=== PATIENT | female | born 1975 | race Caucasian/White ===

== ENCOUNTER 2019-05-13 15:26 | Outpatient (CLI) | payer MEDICARE, SELFPAY ==
--- NOTE | ~2019-05-13 | XR_ITS ---
XR foot RT min 3V DATE: 05/13/2019 15:53 INDICATION: Right foot pain. Injury to plantar surface of right foot. TECHNIQUE: 4 views COMPARISON: None FINDINGS: Plantar calcaneal enthesopathy. No fracture or dislocation, periosteal reaction or bone destruction is detected. IMPRESSION: Plantar calcaneal enthesopathy No fracture or dislocation Reviewed, dictated and finalized at location A.
== END 2019-05-13 15:27 | disposition home or self-care (01) ==
LOC: ANHIMG 15:40
PROVIDERS: PCP Family Medicine; Visit Provider Nurse Practitioner Family
DX: M79.671 Pain in right foot (principal); M77.31 Calcaneal spur, right foot
CPT/HCPCS: 73630

== ENCOUNTER 2019-12-11 02:02 | Emergency (ER) | payer MEDICARE, MEDICAID, SELFPAY ==
--- NOTE | ~2019-12-11 | XR_ITS ---
EXAMINATION: XR knee LT 3V DATE: 12/11/2019 02:39 INDICATION: Left knee pain TECHNIQUE: Four views of the left knee were obtained. COMPARISON: None. FINDINGS: Alignment is normal. No fracture or osteochondral lesion. Joint spaces are normal with no e rosions. A small knee joint effusion is present. There is anterior soft tissue swelling of the knee. IMPRESSION: 1. Soft tissue swelling and small effusion without acute osseous abnormality. Reviewed, dictated and finalized at location A. NG PROFESSOR
[2019-12-11 02:01] VITALS: BP 139/95; PULSE 69; RESP 20; TEMP 36.3; O2SAT 100
[2019-12-11] MEDS: MORPHINE SULFATE (*CRX) 4 MG/ML INJ IV PUSH (02:14)
--- NOTE | 2019-12-11 02:32 | ED.LOWEXIN ---
HPI - Extremity Injury (Lower) General Chief Complaint: Extremity Injury, Lower Stated Complaint: L knee pain Time Seen by Provider: 12/11/19 02:06 History of Present Illness HPI Narrative: Patient is a 44-year-old female who presents to the ER with left knee pain. Patient reports she was standing at her sink when she had some sudden onset pain that caused her leg to buckle on her to fall to the ground. Pain went down towards mid calf on the anterior aspect of the ochoa. No numbness or tingling. No deformity. Patient has history of previous surgery around the knee when she had a degloving injury. She has chronic numbness over the anterior portion of her knee. Patient has increased discomfort with extension and flexion. Related Data Home Medications Medication Instructions Recorded Confirmed alprazolam [Xanax] 1 mg PO BID PRN 12/11/19 quetiapine [Seroquel] 400 mg PO BID 12/11/19 venlafaxine 150 mg PO DAILY 12/11/19 Allergies Allergy/AdvReac Type Severity Reaction Status Date / Time lisinopril Allergy Intermediate Loss of Verified 12/11/19 02:11 Consciousness butalbital Allergy Unknown Unknown Verified 12/11/19 02:11 caffeine Allergy Unknown Unknown Verified 12/11/19 02:11 Bumble Bee Allergy Severe Anaphylactic Uncoded 09/16/18 00:34 Shock Review of Systems Musculoskeletal: Musculoskeletal: Denies back pain, Reports arthralgias and Denies joint swelling Integumentary/Breasts: Skin/Breast: Denies rash Neurologic: Denies syncope, Denies focal weakness and Reports numbness (Chronic left anterior knee) [facility] Past Medical History Medical History (Updated 12/11/19 @ 04:01 by Janak Garcia MD) Anemia Esophageal ulcer Hypertension Family History Family History Father Hypertension Family history of malignant neoplasm of urinary bladder Mother Hypertension Other Family history of chronic obstructive pulmonary disease Family history of malignant neoplasm of breast Family history of thyroid disease Social History Social History Smoking status: Never smoker Alcohol intake: never Exam Narrative: Exam Narrative: GENERAL: Well-appearing, well-nourished, and in no acute distress. HEAD: Normocephalic, atraumatic. EXTREMITIES: No direct point tenderness to the left knee, there is a small bruise over the anterior aspect of the knee. Patient can reach full extension and near full flexion with passive range of motion. Decreased sensation over the anterior knee which is chronic. Normal pulses of the lower extremity. SKIN: Warm, dry, no rash. NEURO: Alert and oriented x3. PSYCH: Normal mood and affect. Course Course Emergency Course: Patient placed in knee immobilizer for comfort. Knee x-ray shows effusion. May have soft tissue injury. Needs follow-up with orthopedic surgery. Vital Signs Vital signs: Vital Signs Temperature 97.4 F L 12/11/19 02:01 Pulse Rate 69 12/11/19 02:01 Respiratory Rate 20 12/11/19 02:01 Blood Pressure 139/95 H 12/11/19 02:01 Pulse Oximetry 100 12/11/19 02:01 Temperature 97.4 F L 12/11/19 02:01 Pulse Rate 69 12/11/19 02:01 Respiratory Rate 20 12/11/19 02:01 Blood Pressure 139/95 H 12/11/19 02:01 Pulse Oximetry 100 12/11/19 02:01 MDM - Extremity Injury (Lower) Imaging Data My impression: X-ray right knee: Knee effusion Discharge Plan Discharge Clinical Impression: Effusion of knee joint, left Patient Disposition: Home, Self-Care Condition: Stable Instructions: Swollen Knee Joint (ED), Knee Immobilizer (ED) Additional Instructions: The x-ray of your knee is concerning for fluid within the knee. This may be physician representative of a soft tissue injury. You should wear your knee immobilizer and bear weight as tolerated using crutches. Return to the ER if you have chest pain with shortness of breath, cannot keep d
[2019-12-11 04:06] VITALS: BP 144/79; PULSE 72; RESP 18; O2SAT 100
[2019-12-11] MEDS: HYDROcodone/acetaminophen (*CRX) 5-325 MG TABLET 1 TAB PO (04:12)
== END 2019-12-11 04:35 | disposition home or self-care (01) ==
PROVIDERS: Emergency Provider Emergency Medicine; PCP Family Medicine
DX: M25.462 Effusion, left knee (principal); I10 Essential (primary) hypertension; Z86.2 Personal history of diseases of the blood and blood-forming organs and certain disorders involving the immune mechanism
CPT/HCPCS: 73562; 96374; 99284; A9270; J2270

== ENCOUNTER 2019-12-12 01:54 | Emergency (ER) | payer MEDICARE, MEDICAID, SELFPAY ==
--- NOTE | ~2019-12-12 | CT_ITS ---
EXAMINATION: CT knee LT wo con EXAM DATE: 12/12/2019 03:00 INDICATION: Left knee pain after fall last night. Initial encounter. TECHNIQUE: Spiral CT knee LT wo con was performed without contrast. Axial, coronal and sagittal felix ges were reviewed. The dose-length product (DLP) for this examination was 464.28 mGy-cm. The exposu re was tailored according to patient size (auto mA exposure control), and iterative reconstruction (A SIR) was used as additional dose reduction technique. There is no prior study for comparison. FINDINGS: There are no acute left knee fractures or dislocations identified. There is no subcutaneou s gas. The soft tissue is unremarkable. There are no radiopaque foreign bodies. There is no joint effusion. Mild soft tissue swelling anteriorly. There is mild medial tibiofemoral compartment primar y osteoarthritis. IMPRESSION: Mild left knee osteoarthritis. Reviewed, dictated and finalized at location B. HER BELT SHAPER
[2019-12-12 01:59] VITALS: BP 147/113; PULSE 80; RESP 18; TEMP 36; O2SAT 98
--- NOTE | 2019-12-12 02:10 | ED.LOWEXIN ---
HPI - Extremity Injury (Lower) General Chief Complaint: Extremity Injury, Lower Stated Complaint: leg pain, seen here last night Time Seen by Provider: 12/12/19 01:59 History of Present Illness HPI Narrative: Fall onto he left knee last night. Seen here and had negative x-ray. Discharged with norco. Says that she can not tolerate the pain. It is getting worse and she is not able to walk or sleep. Related Data Home Medications Medication Instructions Recorded Confirmed alprazolam [Xanax] 1 mg PO BID PRN 12/11/19 12/21/19 quetiapine [Seroquel] 400 mg PO BID 12/11/19 12/21/19 venlafaxine 150 mg PO DAILY 12/11/19 12/21/19 Allergies Allergy/AdvReac Type Severity Reaction Status Date / Time lisinopril Allergy Intermediate Loss of Verified 12/12/19 13:20 Consciousness butalbital Allergy Unknown Unknown Verified 12/12/19 13:20 caffeine Allergy Unknown Unknown Verified 12/12/19 13:20 Bumble Bee Allergy Severe Anaphylactic Uncoded 12/12/19 13:20 Shock Review of Systems Review of Systems: All systems reviewed & are unremarkable except as noted in HPI and below Constitutional: Constitutional: Denies fever(s) Cardiovascular: Cardiovascular: Denies chest pain Respiratory: Respiratory: Denies dyspnea Neurologic: Denies dizziness PMFSH Past Medical History Medical History Anemia Esophageal ulcer Hypertension Surgical History Surgical History H/O elbow surgery left, 2012 History of ankle surgery left, 12/23/2017 and 03/29/2017 Family History Family History Father Hypertension Family history of malignant neoplasm of urinary bladder Mother Hypertension Other Family history of chronic obstructive pulmonary disease Family history of malignant neoplasm of breast Family history of thyroid disease Social History Social History Smoking status: Never smoker Alcohol intake: current 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 No obvious injury. Exam somewhat limited by body habitus and lack of cooperation. Psych: Appearance: disheveled Affect: Anxious affect present Course Vital Signs Vital signs: Vital Signs Temperature 36.0 C L 12/12/19 01:59 Pulse Rate 80 12/12/19 01:59 Respiratory Rate 18 12/12/19 01:59 Blood Pressure 147/113 H 12/12/19 01:59 Pulse Oximetry 98 12/12/19 01:59 Temperature 36.0 C L 12/12/19 01:59 Pulse Rate 67 12/12/19 04:28 Respiratory Rate 18 12/12/19 04:28 Blood Pressure 131/95 H 12/12/19 04:28 Pulse Oximetry 97 12/12/19 04:28 MDM - Extremity Injury (Lower) Differential Diagnosis Differential diagnosis: Likely other (tibial plateau fracture, contusion, sprain) Medical Records Attestation: I reviewed the patient's medical records. Imaging Data Radiologist's impression: ITS Impressions Knee CT 12/12/19 08:35 IMPRESSION: Mild left knee osteoarthritis. Discharge Plan Discharge Clinical Impression: Contusion of knee, left Patient Disposition: Home, Self-Care Condition: Stable Instructions: Knee Pain (ED) Prescriptions: No Action tramadol 50 mg tablet 50 mg PO Q6H PRN (Reason: pain) Qty: 20 RF: 0 ibuprofen 800 mg tablet 800 mg PO Q6H Qty: 60 RF: 0 alprazolam [Vasquez
[2019-12-12] MEDS: KETOROLAC (*BKC) 60 MG/2 ML VIAL IM (02:15)
[2019-12-12 04:28] VITALS: BP 131/95; PULSE 67; RESP 18; O2SAT 97
== END 2019-12-12 04:25 | disposition home or self-care (01) ==
PROVIDERS: Emergency Provider Emergency Medicine; PCP Family Medicine
DX: S80.02XA Contusion of left knee, initial encounter (principal); Z86.2 Personal history of diseases of the blood and blood-forming organs and certain disorders involving the immune mechanism; I10 Essential (primary) hypertension; M17.12 Unilateral primary osteoarthritis, left knee; W19.XXXA Unspecified fall, initial encounter
CPT/HCPCS: 73700; 96372; 99284; J1885

== ENCOUNTER 2019-12-29 07:29 | Outpatient (CLI) | payer MEDICARE, SELFPAY ==
--- NOTE | ~2019-12-29 | MR_ITS ---
EXAMINATION: MR lumbar spine wo con DATE: 12/29/2019 08:59 INDICATION: Lumbar radiculopathy. TECHNIQUE: Magnetic resonance imaging (MRI) of the lumbar spine was performed without intravenous con trast. Sequences included sagittal T2-weighted FSE, sagittal T2-weighted FS FSE, sagittal T1-weighted FSE, and axial T2-weighted FSE. COMPARISON: None FINDINGS: There is 6 degrees levocurvature of lumbar spine. Vertebral body heights are normal. There is a hemangioma in L2 vertebral body. There is mildly decreased disc height at L3-L4 and L4-L5. The d istal spinal cord signal intensity is normal. The conus medullaris is at T12. The following disc leve ls are specifically discussed: L1-L2: The disc does not extend beyond the endplate margin. There is mild bilateral facet joint osteo arthritis. There is no neural foraminal stenosis. There is no central canal stenosis. L2-L3: The disc does not extend beyond the endplate margin. There is severe right and mild left facet joint osteoarthritis. There is no neural foraminal stenosis. There is no central canal stenosis. L3-L4: The disc is bulging with superimposed left foraminal extrusion. There is mild bilateral facet joint osteoarthritis. There is mild right and moderate left neural foraminal stenosis. There is mild central canal stenosis. L4-L5: There is a left foraminal extrusion. There is mild bilateral facet joint osteoarthritis. There is mild right and moderate left neural foraminal stenosis. There is mild central canal stenosis. L5-S1: There is a central protrusion. There is moderate bilateral facet joint osteoarthritis. There i s mild bilateral neural foraminal stenosis. There is mild central canal stenosis. IMPRESSION: 1. Moderate lumbar spondylosis. Reviewed, dictated and finalized at location A. SUPPORT SPECIALIST
== END 2019-12-29 07:30 | disposition home or self-care (01) ==
LOC: ANHIMG 07:31
PROVIDERS: PCP Family Medicine; Visit Provider Orthopaedic Surgery
DX: M47.26 Other spondylosis with radiculopathy, lumbar region (principal)
CPT/HCPCS: 72148

== ENCOUNTER 2020-02-04 20:54 | Emergency (ER) | payer OTHER, MEDICARE, MEDICAID, SELFPAY ==
--- NOTE | ~2020-02-04 | XR_ITS ---
EXAMINATION: XR knee LT 3V EXAM DATE: 02/04/2020 21:50 INDICATION: Initial encounter following injury, with pain of the left knee. TECHNIQUE: Frontal, lateral, sunrise projections of the left knee. Comparison is made to prior exami nation from 12/11/2019. FINDINGS: There is mild left patellofemoral compartment primary osteoarthritis. No joint effusion. T here are no acute fractures or dislocations identified. There is no subcutaneous gas. The soft tiss ue is unremarkable. There are no radiopaque foreign bodies. IMPRESSION: 1. XR knee LT 3V exam without acute osseous findings. Reviewed, dictated and finalized at location A. PROFILING MACHINE SET UP OPERATOR
--- NOTE | ~2020-02-04 | CT_ITS ---
EXAMINATION: CT BRAIN W/O DATE: 02/04/2020 21:33 INDICATION: Fall. Loss of consciousness. TECHNIQUE: Computed tomography (CT) of the head was performed without intravenous contrast. The dose- length product was 605.33 mGy-cm. The mA was adjusted according to patient size. Iterative reconstruc tion technique was employed. COMPARISON: CT dated 09/16/2018 FINDINGS: Normal brain parenchymal volume for age. Normal wesley-white differentiation. No acute intrac ranial hemorrhage, infarction, mass or mass effect. No ventriculomegaly or midline shift. Midline sagittal images demonstrate a normal corpus callosum, c raniovertebral junction and sella turcica. Basilar cisterns are patent. Paranasal sinuses and mastoids are pneumatized. No depressed skull fractures. IMPRESSION: 1. No acute intracranial abnormality. Reviewed, dictated and finalized at location A. TH AND GARLAND MAKER HAND
--- NOTE | ~2020-02-04 | XR_ITS ---
EXAMINATION: XR ankle RT 2V EXAM DATE: 02/04/2020 21:50 INDICATION: Initial encounter following injury, with pain of the right ankle. TECHNIQUE: Frontal and lateral projections of the right ankle. There is no prior study for comparis on. FINDINGS: Small inferior calcaneal spur. There are no acute right ankle fractures or dislocations id entified. There is no subcutaneous gas. The soft tissue is unremarkable. There are no radiopaque foreign bodies. IMPRESSION: 1. XR ankle RT 2V exam without acute osseous findings. Reviewed, dictated and finalized at location A. PHONE LINEMAN
[2020-02-04 21:03] VITALS: BP 155/96; PULSE 79; RESP 20; TEMP 36.5; O2SAT 99
--- NOTE | 2020-02-04 21:08 | ED.FALL ---
HPI - Fall General Chief Complaint: Fall Stated Complaint: Fall, hit head Time Seen by Provider: 02/04/20 20:58 History of Present Illness HPI Narrative: 45 yo female presents from home after a fall. She reports that she missed a step while walking down the stairs and fell down the remaining 3 steps. She reportedly struck her head and was unconscious for 10 minutes. She also has severe pain in the left knee and right ankle. She has not attempted to bear weight. Related Data Home Medications Medication Instructions Recorded Confirmed alprazolam [Xanax] 1 mg PO BID PRN 12/11/19 12/21/19 quetiapine [Seroquel] 400 mg PO BID 12/11/19 12/21/19 venlafaxine 150 mg PO DAILY 12/11/19 12/21/19 Allergies Allergy/AdvReac Type Severity Reaction Status Date / Time lisinopril Allergy Intermediate Loss of Verified 12/12/19 13:20 Consciousness butalbital Allergy Unknown Unknown Verified 12/12/19 13:20 caffeine Allergy Unknown Unknown Verified 12/12/19 13:20 Bumble Bee Allergy Severe Anaphylactic Uncoded 12/12/19 13:20 Shock Review of Systems Review of Systems: All systems reviewed & are unremarkable except as noted in HPI and below Constitutional: Constitutional: Denies fever(s) Eyes: Eyes: Denies change in vision Cardiovascular: Cardiovascular: Denies chest pain Respiratory: Respiratory: Denies dyspnea Gastrointestinal: Gastrointestinal: Denies abdominal pain Musculoskeletal: Musculoskeletal: Denies back pain Neurologic: Denies headache(s) PMFSH Past Medical History Medical History Anemia Esophageal ulcer Hypertension Surgical History Surgical History H/O elbow surgery left, 2012 History of ankle surgery left, 12/23/2017 and 03/29/2017 Family History Family History Father Hypertension Family history of malignant neoplasm of urinary bladder Mother Hypertension Other Family history of chronic obstructive pulmonary disease Family history of malignant neoplasm of breast Family history of thyroid disease Social History Social History Smoking status: Never smoker Alcohol intake: current 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 Gender identity (if verbalized by the patient): Female Exam Const: General: no acute distress and alert Nutritional Appearance: obese Orientation/consciousness: patient oriented x3 HENMT: Head: normal to inspection, no contusions and no lacerations Eyes: Pupils: Equal, round and reactive pupils present Neck: Neck: normal visual inspection Resp: Effort & Inspection: normal respiratory effort Auscultation: clear to auscultation bilaterally Cardio: Rate: regular rate Rhythm: regular rhythm GI: Other: soft nontender Skin: General skin exam: normal color Rashes: no rashes Wounds: no wounds Neuro: General: patient oriented x3, moves all extremities and CN's II-XI intact bilaterally Speech: normal speech Extrem: Other: left knee and right ankle tenderness without obvious trauma Course Vital Signs Vital signs: Vital Signs Temperature 36.5 C 02/04/20 21:03 Pulse Rate 79 02/04/20 21:03 Respiratory Rate 20 02/04/20 21:03 Blood Pressure 155/96 H 02/04/20 21:03 Pulse Oximetry 99 02/04/20 21:03 Temperature 36.7 C 02/04/20 22:44 Pulse Rate 68 02/04/20 23:30 Respiratory Rate 18 02/04/20 23:30 Blood Pressure 149/81 H 02/04/20 23:30 Pulse Oximetry 99 02/04/20 23:30 MDM - Fall Differential Diagnosis Differential diagnosis: Likely syncope, concussion with loss of consciousness and other (tibial plateau fracture, ankle fracture, SDH) Medical Records Attestation: I reviewed the patient's medical records. Lab Data Attestation: I reviewed the patient's lab results. Result ayse
[2020-02-04 21:19] LABS: Hematocrit 41.3 % (37.0-47.0); Hemoglobin 13.6 g/dL (12.0-15.0); Immature Granulocyte Absolute 0.02 K/mm3 (0.00-0.031); Immature Granulocyte Percent A 0.4 % (0-0.5); Lymphocytes Absolute Auto 2.03 K/mm3 (0.9-3.2); Lymphocytes Percent Auto 40.8 % (18.3-44.2); Mean Corpuscular HGB Conc 32.9 g/dl (32-36); Mean Corpuscular Hemoglobin 28.9 pg (26-34); Mean Corpuscular Volume 87.9 fl (80-100); Mean Platelet Volume 10.5 fl (7.4-10.4); Monocytes Absolute Auto 0.3 K/mm3 (0.1-0.6); Monocytes Percent Auto 5.2 % (2.6-8.5); Neutrophils Absolute Auto 2.7 K/mm3 (1.3-6.7); Neutrophils Percent Auto 53.6 % (45.5-73.1); Platelet Count Result 242 k/mm3 (150-375)
[2020-02-04 21:29] LABS: INR 0.9; Partial Thromboplastin Time 24.7 SECONDS (22.3-36.8); Prothrombin Time 12.6 Seconds (11.1-14.7)
[2020-02-04 21:31] LABS: Anion Gap 8 mmol/L (8-16); Blood Urea Nitrogen 11 mg/dL (7-17); Calcium 9.2 mg/dL (8.4-10.2); Carbon Dioxide 29 mmol/L (22-30); Chloride 103 mmol/L (98-107); Estimated CRCL calculation 59 ml/min; Estimated Glomerular Filt Rate 49; Glucose 109 mg/dL (65-105); Potassium 3.6 mmol/L (3.4-5.0); Sodium 140 mmol/L (137-145)
[2020-02-04 22:04] VITALS: BP 142/82; PULSE 68; RESP 18; TEMP 37.1; O2SAT 98
--- NOTE | 2020-02-04 22:11 | PC.NURSE ---
Patient reports no change in pain level after fall. She reports ongoing dizziness at this time.
[2020-02-04] MEDS: KETOROLAC 30 MG/ML VIAL (*BKC) IV PUSH (22:35)
[2020-02-04 22:44] VITALS: BP 135/81; PULSE 65; RESP 18; TEMP 36.7; O2SAT 99
[2020-02-04 23:30] VITALS: BP 149/81; PULSE 68; RESP 18; O2SAT 99
== END 2020-02-04 23:33 | disposition home or self-care (01) ==
PROVIDERS: Emergency Provider Emergency Medicine; PCP Family Medicine
DX: S06.9X9A Unspecified intracranial injury with loss of consciousness of unspecified duration, initial encounter (principal); M25.571 Pain in right ankle and joints of right foot; I10 Essential (primary) hypertension; Z86.2 Personal history of diseases of the blood and blood-forming organs and certain disorders involving the immune mechanism; W10.9XXA Fall (on) (from) unspecified stairs and steps, initial encounter
CPT/HCPCS: 36415; 70450; 73562; 73600; 80048; 85025; 85610; 85730; 96365; 96375; 99284; J0131; J1885

== ENCOUNTER 2020-05-25 16:02 | Inpatient (IN) | payer MEDICARE, MEDICAID, SELFPAY ==
[2020-05-25] VITALS (8 sets, daily range): BP systolic 144–173; BP diastolic 103–123; PULSE 85–93; RESP 12–16; TEMP 36.4–36.7; O2SAT 96–99; BMI 45.7
--- NOTE | ~2020-05-25 | CT_ITS ---
EXAMINATION: CTA chest PE protocol DATE: 05/25/2020 18:45 INDICATION: Unresponsive TECHNIQUE: Computed tomography angiography (CTA) of the chest was performed with 100 mL Omnipaque-350 intravenous contrast timed to evaluate the pulmonary arteries. Coronal maximum intensity projection 3D-reconstructions were created by the technologist. Automated exposure control and iterative reconst ruction technique were employed. Exam dose: 951.93 mGy-cm total exam DLP. COMPARISON: 05/25/2020 portable AP chest FINDINGS: There is diagnostic contrast enhancement of the pulmonary arteries and no evidence of pulmo nary embolism. No thoracic aortic aneurysm or dissection. Normal heart size. There is mild to moderate pericardial effusion. No hilar or mediastinal mass lesion or lymphadenopathy. Minimal atelectasis in the lower lobes. Normal morphology of the adrenal glands. Status post cholecystectomy. Included skeletal structures are unremarkable. IMPRESSION: No evidence of pulmonary embolism Minimal atelectasis in the lower lobes Reviewed, dictated and finalized at [facility]. Reviewed, dictated and finalized at location A.
--- NOTE | ~2020-05-25 | CT_ITS ---
EXAMINATION: CT brain wo con DATE: 05/25/2020 18:21 INDICATION: Unresponsiveness TECHNIQUE: Computed tomography (CT) of the head was performed without intravenous contrast. The mA wa s adjusted according to patient size. Iterative reconstruction technique was employed. Exam dose: 60 5.33 mGy-cm total exam DLP. COMPARISON: 02/04/2020 CT brain FINDINGS: No intracranial mass lesion or hemorrhage or cerebrovascular accident. No midline shift or mass effect. Normal ventricular size. No subdural or epidural hematoma. No fracture or bone destruction of the cranial vault. Included paranasal sinuses and mastoid air cell s are unremarkable. IMPRESSION: No significant abnormality Reviewed, dictated and finalized at [facility]. Reviewed, dictated and finalized at location A. IMPRESSION: No significant abnormality
--- NOTE | ~2020-05-25 | XR_ITS ---
EXAMINATION: XR chest 1V portable INDICATION: Transient alteration of awareness TECHNIQUE: Portable AP chest at 1701 hours COMPARISON: 09/16/2018 FINDINGS: There are minimal airspace opacities of the lung bases. Lung volumes are low. There is no p leural effusion or pneumothorax. The cardiomediastinal silhouette is normal. Calcified right paratrac heal lymph nodes are consistent with old granulomatous disease. IMPRESSION: 1. Bibasilar airspace opacities, consistent with atelectasis versus pneumonia. Reviewed, dictated and finalized at location B.
--- NOTE | ~2020-05-25 | XR_ITS ---
EXAMINATION: XR ankle LT min 3V DATE: 05/25/2020 17:04 INDICATION: Left ankle pain, initial encounter TECHNIQUE: Anteroposterior, lateral, mortise, and additional oblique view of the ankle were obtained. COMPARISON: None. FINDINGS: Ankle soft tissue swelling is present. There is subtle lucency at the tip of the lateral ma lleolus. Changes of prior medial malleolus fracture are noted. Bone alignment is normal. IMPRESSION: 1. Ankle soft tissue swelling with subtle lucency in the lateral malleolus which could reflect nondis placed fracture. Reviewed, dictated and finalized at location B. IMPRESSION: 1. Ankle soft tissue swelling with subtle lucency in the lateral malleolus whic h could reflect nondisplaced fracture.
--- NOTE | ~2020-05-25 | US_ITS ---
US right upper quadrant DATE: 05/26/2020 13:50 INDICATION: Elevated transaminases TECHNIQUE: Real-time imaging of liver, pancreas and gallbladder fossa COMPARISON: 09/13/2017 right upper quadrant abdominal ultrasound 08/06/2015 CT abdomen pelvis FINDINGS: The gallbladder is surgically absent. The common bile duct measures approximately 7.5 mm, which may be within normal range postcholecystect lele. Recommend correlation with serum bilirubin level. No hepatic space-occupying mass lesion is evident. The pancreas is not well demonstrated due to body habitus and interference from bowel gas. Normal hepatopedal portal venous flow direction. IMPRESSION: Status post cholecystectomy Pancreas is largely obscured Reviewed, dictated and finalized at [facility]. Reviewed, dictated and finalized at location A.
--- NOTE | 2020-05-25 16:10 | ECG_ITS ---
Measurements Intervals [place] Rate: 86 P: 34 VT: 152 QRS: 27 QRSD: 70 T: 47 QT: 339 QTc: 406 Interpretive Statements SINUS RHYTHM BASELINE ARTIFACT- I, II, III, AVL, V1 NORMAL ECG Electronically Signed On 05-25-2020 19:05:52 CDT by Elian Monae D.O.
--- NOTE | 2020-05-25 16:25 | ED.GENADULT ---
HPI - General Adult General Chief complaint: Altered Mental Status Stated complaint: UNRESPONSIVE EPISODE Time Seen by Provider: 05/25/20 16:06 Source: patient Mode of arrival: ambulatory Limitations: no limitations History of Present Illness HPI narrative: This is a 45 year old female with history of anxiety, syncope, chronic pain who presents for evaluation of unresponsiveness. PAtient was found sitting in a chair with eyes open but only responsive to verbal stimuli. EMS found patient with pinpoint pupils so she was given narcan 2 mg IV and she became responsive. Patient states she was prescribed tylenol with codeine yesterday by her orthopedic surgeon. She has had left ankle pain for 3 weeks after her dog jumped on it so she was prescribed pain medications. She was prescribed 14 tablets yesterday and she only has 4 tablets left. She states she only taken medication as prescribed with is twice a day. She denies taking her xanax today. She denies chest pain, sob, nausea, vomiting, diarrhea or headache. She reports history of syncope , and she states she has had multiple evaluations for it. She has been rule out for epilepsy. She denies being suicidal or homicidal. Related Data Home Medications Medication Instructions Recorded Confirmed alprazolam [Xanax] 1 mg PO BID PRN 12/11/19 05/07/20 quetiapine [Seroquel] 400 mg PO BID 12/11/19 05/07/20 venlafaxine 150 mg PO DAILY 12/11/19 05/07/20 Allergies Allergy/AdvReac Type Severity Reaction Status Date / Time lisinopril Allergy Intermediate Loss of Verified 04/03/20 10:33 Consciousness Bumble Bee Allergy Severe Anaphylactic Uncoded 04/03/20 10:33 Shock Review of Systems Review of Systems: All systems reviewed & are unremarkable except as noted in HPI and below PMFSH Past Medical History Medical History Anemia BMI 40.0-44.9, adult Esophageal ulcer Fall Hypertension Rib pain on left side Surgical History Surgical History H/O elbow surgery left, 2011 History of ankle surgery left, 12/23/2017 and 03/29/2017 Family History Family History Father Hypertension Family history of malignant neoplasm of urinary bladder Mother Hypertension Other Family history of chronic obstructive pulmonary disease Family history of malignant neoplasm of breast Family history of thyroid disease Social History Social History Smoking status: Never smoker Alcohol intake: current 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 Gender identity (if verbalized by the patient): Female Exam Const: General: no acute distress Nutritional Appearance: obese Orientation/consciousness: patient oriented x3 Other: lethargic Eyes: Pupils: Equal, round and reactive pupils present EOM: EOMs intact bilaterally Chest: Chest palpation & inspection: normal inspection of the chest Resp: Effort & Inspection: normal respiratory effort and no retractions Auscultation: clear to auscultation bilaterally Cardio: Rate: regular rate Rhythm: regular rhythm Heart sounds: no murmurs GI: GI Palp: Yes Soft to palpation, No Tenderness to palpation present (GI) and No Guarding due to palpation present (GI) Auscultation: normal bowel sounds Skin: General skin exam: normal color Rashes: no rashes Neuro: General: patient oriented x3, moves all extremities and CN's II-XI intact bilaterally Extrem: Other: left ankle, no erythema, left lateral ankle TTP Psych: Mental Status: mental status grossly normal Affect: normal affect Course Reevaluation(s) Reevaluation #1: I Discussed with patient lab abnormalities. She denies history of liver abnormalities. She denies taking additional tylenol. She denies history of pericardial effusion. s
[2020-05-25] MEDS: ONDANSETRON INJ 4 MG/2 ML VIAL IV PUSH (16:40)
[2020-05-25] MEDS: SODIUM CHLORIDE 0.9% IV 1,000 ML 999 ML IV CONT (16:41)
[2020-05-25 16:50] LABS: Alveolar/Arterial O2 Gradient 18.3 mmHg; Base Excess ABG 0.7 mEq/l (+/-2.0); Device ROOM AIR; Fractional Inspired Oxygen 21 %; HCO3 ABG 27.8 mEq/l (22.0-26.0); Modified Allen's Test Pass; Oxygen Content ABG 18.3 %vol (16.0-22.0); Oxygen Saturation ABG 91.1 % (95.0-100.0); Oxyhemoglobin 91.9 % THb (90.0-100.0); PO2 ABG 65.6 mmHg (80.0-100.0); PO2 FiO2 Ratio Arterial Blood 3.12 %; Site Drawn LEFT RADIAL; Total Hemoglobin 14.2 g/dL (12.0-18.0); pH ABG 7.322 (7.350-7.450)
[2020-05-25 17:14] LABS: Basophils Percent Auto 0.1 % (0.2-1.2); Eosinophils Percent Auto 0.1 % (0-4.4); Hemoglobin 13.8 g/dL (12.0-15.0); Immature Granulocyte Absolute 0.02 K/mm3 (0.00-0.031); Immature Granulocyte Percent A 0.2 % (0-0.5); Lymphocytes Absolute Auto 0.56 K/mm3 (0.9-3.2); Lymphocytes Percent Auto 6.5 % (18.3-44.2); Mean Corpuscular HGB Conc 32.1 g/dl (32-36); Mean Corpuscular Hemoglobin 28.7 pg (26-34); Mean Corpuscular Volume 89.4 fl (80-100); Mean Platelet Volume 10.4 fl (7.4-10.4); Monocytes Absolute Auto 0.6 K/mm3 (0.1-0.6); Monocytes Percent Auto 6.7 % (2.6-8.5); Neutrophils Absolute Auto 7.5 K/mm3 (1.3-6.7); Neutrophils Percent Auto 86.4 % (45.5-73.1); Platelet Count Result 251 k/mm3 (150-375); Red Blood Count 4.81 M/mm3 (4.2-5.4); White Blood Count 8.7 K/mm3 (4.5-10.0)
[2020-05-25 17:22] LABS: INR 0.9; Partial Thromboplastin Time 22.2 SECONDS (22.3-36.8); Prothrombin Time 12.8 Seconds (11.1-14.7)
[2020-05-25 17:24] LABS: Acetaminophen < 10 ug/mL (10-30); Ethanol < 10 mg/dL (<10); Salicylate < 1.0 mg/dL (2-20)
[2020-05-25 17:30] LABS: Alanine Aminotransferase 633 U/L (4-35); Albumin Level 4.6 g/dL (3.5-5.1); Alkaline Phosphatase 169 U/L (38-126); Anion Gap 5 mmol/L (8-16); Blood Urea Nitrogen 13 mg/dL (7-17); Calcium 9.2 mg/dL (8.4-10.2); Carbon Dioxide 36 mmol/L (22-30); Chloride 100 mmol/L (98-107); Estimated Glomerular Filt Rate 49; Glucose 115 mg/dL (65-105); Potassium 4.4 mmol/L (3.4-5.0); Sodium 141 mmol/L (137-145)
[2020-05-25 17:36] LABS: Troponin I < 0.012 ng/mL (0.000-0.034)
[2020-05-25 17:41] LABS: Aspartate Amino Transferase 922 U/L (14-36)
[2020-05-25] MEDS: NALOXONE HCL 0.4 MG/ML VIAL IV PUSH ×2 (17:44→23:21)
[2020-05-25 18:10] LABS: D Dimer 1.23 ug/mL (<0.48)
[2020-05-25 18:11] LABS: Add Urine Microscopic? YES; Appearance Urine Cloudy (Clear); Bilirubin Urine 1+ (Negative); Blood Urine Negative (Negative); Color Urine Amber (Yellow); Glucose Urine UA Negative (Negative); Ketones Urine Negative (Negative); Leukocyte Esterase Ur Negative LEU/UL (Negative); Mucus Urine Rare /lpf; Nitrate Urine Negative (Negative); Protein Urine 1+ mg/dL (Negative); RBC Urine 0-2 /hpf (0-2); Squamous Epithelial Cell Urine Rare /hpf (Few); WBC Urine 0-3 /hpf
[2020-05-25 18:13] LABS: Specific Grav Ur 1.031 (1.001-1.035)
[2020-05-25 18:24] LABS: Amphetamine Screen Urine Negative (Negative); Barbiturate Screen Urine Negative (Negative); Benzodiazepines Screen Urine Positive (Negative); Cannabinoid Screen Urine Positive (Negative); Cocaine Screen Urine Negative (Negative); Methadone Screen Urine Negative (Negative); Opiate Screen Urine Positive (Negative); Phencyclidine Screen Urine Negative (Negative)
[2020-05-25 19:06] LABS: Creatine Kinase 186 U/L (30-135)
[2020-05-25 20:31] LABS: Ammonia < 9 umol/L (9-30)
[2020-05-25 20:32] LABS: Acetaminophen < 10 ug/mL (10-30)
[2020-05-25 21:24] LABS: Glucose Point of Care 110 (65-105)
--- NOTE | 2020-05-25 21:47 | ADMGEN ---
This patient, Mariah Ling, was admitted to IMU Room 202-01 on 05/25/20 at 2210 . Patient/family oriented to hospital policies and general routines including ID bracelet, bed and alarms, visiting hours, pain management, procedures, bathroom and other care routines, personal items, smoking policy, room service/diet, and visiting hours. Information on how to activate the Rapid Response Team has been discussed. Patient/Family are encouraged to report perceived risks to care and to ask questions if they do not understand what they are told or what they should do.
--- NOTE | 2020-05-25 22:37 | PM.IMHP ---
H&P: HPI History of Present Illness Date/Time: 05/25/20 22:37 Chief Complaint: Unresponsive episode Narrative: 45-year-old female with a past medical history of morbid obesity, prior benzodiazepine overdose, depression, anxiety and chronic pain who presented to the ER via EMS after having an unresponsive episode. The patient's fiancee found the patient sitting in a chair wake but only responding minimally to verbal stimuli. EMS was called and the patient was found have constricted pupils. She was given 2 mg of Narcan and became more responsive. Evidently the patient has had left ankle pain for 3 weeks after her dog jumped on it. Her doctor prescribed her 14 tablets of Tylenol with codeine as on the . When she arrived to the ER around 4:00 p.m. she was down to 4 tablets. Also the patient had a prescription for Xanax 1 mg p.o. t.i.d. p.r.n. anxiety. She had 90 tablets filled on 05/23/2020 and she is down to 39 tablets. The patient received Narcan in the ER and was more responsive. The patient had an ABG performed in the ER which demonstrated mild hypercapnia with mild respiratory acidosis. Patient does have a history of obstructive sleep apnea but does not wear CPAP. The patient denies having taken extra medications. After my evaluation and requested nursing staff give the patient an additional 0.4 of Narcan with good response. She denies recent history of homicidal or suicidal ideation. She denies any IV drug use. She denies any alcohol use or illicit substance use. She denies having any shortness of breath or chest pain. That she was having some blood in her stool. I could not elicit any details regarding the blood in her stool. Upon review of records there is a virtual visit on 05/07/2020 at which she reported fatigue, lack of energy body aches and bright red blood in her stool to her primary care provider. The patient also reported chronic diarrhea to her primary care provider. She was referred for repeat labs and colonoscopy. The patient does have a distant history of elevated LFTs in 2018. She denies any abdominal pain nausea or vomiting. She denies any recent travel or known blood exposures. CMP in April demonstrated normal LFTs. She denies taking any additional tylenol. Labs patient's LFTs were markedly elevated with AST of 922, ALT 633 and alk-phos of 169. Unfortunately patient was unable to provide me with further information regarding her symptoms. She denies any chest pain, orthopnea or shortness of breath. Review of Systems Review of Systems: ROS unobtainable: Yes unobtainable due to mental status (Limited as the patient was continually falling asleep during evaluation) [facility] Past Medical History Medical History (Updated 05/26/20 @ 02:29 by Rosario Fam DO) Anemia BMI 40.0-44.9, adult Esophageal ulcer Hypertension Obstructive sleep apnea Vitamin D deficiency Surgical History Surgical History H/O elbow surgery left, 2012 History of ankle surgery left, 12/23/2017 and 03/29/2017 Family History Family History (Updated 05/26/20 @ 02:21 by Rosario Fam DO) Father Hypertension Bladder cancer Mother Hypertension Other Family history of chronic obstructive pulmonary disease Family history of malignant neoplasm of breast Family history of thyroid disease Social History Social History (Updated 05/26/20 @ 02:22 by Rosario Fam DO) Social History: The patient lives at home with her fiance. She has 2 children ages 21 and 18. Her 18-year-old daughter lives with her ex. She has a 3-year-old grandchild. Smoking status: Never smoker Alcohol intake: current Additional occupation/education comments: [employer] Gender identity (if verbalized by the patient): Female Meds Home Medications and Allergies Home Medications Medication Instructions Recorded Confirmed Type alprazolam [Xanax] 1 mg PO TID PRN 11
[2020-05-25 23:42] LABS: Alveolar/Arterial O2 Gradient 27.4 mmHg; Base Excess ABG 0.8 mEq/l (+/-2.0); Carboxyhemoglobin 0.5 % THb (0-2.0); Device ROOM AIR; Fractional Inspired Oxygen 21 %; HCO3 ABG 27.3 mEq/l (22.0-26.0); Methemoglobin ABG 0.3 %THb (0-1.5); Modified Allen's Test Pass; Oxygen Content ABG 17.6 %vol (16.0-22.0); Oxygen Saturation ABG 89.7 % (95.0-100.0); Oxyhemoglobin 90.9 % THb (90.0-100.0); PCO2 ABG 51.4 mmHg (35.0-45.0); PO2 ABG 60.8 mmHg (80.0-100.0); Reduced Hemoglobin 8.3 %THb (0-5.0); Site Drawn RIGHT RADIAL; Total Hemoglobin 13.8 g/dL (12.0-18.0); pH ABG 7.343 (7.350-7.450)
[2020-05-26] VITALS (15 sets, daily range): BP systolic 119–155; BP diastolic 76–93; PULSE 74–91; RESP 14–18; TEMP 36.1–36.6; O2SAT 91–96
[2020-05-26 05:11] LABS: Eosinophils Percent Auto 0.4 % (0-4.4); Hematocrit 37.8 % (37.0-47.0); Hemoglobin 12.5 g/dL (12.0-15.0); Immature Granulocyte Absolute 0.02 K/mm3 (0.00-0.031); Immature Granulocyte Percent A 0.4 % (0-0.5); Lymphocytes Absolute Auto 1.16 K/mm3 (0.9-3.2); Lymphocytes Percent Auto 24.2 % (18.3-44.2); Mean Corpuscular HGB Conc 33.1 g/dl (32-36); Mean Corpuscular Hemoglobin 28.4 pg (26-34); Mean Corpuscular Volume 85.9 fl (80-100); Mean Platelet Volume 10.7 fl (7.4-10.4); Monocytes Absolute Auto 0.4 K/mm3 (0.1-0.6); Neutrophils Absolute Auto 3.2 K/mm3 (1.3-6.7); Platelet Count Result 213 k/mm3 (150-375); Red Cell Distribution Width 12.7 % (11.5-14.5); White Blood Count 4.8 K/mm3 (4.5-10.0)
[2020-05-26 05:17] LABS: Partial Thromboplastin Time 20.8 SECONDS (22.3-36.8); Prothrombin Time 13.6 Seconds (11.1-14.7)
[2020-05-26 05:38] LABS: Alanine Aminotransferase 649 U/L (4-35); Albumin Level 3.9 g/dL (3.5-5.1); Alkaline Phosphatase 211 U/L (38-126); Anion Gap 6 mmol/L (8-16); Aspartate Amino Transferase 741 U/L (14-36); Bilirubin,Total 3.4 mg/dL (0.2-1.3); Blood Urea Nitrogen 11 mg/dL (7-17); Calcium 8.7 mg/dL (8.4-10.2); Carbon Dioxide 30 mmol/L (22-30); Chloride 103 mmol/L (98-107); Estimated CRCL calculation 83 ml/min; Estimated Glomerular Filt Rate > 60; Glucose 105 mg/dL (65-105); Potassium 3.7 mmol/L (3.4-5.0); Sodium 139 mmol/L (137-145)
--- NOTE | 2020-05-26 06:00 | ECHO_ITS ---
Patient Info Name: Mariah Ling Age: 45 years : 1975 Gender: Female Ht: 62 in Wt: 250 lbs BSA: 2.30 m2 HR: 88 bpm BP: 145 / 93 mmHg Heart Rhythm: Sinus Rhythm Technical Quality: Good Exam Date: 05/26/2020 8:29 AM Exam Location: [facility] Patient Status: Outpatient Admit Date: 05/25/2020 Staff Ordering Physician: Rufina Ocampo MD Primary Care Nurse Practitioner: Minal Valdovinos RDCS Attending Provider: Jaret Vogt MD Referring Physician: Terrence ASHFORD; Exam Type: CA echo doppler color flow Study Info Complete two-dimensional, color flow and Doppler transthoracic echocardiogram is performed. Summary 1. Complete two-dimensional, color flow and Doppler transthoracic echocardiogram is performed. 2. Left ventricular chamber size, wall thickness, systolic and diastolic function are normal with no regional wall motion abnormalities with an estimated ejection fraction of 55-60%. 3. Left atrial chamber dimension is mildly enlarged. 4. No significant valve disease. 5. Trivial pericardial effusion. 6. Normal sinus rhythm. Left Ventricle Left ventricular chamber dimension is normal. Left ventricular systolic function is normal, estimated at 55-60%. There is no increased left ventricular wall thickness. Left ventricular septal wall motion is normal. The left ventricular diastolic function is normal. Left ventricular chamber size, wall thickness, systolic and diastolic function are normal with no regional wall motion abnormalities with an estimated ejection fraction of 55-60%. Right Ventricle Right ventricular chamber dimension is normal. Right ventricular systolic function is normal. Left Atria Left atrial chamber dimension is mildly enlarged. Right Atria Right atrial chamber dimension is normal. Aortic Valve The aortic valve is trileaflet. There is no aortic valve sclerosis. There is no aortic valve stenosis. There is no aortic valve regurgitation. Pulmonic Valve The pulmonic valve is normal. There is no pulmonic valve stenosis. There is no pulmonic regurgitation. Mitral Valve The mitral valve has normal leaflets. There is no mitral valve stenosis. There is trace mitral valve regurgitation. Tricuspid Valve The tricuspid valve leaflets are normal. There is no significant tricuspid valve stenosis. There is trace tricuspid valve regurgitation. No pulmonary hypertension, estimated pulmonary arterial systolic pressure is Empty. Pericardium/Pleural The pericardium appears normal. There is trivial pericardial effusion. Inferior Vena Cava Normal inferior vena cava with >50% collapse upon inspiration consistent with Empty right atrial pressure, Empty. Aorta The aortic root size at the sinus of Valsalva is normal. The prox ascending aorta size is normal. Left Ventricular Outflow Tract Name Value Normal LVOT 2D LVOT Diameter 2.1 cm LVOT Doppler LVOT Peak Velocity 114 cm/s LVOT Peak Gradient 5 mmHg LVOT Mean Gradient 3 mmHg LVOT VTI 19 cm
[2020-05-26 08:01] LABS: Glucose Point of Care 110 (65-105)
[2020-05-26] MEDS: ENOXAPARIN 40 MG/0.4 ML SYRINGE SUB-Q (11:30)
[2020-05-26 12:01] LABS: Glucose Point of Care 92 (65-105)
[2020-05-26 12:47] LABS: Hepatitis B Surface Antigen Negative (Negative)
[2020-05-26 12:52] LABS: HAV RESULT Negative (Negative); Hepatitis B Core IgM Result Negative (Negative)
[2020-05-26 13:04] LABS: Hepatitis C Virus Antibody Negative (Negative)
--- NOTE | 2020-05-26 14:22 | PM.IMPN ---
Progress Note: A&P Assessment and Plan (1) Opioid overdose: Qualifiers: Encounter type: initial encounter Injury intent: accidental or unintentional Qualified Code(s): T40.2X1A - Poisoning by other opioids, accidental (unintentional), initial encounter Code(s): T40.2X1A - Poisoning by other opioids, accidental (unintentional), initial encounter Status: Acute Assessment and Plan: Patient appears to have taken excessive amounts of Tylenol No.3 and Xanax. She denies suicidal ideation. She cannot give me a good explanation about where the medications went. No one has access to her medications. She denies that she sells them. History is difficult because she still is groggy. Continue supportive care. When he to monitor closely for evidence of withdrawal. (2) Hypercapnic respiratory failure: Qualifiers: Chronicity: acute on chronic Qualified Code(s): J96.22 - Acute and chronic respiratory failure with hypercapnia Code(s): J96.92 - Respiratory failure, unspecified with hypercapnia Status: Acute Assessment and Plan: The patient has acute hypercapnic respiratory failure probably from hypoventilation due to her mental status changes from her overdose. Repeat blood gas showed improvement as her mental status improves. This should resolved. She may have also underlying chronic hypercapnic respiratory failure from untreated sleep apnea. Will check ABG in the morning. (3) Transaminitis: Code(s): R74.01 - Elevation of levels of liver transaminase levels Status: Acute Assessment and Plan: Patient had marked elevated LFTs in on admission. Probably shock liver for her respiratory depression. Tylenol level is negative. Tylenol level was repeated as remain negative. Poison control has been notified and did not feel Mucomyst was necessary. Hepatitis panel is negative. Upper quadrant ultrasound is normal except for a common bile duct measuring 7.5 mm which is not uncommon after cholecystectomy but could be the etiology of her elevated liver enzymes due to possible obstruction. Liver enzymes are trending downward. Continue to follow serially. Consider MRCP if she does not improve as expected. (4) Lateral malleolar fracture: Qualifiers: Encounter type: initial encounter Fracture alignment: nondisplaced Fracture type: closed Laterality: left Qualified Code(s): S82.65XA - Nondisplaced fracture of lateral malleolus of left fibula, initial encounter for closed fracture Code(s): S82.63XA - Displaced fracture of lateral malleolus of unspecified fibula, initial encounter for closed fracture Status: Acute Assessment and Plan: This is a known fracture and she already has a postoperative boot for her lateral malleolar fracture. Will have family bring in boot and attempt walking when she is more awake. (5) Pericardial effusion: Code(s): I31.3 - Pericardial effusion (noninflammatory) Status: Acute Assessment and Plan: Mild moderate pericardial effusion. Echocardiogram ordered. There is trivial pericardial effusion noted by echocardiogram. (6) DVT prophylaxis: Code(s): Z29.9 - Encounter for prophylactic measures, unspecified Status: Acute Assessment and Plan: Lovenox Subjective Date/time seen: 05/26/20 14:22 Interval history: 45yo female with anemia, anxiety and untreated VIVIEN here after being found unresponsive. Tired today. Does not feel confused. Complains of frontal MUNIZ. Has hx of migraines. No facial pain or sinus drainage. Complains of blurry visiion. No SI/HI. No hx of suicide attempt. Exam Narrative: Exam Narrative: AF 98.0 137/82 84 14 96% ra Gen - NARD Chest -Few scattered rhonchi. CV - RRR S1/S2. Telemetry showing no significant dysrhythmias Abd - Soft. Obese. Nontender. Nondistended. Ext - Soft tissue pedal edema. Mild edema left lateral ankle. N
[2020-05-26 16:06] LABS: Alanine Aminotransferase 691 U/L (4-35); Albumin Level 4.1 g/dL (3.5-5.1); Alkaline Phosphatase 276 U/L (38-126); Anion Gap 5 mmol/L (8-16); Aspartate Amino Transferase 592 U/L (14-36); Bilirubin,Total 3.7 mg/dL (0.2-1.3); Blood Urea Nitrogen 9 mg/dL (7-17); Calcium 8.9 mg/dL (8.4-10.2); Carbon Dioxide 32 mmol/L (22-30); Chloride 102 mmol/L (98-107); Estimated CRCL calculation 83 ml/min; Estimated Glomerular Filt Rate > 60; Glucose 93 mg/dL (65-105); Potassium 3.6 mmol/L (3.4-5.0); Sodium 139 mmol/L (137-145)
[2020-05-26 16:13] LABS: Glucose Point of Care 93 (65-105)
[2020-05-26] MEDS: QUEtiapine FUMARATE 100 MG TABLET 400 MG PO (20:39)
[2020-05-26 20:57] LABS: Glucose Point of Care 134 (65-105)
[2020-05-26 22:04] LABS: Alanine Aminotransferase 582 U/L (4-35); Albumin Level 3.7 g/dL (3.5-5.1); Alkaline Phosphatase 233 U/L (38-126); Aspartate Amino Transferase 402 U/L (14-36)
[2020-05-27] VITALS (12 sets, daily range): BP systolic 136–145; BP diastolic 83–89; PULSE 72–84; RESP 12–18; TEMP 36.3–36.8; O2SAT 96–99
[2020-05-27 04:28] LABS: Basophils Percent Auto 0.3 % (0.2-1.2); Eosinophils Percent Auto 0.3 % (0-4.4); Hematocrit 38.7 % (37.0-47.0); Hemoglobin 12.4 g/dL (12.0-15.0); Immature Granulocyte Absolute 0.01 K/mm3 (0.00-0.031); Immature Granulocyte Percent A 0.3 % (0-0.5); Lymphocytes Absolute Auto 1.29 K/mm3 (0.9-3.2); Mean Corpuscular Hemoglobin 28.4 pg (26-34); Mean Corpuscular Volume 88.6 fl (80-100); Mean Platelet Volume 10.6 fl (7.4-10.4); Monocytes Absolute Auto 0.3 K/mm3 (0.1-0.6); Monocytes Percent Auto 9.6 % (2.6-8.5); Neutrophils Absolute Auto 1.3 K/mm3 (1.3-6.7); Neutrophils Percent Auto 45.5 % (45.5-73.1); Platelet Count Result 181 k/mm3 (150-375); Red Blood Count 4.37 M/mm3 (4.2-5.4); Red Cell Distribution Width 12.9 % (11.5-14.5); White Blood Count 2.9 K/mm3 (4.5-10.0)
[2020-05-27 04:49] LABS: Alanine Aminotransferase 513 U/L (4-35); Albumin Level 3.6 g/dL (3.5-5.1); Alkaline Phosphatase 238 U/L (38-126); Anion Gap 3 mmol/L (8-16); Aspartate Amino Transferase 299 U/L (14-36); Bilirubin,Total 1.6 mg/dL (0.2-1.3); Blood Urea Nitrogen 8 mg/dL (7-17); Calcium 8.7 mg/dL (8.4-10.2); Carbon Dioxide 31 mmol/L (22-30); Chloride 104 mmol/L (98-107); Estimated CRCL calculation 91 ml/min; Estimated Glomerular Filt Rate > 60; Glucose 94 mg/dL (65-105); Magnesium 1.7 mg/dL (1.6-2.3); Phosphorus 3.3 mg/dL (2.5-4.5); Potassium 3.4 mmol/L (3.4-5.0); Sodium 138 mmol/L (137-145)
[2020-05-27 05:33] LABS: Alveolar/Arterial O2 Gradient 32.7 mmHg; Fractional Inspired Oxygen 21 %; HCO3 ABG 28.3 mEq/l (22.0-26.0); Oxygen Content ABG 16.9 %vol (16.0-22.0); Oxygen Saturation ABG 91.7 % (95.0-100.0); Oxyhemoglobin 90.8 % THb (90.0-100.0); PO2 ABG 61.9 mmHg (80.0-100.0); PO2 FiO2 Ratio Arterial Blood 2.95 %; Total Hemoglobin 13.2 g/dL (12.0-18.0); pH ABG 7.407 (7.350-7.450)
[2020-05-27 05:34] LABS: Device ROOM AIR; Modified Allen's Test Pass; Site Drawn RIGHT RADIAL
[2020-05-27 07:41] LABS: Glucose Point of Care 86 (65-105)
[2020-05-27] MEDS: POTASSIUM CHLORIDE 20 MEQ TABLET 40 MEQ PO (08:52)
[2020-05-27] MEDS: MAGNESIUM SULF 2 GM/WATER 50ML 2 GM/50 ML BAG IVPB (08:52)
[2020-05-27] MEDS: ENOXAPARIN 40 MG/0.4 ML SYRINGE SUB-Q (08:52)
[2020-05-27 11:38] LABS: Glucose Point of Care 90 (65-105)
--- NOTE | 2020-05-27 16:05 | PM.DS ---
DS: Admitting Diagnosis Admitting Diagnosis Admitting Diagnosis: Overdose DS: Discharge Diagnosis Discharge Diagnosis (1) Opioid overdose: Qualifiers: Encounter type: initial encounter Injury intent: accidental or unintentional Qualified Code(s): T40.2X1A - Poisoning by other opioids, accidental (unintentional), initial encounter Code(s): T40.2X1A - Poisoning by other opioids, accidental (unintentional), initial encounter Status: Acute Assessment and Plan: Patient appears to have taken excessive amounts of Tylenol No.3 and Xanax. She denies suicidal ideation. She cannot give me a good explanation about where the medications went. No one has access to her medications. She denies that she sells them. Able to talk with the patient's mother (with patient permission) who states the patient has done this before. The mother states the patient 'forgets' that she takes these medications and then takes more. Patient's symptoms have resolved. Will discard her T#3 with patient persmission. Continue Xanax but advaised mother to call cilnical scientist's office tomorrow to tell them not to prescribe narcotics to patient again and recommended that someone other than the patinet dispense the Xanax that way some one can monitor that the patient is not getting excessive amounts. Mother voices understanding of these instructions. (2) Hypercapnic respiratory failure: Qualifiers: Chronicity: acute on chronic Qualified Code(s): J96.22 - Acute and chronic respiratory failure with hypercapnia Code(s): J96.92 - Respiratory failure, unspecified with hypercapnia Status: Acute Assessment and Plan: The patient has acute hypercapnic respiratory failure probably from hypoventilation due to her mental status changes from her overdose. Repeat blood gas showed improvement as her mental status improved. She presumably has untreated sleep apnea but patient denies. ABG this morning showing 7.40/41/62 on room air. (3) Transaminitis: Code(s): R74.01 - Elevation of levels of liver transaminase levels Status: Acute Assessment and Plan: Patient had marked elevated LFTs in on admission. Probably shock liver from her respiratory depression. Tylenol level is negative. Tylenol level was repeated and remained negative. Poison control was notified and did not feel Mucomyst was necessary. Hepatitis panel was negative. Upper quadrant ultrasound was normal except for a common bile duct measuring 7.5 mm which is not uncommon after cholecystectomy. Liver enzymes trended downward as expected. (4) Lateral malleolar fracture: Qualifiers: Encounter type: initial encounter Fracture alignment: nondisplaced Fracture type: closed Laterality: left Qualified Code(s): S82.65XA - Nondisplaced fracture of lateral malleolus of left fibula, initial encounter for closed fracture Code(s): S82.63XA - Displaced fracture of lateral malleolus of unspecified fibula, initial encounter for closed fracture Status: Acute Assessment and Plan: This is a known fracture and she already has a boot for her lateral malleolar fracture. Patient to follow up with her doctor as previously scheduled (5) Pericardial effusion: Code(s): I31.3 - Pericardial effusion (noninflammatory) Status: Acute Assessment and Plan: Mild moderate pericardial effusion by CT. Echocardiogram ordered. There is trivial pericardial effusion noted by echocardiogram. DS: Summary Hospital Course Reason for hospitalization: 45yo female brought in to ED after being found unresponsive. Please see H&P for details. Hospital Course: Please see above for details of hospital course Status at Discharge Cognitive/behavioral status at discharge: stable Time Spent with Patient Time attestation: Total time spent providing and/or coordinating discharge services: 38 minutes Time spent: Greater
== END 2020-05-27 18:35 | disposition home or self-care (01) | DRG 917 ==
LOC: ANHED 19:44 → ANHIMU 20:24
PROVIDERS: Admitting Provider Internal Medicine; Emergency Provider General Practice; PCP Family Medicine; Visit Provider Internal Medicine
DX: T40.2X1A Poisoning by other opioids, accidental (unintentional), initial encounter (principal); J96.22 Acute and chronic respiratory failure with hypercapnia; G92 Toxic encephalopathy; I31.3 Pericardial effusion (noninflammatory); Z68.41 Body mass index [BMI] 40.0-44.9, adult; E87.2 Acidosis; E66.01 Morbid (severe) obesity due to excess calories; G47.33 Obstructive sleep apnea (adult) (pediatric); S82.65XD Nondisplaced fracture of lateral malleolus of left fibula, subsequent encounter for closed fracture with routine healing; X58.XXXD Exposure to other specified factors, subsequent encounter
CPT/HCPCS: 36415; 36600; 70450; 71045; 71275; 73610; 76705; 80053; 80074; 80076; 80307; 81001; 82140; 82248; 82375; 82550; 82805; 82948; 83050; 83735; 84100; 84443; 84484; 85025; 85380; 85610; 85730; 87040; 93005; 93306; 96361; 96372; 96374; 96375; 96376; 99285; A9270; G0378; J1650; J2310; J2405; J3475; J7030; Q9967

== ENCOUNTER → 2021-12-18 09:27 | Outpatient (CLI) | payer MEDICARE, MEDICAID, SELFPAY ==
--- NOTE | ~2021-12-18 | XR_ITS ---
EXAMINATION: XR chest 2V Exam Date/Time: 12/18/2021 9:32 CLOTH TEARER HISTORY: left mid anterior cp after lifting a 12 pack of soda 1 wk ag Comparison: 05/25/2020 and 11/10/2013, CTPA 05/25/2020. RESULT: Lines, tubes, and devices: None. Lungs and pleura: Clear. Left basilar scar. Cardiomediastinal silhouette: Stable. Prominent pericardial fat pad. Other: No acute osseous or upper abdominal finding. IMPRESSION: No acute cardiopulmonary process. Reviewed, dictated and finalized at location K. H TEARER
== END ==
PROVIDERS: PCP Family Medicine; Visit Provider Nurse Practitioner Family
DX: R05.9 Cough, unspecified (principal)
CPT/HCPCS: 71046

== ENCOUNTER 2021-12-18 10:09 | Outpatient (CLI) | payer MEDICARE, MEDICAID, SELFPAY ==
--- NOTE | 2021-12-18 10:43 | ECG_ITS ---
Measurements Intervals [place] Rate: 75 P: 29 ND: 149 QRS: 9 QRSD: 88 T: 63 QT: 405 QTc: 453 Interpretive Statements SINUS RHYTHM CONSIDER INFERIOR INFARCT, AGE INDETERMINATE ABNORMAL ECG COMPARED TO ECG 05/25/2020 16:14:46 CONSIDER INFERIOR INFARCT, AGE INDETERMINATE NOW PRESENT Electronically Signed On 12-18-2021 10:56:37 GENERAL OPERATIONS AGENT by Elian Monae D.O.
== END 2021-12-18 10:10 | disposition home or self-care (01) ==
PROVIDERS: PCP Family Medicine; Visit Provider Nurse Practitioner Family
DX: R07.9 Chest pain, unspecified (principal)
CPT/HCPCS: 93005

== ENCOUNTER 2021-12-18 15:31 | Observation (INO) | payer MEDICARE, MEDICAID, SELFPAY ==
[2021-12-18] VITALS (26 sets, daily range): BP systolic 139–166; BP diastolic 86–110; PULSE 64–91; RESP 11–26; TEMP 36.4–36.8; O2SAT 88–99; BMI 42.3
--- NOTE | ~2021-12-18 | US_ITS ---
EXAMINATION: US renal BI DATE: 12/20/2021 09:03 INDICATION: Chronic kidney disease TECHNIQUE: Multiple grayscale and Doppler ultrasound images of the kidneys were obtained. COMPARISON: None. FINDINGS: The right kidney measures 10.9 x 4.3 x 4.6 cm. The left kidney measures 10.6 x 5.4 x 4.7 cm . The kidneys demonstrate normal parenchymal echogenicity. There is no hydronephrosis. The bladder is incompletely distended. IMPRESSION: 1. Normal kidneys without hydronephrosis. Reviewed, dictated and finalized at location B. AL SECURITY ASSESSOR
--- NOTE | ~2021-12-18 | NM_ITS ---
EXAMINATION: NM domenico stress w perfusion DATE: 12/19/2021 14:54 INDICATION: Chest pain. TECHNIQUE: Rest images were obtained following intravenous administration of 10.0 mCi Tc99m tetrofosm in (Myoview). The patient was infused intravenously with Lexiscan (regadenoson). Then, 31.8 mCi Tc99m tetrofosmin (Myoview) was administered intravenously, and stress images were obtained. Data was jocelyn nstructed into short axis and horizontal and vertical long axis SPECT images. Gated SPECT images were also obtained. COMPARISON: Chest CT 05/25/2020 FINDINGS: There is no definite reversible or fixed perfusion abnormality to suggest ischemia or infar ction. There is no segmental wall motion abnormality. Left ventricular ejection fraction measures > 70%. IMPRESSION: 1. No definite ischemia or infarct. 2. Normal left ventricular ejection fraction measuring >70%. Reviewed, dictated and finalized at location A. RRAGE MAN
--- NOTE | 2021-12-18 15:33 | ECG_ITS ---
Measurements Intervals [place] Rate: 77 P: 38 MO: 148 QRS: 4 QRSD: 89 T: 68 QT: 402 QTc: 458 Interpretive Statements SINUS RHYTHM CONSIDER INFERIOR INFARCT, AGE INDETERMINATE ABNORMAL ECG COMPARED TO ECG 12/18/2021 10:51:09 NO SIGNIFICANT CHANGES Electronically Signed On 12-18-2021 15:50:49 HAND TWISTER by Elian Monae D.O.
[2021-12-18 15:55] LABS: Hematocrit 40.5 % (37.0-47.0); Hemoglobin 13.3 g/dL (12.0-15.0); Immature Granulocyte Absolute 0.01 K/mm3 (0.00-0.031); Immature Granulocyte Percent A 0.2 % (0-0.5); Lymphocytes Absolute Auto 1.32 K/mm3 (0.9-3.2); Lymphocytes Percent Auto 30.4 % (18.3-44.2); Mean Corpuscular HGB Conc 32.8 g/dl (32-36); Mean Corpuscular Hemoglobin 29.1 pg (26-34); Mean Corpuscular Volume 88.6 fl (80-100); Mean Platelet Volume 10.5 fl (7.4-10.4); Monocytes Absolute Auto 0.3 K/mm3 (0.1-0.6); Monocytes Percent Auto 7.1 % (2.6-8.5); Neutrophils Absolute Auto 2.7 K/mm3 (1.3-6.7); Neutrophils Percent Auto 62.3 % (45.5-73.1); Platelet Count Result 247 k/mm3 (150-375); Red Blood Count 4.57 M/mm3 (4.2-5.4); Red Cell Distribution Width 13.9 % (11.5-14.5); White Blood Count 4.3 K/mm3 (4.5-10.0)
[2021-12-18 16:05] LABS: Prothrombin Time 13.2 Seconds (11.1-14.7)
[2021-12-18 16:06] LABS: Partial Thromboplastin Time 25.5 SECONDS (22.3-36.8)
[2021-12-18 16:12] LABS: Alanine Aminotransferase 18 U/L (6-35); Albumin Level 4.5 g/dL (3.5-5.1); Alkaline Phosphatase 61 U/L (38-126); Anion Gap 12 mmol/L (8-16); Aspartate Amino Transferase 24 U/L (14-36); Bilirubin,Total 0.4 mg/dL (0.2-1.3); Blood Urea Nitrogen 9 mg/dL (7-17); Calcium 9.1 mg/dL (8.4-10.2); Carbon Dioxide 29 mmol/L (22-30); Chloride 99 mmol/L (98-107); Estimated CRCL calculation 63 ml/min; Estimated Glomerular Filt Rate 53; Glucose 99 mg/dL (65-110); Lipase 80 U/L (23-300); Potassium 3.5 mmol/L (3.4-5.0); Sodium 140 mmol/L (137-145)
[2021-12-18 16:22] LABS: Troponin I < 0.012 ng/mL (0.000-0.034)
--- NOTE | 2021-12-18 17:54 | ED.CHESTPAIN ---
HPI - Chest Pain General Chief Complaint: Chest Pain <Abbey Rico PA-C - Last Filed: 12/18/21 19:24> Stated Complaint: chest pain <Abbey Rico PA-C - Last Filed: 12/18/21 19:24> Time Seen by Provider: 12/18/21 17:48 <Abbey Rico PA-C - Last Filed: 12/18/21 19:24> Source: patient <EWA Tang Last Filed: 12/18/21 19:24> Mode of arrival: ambulatory <EWA Tang Last Filed: 12/18/21 19:24> Limitations: no limitations <Abbey Rico PA-C - Last Filed: 12/18/21 19:24> History of Present Illness HPI narrative: This is a 46 year old female that presents to the ER for abnormal EKG. Reports she has been having dull achy left sided chest pain that is intermittently sharp over the last couple of weeks. The pain is worse with movement/exertion and relieved with rest. Reports shortness of breath. Denies fever, cough, abdominal pain, vomiting, or lower extremity edema. <Abbey Rico PA-C - Last Filed: 12/18/21 19:24> Related Data Home Medications: Home Medications Medication Instructions Recorded Confirmed alprazolam 1 mg tablet (Xanax) 1 mg PO TID PRN Anxiety 12/11/19 12/04/21 venlafaxine 150 mg 150 mg PO DAILY 12/11/19 12/04/21 capsule,extended release 24 hr quetiapine 400 mg tablet (Seroquel) 800 mg PO HS 08/22/20 12/04/21 suvorexant 20 mg tablet (Belsomra) 20 mg PO ONCE 08/22/20 12/04/21 gabapentin 300 mg capsule 300 mg PO QHS 10/09/21 12/04/21 <EWA Tang Last Filed: 12/18/21 19:24> Allergies/Adverse Reactions: Allergies Allergy/AdvReac Type Severity Reaction Status Date / Time lisinopril Allergy Intermediate Loss of Verified 12/18/21 19:32 Consciousness Bumble Bee Allergy Severe Anaphylactic Uncoded 12/18/21 19:32 Shock <Abbey Rico PA-C - Last Filed: 12/18/21 19:24> Review of Systems Review of Systems: CONSTITUTIONAL: Denies fever ENT: Denies congestion CARDIOVASCULAR: Reports chest pain. Denies edema. RESPIRATORY: Reports dyspnea. Denies cough GASTROINTESTINAL: Denies abdominal pain, vomiting MUSCULOSKELETAL: Reports joint pain, and myalgia. NEUROLOGIC: Denies numbness, or weakness. <Abbey Rico PA-C - Last Filed: 12/18/21 19:24> All systems reviewed & are unremarkable except as noted in HPI and below <Abbey Rico PA-C - Last Filed: 12/18/21 19:24> [facility] Past Medical History Medical History: Medical History Abscess of buttock Acute pain of left knee Anemia Bacterial upper respiratory infection Benign hypertension BMI 40.0-44.9, adult BMI greater than 40 Body mass index [BMI] 38.0-38.9, adult (08/19/16) Body mass index [BMI] 40.0-44.9, adult (06/10/18) Cellulitis of left knee Confusion Costovertebral angle tenderness Dietary counseling and surveillance (05/02/15) Duodenal papillary stenosis Dysuria Edema, unspecified Epigastric abdominal pain Esophageal ulcer Generalized abdominal pain Headache Hypertension Injury of other nerves at ankle and foot level, left leg, subsequent encounter Iron deficiency anemia, unspecified Left hip pain Low kidney function Non-specific low back pain Obstructive sleep apnea Pelvic pressure in female Ulcer of esophagus without bleeding UTI symptoms Vitamin D deficiency <Abbey Rico PA-C - Last Filed: 12/18/21 19:24> Surgical History Surgical History: Surgical History H/O elbow surgery left, 2011 History of ankle surgery left, 12/23/2017 and 03/29/2017 Status post surgical manipulation of ankle joint <Abbey Rico PA-C - Last Filed: 12/18/21 19:24> Family History Family History: Family History Father Hypertension Bladder cancer Asbestosis Mother Hypertension Fibromyalgia Diabetes mellitus Syncopal episodes Si
[2021-12-18 18:21] LABS: D Dimer 0.41 ug/mL (<0.48)
[2021-12-18] MEDS: KETOROLAC 15 MG/ML VIAL (*BKC) IV PUSH (19:31)
--- NOTE | 2021-12-18 19:58 | PM.IMHP ---
H&P: HPI History of Present Illness Date/Time: 12/18/21 19:58 Chief Complaint: For 6 years old female with past medical history of anxiety known history of hypertension esophageal ulcer presented to the hospital with chest pain started 2 weeks ago dull in nature sometimes sharp in the left side of the chest no radiation not related to activity intermittent aggravated with movement denies shortness of breath patient went to her PCP EKG was done shows some T-wave and Q-wave changes when compared to previous EKG troponin was negative blood pressure diastolic was 109 chest pain has significantly improved in the ER currently patient denies any active chest pain Review of Systems Review of Systems: Twelve system review was done negative except above PMFSH Past Medical History Medical History Abscess of buttock Acute pain of left knee Anemia Bacterial upper respiratory infection Benign hypertension BMI 40.0-44.9, adult BMI greater than 40 Body mass index [BMI] 38.0-38.9, adult (08/19/16) Body mass index [BMI] 40.0-44.9, adult (06/10/18) Cellulitis of left knee Confusion Costovertebral angle tenderness Dietary counseling and surveillance (05/02/15) Duodenal papillary stenosis Dysuria Edema, unspecified Epigastric abdominal pain Esophageal ulcer Generalized abdominal pain Headache Hypertension Injury of other nerves at ankle and foot level, left leg, subsequent encounter Iron deficiency anemia, unspecified Left hip pain Low kidney function Non-specific low back pain Obstructive sleep apnea Pelvic pressure in female Ulcer of esophagus without bleeding UTI symptoms Vitamin D deficiency Surgical History Surgical History H/O elbow surgery left, 2011 History of ankle surgery left, 12/23/2017 and 03/29/2017 Status post surgical manipulation of ankle joint Family History Family History Father Hypertension Bladder cancer Asbestosis Mother Hypertension Fibromyalgia Diabetes mellitus Syncopal episodes Sibling Hypertension Depression Anxiety Other Family history of chronic obstructive pulmonary disease Family history of malignant neoplasm of breast Family history of thyroid disease Social History Social History Social History: The patient lives at home with her fiance. She has 2 children ages 21 and 18. Her 18-year-old daughter lives with her ex. She has a 3-year-old grandchild. Smoking status: Never smoker Second hand tobacco smoke exposure: No Alcohol intake: current Drinks per week: 1 Alcohol use details: occasional Substance use: never Substance use type: does not use Additional occupation/education comments: disabled Gender identity (if verbalized by the patient): Female Spiritual care concerns: No Meds Home Medications and Allergies Home Medications Medication Instructions Recorded Confirmed Type alprazolam 1 mg tablet (Xanax) 1 mg PO TID PRN Anxiety 12/11/19 12/04/21 History venlafaxine 150 mg 150 mg PO DAILY 12/11/19 12/04/21 History capsule,extended release 24 hr ibuprofen 800 mg tablet 800 mg PO Q6H PRN Pain #60 tabs 05/27/20 12/04/21 Rx quetiapine 400 mg tablet (Seroquel) 800 mg PO HS 08/22/20 12/04/21 History suvorexant 20 mg tablet (Belsomra) 20 mg PO ONCE 08/22/20 12/04/21 History gabapentin 300 mg capsule 300 mg PO QHS 10/09/21 12/04/21 History Allergies Allergy/AdvReac Type Severity Reaction Status Date / Time lisinopril Allergy Intermediate Loss of Verified 12/18/21 19:32 Consciousness Bumble Bee Allergy Severe Anaphylactic Uncoded 12/18/21 19:32 Shock Vital Signs Vital Signs - 24 hr 12/18/21 15:34 12/18/21 17:59 12/18/21 17:50 Temperature 98.3 F Pulse Rate 91 65 66 Respirator
[2021-12-18 20:10] LABS: SARS-CoV-2 RNA PCR Negative
[2021-12-18 20:12] LABS: Troponin I < 0.012 ng/mL (0.000-0.034)
[2021-12-18 20:28] LABS: Hemoglobin A1C 5.3 % (<5.7)
[2021-12-18 20:32] LABS: Creatine Kinase 248 U/L (30-135)
[2021-12-18 20:33] LABS: Cholesterol 181 mg/dL (0-200); Cholesterol 182 mg/dL (0-200); HDL Direct 33 mg/dL; Triglycerides 161 mg/dL (<150); Triglycerides 162 mg/dL (<150)
[2021-12-18 20:43] LABS: LDL Cholesterol Direct 98 mg/dL
[2021-12-18 20:45] LABS: LDL Cholesterol Direct 99 mg/dL
[2021-12-18 20:53] LABS: Vitamin D 25 Hydroxy 28.4 ng/mL
[2021-12-18 21:07] LABS: Thyroid Stimulating Hormone Reflex 0.608 uIU/mL (0.465-4.68)
[2021-12-18] MEDS: MORPHINE SULFATE (*CRX) 2 MG/ML INJ IV PUSH (23:56)
[2021-12-19] VITALS (16 sets, daily range): BP systolic 108–156; BP diastolic 55–83; PULSE 61–83; RESP 14–22; TEMP 35.4–36.5; O2SAT 91–98
--- NOTE | 2021-12-19 00:02 | ADMGEN ---
This patient, Mariah Ling, was admitted to IMU Room 211-01 on 12/18/21 at 2343. Patient/family oriented to hospital policies and general routines including ID bracelet, bed and alarms, visiting hours, pain management, procedures, bathroom and other care routines, personal items, smoking policy, room service/diet, and visiting hours. Information on how to activate the Rapid Response Team has been discussed. Patient/Family are encouraged to report perceived risks to care and to ask questions if they do not understand what they are told or what they should do.
[2021-12-19 00:38] LABS: Troponin I < 0.012 ng/mL (0.000-0.034)
[2021-12-19] MEDS: FAMOTIDINE 20 MG TABLET PO ×2 (01:23→20:15)
[2021-12-19] MEDS: carvediloL 6.25 MG TABLET PO (01:23)
[2021-12-19 05:07] LABS: Basophils Percent Auto 0.2 % (0.2-1.2); Eosinophils Percent Auto 0.3 % (0-4.4); Hematocrit 39.3 % (37.0-47.0); Hemoglobin 12.6 g/dL (12.0-15.0); Immature Granulocyte Absolute 0.03 K/mm3 (0.00-0.031); Immature Granulocyte Percent A 0.5 % (0-0.5); Lymphocytes Absolute Auto 1.47 K/mm3 (0.9-3.2); Lymphocytes Percent Auto 23.3 % (18.3-44.2); Mean Corpuscular HGB Conc 32.1 g/dl (32-36); Mean Corpuscular Hemoglobin 29.4 pg (26-34); Mean Corpuscular Volume 91.8 fl (80-100); Mean Platelet Volume 10.8 fl (7.4-10.4); Monocytes Absolute Auto 0.4 K/mm3 (0.1-0.6); Monocytes Percent Auto 6.6 % (2.6-8.5); Neutrophils Absolute Auto 4.4 K/mm3 (1.3-6.7); Neutrophils Percent Auto 69.1 % (45.5-73.1); Platelet Count Result 197 k/mm3 (150-375); Red Blood Count 4.28 M/mm3 (4.2-5.4); Red Cell Distribution Width 13.9 % (11.5-14.5); White Blood Count 6.3 K/mm3 (4.5-10.0)
[2021-12-19 05:26] LABS: Alanine Aminotransferase 17 U/L (6-35); Albumin Level 3.8 g/dL (3.5-5.1); Alkaline Phosphatase 53 U/L (38-126); Anion Gap 14 mmol/L (8-16); Aspartate Amino Transferase 23 U/L (14-36); Bilirubin,Total 0.3 mg/dL (0.2-1.3); Blood Urea Nitrogen 11 mg/dL (7-17); Calcium 8.8 mg/dL (8.4-10.2); Carbon Dioxide 30 mmol/L (22-30); Chloride 101 mmol/L (98-107); Estimated CRCL calculation 65 ml/min; Estimated Glomerular Filt Rate 53; Glucose 103 mg/dL (65-110); Potassium 3.4 mmol/L (3.4-5.0); Sodium 145 mmol/L (137-145)
[2021-12-19] MEDS: HYDROcodone/acetaminophen (*CRX) 5-325 MG TABLET 1 TAB PO (06:35)
--- NOTE | 2021-12-19 10:25 | PM.CNCAR ---
Assessment and Plan Assessment and plan (1) Chest pain: Qualifiers: Chest pain type: unspecified Qualified Code(s): R07.9 - Chest pain, unspecified Code(s): R07.9 - Chest pain, unspecified Status: Acute Assessment and Plan: I think this is very likely to be musculoskeletal in etiology. It occurred while she was loading and unloading groceries. She felt a pop. Her stool push on her chest. Despite the interpretation, her EKG is no different than it was several years ago. It is a normal EKG. Will give Give a dose of Toradol 15 mg IV x1. 2D echocardiogram with Doppler be ordered and interpreted. Because of her family risk factors of hypertension she does wish to proceed with a stress test. Will order Lexiscan myocardial perfusion study. (2) Hypertension: Code(s): I10 - Essential (primary) hypertension Status: Acute Assessment and Plan: Elevated in the emergency department but normal this morning. (3) BMI 40.0-44.9, adult: Code(s): Z68.41 - Body mass index [BMI] 40.0-44.9, adult Status: Acute Assessment and Plan: Dietary and lifestyle modifications for weight loss are encouraged (4) Chronic kidney disease: Code(s): N18.9 - Chronic kidney disease, unspecified Status: Acute Assessment and Plan: Creatinine is elevated and should be followed over time as an outpatient. I did talk to her about her elevated creatinine History of Present Illness History of Present Illness Consult date/time: 12/19/21 10:25 Requesting physician: Abbey Rico PA-C Consult reason: chest pain Reason For Visit: Chest Pain Narrative: Date of service 12/19/2021: Reason for consultation: Chest pain Requesting provider: Abbey Rico History: Patient is a 46-year-old female who has high blood pressure, chronic kidney disease and anxiety who presented to hospital because in chest pain at the request of her primary care provider. About a week ago she was unloading groceries and felt a pop in her chest on the left side. She then has sharp pain which was present for about 20 minutes. This chart pain then gradually subsided and she was left with an ache in her chest that was constant for days. She did take some ibuprofen and Tylenol without significant benefit. She went to her primary care provider who ordered an EKG. 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 Her EKG though looks no different than previous EKGs performed years ago. Patient does describe shortness of breath and nausea. She continues to have chest pain whenever she is doing things like moving her chest or moving her arms and activities such as loading and unloading groceries. Her troponins are all negative. She denies any paroxysmal nocturnal dyspnea or syncope. She does have some dizziness with the pain also. No edema. Chest pain is also worsened by deep breathing Review of Systems Review of Systems: All systems reviewed & are unremarkable except as noted in HPI and below Constitutional: Constitutional: Denies body ache(s) Eyes: Eyes: Denies blurry vision ENT: Reports Normal hearing present Cardiovascular: Cardiovascular: Reports chest pain Respiratory: Respiratory: Denies chest congestion and Denies cough Gastrointestinal: Gastrointestinal: Denies abdominal pain Genitourinary: Genitourinary: Denies hematuria Musculoskeletal: Musculoskeletal: Denies back pain and Reports arthralgias Integumentary/Breasts: Skin/Breast: Denies skin pain Neurologic: Denies headache(s) Psychiatric: Psychiatric: Denies anxiety Endocrine: Endocrine: Denies excessive sweating Hematologic/Lymphatic: Hematologic/Lymphatic: Denies easy bleeding Allergic/Immunologic: Allergic/Immunologic: Denies GI upset with certain foods and Denies lip swelling PMFSH Past Medical History Medical History Abscess of buttock Acute pain of left
--- NOTE | 2021-12-19 10:35 | EST_ITS ---
Patient Info Name: Mariah Ling Age: 46 years : 1975 Gender: Female Ht: 62 in Wt: 231 lbs BSA: 2.20 m2 Exam Date: 12/19/2021 1:42 PM Exam Location: [facility] Stress Patient Status: Inpatient Admit Date: 12/18/2021 Staff Ordering Physician: Edwin Granado MD Attending Provider: Josephine Canas M.A., MD Exercise Technologist: Lauren Glover RDCS Exercise Physician: Edwin Granado MD Exam Type: CA stress domenico w NM Study Info Indications R07.9 - Chest pain, unspecified A regadenoson stress test was performed. Summary 1. No abnormal ST-T wave changes with lexiscan. 2. Please correlate with nuclear medicine images, reported separately. Protocol: Lexiscan Stress ECG Details Stage: REST Duration (min): 1 min : 18 sec HR (bpm): 62 SBP (mmHg): 102 DBP (mmHg): 81 Stage: REST Duration (min): 11 min : 19 sec HR (bpm): 62 SBP (mmHg): 102 DBP (mmHg): 81 Stage: STAGE 1 Duration (min): 1 min : 0 sec HR (bpm): 72 SBP (mmHg): 102 DBP (mmHg): 81 Stage: RECOVERY Duration (min): 1 min : 0 sec HR (bpm): 76 SBP (mmHg): 102 DBP (mmHg): 81 Stage: RECOVERY Duration (min): 2 min : 0 sec HR (bpm): 74 SBP (mmHg): 109 DBP (mmHg): 72 Stage: RECOVERY Duration (min): 3 min : 0 sec HR (bpm): 73 SBP (mmHg): 110 DBP (mmHg): 73 Stage: RECOVERY Duration (min): 3 min : 3 sec HR (bpm): 73 SBP (mmHg): 110 DBP (mmHg): 73 Rest HR: 62 bpm Peak HR: 78 bpm Rest Sys BP: 102 mmHg Peak Sys BP: 110 mmHg Max Pred HR: 174 bpm % Max Pred HR: 45 % Target HR: 148 bpm Max RPP: 8,580 bpm*mmHg Target HR Summary: Hemodynamic response to exercise was normal BP Response: Normal blood pressure response Termination Reason: Completed protocol Cardiac Symptoms: None Total Time: 1 min : 0 sec Rest Marroquin BP: 81 mmHg Peak Marroquin BP: 73 mmHg Total Dose: 0.4 mg Resting ECG Normal sinus rhythm. Stress ECG No abnormal ST/T wave changes with exercise. Arrhythmias None. Report Signatures
[2021-12-19] MEDS: KETOROLAC 15 MG/ML VIAL (*BKC) IV PUSH (11:27)
--- NOTE | 2021-12-19 12:55 | PC.NURSE ---
To Radiology per wheelchair with telemetry for nuc med scan.
--- NOTE | 2021-12-19 14:56 | PC.NURSE ---
Pt back to room from stress test with telemetry. No distress noted.
[2021-12-19 15:40] LABS: CRP 1.5 mg/dL (<1.0)
[2021-12-19] MEDS: POTASSIUM CHLORIDE 20 MEQ TABLET 40 MEQ PO (15:48)
[2021-12-19] MEDS: IBUPROFEN 400 MG TABLET PO ×2 (16:18→21:18)
[2021-12-19 16:32] LABS: Erythrocyte Sedimentation Rate 18 mm/hr (0-20)
--- NOTE | 2021-12-19 16:56 | PM.IMPN ---
Progress Note: A&P Assessment and Plan (1) Chest pain: Qualifiers: Chest pain type: unspecified Qualified Code(s): R07.9 - Chest pain, unspecified Code(s): R07.9 - Chest pain, unspecified Status: Acute Assessment and Plan: Patient presents with chest pain off/on for weeks. Troponin negative x 3. CXR clear. EKG showing no acute findings but possibly old inferior SD. Lexiscan stress test normal. Echo showing EF 60-65% with normal diastolic function and mild valvular disease. There is right atrial free wall invagination and small pericardial effusion c/w pericarditis. ESR normal. She was given Tramadol and now started on scheduled Ibuprofen. Continue to monitor. (2) Pericardial effusion: Code(s): I31.3 - Pericardial effusion (noninflammatory) Status: Acute Assessment and Plan: As above (3) Abnormal kidney function: Code(s): N28.9 - Disorder of kidney and ureter, unspecified Status: Acute Assessment and Plan: Mildly elevated Cr on admission at 1.1 and better than earlier this year. Probable related to HTN. A1c 5.3 so DM less likely. Now on NSAIDs. Recommend quick taper off NSAIDs. Check renal US and UA. Start workup. Add UPT. (4) Hypertension: Code(s): I10 - Essential (primary) hypertension Status: Acute Assessment and Plan: Patient's blood pressure was reviewed on 12/19 Blood pressure better controlled. Will continue current medications with Coreg. (5) BMI greater than 40: Status: Acute Assessment and Plan: Encourage healthy lifestyle choices. Subjective Date/time seen: 12/19/21 0930 Interval history: 46yo female with HTN here for chest pain. SLept okay last night. CP has been off and on again for a few weeks. Described as heavy and left sided. Associated with left facial numbness lasting about 5 minutes, SOB and diaphoresis. No numbness, tingling or weakness in her extremities. Exam Narrative: AF 96.8 120/74 76 18 96% ra Gen - NARD Chest - CTA bilaterally, nml RR CV - RRR S1/S2. Tele showing no acute dysrhythmias Abd - Soft, NT/ND, Positive BS Ext - No pedal edema. Negative Brad's sign Psych - Nml mood and affect Skin - Warm and dry Objective Data Vital Signs Vital Signs: Vital Signs - 24 hr 12/18/21 17:59 12/18/21 17:50 12/18/21 18:22 Temperature Pulse Rate 65 66 68 Respiratory Rate 13 16 Blood Pressure 165/90 H 166/100 H Pulse Oximetry 99 97 Oxygen Delivery 12/18/21 18:48 12/18/21 19:00 12/18/21 19:14 Temperature Pulse Rate 67 67 67 Respiratory Rate 19 16 16 Blood Pressure 142/100 H Pulse Oximetry 98 Oxygen Delivery 12/18/21 19:15 12/18/21 19:16 12/18/21 19:30 Temperature Pulse Rate 64 65 68 Respiratory Rate 11 L 13 15 Blood Pressure 145/86 H Pulse Oximetry 95 96 97 Oxygen Delivery 12/18/21 19:31 12/18/21 22:59 12/18/21 19:32 Temperature Pulse Rate 65 76 65 Respiratory Rate 16 15 Blood Pressure 139/109 H Pulse Oximetry 97 97 Oxygen Delivery 12/18/21 19:45 12/18/21 20:03 12/18/21 20:15 Temperature Pulse Rate 67 66 72 Respiratory Rate 13 17 17 Blood Pressure Pulse Oximetry 97 95 95 Oxygen Delivery 12/18/21 20:30 12/18/21 21:33 12/18/21 22:00 Temperature Pulse Rate 64 75 Respiratory Rate 14 17 Blood Pressure Pulse Oximetry 88 L 97 Oxygen Delivery 12/18/21 22:22 12/18/21 22:30 12/18/21 22:46 Temperature Pulse Rate 77 78 79 Respiratory Rate 17 19 14 Blood Pressure Pulse Oximetry 97 94 94 Oxygen Delivery 12/18/21 23:11 12/18/21 23:15 12/18/21 23:58 Temperature 97.5 F L Pulse Rate 83 82 73 Respiratory Rate 24 H 26 H 18 Blood Pressure 150/91 H Pulse Oximetry 93 93 97 Oxygen Delivery 12/19/21 01:23 12/18/21 23:45 12/19/21 04:00 Temperature 97.7 F Pulse Rate 83 78 Respiratory Rate 16 Blood Pressure 118/73 Pulse Oximetry 94 Oxy
--- NOTE | 2021-12-19 19:53 | ECHO_ITS ---
Patient Info Name: Mariah Ling Age: 46 years : 1975 Gender: Female Ht: 62 in Wt: 231 lbs BSA: 2.20 m2 HR: 67 bpm BP: 118 / 73 mmHg Heart Rhythm: Sinus Rhythm Exam Date: 12/19/2021 9:13 AM Exam Location: [facility] Patient Status: Inpatient Admit Date: 12/18/2021 Staff Ordering Physician: Josephine Canas M.A., MD Nutrition Director: Joon Orta, RENAN, RT Attending Provider: Josephine Canas M.A., MD Referring Physician: Derrick ZUNIGA; Exam Type: CA echo doppler color flow Study Info Indications R55 - Syncope and collapse Complete two-dimensional, color flow and Doppler transthoracic echocardiogram is performed. Strain analysis performed. Summary 1. Complete two-dimensional, color flow and Doppler transthoracic echocardiogram is performed. 2. Right atrial free wall invagination consistent with elevated pericardial pressures. 3. Global longitudinal borderline is normal at -17 %. 4. Left ventricular chamber dimension is normal. 5. Left ventricular systolic function is normal, estimated at 60-65%. 6. There is no increased left ventricular wall thickness. 7. The left ventricular diastolic function is normal. 8. Left atrial chamber dimension is mildly enlarged. 9. There is mild mitral valve regurgitation. 10. There is mild tricuspid valve regurgitation. 11. Mild pulmonary hypertension, estimated pulmonary arterial systolic pressure is 39 mmHg. 12. There is small pericardial effusion. Left Ventricle Global longitudinal borderline is normal at -17 %. Left ventricular chamber dimension is normal. Left ventricular systolic function is normal, estimated at 60-65%. There is no increased left ventricular wall thickness. The left ventricular diastolic function is normal. Right Ventricle Right ventricular chamber dimension is normal. Right ventricular systolic function is normal. Left Atria Left atrial chamber dimension is mildly enlarged. Right Atria Right atrial free wall invagination consistent with elevated pericardial pressures. Right atrial chamber dimension is normal. Atrial Septum Intact interatrial septum visualized by color flow imaging. Aortic Valve The aortic valve is trileaflet. There is mild aortic valve sclerosis. There is no aortic valve stenosis. There is trace aortic valve regurgitation. Pulmonic Valve The pulmonic valve is normal. There is no pulmonic valve stenosis. There is trace pulmonic regurgitation. Mitral Valve The mitral valve has normal leaflets. There is no mitral valve stenosis. There is mild mitral valve regurgitation. Tricuspid Valve The tricuspid valve leaflets are normal. There is no significant tricuspid valve stenosis. There is mild tricuspid valve regurgitation. Mild pulmonary hypertension, estimated pulmonary arterial systolic pressure is 39 mmHg. Pericardium/Pleural The pericardium appears normal. There is small pericardial effusion. Inferior Vena Cava Normal inferior vena cava with <50% collapse upon inspiration consistent with elevated right atrial pressure, 10 mmHg. Aorta The aortic root size at the sinus of Valsalva is normal. Left Ventricular Outflow Tract Name Value Normal LVOT 2D LVOT Diameter
[2021-12-19] MEDS: QUEtiapine FUMARATE 100 MG TABLET 800 MG PO (20:15)
[2021-12-19] MEDS: MORPHINE SULFATE (*CRX) 2 MG/ML INJ IV PUSH (20:15)
[2021-12-19] MEDS: GABAPENTIN 300 MG CAPSULE 600 MG PO (20:15)
[2021-12-19] MEDS: VENLAFAXINE HCL XR 75 MG CAP.ER.24H 150 MG PO (20:16)
--- NOTE | 2021-12-19 22:30 | PC.NURSE ---
This patient, Mariah Ling, was transferred to [facility] on 12/19/21 at 2225. Personal belongings sent with patient. Report given to Domingo. Appropriate documentation sent with patient.
[2021-12-20] VITALS (10 sets, daily range): BP systolic 113–148; BP diastolic 69–88; PULSE 62–80; RESP 15–18; TEMP 36–36.7; O2SAT 94–100
--- NOTE | 2021-12-20 04:08 | PC.NURSE ---
Patient arrived on unit at 22:25 on 12/19/2021
[2021-12-20] MEDS: IBUPROFEN 400 MG TABLET PO ×2 (05:11→18:28)
[2021-12-20 06:34] LABS: Eosinophils Percent Auto 0.6 % (0-4.4); Hemoglobin 11.9 g/dL (12.0-15.0); Immature Granulocyte Absolute 0.01 K/mm3 (0.00-0.031); Immature Granulocyte Percent A 0.3 % (0-0.5); Lymphocytes Absolute Auto 1.29 K/mm3 (0.9-3.2); Lymphocytes Percent Auto 39.9 % (18.3-44.2); Mean Corpuscular HGB Conc 32.2 g/dl (32-36); Mean Corpuscular Hemoglobin 29.8 pg (26-34); Mean Corpuscular Volume 92.5 fl (80-100); Mean Platelet Volume 11.1 fl (7.4-10.4); Monocytes Absolute Auto 0.2 K/mm3 (0.1-0.6); Neutrophils Absolute Auto 1.8 K/mm3 (1.3-6.7); Neutrophils Percent Auto 54.2 % (45.5-73.1); Platelet Count Result 179 k/mm3 (150-375); Red Cell Distribution Width 13.9 % (11.5-14.5); White Blood Count 3.2 K/mm3 (4.5-10.0)
[2021-12-20 06:38] LABS: Pregnancy On Board Control Positive; Urine Pregnancy Test Negative
[2021-12-20 06:45] LABS: Appearance Urine Cloudy (Clear); Bilirubin Urine 1+ (Negative); Blood Urine Negative (Negative); Color Urine Yellow (Yellow); Glucose Urine UA Negative (Negative); Ketones Urine Trace mg/dL (Negative); Leukocyte Esterase Ur 1+ LEU/UL (Negative); Nitrate Urine Negative (Negative); Protein Urine 1+ mg/dL (Negative); Specific Grav Ur >= 1.030 (1.001-1.035); Urobilinogen Urine 0.2 mg/dL (<2.0); pH Urine 5.5 (5.0-9.0)
[2021-12-20 06:49] LABS: Sodium Urine Random 80 meq/L
[2021-12-20 06:51] LABS: Alanine Aminotransferase 32 U/L (6-35); Albumin Level 3.3 g/dL (3.5-5.1); Alkaline Phosphatase 64 U/L (38-126); Anion Gap 8 mmol/L (8-16); Aspartate Amino Transferase 40 U/L (14-36); Bilirubin,Total 0.3 mg/dL (0.2-1.3); Blood Urea Nitrogen 11 mg/dL (7-17); Calcium 8.3 mg/dL (8.4-10.2); Carbon Dioxide 26 mmol/L (22-30); Chloride 106 mmol/L (98-107); Creatine Kinase 92 U/L (30-135); Estimated CRCL calculation 61 ml/min; Estimated Glomerular Filt Rate 48; Glucose 123 mg/dL (65-110); Phosphorus 4.5 mg/dL (2.5-4.5); Potassium 3.7 mmol/L (3.4-5.0); Sodium 140 mmol/L (137-145)
[2021-12-20 06:56] LABS: Bacteria Urine 1+ /hpf; Calcium Oxalate Crystals Urine Present /hpf; Mucus Urine Few /lpf; RBC Urine 0-2 /hpf (0-2); Squamous Epithelial Cell Urine Many /hpf (Few); WBC Urine >75 /hpf
[2021-12-20 07:09] LABS: Complement C3 106 mg/dL (88-165)
[2021-12-20 07:28] LABS: Add Urine Microscopic? YES
[2021-12-20 07:32] LABS: Eosinophil Urine None Seen % (None Seen)
[2021-12-20] MEDS: FAMOTIDINE 20 MG TABLET PO ×2 (09:53→20:09)
[2021-12-20] MEDS: ACETAMINOPHEN 325 MG TABLET 650 MG PO (16:10)
--- NOTE | 2021-12-20 17:04 | PM.IMPN ---
Progress Note: A&P Assessment and Plan (1) Chest pain: Qualifiers: Chest pain type: unspecified Qualified Code(s): R07.9 - Chest pain, unspecified Code(s): R07.9 - Chest pain, unspecified Status: Acute Assessment and Plan: Patient presents with chest pain off/on for weeks. Troponin negative x 3. CXR clear. EKG showing no acute findings but possibly old inferior UT. Lexiscan stress test normal. Echo showing EF 60-65% with normal diastolic function and mild valvular disease. There is right atrial free wall invagination and small pericardial effusion c/w pericarditis. ESR normal. She was given Tramadol and then started on scheduled Ibuprofen. Having recurrent CP. Will repeat EKG but suspect related to noncardiac etiology. Continue to monitor. Treat symptomatically. (2) Pericardial effusion: Code(s): I31.3 - Pericardial effusion (noninflammatory) Status: Acute Assessment and Plan: As above. Mild leukopenia probably from viral etiology. Stop Ibuprofen as soon as possible due to CKD. (3) Abnormal kidney function: Code(s): N28.9 - Disorder of kidney and ureter, unspecified Status: Acute Assessment and Plan: Mildly elevated Cr on admission at 1.1 and better than earlier this year. Probable related to HTN. A1c 5.3 so DM less likely. Now on NSAIDs. Recommend quick taper off NSAIDs. Renal US okay. UA noted with 1+ protein. Workup started. She denies any risk factors for HIV or Hepatitis. Possible UTI but many squamous cells. Rocephin. Follow up on UCx result (4) Hypertension: Code(s): I10 - Essential (primary) hypertension Status: Acute Assessment and Plan: Patient's blood pressure was reviewed on 12/20 Blood pressure well controlled. Will continue current medications with Coreg. (5) BMI greater than 40: Status: Acute Assessment and Plan: Encourage healthy lifestyle choices. Subjective Date/time seen: 12/20/21 17:04 Interval history: 46yo female with HTN here for chest pain. Patient was seen earlier in the day but asked to return to the room for chest pain. Associated with left facial numbness and left arm pain. She feels she is having a migraine. Exam Narrative: AF 98.0 138/76 69 18 100% ra Gen - NARD Chest - CTA bilaterally, nml RR CV - RRR S1/S2. No rub. Tele showing no acute dysrhythmias Abd - Soft, NT/ND, Positive BS Ext - No pedal edema. Negative Brad's sign Psych - Nml mood and affect Neuro - no focal weakness. No facial droop Skin - Warm and dry Objective Data Vital Signs Vital Signs: Vital Signs - 24 hr 12/19/21 19:57 12/19/21 20:00 12/19/21 20:00 Temperature 97.3 F L Pulse Rate 69 67 Respiratory Rate 16 Blood Pressure 112/68 Pulse Oximetry 91 Oxygen Delivery Room Air 12/19/21 23:15 12/19/21 23:24 12/20/21 00:00 Temperature 96.4 F L Pulse Rate 63 66 Respiratory Rate 14 Blood Pressure 156/83 H Pulse Oximetry 98 Oxygen Delivery Room Air 12/20/21 04:00 12/20/21 04:00 12/20/21 09:45 Temperature 97.3 F L Pulse Rate 71 65 Respiratory Rate 17 Blood Pressure 113/69 Pulse Oximetry 94 Oxygen Delivery Room Air 12/20/21 12:55 12/20/21 08:00 12/20/21 12:00 Temperature 97.1 F L Pulse Rate 80 67 80 Respiratory Rate 16 Blood Pressure 142/88 H Pulse Oximetry 100 Oxygen Delivery 12/20/21 16:06 12/20/21 16:55 Temperature 96.8 F L 98.0 F Pulse Rate 62 69 Respiratory Rate 15 18 Blood Pressure 143/77 H 138/76 Pulse Oximetry 99 100 Oxygen Delivery Intake/Output Intake/Output: Intake & Output 12/17/21 12/18/21 12/19/21 12/20/21 23:59 23:59 23:59 23:59 Intake Total 240 800 Output Total 450 Balance -210 800 Meds/Results Medications: Active Medications Generic Name Dose Route Start Last Admin Trade Name Freq PRN Reason Stop Dose Admin Acetaminophen 650 mg 12/18/21 19:55 12/20/21 16:10
--- NOTE | 2021-12-20 17:04 | ECG_ITS ---
Measurements Intervals [place] Rate: 72 P: 31 AK: 150 QRS: 24 QRSD: 88 T: 87 QT: 404 QTc: 442 Interpretive Statements SINUS RHYTHM LOW QRS VOLTAGE IN PRECORDIAL LEADS MINIMAL Q WAVES- INFERIOR LEADS BORDERLINE ST-T WAVE ABNORMALITY- HIGH LATERAL LEADS BASELINE WANDER- II, III, AVL, AVF, V3 BORDERLINE ECG COMPARED TO ECG 12/18/2021 15:48:51 NO SIGNIFICANT CHANGES Electronically Signed On 12-21-2021 6:39:29 [employer] by Elian Monae D.O.
[2021-12-20] MEDS: ALPRAZolam (*CRX) 0.5 MG TABLET 1 MG PO (18:31)
[2021-12-20 19:41] LABS: Albumin Level 3.4 g/dL (3.5-5.1); Anion Gap 7 mmol/L (8-16); Blood Urea Nitrogen 12 mg/dL (7-17); Calcium 8.2 mg/dL (8.4-10.2); Carbon Dioxide 23 mmol/L (22-30); Chloride 107 mmol/L (98-107); Estimated CRCL calculation 72 ml/min; Estimated Glomerular Filt Rate 60; Glucose 105 mg/dL (65-110); Phosphorus 3.7 mg/dL (2.5-4.5); Potassium 4.2 mmol/L (3.4-5.0); Sodium 137 mmol/L (137-145)
[2021-12-20] MEDS: GABAPENTIN 300 MG CAPSULE 600 MG PO (20:09)
[2021-12-20] MEDS: MORPHINE SULFATE (*CRX) 2 MG/ML INJ IV PUSH (20:09)
[2021-12-20] MEDS: QUEtiapine FUMARATE 100 MG TABLET 800 MG PO (20:09)
[2021-12-20] MEDS: VENLAFAXINE HCL XR 75 MG CAP.ER.24H 150 MG PO (20:09)
[2021-12-20] MEDS: HYDROmorphone HCL INJ (*CRX) 1 MG/ML SYR 0.5 MG IV PUSH (21:50)
[2021-12-21] VITALS: PULSE 83
[2021-12-21 04:00] VITALS: PULSE 77
[2021-12-21] MEDS: IBUPROFEN 400 MG TABLET PO ×2 (05:35→13:11)
[2021-12-21 06:00] VITALS: BP 155/91; PULSE 78; RESP 20; TEMP 36.1; O2SAT 95
[2021-12-21 08:00] VITALS: PULSE 75
[2021-12-21] MEDS: FAMOTIDINE 20 MG TABLET PO (08:43)
[2021-12-21 12:00] VITALS: PULSE 71
[2021-12-21 12:14] LABS: Basophils Percent Auto 0.3 % (0.2-1.2); Hematocrit 39.3 % (37.0-47.0); Hemoglobin 12.9 g/dL (12.0-15.0); Immature Granulocyte Absolute 0.02 K/mm3 (0.00-0.031); Immature Granulocyte Percent A 0.6 % (0-0.5); Lymphocytes Absolute Auto 1.11 K/mm3 (0.9-3.2); Lymphocytes Percent Auto 32.6 % (18.3-44.2); Mean Corpuscular HGB Conc 32.8 g/dl (32-36); Mean Corpuscular Hemoglobin 29.1 pg (26-34); Mean Corpuscular Volume 88.7 fl (80-100); Mean Platelet Volume 10.8 fl (7.4-10.4); Monocytes Absolute Auto 0.2 K/mm3 (0.1-0.6); Monocytes Percent Auto 6.8 % (2.6-8.5); Neutrophils Percent Auto 59.7 % (45.5-73.1); Platelet Count Result 222 k/mm3 (150-375); Red Blood Count 4.43 M/mm3 (4.2-5.4); Red Cell Distribution Width 13.5 % (11.5-14.5); White Blood Count 3.4 K/mm3 (4.5-10.0)
[2021-12-21 12:29] LABS: Anion Gap 9 mmol/L (8-16); Blood Urea Nitrogen 9 mg/dL (7-17); Calcium 8.8 mg/dL (8.4-10.2); Carbon Dioxide 30 mmol/L (22-30); Chloride 102 mmol/L (98-107); Estimated CRCL calculation 61 ml/min; Estimated Glomerular Filt Rate 48; Glucose 90 mg/dL (65-110); Potassium 3.9 mmol/L (3.4-5.0); Sodium 141 mmol/L (137-145)
--- NOTE | 2021-12-21 12:43 | PM.DS ---
DS: Admitting Diagnosis Discharge Date 12/21/21 Admitting Diagnosis Chest pain DS: Discharge Diagnosis Discharge Diagnosis (1) Chest pain: Qualifiers: Chest pain type: unspecified Qualified Code(s): R07.9 - Chest pain, unspecified Code(s): R07.9 - Chest pain, unspecified Status: Acute (2) Pericardial effusion: Code(s): I31.3 - Pericardial effusion (noninflammatory) Status: Acute (3) Abnormal kidney function: Code(s): N28.9 - Disorder of kidney and ureter, unspecified Status: Acute (4) Hypertension: Code(s): I10 - Essential (primary) hypertension Status: Acute (5) BMI greater than 40: Status: Acute DS: Summary Hospital Course Reason for hospitalization: 46yo female with HTN here for chest pain. Please see H&P for details. Hospital Course: Patient presents with chest pain off/on for weeks. Troponin negative x 3. CXR clear. EKG showing no acute findings but possibly old inferior HI. Lexiscan stress test normal. Echo showing EF 60-65% with normal diastolic function and mild valvular disease. There is right atrial free wall invagination and small pericardial effusion c/w pericarditis. ESR normal. She was given Tramadol and then started on scheduled Ibuprofen. She had recurrent CP; repeat EKG showing no change. Chest pain resolved and felt related to pericarditis. Mildly elevated Cr on admission at 1.1 and better than earlier this year. Probable related to HTN. A1c 5.3 so DM less likely. Renal US okay. UA noted with 1+ protein. Workup started. She denies any risk factors for HIV or Hepatitis. Possible UTI but many squamous cells. UCx pending. Mild leukopenia noted probably from viral etiology. Discussed with Cardiology who recommended starting colchicine as well. Her renal function did normalize yesterday but Cr back up to 1.2 today so will hold off on he colchicine and just continue the Ibuprofen for 2 weeks. Patient overall did well and was able to be discharged on 12/21/21. Side effects of the medication were discussed. Status at Discharge Cognitive/behavioral status at discharge: Stable Time Spent with Patient Time attestation: Total time spent providing and/or coordinating discharge services: 35 minutes Time spent: Greater than 30 minutes Exam Narrative: No CP. She complains of migraine. She is requesting pain meds. She understands she can not drive today. She did sleep well last night AF 97.0 155/91 78 20 95% ra Gen - NARD Chest - CTA bilaterally, nml RR CV - RRR S1/S2. No rub. Tele showing no significant dysrhythmias. Abd - Soft, NT/ND, Positive BS Ext - No pedal edema Skin - Warm and dry DS: Data Data Completed and Pending Labs on day of discharge: Labs from last 24 hours 12/21/21 12/21/21 12/20/21 11:44 11:44 19:19 WBC 3.4 L RBC 4.43 Hgb 12.9 Hct 39.3 MCV 88.7 MCH 29.1 MCHC 32.8 RDW 13.5 Plt Count 222 MPV 10.8 H Immature Gran % (Auto) 0.6 H Neut % (Auto) 59.7 Lymph % (Auto) 32.6 [place] % (Auto) 6.8 Eos % (Auto) 0.0 Baso % (Auto) 0.3 Lymph # (Auto) 1.11 [place] # (Auto) 0.2 Eos # (Auto) 0.0 Baso # (Auto) 0.0 Abs Immat Gran (auto) 0.02 Absolute Neuts (auto) 2.0 Absolute Nucleated RBC 0.0 Nucleated RBC % 0.0 Sodium 141 137 Potassium 3.9 4.2 Chloride 102 107 Carbon Dioxide 30 23 Anion Gap 9 7 L BUN 9 12 Creatinine 1.20 H 1.00 Estim Creat Clear Calc 61 72 Estimated GFR 48 L 60 Glucose 90 105 Calcium 8.8 8.2 L Phosphorus 3.7 Albumin 3.4 L Discharge Plan Discharge Attending physician on discharge: Jaret Vogt Consulting providers: Abbey Rico ; Edwin Granado Discharging Clinician: Jaret Vogt Anticipated Discharge Date/Time: 12/21/21 13:16 Patient Disposition: Home, Self-Care Activity: no driving and as tolerated Diet: heart healthy Discharge Inst
[2021-12-21] MEDS: HYDROcodone/acetaminophen (*CRX) 5-325 MG TABLET 1 TAB PO (13:11)
--- NOTE | 2021-12-21 13:15 | PC.NURSE ---
pt called nurses station and complained of migraine; she rated said migraine 10/10. this nurse came in to check on her, and pt was asleep / snoring.
[2021-12-21 14:26] VITALS: BP 149/89; PULSE 70; RESP 20; TEMP 36.3; O2SAT 99
--- NOTE | 2021-12-23 10:29 | PC.NURSE ---
Urine cx shows mixed genital modest[place].
[2021-12-24 01:48] LABS: ANCA Screen Negative (Negative)
[2021-12-25 22:09] LABS: Anti Glomerular Basement Memb <1.0 AI (<1.0)
--- NOTE | 2022-01-08 09:17 | PC.NURSE ---
Anti GBM is <1.0 ANCA and Facundo are negative. DNA DS <1 Dr. Vogt aware of findings.
== END 2021-12-21 14:55 | disposition home or self-care (01) ==
LOC: ANHED 19:23 → ANHIMU 23:33 → ANH3MEDSUR 12-20 10:29 → ANH2MED 12-24 11:38 → ANH3MEDSUR 12-24 11:38 → ANHIMU 12-24 11:38
PROVIDERS: Emergency Medicine; Internal Medicine Cardiovascular Disease; Physician Assistant; Admitting Provider Internal Medicine; Emergency Provider Emergency Medicine; PCP Family Medicine; Visit Provider Internal Medicine
DX: R07.9 Chest pain, unspecified (principal); I31.39 Other pericardial effusion (noninflammatory); N28.9 Disorder of kidney and ureter, unspecified; I10 Essential (primary) hypertension; R06.09 Other forms of dyspnea; M25.50 Pain in unspecified joint; M79.10 Myalgia, unspecified site; D64.9 Anemia, unspecified; I08.1 Rheumatic disorders of both mitral and tricuspid valves; I27.20 Pulmonary hypertension, unspecified; R20.0 Anesthesia of skin; R61 Generalized hyperhidrosis; Z20.822 Contact with and (suspected) exposure to COVID-19; F41.9 Anxiety disorder, unspecified; D72.819 Decreased white blood cell count, unspecified; G47.33 Obstructive sleep apnea (adult) (pediatric); Z68.41 Body mass index [BMI] 40.0-44.9, adult; F10.90 Alcohol use, unspecified, uncomplicated; Z79.899 Other long term (current) drug therapy; Z82.49 Family history of ischemic heart disease and other diseases of the circulatory system; Z83.3 Family history of diabetes mellitus; Z81.8 Family history of other mental and behavioral disorders; Z83.49 Family history of other endocrine, nutritional and metabolic diseases
CPT/HCPCS: 36415; 76775; 78452; 80048; 80053; 80061; 80069; 81001; 81025; 82306; 82550; 82570; 83036; 83520; 83690; 84300; 84443; 84484; 85025; 85380; 85610; 85652; 85730; 85999; 86036; 86038; 86140; 86160; 86225; 87086; 87088; 93005; 93017; 93306; 96365; 96374; 96375; 96376; 99285; A9270; A9502; G0378; J0696; J1170; J1885; J2270; J2785; U0003; U0005

== ENCOUNTER 2022-01-17 13:48 | Outpatient (CLI) | payer MEDICARE, MEDICAID, SELFPAY ==
--- NOTE | ~2022-01-17 | XR_ITS ---
EXAMINATION: XR chest 2V 01/17/2022 14:09 INDICATION: Pericardial effusion. Heart attack. PROCEDURE: 2 view chest COMPARISON: 12/18/2021 FINDINGS: The lungs are clear. The cardiomediastinal silhouette is within normal limits. There are no pleural effusions. There is no pneumothorax suspected. IMPRESSION: 1: NO ACUTE CARDIOPULMONARY DISEASE. Reviewed, dictated and finalized at location A. RATIONS SEWER
[2022-01-17 14:28] LABS: Hematocrit 39.3 % (37.0-47.0); Hemoglobin 12.7 g/dL (12.0-15.0); Mean Corpuscular HGB Conc 32.3 g/dl (32-36); Mean Corpuscular Hemoglobin 29.1 pg (26-34); Mean Corpuscular Volume 89.9 fl (80-100); Mean Platelet Volume 10.6 fl (7.4-10.4); Platelet Count Result 214 k/mm3 (150-375); Red Blood Count 4.37 M/mm3 (4.2-5.4); Red Cell Distribution Width 13.5 % (11.5-14.5); White Blood Count 3.8 K/mm3 (4.5-10.0)
[2022-01-17 14:30] LABS: Appearance Urine Clear (Clear); Bilirubin Urine 1+ (Negative); Blood Urine Negative (Negative); Color Urine Yellow (Yellow); Glucose Urine UA Negative (Negative); Ketones Urine Negative (Negative); Leukocyte Esterase Ur Negative LEU/UL (Negative); Nitrate Urine Negative (Negative); Protein Urine 1+ mg/dL (Negative); Specific Grav Ur >= 1.030 (1.001-1.035); Urobilinogen Urine 0.2 mg/dL (<2.0)
[2022-01-17 14:34] LABS: Anion Gap 8 mmol/L (8-16); Blood Urea Nitrogen 11 mg/dL (7-17); Calcium 9.1 mg/dL (8.4-10.2); Carbon Dioxide 26 mmol/L (22-30); Chloride 108 mmol/L (98-107); Estimated Glomerular Filt Rate 53; Glucose 68 mg/dL (65-110); Potassium 3.3 mmol/L (3.4-5.0); Sodium 142 mmol/L (137-145)
[2022-01-17 14:39] LABS: Bacteria Urine Trace /hpf; Calcium Oxalate Crystals Urine Many /hpf; Mucus Urine Few /lpf; Squamous Epithelial Cell Urine Many /hpf (Few)
[2022-01-17 14:41] LABS: Add Urine Microscopic? YES
== END 2022-01-17 13:49 | disposition home or self-care (01) ==
PROVIDERS: PCP Family Medicine; Visit Provider Nurse Practitioner Family
DX: I10 Essential (primary) hypertension (principal); I31.39 Other pericardial effusion (noninflammatory); N18.9 Chronic kidney disease, unspecified
CPT/HCPCS: 36415; 71046; 80048; 81001; 85027; 87086

== ENCOUNTER 2022-02-12 21:08 | Inpatient (IN) | payer MEDICARE, MEDICAID, SELFPAY ==
[2022-02-12] VITALS (15 sets, daily range): BP systolic 112–131; BP diastolic 74–90; PULSE 67–74; RESP 12–20; TEMP 36.8; O2SAT 90–99
--- NOTE | ~2022-02-12 | CT_ITS ---
EXAMINATION: CTA chest PE protocol DATE: 02/12/2022 22:57 INDICATION: chest pain and SOB, concern PE TECHNIQUE: Computed tomography angiography (CTA) of the chest was performed with 100 mL Omnipaque-350 intravenous contrast timed to evaluate the pulmonary arteries. Coronal maximum intensity projection 3D-reconstructions were created by the technologist. The dose-length product (DLP) was 590.06 mGy-cm. Automated exposure control and iterative reconstruction technique were employed. COMPARISON: 05/25/2020. FINDINGS: Lung parenchyma and airways: Patchy areas of dependent groundglass opacity. Minimal dependent atelect asis. Pleura: Unremarkable. Thoracic inlet, axillae and chest wall: Unremarkable. Thoracic aorta: Normal. Mediastinum: Normal. Heart and pericardium: Moderate pericardial effusion. Coronary artery calcifications: Absent. Upper abdomen: Circumscribed, lobular fluid density mass measuring approximately 1.3 x 3.3 cm in the anterior epiphrenic fat on the right, stable to slightly smaller in size. Bones: No acute osseous finding. Pulmonary arteries: Study quality: Adequate. No pulmonary emboli detected. IMPRESSION: 1. Moderate pericardial effusion. 2. No CT evidence of acute pulmonary embolus. 3. Pulmonary opacities may reflect atelectasis from low lung volumes or mild edema. 4. 3.3 cm fluid density mass in the right epiphrenic fat may represent a developmental/duplication cy st. Reviewed, dictated and finalized at location K. O VISUAL COORDINATOR IMPRESSION: 1. Moderate pericardial effusion. 2. No CT evidence of acute pulmonary embolus. 3. Pulmonary opacities may reflect atelectasis from low lung volumes or mild ed radha. 4. 3.3 cm fluid density mass in the right epiphrenic fat may represent a develo pmental/duplication cyst.
--- NOTE | ~2022-02-12 | XR_ITS ---
EXAMINATION: XR chest 2V Exam Date/Time: 02/12/2022 21:35 CERAMIC SAW TENDER HISTORY: chest pain, HAD A HEART ATTACK A MONTH AGO Comparison: None available. RESULT: Lines, tubes, and devices: Cholecystectomy clips. Lungs and pleura: Low lung volumes with crowding. Suggestion of peripheral reticular opacities. Cardiomediastinal silhouette: Stable. Other: No acute osseous or upper abdominal finding. IMPRESSION: Mild interstitial edema. Reviewed, dictated and finalized at location K. MIC SAW TENDER IMPRESSION: Mild interstitial edema.
--- NOTE | ~2022-02-12 | US_ITS ---
EXAMINATION: US abdomen limited DATE: 02/16/2022 20:59 INDICATION: elevated liver enzymes TECHNIQUE: Multiple grayscale and Doppler ultrasound images of limited portions of the abdomen were o btained. COMPARISON: 05/26/2020. FINDINGS: The visualized portions of the pancreas are normal. The liver is normal size with increased echogenicity and normal echotexture. No surface nodularity. Normal hepatopetal flow in the main port al vein. Surgically absent gallbladder. The common bile duct measures 4 mm. There was no sonographic Orta sign. IMPRESSION: Echogenic liver, most commonly due to steatosis but also can be seen with hepatitis and fibrosis. Sta tus post cholecystectomy. Reviewed, dictated and finalized at location K. LE PHLEBOTOMIST IMPRESSION: Echogenic liver, most commonly due to steatosis but also can be seen with hepat itis and fibrosis. Status post cholecystectomy.
--- NOTE | 2022-02-12 21:19 | ECG_ITS ---
Measurements Intervals Bishop Rate: 64 P: 25 IN: 153 QRS: 20 QRSD: 89 T: 69 QT: 409 QTc: 423 Interpretive Statements SINUS RHYTHM MINIMAL Q WAVES- INFERIOR LEADS BASELINE ARTIFACT- I, III, AVL BORDERLINE ECG COMPARED TO ECG 12/20/2021 17:14:09 NO SIGNIFICANT CHANGES Electronically Signed On 02-13-2022 7:57:49 ENVIRONMENTAL EPIDEMIOLOGIST by Elian Monae D.O.
[2022-02-12 21:32] LABS: Eosinophils Percent Auto 0.2 % (0-4.4); Hematocrit 39.2 % (37.0-47.0); Hemoglobin 12.8 g/dL (12.0-15.0); Immature Granulocyte Absolute 0.02 K/mm3 (0.00-0.031); Immature Granulocyte Percent A 0.3 % (0-0.5); Lymphocytes Absolute Auto 1.76 K/mm3 (0.9-3.2); Lymphocytes Percent Auto 28.4 % (18.3-44.2); Mean Corpuscular HGB Conc 32.7 g/dl (32-36); Mean Corpuscular Hemoglobin 29.2 pg (26-34); Mean Corpuscular Volume 89.3 fl (80-100); Mean Platelet Volume 10.5 fl (7.4-10.4); Monocytes Absolute Auto 0.4 K/mm3 (0.1-0.6); Monocytes Percent Auto 7.1 % (2.6-8.5); Platelet Count Result 222 k/mm3 (150-375); Red Blood Count 4.39 M/mm3 (4.2-5.4); Red Cell Distribution Width 12.8 % (11.5-14.5); White Blood Count 6.2 K/mm3 (4.5-10.0)
[2022-02-12 21:38] LABS: Alanine Aminotransferase 20 U/L (6-35); Alkaline Phosphatase 55 U/L (38-126); Anion Gap 2 mmol/L (8-16); Aspartate Amino Transferase 34 U/L (14-36); Bilirubin,Total 0.2 mg/dL (0.2-1.3); Blood Urea Nitrogen 9 mg/dL (7-17); Calcium 8.6 mg/dL (8.4-10.2); Carbon Dioxide 32 mmol/L (22-30); Chloride 102 mmol/L (98-107); Estimated CRCL calculation 59 ml/min; Estimated Glomerular Filt Rate 48; Glucose 91 mg/dL (65-110); Lipase 85 U/L (23-300); Potassium 3.6 mmol/L (3.4-5.0); Sodium 136 mmol/L (137-145)
[2022-02-12 21:39] LABS: Partial Thromboplastin Time 24.7 SECONDS (22.3-36.8); Prothrombin Time 13.2 Seconds (11.1-14.7)
[2022-02-12 21:48] LABS: D Dimer < 0.27 ug/mL (<0.48)
[2022-02-12 21:49] LABS: Troponin I < 0.012 ng/mL (0.000-0.034)
--- NOTE | 2022-02-12 22:42 | ED.GENADULT ---
HPI - General Adult General Chief complaint: Chest Pain Stated complaint: chest pain Time Seen by Provider: 02/12/22 21:18 History of Present Illness HPI narrative: 47-year-old female presenting to the emergency department for evaluation of shortness of breath and substernal chest pain. Patient reports that the symptoms started approximately 6 PM. Patient also states that she has not felt well for the last few days. Patient did call EMS for these symptoms and was treated with aspirin and nitro. Patient denies any change in her symptoms from this. Patient denies any coughs colds or fevers. Patient did have a work-up for similar symptoms approximately 1 month ago at that time patient had negative serial troponins patient did have an echo at that time showing 66 5% EF with normal diastolic function and mild vascular disease. At that time she was having recurrent chest pain but showed no EKG changes. At time of disposition pain was resolved and was thought to be due to possible pericarditis. Family in the room with the patient does report family history of heart disease. Related Data Home Medications Medication Instructions Recorded Confirmed alprazolam 1 mg tablet (Xanax) 1 mg PO TID PRN Anxiety 12/11/19 02/13/22 venlafaxine 150 mg 150 mg PO HS 12/11/19 02/13/22 capsule,extended release 24 hr quetiapine 400 mg tablet (Seroquel) 800 mg PO HS 08/22/20 02/13/22 suvorexant 20 mg tablet (Belsomra) 20 mg PO HS 08/22/20 02/13/22 gabapentin 300 mg capsule 600 mg PO QHS 10/09/21 02/13/22 quetiapine 100 mg tablet 100 mg PO HS PRN Seizure Activity 12/19/21 02/13/22 Allergies Allergy/AdvReac Type Severity Reaction Status Date / Time bee venom protein (honey bee) Allergy Severe Anaphylactic Verified 01/17/22 08:04 Shock lisinopril Allergy Intermediate Loss of Verified 01/17/22 08:04 Consciousness Review of Systems Review of Systems: CONSTITUTIONAL: Denies fever, chills, or sweats. EYES: Denies visual changes, redness, or discharge. ENT: Denies rhinorrhea, congestion, sore throat, or otalgia. CARDIOVASCULAR: See HPI RESPIRATORY: Denies cough or dyspnea. GASTROINTESTINAL: Denies abdominal pain, nausea, vomiting, or diarrhea. GENITOURINARY: Denies dysuria or hematuria. SKIN: Denies rash or itching. MUSCULOSKELETAL: Denies back pain, joint pain, or myalgia. NEUROLOGIC: Denies headache, numbness, or weakness. [facility] Past Medical History Medical History Abscess of buttock Acute pain of left knee Anemia Bacterial upper respiratory infection Benign hypertension BMI 40.0-44.9, adult BMI greater than 40 Body mass index [BMI] 38.0-38.9, adult (08/19/16) Body mass index [BMI] 40.0-44.9, adult (06/10/18) Cellulitis of left knee Confusion Costovertebral angle tenderness Dietary counseling and surveillance (05/02/15) Duodenal papillary stenosis Dysuria Edema, unspecified Epigastric abdominal pain Esophageal ulcer Generalized abdominal pain Headache Hypertension Injury of other nerves at ankle and foot level, left leg, subsequent encounter Iron deficiency anemia, unspecified Left hip pain Low kidney function Non-specific low back pain Obstructive sleep apnea Pelvic pressure in female Ulcer of esophagus without bleeding UTI symptoms Vitamin D deficiency Surgical History Surgical History H/O elbow surgery left, 2011 H/O: hysterectomy History of ankle surgery left, 12/23/2017 and 03/29/2017 Status post surgical manipulation of ankle joint Family History Family History Father Hypertension Bladder cancer Asbestosis Mother Hypertension Fibromyalgia Diabetes mellitus Syncopal episodes Sibling Hypertension Depression Anxiety Other Family history of chronic obstructive pulmonary disease Family history of malignant neoplasm of breast
--- NOTE | 2022-02-12 23:32 | PM.IMHP ---
H&P: HPI History of Present Illness Date/Time: 02/12/22 23:32 Chief Complaint: Shortness of breath Narrative: This is a 47-year-old female with past medical history significant for obesity, hypertension. Patient presents to the emergency room due to shortness of breath and chest pain these denies fevers, chills, night sweats, shortness of breath is at minimal exertion. Patient denies any rashes, joint pain, weight loss, cough, sputum production, no nausea, no vomiting, no diarrhea no leg swelling. Preliminary workup was significant for CT angiogram of the chest was reported as: FINDINGS:? Lung parenchyma and airways: Patchy areas of dependent groundglass opacity. Minimal dependent atelectasis. Pleura: Unremarkable. Thoracic inlet, axillae and chest wall: Unremarkable. Thoracic aorta: Normal. Mediastinum: Normal. Heart and pericardium: Moderate pericardial effusion. Coronary artery calcifications: Absent. Upper abdomen: Circumscribed, lobular fluid density mass measuring approximately 1.3 x 3.3 cm in the anterior epiphrenic fat on the right, stable to slightly smaller in size. Bones: No acute osseous finding. Pulmonary arteries: Study quality: Adequate. No pulmonary emboli detected. IMPRESSION: 1. Moderate pericardial effusion. 2. No CT evidence of acute pulmonary embolus. 3. Pulmonary opacities may reflect atelectasis from low lung volumes or mild edema. 4. 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 Review of Systems Review of Systems: Shortness of breath, chest pain Constitutional: Constitutional: Denies chills, Denies fever(s), Denies malaise and Denies night sweats Eyes: Eyes: Denies change in vision ENT: Denies dysphagia, Denies vertigo, Denies dizziness and Denies odynophagia Cardiovascular: Cardiovascular: Reports chest pain, Denies syncope, Denies irregular heart rhythm, Denies leg edema, Denies lightheadedness and Denies palpitations Respiratory: Respiratory: Denies chest congestion, Denies cough, Denies excessive phlegm production, Denies pain on inspiration, Denies dyspnea and Denies wheezing Gastrointestinal: Gastrointestinal: Denies abdominal pain, Denies dyspepsia, Denies heartburn, Denies diarrhea, Denies nausea and Denies vomiting Genitourinary: Genitourinary: Denies dysuria Musculoskeletal: Musculoskeletal: Denies back pain, Denies myalgias, Denies joint swelling, Denies limited range of motion, Denies muscle weakness and Denies neck pain Integumentary/Breasts: Skin/Breast: Denies rash Neurologic: Denies vertigo, Denies dizziness, Denies focal weakness and Denies Sensory deficit (Neuro) Psychiatric: Psychiatric: Reports no additional psychiatric complaints and Reports as per HPI Endocrine: Endocrine: Denies cold intolerance, Denies flushing, Denies heat intolerance, Denies polyphagia, Denies polydipsia and Denies palpitations Hematologic/Lymphatic: Hematologic/Lymphatic: Reports no additional hematologic/lymphatic complaints and Reports as per HPI Allergic/Immunologic: Allergic/Immunologic: Reports no additional allergic/immunologic complaints and Reports as per HPI PMFSH Past Medical History Medical History Abscess of buttock Acute pain of left knee Anemia Bacterial upper respiratory infection Benign hypertension BMI 40.0-44.9, adult BMI greater than 40 Body mass index [BMI] 38.0-38.9, adult (08/19/16) Body mass index [BMI] 40.0-44.9, adult (06/10/18) Cellulitis of left knee Confusion Costovertebral angle tenderness Dietary counseling and surveillance (05/02/15) Duodenal papillary stenosis Dysuria Edema, unspecified Epigastric abdominal pain Esophageal ulcer Generalized abdominal pain Headache Hypertension Injury of other nerves at ankle and foot level, left leg, subsequent encounter Iron deficiency anemia, unspecified Left hip pain Low kidney function Non-sp
[2022-02-13] VITALS (97 sets, daily range): BP systolic 110–175; BP diastolic 70–115; PULSE 58–78; RESP 10–20; O2SAT 90–100; BMI 42.7
--- NOTE | 2022-02-13 | ECHO_ITS ---
Patient Info Name: Mariah Ling Age: 47 years : 1975 Gender: Female Ht: 62 in Wt: 230 lbs BSA: 2.20 m2 HR: 65 bpm BP: 130 / 104 mmHg Heart Rhythm: Sinus Rhythm Exam Date: 02/13/2022 10:58 AM Exam Location: [facility] Patient Status: Outpatient Admit Date: 02/13/2022 Staff Ordering Physician: Laura Marroquin MD Elevator Dispatcher: Joon Orta, RENAN, RT Attending Provider: Laura Marroquin MD Referring Physician: Cara HICKEY; Exam Type: CA echo doppler limited Study Info Indications I31.3 - Pericardial effusion (noninflammatory) Limited two-dimensional transthoracic echocardiogram is performed. Summary 1. Limited echo study to evaluate pericardial effusion. 2. Normal left ventricular size and thickness with good contractility of all segments. Ejection fraction estimated to be 60-65%. 3. No obvious valvular heart disease; no Doppler of valves performed. 4. Moderate pericardial effusion. Posterolaterally it measures 1.2-2.2 cm thick. Anteriorly is 1.7 cm thick and apically is 0-0.6 cm thick. 5. There is mild diastolic right atrial collapse and mild right ventricular collapse consistent with early tamponade physiology. 6. There is significant variation of the mitral and tricuspid inflow velocities again consistent with pericardial tamponade. 7. The inferior vena cava is borderline dilated but collapses less than 50%, consistent with high filling pressures and tamponade physiology. 8. Normal sinus rhythm rate 66. Recommendations * Discussed with Dr. Perez. Recommended aggressive tx of pericarditis, with close observation for signs of decline. Consider transfer to an institution that has the ability to place a pericardial window if the pt should decline, since this may be a difficult effusion to tap percutaneously as it is only moderate in size and mostly posterolateral. Left Ventricle Left ventricular chamber dimension is normal. Left ventricular systolic function is normal, estimated at 60-65%. There is no increased left ventricular wall thickness. Left ventricular septal wall motion is normal. The left ventricular diastolic function is normal. Right Ventricle Right ventricular chamber dimension is normal. Right ventricular systolic function is normal. Left Atria Left atrial chamber dimension is normal. Right Atria Right atrial chamber dimension is normal. Aortic Valve The aortic valve is trileaflet. There is no aortic valve sclerosis. There is no aortic valve stenosis. There is no aortic valve regurgitation. Pulmonic Valve The pulmonic valve is normal. There is no pulmonic valve stenosis. There is no pulmonic regurgitation. Mitral Valve The mitral valve has normal leaflets. There is no mitral valve stenosis. There is no mitral valve regurgitation. Tricuspid Valve The tricuspid valve leaflets are normal. There is no significant tricuspid valve stenosis. There is no tricuspid valve regurgitation. No pulmonary hypertension, estimated pulmonary arterial systolic pressure is Empty. Pericardium/Pleural The pericardium appears normal. There is consistent with cardiac tamponade pericardial effusion. Inferior Vena Cava Dilated inferior vena cava with <50% collapse upon inspiration consistent with Empty right atrial pressure, Empty. Aorta The aortic root size at the sinus of Valsalva is normal. The prox ascending aorta size is normal. Report Signatures
[2022-02-13 01:08] LABS: Troponin I < 0.012 ng/mL (0.000-0.034)
[2022-02-13] MEDS: MORPHINE SULFATE (*CRX) 2 MG/ML INJ IV PUSH ×4 (01:11→17:24)
[2022-02-13 01:25] LABS: Influenza A QL RT-PCR Negative (Negative); Influenza B QL RT-PCR Negative (Negative); SARS-CoV-2 RNA PCR Negative
[2022-02-13] MEDS: HYDROmorphone HCL INJ (*CRX) 1 MG/ML SYR IV PUSH (03:00)
[2022-02-13] MEDS: MORPHINE SULFATE (*CRX) 2 MG/ML INJ 1 MG IV PUSH (05:22)
--- NOTE | 2022-02-13 06:41 | PC.NURSE ---
Patient informed this RN that she is now feeling short of breath and is continuing to have sternal chest pain. Lung sounds clear and equal in all rashid posterior and O2 saturation 99% room air. Hospitalist notified and requested that patient be given PRN xanax dose. Pharmacy called verify the xanax order.
[2022-02-13] MEDS: ALPRAZolam (*CRX) 0.5 MG TABLET 1 MG PO (06:46)
[2022-02-13] MEDS: amLODIPine BESYLATE 5 MG TABLET PO (08:53)
[2022-02-13] MEDS: INDOMETHACIN 25 MG CAPSULE PO ×3 (08:53→17:24)
[2022-02-13 09:04] LABS: Troponin I < 0.012 ng/mL (0.000-0.034)
--- NOTE | 2022-02-13 11:20 | PC.NURSE ---
Pt. requesting additional pain meds due to increased pain. Hospitalist called and medications ordered via verbal order read back.
[2022-02-13] MEDS: HYDROcodone/acetaminophen (*CRX) 5-325 MG TABLET 1 TAB PO (11:23)
--- NOTE | 2022-02-13 14:35 | PM.CNCAR ---
Assessment and Plan Assessment and plan (1) Chest pain: Code(s): R07.9 - Chest pain, unspecified Status: Acute (2) Pericardial effusion: Code(s): I31.39 - Other pericardial effusion (noninflammatory) Status: Acute (3) Chronic kidney disease: Code(s): N18.9 - Chronic kidney disease, unspecified Status: Acute (4) Hypertension: Code(s): I10 - Essential (primary) hypertension Status: Acute Plan Her troponins are negative. ECG showing sinus rhythm, without ischemic changes, and no unchanged compared to prior. She does have reproducible chest pain on exam, which is consistent with a musculoskeletal etiology. Recommend treating for MSK component. Echo this time showed: 1. Limited echo study to evaluate pericardial effusion. 2. Normal left ventricular size and thickness with good contractility of all segments.? Ejection fraction estimated to be 60-65%. 3. No obvious valvular heart disease; no Doppler of valves performed. 4. Moderate pericardial effusion.? Posterolaterally it measures 1.2-2.2 cm thick.? Anteriorly is 1.7 cm thick and apically is 0-0.6 cm thick. 5. There is mild diastolic right atrial collapse and mild right ventricular collapse consistent with early tamponade physiology. 6. There is significant variation of the mitral and tricuspid inflow velocities again consistent with pericardial tamponade. 7. The inferior vena cava is borderline dilated but collapses less than 50%, consistent with high filling pressures and tamponade physiology. 8. Normal sinus rhythm rate 66. Echocardiographically, findings are consistent with early tamponade physiology. However, patient is NOT in clinical tamponade. Therefore, no indication for urgent pericardiocentesis. Will check ESR and CRP. CRP was mildly elevated at last admission. Has been started on Indomethacin for pericarditis (started on low-dose due to renal function). Will start Colchicine 0.6mg QD (renally dosed given GFR 48). History of Present Illness History of Present Illness Consult date/time: 02/13/22 14:35 Requesting physician: Carlton Irwin MD Consult reason: Other (Pericardial effusion) Reason For Visit: Moderate Pericardial Effusion,Chest Pain,SOB Narrative: We are being consulted for pericardial effusion. This is a 47-year-old female with a history of hypertension, CKD, anxiety, morbid obesity with BMI 42 who presented to the ED for fatigue, shortness of breath, chest pain. Patient was recently admitted here in December for chest pain and shortness of breath. At that time, chest pain thought to be musculoskeletal. Troponins negative. EKG unchanged from prior. Lexiscan was done, which was normal. She had an echocardiogram done at that time which showed small pericardial effusion with right atrial free wall invagination consistent with elevated pericardial pressures. She was treated for pericarditis at that time with Ibuprofen for 2 weeks. Colchicine was not started at that time due to her renal function. Patient states that yesterday she began having shortness of breath and sharp chest pain. Chest pain radiates to back. No association with exertion. Does not worsen with inspiration. Feels very sharp. Patient's is at bedside and reports that the patient has been feeling fatigued during the day over the past week. No fevers or chills. Does get occasional dizziness. Review of Systems Review of Systems: 12-point ROS obtained. Negative, unless stated in HPI. [facility] Past Medical History Medical History Abscess of buttock Acute pain of left knee Anemia Bacterial upper respiratory infection Benign hypertension BMI 40.0-44.9, adult BMI greater than 40 Body mass index [BMI] 38.0-38.9, adult (08/19/16) Body mass index [BMI] 40.0-44.9, adult (06/10/18) Cellulitis of left knee Confusion Costovertebral angle tenderness Dietary counseling and surveillance (05/02/15) Mehran
[2022-02-13] MEDS: COLCHICINE 0.6 MG TABLET PO (15:06)
[2022-02-13 17:56] LABS: CRP 1.2 mg/dL (<1.0)
[2022-02-13 18:02] LABS: Erythrocyte Sedimentation Rate 18 mm/hr (0-20)
--- NOTE | 2022-02-13 18:09 | PM.IMPN ---
Progress Note: A&P Assessment and Plan (1) Chest pain: Code(s): R07.9 - Chest pain, unspecified Status: Acute Assessment and Plan: EKG with no changes Will send troponins 02/13/2022 interval history: patient continue to complaint of chest pain had a cardiac echo showed moderate pericardial effusion, posteriorlaterally, discussed with Dr. Olsen cardiology patient is road a on indomethacin from previous presentation and ems coordinator added Colchicine 0.6mg q.day, will continue pain med and further recommendation to follow. (2) Pericardial effusion: Code(s): I31.39 - Other pericardial effusion (noninflammatory) Status: Acute Assessment and Plan: Will obtain echocardiogram in the morning Will place the patient in a NSAID with caution due to chronic kidney disease (3) Acute dyspnea: Code(s): R06.00 - Dyspnea, unspecified Status: Acute Assessment and Plan: Ruled out for pulmonary embolism (4) Chronic kidney disease: Code(s): N18.9 - Chronic kidney disease, unspecified Status: Acute Assessment and Plan: Continue to monitor BUN and creatinine (5) BMI greater than 40: Status: Acute Assessment and Plan: Lifestyle and diet modifications Subjective Date/time seen: 02/13/22 18:09 Chief Complaint: Shortness of breath HPI-Narrative: This is a 47-year-old female with past medical history significant for obesity, hypertension.? Patient presents to the emergency room due to shortness of breath and chest pain these denies fevers, chills, night sweats, shortness of breath is at minimal exertion.? Patient denies any rashes, joint pain, weight loss, cough, sputum production, no nausea, no vomiting, no diarrhea no leg swelling.? Preliminary workup was significant for CT angiogram of the chest was reported as: 02/13/2022 interval history: patient continue to complaint of chest pain had a cardiac echo showed moderate pericardial effusion, posteriorlaterally, discussed with Dr. Olsen cardiology patient is road a on indomethacin from previous presentation and ems coordinator added Colchicine 0.6mg q.day, will continue pain med and further recommendation to follow. Review of Systems Review of Systems: 12-point ROS obtained. Negative, unless stated in HPI. Exam Narrative: morbidly obese Patient is comfortable, NAD HEENT: eyes are clear and none icteric LUNGS: normal respiratory effort ABD: distended Lower extremities: no edema SKIN: nonjaundiced Neuro: grossly intact. Objective Data Vital Signs Vital Signs: Vital Signs - 24 hr 02/12/22 21:09 02/12/22 21:46 02/12/22 21:47 Temperature 98.2 F Pulse Rate 68 68 68 Respiratory Rate 14 15 12 Blood Pressure 131/85 126/76 Pulse Oximetry 99 94 93 Oxygen Delivery Room Air 02/12/22 21:48 02/12/22 22:00 02/12/22 22:01 Temperature Pulse Rate 71 67 74 Respiratory Rate 20 12 20 Blood Pressure 118/74 Pulse Oximetry 93 91 90 Oxygen Delivery 02/12/22 22:15 02/12/22 22:16 02/12/22 22:30 Temperature Pulse Rate 68 Respiratory Rate 12 18 Blood Pressure 112/90 117/84 Pulse Oximetry 95 94 96 Oxygen Delivery 02/12/22 22:31 02/12/22 22:45 02/12/22 23:04 Temperature Pulse Rate Respiratory Rate 20 Blood Pressure Pulse Oximetry 96 95 97 Oxygen Delivery 02/12/22 23:15 02/12/22 23:30 02/12/22 23:45 Temperature Pulse Rate Respiratory Rate Blood Pressure Pulse Oximetry 96 97 94 Oxygen Delivery 02/13/22 00:00 02/13/22 00:30 02/13/22 00:32 Temperature Pulse Rate 58 L Respiratory Rate 10 L Blood Pressure 151/90 H Pulse Oximetry 94 100 Oxygen Delivery 02/13/22 00:33 02/13/22 00:45 02/13/22 00:46 Temperature Pulse Rate 59 L 60 60 Respiratory Rate 13 15 12 Blood Pressure 136/81 Pulse Oximetry 99 97 Oxygen Delivery 02/13/22 01:00 02/13/22 01:15 02/13/22 01:16 Temperature Pulse Rate 58 L 59
--- NOTE | 2022-02-13 18:34 | PC.NURSE ---
Pt. stated she needs additional pain meds. Hospitalist called and medications ordered via verbal order readback.
[2022-02-13] MEDS: HYDROcodone/acetaminophen (*CRX) 7.5-325 MG TABLET 1 TAB PO (18:56)
--- NOTE | 2022-02-13 19:19 | PC.NURSE ---
Report received from Missael DILLON including history and physical and plan of care
--- NOTE | 2022-02-13 21:10 | ADMGEN ---
This patient, Mariah Ling, was admitted to [facility]. Patient/family oriented to hospital policies and general routines including ID bracelet, bed and alarms, visiting hours, pain management, procedures, bathroom and other care routines, personal items, smoking policy, room service/diet, and visiting hours. Information on how to activate the Rapid Response Team has been discussed. Patient/Family are encouraged to report perceived risks to care and to ask questions if they do not understand what they are told or what they should do.
[2022-02-13] MEDS: VENLAFAXINE HCL XR 75 MG CAP.ER.24H 150 MG PO (22:39)
[2022-02-13] MEDS: GABAPENTIN 300 MG CAPSULE 600 MG PO (22:39)
[2022-02-13] MEDS: QUEtiapine FUMARATE 100 MG TABLET 800 MG PO (22:39)
[2022-02-14] VITALS (16 sets, daily range): BP systolic 113–155; BP diastolic 60–84; PULSE 60–76; RESP 12–16; TEMP 35.7–36.5; O2SAT 91–100; BMI 43.4
[2022-02-14 06:04] LABS: Hematocrit 39.7 % (37.0-47.0); Hemoglobin 13.2 g/dL (12.0-15.0); Mean Corpuscular HGB Conc 33.2 g/dl (32-36); Mean Corpuscular Hemoglobin 29.9 pg (26-34); Mean Platelet Volume 10.5 fl (7.4-10.4); Platelet Count Result 186 k/mm3 (150-375); Red Blood Count 4.41 M/mm3 (4.2-5.4); Red Cell Distribution Width 12.8 % (11.5-14.5); White Blood Count 2.6 K/mm3 (4.5-10.0)
[2022-02-14 06:21] LABS: Alanine Aminotransferase 575 U/L (6-35); Albumin Level 3.8 g/dL (3.5-5.1); Alkaline Phosphatase 159 U/L (38-126); Anion Gap 4 mmol/L (8-16); Aspartate Amino Transferase 648 U/L (14-36); Blood Urea Nitrogen 9 mg/dL (7-17); Calcium 8.3 mg/dL (8.4-10.2); Carbon Dioxide 33 mmol/L (22-30); Chloride 103 mmol/L (98-107); Estimated CRCL calculation 59 ml/min; Estimated Glomerular Filt Rate 48; Glucose 86 mg/dL (65-110); Potassium 3.9 mmol/L (3.4-5.0); Sodium 140 mmol/L (137-145)
[2022-02-14] MEDS: ALPRAZolam (*CRX) 0.5 MG TABLET 1 MG PO (07:58)
[2022-02-14] MEDS: amLODIPine BESYLATE 5 MG TABLET PO (07:58)
[2022-02-14] MEDS: COLCHICINE 0.6 MG TABLET PO (07:58)
[2022-02-14] MEDS: HYDROcodone/acetaminophen (*CRX) 7.5-325 MG TABLET 1 TAB PO (07:58)
[2022-02-14] MEDS: INDOMETHACIN 25 MG CAPSULE PO ×3 (07:59→18:08)
--- NOTE | 2022-02-14 08:19 | PC.NURSE ---
heart healthy breakfast tray ordered
[2022-02-14] MEDS: MORPHINE SULFATE (*CRX) 2 MG/ML INJ IV PUSH ×3 (10:25→22:02)
--- NOTE | 2022-02-14 13:03 | PM.PNCARD ---
Progress Note: A&P Assessment and Plan (1) Chest pain: Code(s): R07.9 - Chest pain, unspecified Status: Acute (2) Pericardial effusion: Code(s): I31.39 - Other pericardial effusion (noninflammatory) Status: Acute (3) Chronic kidney disease: Code(s): N18.9 - Chronic kidney disease, unspecified Status: Acute (4) Hypertension: Code(s): I10 - Essential (primary) hypertension Status: Acute Plan Ruled out for ACS with negative troponins. EKG without ischemic changes. Will continue to treat for pericarditis with low dose indomethacin and colchicine (renally dosed for GFR 48) Continues to have reproducible chest pain on exam, which is consistent with a musculoskeletal etiology. Recommend treating for MSK component. Echocardiographically, findings are consistent with early tamponade physiology. However, patient is NOT in clinical tamponade. Therefore, no indication for urgent pericardiocentesis. Echo this time showed: 1. Limited echo study to evaluate pericardial effusion. 2. Normal left ventricular size and thickness with good contractility of all segments.? Ejection fraction estimated to be 60-65%. 3. No obvious valvular heart disease; no Doppler of valves performed. 4. Moderate pericardial effusion.? Posterolaterally it measures 1.2-2.2 cm thick.? Anteriorly is 1.7 cm thick and apically is 0-0.6 cm thick. 5. There is mild diastolic right atrial collapse and mild right ventricular collapse consistent with early tamponade physiology. 6. There is significant variation of the mitral and tricuspid inflow velocities again consistent with pericardial tamponade. 7. The inferior vena cava is borderline dilated but collapses less than 50%, consistent with high filling pressures and tamponade physiology. 8. Normal sinus rhythm rate 66. Subjective Date/time seen: 02/14/22 13:03 Cardiology follow up for pericardial effusion, pericarditis Still complaining of chest pain today. Same in quality, but slightly more intense. Improves with sitting up/leaning forward. No shortness of breath but still unable to take deep breaths. She is hemodynamically stable. Exam Const: General: no acute distress Other: Obese female HENMT: Mouth: Yes moist mucous membranes Eyes: General: appearance normal, both eyes and all related structures Sclera: sclerae normal Neck: Neck: supple Chest: Other: Patient does have reproducible chest pain on examination. Resp: Effort & Inspection: normal respiratory effort Auscultation: clear to auscultation bilaterally Cardio: Rate: regular rate Rhythm: regular rhythm Heart sounds: no murmurs Skin: General skin exam: normal color Neuro: Speech: normal speech Extrem: General: normal to inspection Psych: Mental Status: mental status grossly normal Affect: normal affect Objective Data Vital Signs Vital Signs: Vital Signs - 24 hr 02/13/22 13:15 02/13/22 14:01 02/13/22 15:40 Pulse Rate 59 L 71 62 Respiratory Rate 12 19 11 L Blood Pressure Pulse Oximetry 97 02/13/22 15:45 02/13/22 16:00 02/13/22 16:15 Pulse Rate 60 58 L 70 Respiratory Rate 14 12 16 Blood Pressure Pulse Oximetry 02/13/22 16:30 02/13/22 17:26 02/13/22 20:00 Pulse Rate 67 70 62 Respiratory Rate 12 20 15 Blood Pressure 121/85 Pulse Oximetry 96 02/13/22 20:01 02/13/22 20:15 02/13/22 20:30 Pulse Rate 62 64 Respiratory Rate 15 12 Blood Pressure 110/88 Pulse Oximetry 02/13/22 20:45 02/13/22 21:03 02/13/22 21:15 Pulse Rate 66 60 Respiratory Rate 16 14 17 Blood Pressure Pulse Oximetry 02/13/22 21:30 02/13/22 21:45 02/13/22 22:00 Pulse Rate Respiratory Rate 16 12 17 Blood Pressure Pulse Oximetry 94 95 90 02/13/22 22:30 02/13/22 22:45 02/13/22 23:00 Pulse Rate Respiratory Rate 14 Blood Pressure Pulse Oximetry 94 96 96 02/13/22 23:15 02/13/22 23:30 02/13/22 23:49 Pulse Rate 78 Respiratory Rate 15 13
--- NOTE | 2022-02-14 17:11 | PC.NURSE ---
heart healthy dinner tray ordered
--- NOTE | 2022-02-14 18:43 | PM.IMPN ---
Progress Note: A&P Assessment and Plan (1) Chest pain: Code(s): R07.9 - Chest pain, unspecified Status: Acute Assessment and Plan: EKG with no changes Will send troponins 02/14/2022 interval history: patient continue to complaint of chest pain had a cardiac echo showed moderate pericardial effusion, posteriorlaterally, on 02/[address] Olsen cardiology patient is already a on indomethacin from previous presentation and migratory worker added Colchicine 0.6mg q.day, today patient continue to complain of chest pain and suspect patient has a musculoskeletal component will add fracture 10 mg q.8 as needed, will continue pain med and further recommendation to follow. (2) Pericardial effusion: Code(s): I31.39 - Other pericardial effusion (noninflammatory) Status: Acute Assessment and Plan: Will obtain echocardiogram in the morning Will place the patient in a NSAID with caution due to chronic kidney disease (3) Acute dyspnea: Code(s): R06.00 - Dyspnea, unspecified Status: Acute Assessment and Plan: Ruled out for pulmonary embolism (4) Chronic kidney disease: Code(s): N18.9 - Chronic kidney disease, unspecified Status: Acute Assessment and Plan: Continue to monitor BUN and creatinine (5) BMI greater than 40: Status: Acute Assessment and Plan: Lifestyle and diet modifications Subjective Date/time seen: 02/14/22 18:43 02/14/2022 interval history: patient continue to complaint of chest pain had a cardiac echo showed moderate pericardial effusion, posteriorlaterally, on 02/[address] Olsen cardiology patient is already a on indomethacin from previous presentation and migratory worker added Colchicine 0.6mg q.day, today patient continue to complain of chest pain and suspect patient has a musculoskeletal component will add fracture 10 mg q.8 as needed, will continue pain med and further recommendation to follow. Exam Narrative: morbidly obese Patient is comfortable, NAD HEENT: eyes are clear and none icteric LUNGS: normal respiratory effort ABD: distended Lower extremities: no edema SKIN: nonjaundiced Neuro: grossly intact. Objective Data Vital Signs Vital Signs: Vital Signs - 24 hr 02/13/22 20:00 02/13/22 20:01 02/13/22 20:15 Pulse Rate 62 62 64 Respiratory Rate 15 15 Blood Pressure 110/88 Pulse Oximetry 02/13/22 20:30 02/13/22 20:45 02/13/22 21:03 Pulse Rate 66 60 Respiratory Rate 12 16 14 Blood Pressure Pulse Oximetry 02/13/22 21:15 02/13/22 21:30 02/13/22 21:45 Pulse Rate Respiratory Rate 17 16 12 Blood Pressure Pulse Oximetry 94 95 02/13/22 22:00 02/13/22 22:30 02/13/22 22:45 Pulse Rate Respiratory Rate 17 14 Blood Pressure Pulse Oximetry 90 94 96 02/13/22 23:00 02/13/22 23:15 02/13/22 23:30 Pulse Rate Respiratory Rate 15 13 Blood Pressure Pulse Oximetry 96 93 02/13/22 23:49 02/14/22 00:00 02/14/22 00:15 Pulse Rate 78 60 Respiratory Rate 18 16 Blood Pressure Pulse Oximetry 97 93 02/14/22 00:30 02/14/22 00:45 02/14/22 01:00 Pulse Rate Respiratory Rate 13 Blood Pressure Pulse Oximetry 91 93 96 02/14/22 01:15 02/14/22 02:00 02/14/22 05:45 Pulse Rate 60 Respiratory Rate 16 Blood Pressure Pulse Oximetry 92 02/14/22 06:00 02/14/22 06:15 02/14/22 06:30 Pulse Rate 60 61 60 Respiratory Rate Blood Pressure Pulse Oximetry 02/14/22 10:20 02/14/22 18:11 Pulse Rate 76 68 Respiratory Rate 16 12 Blood Pressure 122/84 155/60 H Pulse Oximetry 94 100 Meds/Results Medications: Active Medications Generic Name Dose Route Start Last Admin Trade Name Freq PRN Reason Stop Dose Admin Hydrocodone Bitart/Acetaminophen 1 tab 02/13/22 18:34 02/14/22 07:58 Hydrocodone/Acetaminophen (*Crx) 7.5-325 Mg Tablet PO 1 tab Q6H PRN Administration Pain Rated 7-10 Alprazolam 1 mg
--- NOTE | 2022-02-14 18:50 | ADMGEN ---
This patient, Mariah Ling, was admitted to IMU Room 211-01 at 1830 on Thursday02/14/22. Patient/family oriented to hospital policies and general routines including ID bracelet, bed and alarms, visiting hours, pain management, procedures, bathroom and other care routines, personal items, smoking policy, room service/diet, and visiting hours. Information on how to activate the Rapid Response Team has been discussed. Patient/Family are encouraged to report perceived risks to care and to ask questions if they do not understand what they are told or what they should do.
[2022-02-14] MEDS: QUEtiapine FUMARATE 100 MG TABLET 800 MG PO (21:49)
[2022-02-14] MEDS: VENLAFAXINE HCL XR 75 MG CAP.ER.24H 150 MG PO (21:50)
[2022-02-14] MEDS: CYCLOBENZAPRINE HCL 5 MG TABLET PO (21:50)
[2022-02-14] MEDS: GABAPENTIN 300 MG CAPSULE 600 MG PO (21:50)
[2022-02-15] VITALS (11 sets, daily range): BP systolic 102–165; BP diastolic 66–92; PULSE 63–114; RESP 16–18; TEMP 36.2–36.8; O2SAT 94–100
[2022-02-15] MEDS: HYDROcodone/acetaminophen (*CRX) 7.5-325 MG TABLET 1 TAB PO ×3 (04:20→18:07)
[2022-02-15 05:12] LABS: Hematocrit 39.6 % (37.0-47.0); Hemoglobin 13.2 g/dL (12.0-15.0); Mean Corpuscular HGB Conc 33.3 g/dl (32-36); Mean Corpuscular Hemoglobin 29.6 pg (26-34); Mean Corpuscular Volume 88.8 fl (80-100); Mean Platelet Volume 10.3 fl (7.4-10.4); Platelet Count Result 193 k/mm3 (150-375); Red Blood Count 4.46 M/mm3 (4.2-5.4); Red Cell Distribution Width 12.8 % (11.5-14.5); White Blood Count 2.8 K/mm3 (4.5-10.0)
[2022-02-15 05:20] LABS: Alanine Aminotransferase 370 U/L (6-35); Albumin Level 3.5 g/dL (3.5-5.1); Alkaline Phosphatase 137 U/L (38-126); Anion Gap 5 mmol/L (8-16); Aspartate Amino Transferase 200 U/L (14-36); Bilirubin,Total 0.5 mg/dL (0.2-1.3); Blood Urea Nitrogen 10 mg/dL (7-17); Calcium 8.7 mg/dL (8.4-10.2); Carbon Dioxide 30 mmol/L (22-30); Chloride 105 mmol/L (98-107); Estimated CRCL calculation 78 ml/min; Estimated Glomerular Filt Rate > 60; Glucose 119 mg/dL (65-110); Magnesium 1.8 mg/dL (1.6-2.3); Potassium 3.7 mmol/L (3.4-5.0); Sodium 140 mmol/L (137-145)
[2022-02-15] MEDS: CYCLOBENZAPRINE HCL 5 MG TABLET PO ×3 (09:02→22:02)
[2022-02-15] MEDS: amLODIPine BESYLATE 5 MG TABLET PO (09:02)
[2022-02-15] MEDS: COLCHICINE 0.6 MG TABLET PO ×2 (09:02→22:01)
[2022-02-15] MEDS: INDOMETHACIN 25 MG CAPSULE PO ×3 (09:03→18:06)
[2022-02-15] MEDS: MORPHINE SULFATE (*CRX) 2 MG/ML INJ IV PUSH ×2 (14:56→22:17)
--- NOTE | 2022-02-15 15:16 | PM.PNCARD ---
Progress Note: A&P Assessment and Plan (1) Pericardial effusion: Code(s): I31.39 - Other pericardial effusion (noninflammatory) Status: Acute Assessment and Plan: Patient with pleuritic chest pain, pericardial effusion on echo, clinical presentation consistent with pericarditis. Patient continues to have pleuritic chest discomfort. -change colchicine dose to 0.6 mg p.o. b.i.d.. Continue NSAID. Add PPI. -check thyroid panel -repeat echocardiogram on Thursday to make sure pericardial effusion is stable or improved. -patient has significant anxiety. Management as per primary team. Subjective Date/time seen: 02/15/22 15:16 Interval history: Date of service 02/15/2022 Interval history: Patient continues to have left-sided chest discomfort, worse with deep breathing. Denies shortness of breath at rest. No palpitation, dizziness or syncope. Patient is seeking frequent pain medications, as per staff. Exam Narrative: PHYSICAL EXAMINATION: GENERAL: Alert, anxious MENTAL STATUS: Anxious EYES: Extraocular movements intact, no pallor EARS: External ears appear normal, hearing grossly normal NOSE: Normal and patent, no discharge MOUTH: Mucous membranes moist, tongue normal NECK: Supple, no JVD CHEST: Good respiratory effort, clear to auscultation HEART: Normal rate, regular rhythm, distant heart sounds ABDOMEN: Soft, nontender NEUROLOGICAL: Alert, oriented, normal speech, no gross motor deficits MUSCULOSKELETAL: No major deformity, no amputation EXTREMITIES: No pedal edema, no clubbing, no cyanosis SKIN: no rash on the exposed area, no cyanosis PSYCHIATRIC: Anxious Objective Data Vital Signs Vital Signs: Vital Signs - 24 hr 02/14/22 18:11 02/14/22 18:53 02/14/22 20:00 Temperature 35.7 C L 36.5 C Pulse Rate 68 73 71 Respiratory Rate 12 16 Blood Pressure 155/60 H 113/82 113/63 Pulse Oximetry 100 95 94 Oxygen Delivery 02/15/22 00:00 02/15/22 04:00 02/15/22 08:00 Temperature 36.2 C L 36.5 C Pulse Rate 79 63 Respiratory Rate 16 16 Blood Pressure 110/66 114/67 Pulse Oximetry 95 100 Oxygen Delivery Room Air 02/15/22 08:00 02/15/22 08:00 02/15/22 10:00 Temperature 36.4 C L Pulse Rate 72 65 71 Respiratory Rate 16 Blood Pressure 111/67 Pulse Oximetry 97 Oxygen Delivery 02/15/22 12:00 02/15/22 12:00 02/15/22 12:00 Temperature 36.8 C Pulse Rate 82 81 Respiratory Rate 16 Blood Pressure 138/92 H Pulse Oximetry 99 Oxygen Delivery Room Air 02/15/22 14:00 Temperature Pulse Rate 75 Respiratory Rate Blood Pressure Pulse Oximetry Oxygen Delivery Intake/Output Intake/Output: Intake & Output 02/12/22 02/13/22 02/14/22 02/15/22 23:59 23:59 23:59 23:59 Intake Total 0 300 Output Total 0 850 Balance 0 -550 Meds/Results Medications: Active Medications Generic Name Dose Route Start Last Admin Trade Name Freq PRN Reason Stop Dose Admin Hydrocodone Bitart/Acetaminophen 1 tab 02/13/22 18:34 02/15/22 10:55 Hydrocodone/Acetaminophen (*Crx) 7.5-325 Mg Tablet PO 1 tab Q6H PRN Administration Pain Rated 7-10 Alprazolam 1 mg 02/13/22 04:32 02/14/22 07:58 Alprazolam (*Crx) 0.5 Mg Tablet PO 1 mg TID PRN Administration Anxiety Amlodipine Besylate 5 mg 02/13/22 09:00 02/15/22 09:02 Amlodipine Besylate 5 Mg Tablet PO 5 mg DAILY POONAM Administration Colchicine 0.6 mg 02/13/22 14:25 02/15/22 09:02 Colchicine 0.6 Mg Tablet PO 0.6 mg QAM POONAM Administration Cyclobenzaprine HCl 5 mg 02/14/22 22:00 02/15/22 13:54 Cyclobenzaprine Hcl 5 Mg Tablet PO 5 mg Q8HR POONAM Administration Gabapentin 600 mg 02/13/22 21:00 02/14/22 21:50 Gabapentin 300 Mg Capsule PO 600 mg QHS POONAM Administration Indomethacin 25 mg 02/13/22 08:00 02/15/22 13:54 Indomethacin 25 Mg Capsule PO 25 mg TIDWM POONAM Administration Miscellaneous Information 0 each 02/13/22 00:01
[2022-02-15 18:10] LABS: Free T4 Free Thyroxine Reflex 0.47 ng/dL (0.78-2.19)
--- NOTE | 2022-02-15 19:16 | PM.IMPN ---
Progress Note: A&P Assessment and Plan (1) Chest pain: Code(s): R07.9 - Chest pain, unspecified Status: Acute Assessment and Plan: EKG with no changes Will send troponins 02/15/2022 interval history: patient continue to complaint of chest pain had a cardiac echo showed moderate pericardial effusion, posterior laterally, on 02/[address] Olsen cardiology patient is already a on indomethacin from previous presentation and roll reclaimer added Colchicine 0.6mg q.day, on 02/14 patient continue to complain of chest pain and suspect patient has a musculoskeletal component added cyclobenzaprine 5 mg q.8 scheduled, today patient was seen by roll reclaimer increased Colchicine to 0.6mg BID from qdaily, and ordered repeat cardiac echo, will continue pain med and further recommendation to follow. (2) Pericardial effusion: Code(s): I31.39 - Other pericardial effusion (noninflammatory) Status: Acute Assessment and Plan: Will obtain echocardiogram in the morning Will place the patient in a NSAID with caution due to chronic kidney disease (3) Acute dyspnea: Code(s): R06.00 - Dyspnea, unspecified Status: Acute Assessment and Plan: Ruled out for pulmonary embolism (4) Chronic kidney disease: Code(s): N18.9 - Chronic kidney disease, unspecified Status: Acute Assessment and Plan: Continue to monitor BUN and creatinine (5) BMI greater than 40: Status: Acute Assessment and Plan: Lifestyle and diet modifications Subjective Date/time seen: 02/15/22 19:16 02/15/2022 interval history: patient continue to complaint of chest pain had a cardiac echo showed moderate pericardial effusion, posterior laterally, on 02/[address] Olsen cardiology patient is already a on indomethacin from previous presentation and roll reclaimer added Colchicine 0.6mg q.day, on 02/14 patient continue to complain of chest pain and suspect patient has a musculoskeletal component added cyclobenzaprine 5 mg q.8 scheduled, today patient was seen by roll reclaimer increased Colchicine to 0.6mg BID from qdaily, and ordered repeat cardiac echo, will continue pain med and further recommendation to follow. Review of Systems Constitutional: Constitutional: Denies chills, Denies fever(s), Denies malaise and Denies night sweats Exam Narrative: morbidly obese Patient is comfortable, NAD HEENT: eyes are clear and none icteric LUNGS: normal respiratory effort ABD: distended Lower extremities: no edema SKIN: nonjaundiced Neuro: grossly intact. Objective Data Vital Signs Vital Signs: Vital Signs - 24 hr 02/14/22 20:00 02/15/22 00:00 02/15/22 04:00 Temperature 97.7 F 97.2 F L 97.7 F Pulse Rate 71 79 63 Respiratory Rate 16 16 16 Blood Pressure 113/63 110/66 114/67 Pulse Oximetry 94 95 100 Oxygen Delivery 02/15/22 08:00 02/15/22 08:00 02/15/22 08:00 Temperature 97.5 F L Pulse Rate 72 65 Respiratory Rate 16 Blood Pressure 111/67 Pulse Oximetry 97 Oxygen Delivery Room Air 02/15/22 10:00 02/15/22 12:00 02/15/22 12:00 Temperature 98.2 F Pulse Rate 71 82 81 Respiratory Rate 16 Blood Pressure 138/92 H Pulse Oximetry 99 Oxygen Delivery 02/15/22 12:00 02/15/22 14:00 02/15/22 16:00 Temperature 97.9 F Pulse Rate 75 74 Respiratory Rate 17 Blood Pressure 114/81 Pulse Oximetry 98 Oxygen Delivery Room Air 02/15/22 16:00 02/15/22 16:00 02/15/22 18:00 Temperature Pulse Rate 72 72 89 Respiratory Rate 17 Blood Pressure Pulse Oximetry 98 Oxygen Delivery Room Air Intake/Output Intake/Output: Intake & Output 02/12/22 02/13/22 02/14/22 02/15/22 23:59 23:59 23:59 23:59 Intake Total 0 750 Output Total 0 1200 Balance 0 -450 Meds/Results Medications: Active Medications Generic Name Dose Route Start Last Admin Trade Name Freq PRN Reason Stop Dose Admin Hydrocodone Bitart/Acetamin
[2022-02-15] MEDS: GABAPENTIN 300 MG CAPSULE 600 MG PO (22:01)
[2022-02-15] MEDS: QUEtiapine FUMARATE 100 MG TABLET 800 MG PO (22:02)
[2022-02-15] MEDS: VENLAFAXINE HCL XR 75 MG CAP.ER.24H 150 MG PO (22:03)
[2022-02-16] VITALS (13 sets, daily range): BP systolic 105–136; BP diastolic 52–75; PULSE 62–79; RESP 12–20; TEMP 35.9–36.6; O2SAT 95–100
[2022-02-16] MEDS: HYDROcodone/acetaminophen (*CRX) 7.5-325 MG TABLET 1 TAB PO ×2 (01:17→10:22)
[2022-02-16] MEDS: ALPRAZolam (*CRX) 0.5 MG TABLET 1 MG PO (01:17)
[2022-02-16 05:15] LABS: Hematocrit 39.9 % (37.0-47.0); Mean Corpuscular HGB Conc 32.6 g/dl (32-36); Mean Corpuscular Hemoglobin 29.5 pg (26-34); Mean Corpuscular Volume 90.7 fl (80-100); Mean Platelet Volume 10.8 fl (7.4-10.4); Platelet Count Result 192 k/mm3 (150-375); Red Cell Distribution Width 12.8 % (11.5-14.5); White Blood Count 4.7 K/mm3 (4.5-10.0)
[2022-02-16 05:22] LABS: Alanine Aminotransferase 256 U/L (6-35); Albumin Level 3.6 g/dL (3.5-5.1); Alkaline Phosphatase 112 U/L (38-126); Anion Gap 5 mmol/L (8-16); Aspartate Amino Transferase 112 U/L (14-36); Bilirubin,Total 0.3 mg/dL (0.2-1.3); Blood Urea Nitrogen 14 mg/dL (7-17); Calcium 8.7 mg/dL (8.4-10.2); Carbon Dioxide 28 mmol/L (22-30); Chloride 101 mmol/L (98-107); Estimated CRCL calculation 78 ml/min; Estimated Glomerular Filt Rate > 60; Glucose 119 mg/dL (65-110); Magnesium 1.7 mg/dL (1.6-2.3); Potassium 3.8 mmol/L (3.4-5.0); Sodium 134 mmol/L (137-145)
[2022-02-16] MEDS: CYCLOBENZAPRINE HCL 5 MG TABLET PO ×3 (06:16→21:39)
[2022-02-16] MEDS: amLODIPine BESYLATE 5 MG TABLET PO (08:40)
[2022-02-16] MEDS: PANTOPRAZOLE 40 MG TABLET PO (08:40)
[2022-02-16] MEDS: COLCHICINE 0.6 MG TABLET PO ×2 (08:40→21:39)
[2022-02-16] MEDS: INDOMETHACIN 25 MG CAPSULE PO ×3 (08:40→16:30)
--- NOTE | 2022-02-16 10:31 | PM.PNCARD ---
Progress Note: A&P Assessment and Plan (1) Pericardial effusion: Code(s): I31.39 - Other pericardial effusion (noninflammatory) Status: Acute Assessment and Plan: Patient with pleuritic chest pain, pericardial effusion on echo, clinical presentation suggestive of pericarditis. Patient continues to have pleuritic chest discomfort. -continue colchicine 0.6 mg p.o. b.i.d.. Continue NSAID along with PPI. -patient's thyroid panel which I ordered yesterday shows elevated TSH with low free T4. Hypothyroidism associated pericardial effusion remains a possibility. Recommend endocrinology evaluation. -repeat echocardiogram tomorrow to make sure pericardial effusion is stable or improved. -patient has significant anxiety. Management as per primary team. -plan discussed with the patient and hospitalist team. Subjective Date/time seen: 02/16/22 10:31 Interval history: Date of service 02/15/2022 Interval history: Patient continues to have left-sided chest discomfort, worse with deep breathing. Denies shortness of breath at rest. No palpitation, dizziness or syncope. Patient is seeking frequent pain medications, as per staff. Date of service 02/16/2022-patient continues to have left-sided chest discomfort, worse with deep breathing. Denies palpitation, dizziness or syncope. On telemetry, patient is in sinus rhythm. Exam Narrative: PHYSICAL EXAMINATION: GENERAL: Alert, anxious MENTAL STATUS: Anxious EYES: Extraocular movements intact, no pallor EARS: External ears appear normal, hearing grossly normal NOSE: Normal and patent, no discharge MOUTH: Mucous membranes moist, tongue normal NECK: Supple, no JVD CHEST: Good respiratory effort, clear to auscultation HEART: Normal rate, regular rhythm, distant heart sounds ABDOMEN: Soft, nontender NEUROLOGICAL: Alert, oriented, normal speech, no gross motor deficits MUSCULOSKELETAL: No major deformity, no amputation EXTREMITIES: No pedal edema, no clubbing, no cyanosis SKIN: no rash on the exposed area, no cyanosis PSYCHIATRIC: Anxious Objective Data Vital Signs Vital Signs: Vital Signs - 24 hr 02/15/22 12:00 02/15/22 12:00 02/15/22 12:00 Temperature 36.8 C Pulse Rate 82 81 Respiratory Rate 16 Blood Pressure 138/92 H Pulse Oximetry 99 Oxygen Delivery Room Air 02/15/22 14:00 02/15/22 16:00 02/15/22 16:00 Temperature 36.6 C Pulse Rate 75 74 72 Respiratory Rate 17 Blood Pressure 114/81 Pulse Oximetry 98 Oxygen Delivery 02/15/22 16:00 02/15/22 18:00 02/15/22 20:00 Temperature 36.8 C Pulse Rate 72 89 78 Respiratory Rate 17 16 Blood Pressure 165/68 H Pulse Oximetry 98 94 Oxygen Delivery Room Air 02/15/22 23:54 02/15/22 20:00 02/15/22 22:00 Temperature 36.6 C Pulse Rate 114 H 89 74 Respiratory Rate 18 Blood Pressure 102/70 Pulse Oximetry 94 Oxygen Delivery 02/16/22 00:00 02/16/22 02:00 02/15/22 20:00 Temperature Pulse Rate 67 67 Respiratory Rate Blood Pressure Pulse Oximetry Oxygen Delivery Room Air 02/16/22 00:00 02/16/22 04:00 02/16/22 04:00 Temperature 36.6 C Pulse Rate 68 66 Respiratory Rate 14 Blood Pressure 105/72 Pulse Oximetry 97 Oxygen Delivery Room Air 02/16/22 04:00 02/16/22 06:00 02/16/22 08:00 Temperature 36.2 C L Pulse Rate 67 74 Respiratory Rate 20 Blood Pressure 132/68 Pulse Oximetry 100 Oxygen Delivery Room Air 02/16/22 08:00 02/16/22 08:00 Temperature Pulse Rate 65 Respiratory Rate Blood Pressure Pulse Oximetry Oxygen Delivery Room Air Intake/Output Intake/Output: Intake & Output 02/13/22 02/14/22 02/15/22 02/16/22 23:59 23:59 23:59 23:59 Intake Total 0 750 540 Output Total 0 1200 500 Balance 0 -450 40 Meds/Results Medications: Active Medications Generic Name Dose Route Start Last Admin Trade Name Freq PRN Reason Stop Dose Admin Hydrocodone Bitart/Acetaminoph
--- NOTE | 2022-02-16 15:18 | PM.IMPN ---
Progress Note: A&P Assessment and Plan (1) Chest pain: Code(s): R07.9 - Chest pain, unspecified Status: Acute Assessment and Plan: EKG with no changes Will send troponins 02/16/2022 interval history: patient continue to complaint of chest pain had a cardiac echo showed moderate pericardial effusion, posterior laterally, on 02/[address] Olsen cardiology patient is already a on indomethacin from previous presentation and floral specialist added Colchicine 0.6mg q.day, on 02/14 patient continue to complain of chest pain and suspect patient has a musculoskeletal component added cyclobenzaprine 5 mg q.8 scheduled, on 02/15 patient was seen by floral specialist increased Colchicine to 0.6mg BID from qdaily, and ordered repeat cardiac echo, also cardiolgoist ordered patient thyroid profile which showed slightly elevated TSH 4.710 and low Free T4 suggesting hypothyroid and suspect patient may have hypothyroid related pericardial effusion, may need endocrin consult, has elevated LFT, acute hepatitis panel is negative, will do liver US, will continue pain med and further recommendation to follow. (2) Pericardial effusion: Code(s): I31.39 - Other pericardial effusion (noninflammatory) Status: Acute Assessment and Plan: Will obtain echocardiogram in the morning Will place the patient in a NSAID with caution due to chronic kidney disease (3) Acute dyspnea: Code(s): R06.00 - Dyspnea, unspecified Status: Acute Assessment and Plan: Ruled out for pulmonary embolism (4) Chronic kidney disease: Code(s): N18.9 - Chronic kidney disease, unspecified Status: Acute Assessment and Plan: Continue to monitor BUN and creatinine (5) BMI greater than 40: Status: Acute Assessment and Plan: Lifestyle and diet modifications Subjective Date/time seen: 02/16/22 15:18 02/16/2022 interval history: patient continue to complaint of chest pain had a cardiac echo showed moderate pericardial effusion, posterior laterally, on 02/[address] Olsen cardiology patient is already a on indomethacin from previous presentation and floral specialist added Colchicine 0.6mg q.day, on 02/14 patient continue to complain of chest pain and suspect patient has a musculoskeletal component added cyclobenzaprine 5 mg q.8 scheduled, on 02/15 patient was seen by floral specialist increased Colchicine to 0.6mg BID from qdaily, and ordered repeat cardiac echo, also cardiolgoist ordered patient thyroid profile which showed slightly elevated TSH 4.710 and low Free T4 suggesting hypothyroid and suspect patient may have hypothyroid related pericardial effusion, may need endocrin consult, has elevated LFT, acute hepatitis panel is negative, will do liver US, will continue pain med and further recommendation to follow. Review of Systems Constitutional: Constitutional: Denies chills, Denies fever(s), Denies malaise and Denies night sweats Exam Narrative: morbidly obese Patient is comfortable, NAD HEENT: eyes are clear and none icteric LUNGS: normal respiratory effort ABD: distended Lower extremities: no edema SKIN: nonjaundiced Neuro: grossly intact. Objective Data Vital Signs Vital Signs: Vital Signs - 24 hr 02/15/22 16:00 02/15/22 16:00 02/15/22 16:00 Temperature 97.9 F Pulse Rate 74 72 72 Respiratory Rate 17 17 Blood Pressure 114/81 Pulse Oximetry 98 98 Oxygen Delivery Room Air 02/15/22 18:00 02/15/22 20:00 02/15/22 23:54 Temperature 98.2 F 97.8 F Pulse Rate 89 78 114 H Respiratory Rate 16 18 Blood Pressure 165/68 H 102/70 Pulse Oximetry 94 94 Oxygen Delivery 02/15/22 20:00 02/15/22 22:00 02/16/22 00:00 Temperature Pulse Rate 89 74 67 Respiratory Rate Blood Pressure Pulse Oximetry Oxygen Delivery 02/16/22 02:00 02/15/22 20:00 02/16/22 00:00 Temperature Pulse Rate 67 Respiratory Rate Blood Pressure Pulse Oximetry
[2022-02-16] MEDS: QUEtiapine FUMARATE 100 MG TABLET 800 MG PO (21:36)
[2022-02-16] MEDS: GABAPENTIN 300 MG CAPSULE 600 MG PO (21:38)
[2022-02-16] MEDS: VENLAFAXINE HCL XR 75 MG CAP.ER.24H 150 MG PO (21:38)
[2022-02-17] VITALS (10 sets, daily range): BP systolic 108–122; BP diastolic 60–68; PULSE 62–87; RESP 12–20; TEMP 35.7–36.2; O2SAT 94–96
--- NOTE | 2022-02-17 | ECHOL_ITS ---
Patient Info Name: Mariah Ling Age: 47 years : 1975 Gender: Female Ht: 62 in Wt: 235 lbs BSA: 2.22 m2 HR: 81 bpm BP: 115 / 65 mmHg Heart Rhythm: Sinus Rhythm Technical Quality: Good Exam Date: 02/17/2022 10:51 AM Exam Location: [facility] Patient Status: Inpatient Admit Date: 02/15/2022 Staff Ordering Physician: Sai Becker MD Freight Coordinator: Pretty Link RDCS Attending Provider: Laura Marroquin MD Exam Type: CA echo limited Study Info Indications I31.3 - Pericardial effusion (noninflammatory) Limited two-dimensional transthoracic echocardiogram is performed. Summary 1. Normal left and right ventricular systolic function and size. 2. No clear-cut evidence of right ventricular diastolic collapse. 3. No Doppler criteria of cardiac tamponade. 4. Moderate size pericardial effusion which again is seen primarily lateral and posterior to the heart. Size of the effusion is clinically unchanged in comparison to exam from 02/13/2022. Left Ventricle Left ventricular chamber dimension is normal. Left ventricular systolic function is normal, estimated at 60-65%. Right Ventricle Right ventricular chamber dimension is normal. Right ventricular systolic function is normal. Left Atria Left atrial chamber dimension is normal. Aortic Valve The aortic valve is normal. Pulmonic Valve The pulmonic valve is not well visualized. Mitral Valve The mitral valve has normal leaflets. Tricuspid Valve The tricuspid valve leaflets are not well visualized. There is no tricuspid valve regurgitation. Pericardium/Pleural The pericardium appears normal. There is moderate pericardial effusion. Aorta The aortic root size at the sinus of Valsalva is normal. Left Ventricular Outflow Tract Name Value Normal LVOT Doppler LVOT Peak Gradient 5 mmHg LVOT Mean Gradient 3 mmHg LVOT VTI 17 cm LVOT VTI/AV VTI Ratio 0.6 Mitral Valve Name Value Normal MV Doppler MV Decel Hopkins 427 cm/s2 MV PHT 53 ms MV Area (PHT) 4.1 cm2 4.0-5.0 MV Diastolic Function MV E Peak Velocity 79 cm/s MV A Peak Velocity 57 cm/s MV E/A 1.4 MV Decel Time 184 ms Aortic Valve Name Value Normal AV Doppler AV Peak Velocity 145 cm/s AV Peak Gradient 8 mmHg AV Mean Gradient
[2022-02-17] MEDS: CYCLOBENZAPRINE HCL 5 MG TABLET PO ×2 (05:56→14:34)
[2022-02-17 05:59] LABS: Hemoglobin 13.3 g/dL (12.0-15.0); Mean Corpuscular HGB Conc 32.4 g/dl (32-36); Mean Corpuscular Hemoglobin 29.3 pg (26-34); Mean Corpuscular Volume 90.3 fl (80-100); Mean Platelet Volume 10.4 fl (7.4-10.4); Platelet Count Result 209 k/mm3 (150-375); Red Blood Count 4.54 M/mm3 (4.2-5.4); Red Cell Distribution Width 12.7 % (11.5-14.5); White Blood Count 4.7 K/mm3 (4.5-10.0)
[2022-02-17 06:17] LABS: Alanine Aminotransferase 236 U/L (6-35); Albumin Level 3.6 g/dL (3.5-5.1); Alkaline Phosphatase 111 U/L (38-126); Anion Gap 5 mmol/L (8-16); Aspartate Amino Transferase 119 U/L (14-36); Bilirubin,Total 0.5 mg/dL (0.2-1.3); Blood Urea Nitrogen 20 mg/dL (7-17); Calcium 8.8 mg/dL (8.4-10.2); Carbon Dioxide 31 mmol/L (22-30); Chloride 103 mmol/L (98-107); Estimated CRCL calculation 71 ml/min; Estimated Glomerular Filt Rate 59; Glucose 110 mg/dL (65-110); Magnesium 1.6 mg/dL (1.6-2.3); Potassium 4.1 mmol/L (3.4-5.0); Sodium 139 mmol/L (137-145)
[2022-02-17] MEDS: HYDROcodone/acetaminophen (*CRX) 7.5-325 MG TABLET 1 TAB PO (08:31)
[2022-02-17] MEDS: PANTOPRAZOLE 40 MG TABLET PO (08:32)
[2022-02-17] MEDS: INDOMETHACIN 25 MG CAPSULE PO ×2 (08:32→11:40)
[2022-02-17] MEDS: amLODIPine BESYLATE 5 MG TABLET PO (08:32)
[2022-02-17] MEDS: COLCHICINE 0.6 MG TABLET PO (08:32)
--- NOTE | 2022-02-17 13:10 | PM.PNCARD ---
Progress Note: A&P Assessment and Plan (1) Pericardial effusion: Code(s): I31.39 - Other pericardial effusion (noninflammatory) Status: Acute Assessment and Plan: Patient with pleuritic chest pain, pericardial effusion on echo, clinical presentation suggestive of pericarditis. Patient continues to have pleuritic chest discomfort. -continue colchicine 0.6 mg p.o. b.i.d.. Continue NSAID along with PPI. -patient's thyroid panel shows elevated TSH with low free T4. Hypothyroidism associated pericardial effusion remains a possibility. Recommend endocrinology evaluation. -repeat echocardiogram today showed stable pericardial effusion, no echocardiographic evidence of tamponade -OK for discharge today from a cardiac standpoint. Subjective Date/time seen: 02/17/22 13:10 Interval history: Date of service 02/15/2022 Interval history: Patient continues to have left-sided chest discomfort, worse with deep breathing. Denies shortness of breath at rest. No palpitation, dizziness or syncope. Patient is seeking frequent pain medications, as per staff. Date of service 02/16/2022-patient continues to have left-sided chest discomfort, worse with deep breathing. Denies palpitation, dizziness or syncope. On telemetry, patient is in sinus rhythm. 02/17/2022: Feeling better today. Still has left sided chest pain but improving in intensity. No shortness of breath or palpitations. Also continues to have reproducible chest pain. Exam Const: General: no acute distress Other: Obese female HENMT: Mouth: Yes moist mucous membranes Eyes: General: appearance normal, both eyes and all related structures Sclera: sclerae normal Neck: Neck: supple Chest: Other: Patient does have reproducible chest pain on examination. Resp: Effort & Inspection: normal respiratory effort Auscultation: clear to auscultation bilaterally Cardio: Rate: regular rate Rhythm: regular rhythm Heart sounds: no murmurs Skin: General skin exam: normal color Neuro: Speech: normal speech Extrem: General: normal to inspection Psych: Mental Status: mental status grossly normal Affect: normal affect Objective Data Vital Signs Vital Signs: Vital Signs - 24 hr 02/16/22 14:00 02/16/22 16:00 02/16/22 16:00 Temperature 36.1 C L Pulse Rate 67 74 68 Respiratory Rate 16 Blood Pressure 108/52 L Pulse Oximetry 97 Oxygen Delivery 02/16/22 16:00 02/16/22 18:21 02/16/22 20:00 Temperature 36.6 C Pulse Rate 71 62 Respiratory Rate 12 Blood Pressure 107/65 Pulse Oximetry 99 Oxygen Delivery Room Air 02/16/22 20:00 02/16/22 20:00 02/16/22 22:00 Temperature Pulse Rate 69 69 66 Respiratory Rate 12 Blood Pressure Pulse Oximetry 99 Oxygen Delivery Room Air 02/16/22 23:33 02/17/22 00:00 02/17/22 00:00 Temperature 36.4 C Pulse Rate 64 62 64 Respiratory Rate 12 12 Blood Pressure 136/68 Pulse Oximetry 95 95 Oxygen Delivery Room Air 02/17/22 02:00 02/17/22 04:00 02/17/22 04:00 Temperature Pulse Rate 69 68 68 Respiratory Rate 12 Blood Pressure Pulse Oximetry 95 Oxygen Delivery Room Air 02/17/22 06:00 02/17/22 04:00 02/17/22 08:33 Temperature 36.2 C L 35.7 C L Pulse Rate 69 67 74 Respiratory Rate 12 20 Blood Pressure 115/65 108/60 Pulse Oximetry 96 94 Oxygen Delivery 02/17/22 08:00 02/17/22 08:00 02/17/22 10:00 Temperature Pulse Rate 74 78 Respiratory Rate Blood Pressure Pulse Oximetry Oxygen Delivery Room Air 02/17/22 11:58 02/17/22 12:00 02/17/22 12:27 Temperature 35.8 C L Pulse Rate 85 76 Respiratory Rate 18 Blood Pressure 122/68 Pulse Oximetry 94 Oxygen Delivery Room Air Intake/Output Intake/Output: Intake & Output 02/14/22 02/15/22 02/16/22 02/17/22 23:59 23:59 23:59 23:59 Intake Total 0 750 1400 340 Output Total 0 1200 1300 400 Balance 0 -450 100 -60 Meds/Results Medications: Active Medica
[2022-02-17] MEDS: MORPHINE SULFATE (*CRX) 2 MG/ML INJ IV PUSH (14:34)
--- NOTE | 2022-02-17 15:41 | PM.DS ---
DS: Admitting Diagnosis Discharge Date 02/17/2022 Admitting Diagnosis Shortness of breath DS: Discharge Diagnosis Discharge Diagnosis (1) Chest pain: Code(s): R07.9 - Chest pain, unspecified Status: Acute Assessment and Plan: EKG with no changes Will send troponins 02/16/2022 interval history: patient continue to complaint of chest pain had a cardiac echo showed moderate pericardial effusion, posterior laterally, on 02/[address] Olsen cardiology patient is already a on indomethacin from previous presentation and program director/traffic director added Colchicine 0.6mg q.day, on 02/14 patient continue to complain of chest pain and suspect patient has a musculoskeletal component added cyclobenzaprine 5 mg q.8 scheduled, on 02/15 patient was seen by program director/traffic director increased Colchicine to 0.6mg BID from qdaily, and ordered repeat cardiac echo, also cardiolgoist ordered patient thyroid profile which showed slightly elevated TSH 4.710 and low Free T4 suggesting hypothyroid and suspect patient may have hypothyroid related pericardial effusion, may need endocrin consult, has elevated LFT, acute hepatitis panel is negative, will do liver US, will continue pain med and further recommendation to follow. (2) Pericardial effusion: Code(s): I31.39 - Other pericardial effusion (noninflammatory) Status: Acute Assessment and Plan: Will obtain echocardiogram in the morning Will place the patient in a NSAID with caution due to chronic kidney disease (3) Acute dyspnea: Code(s): R06.00 - Dyspnea, unspecified Status: Acute Assessment and Plan: Ruled out for pulmonary embolism (4) Chronic kidney disease: Code(s): N18.9 - Chronic kidney disease, unspecified Status: Acute Assessment and Plan: Continue to monitor BUN and creatinine (5) BMI greater than 40: Status: Acute Assessment and Plan: Lifestyle and diet modifications DS: Summary Hospital Course Reason for hospitalization: Chief Complaint: Shortness of breath Narrative: This is a 47-year-old female with past medical history significant for obesity, hypertension.? Patient presents to the emergency room due to shortness of breath and chest pain these denies fevers, chills, night sweats, shortness of breath is at minimal exertion.? Patient denies any rashes, joint pain, weight loss, cough, sputum production, no nausea, no vomiting, no diarrhea no leg swelling.? Preliminary workup was significant for CT angiogram of the chest was reported as: Hospital Course: patient continue to complaint of chest pain had a cardiac echo showed moderate pericardial effusion, posterior laterally, on 02/13? discussed with Dr. Olsen cardiology patient is already a on indomethacin from previous presentation and program director/traffic director added Colchicine 0.6mg? q.day, on 02/14? patient continue to complain of chest pain and suspect patient has a musculoskeletal component added? cyclobenzaprine 5 mg q.8 scheduled, on 02/15? patient was seen by program director/traffic director increased Colchicine to 0.6mg BID from qdaily, and ordered repeat cardiac echo, also cardiolgoist ordered patient thyroid profile which showed slightly elevated TSH 4.710 and low Free T4 suggesting hypothyroid and suspect patient may have hypothyroid related pericardial effusion, may need endocrin consult, has elevated LFT, acute hepatitis panel is negative, will do liver US,? will continue pain med and further recommendation to follow. patient remains clinically stable pain has improved, liver ultrasound showed fatty liver, will discharge the patient today Time Spent with Patient Time attestation: Total time spent providing and/or coordinating discharge services: Exam Narrative: morbidly obese Patient is comfortable, NAD HEENT: eyes are clear and none icteric LUNGS: normal respiratory effort ABD: distended Lower extremities: no edema SKIN: nonjaundiced Neuro: grossly intact. DS: Data Data Comple
== END 2022-02-17 16:55 | disposition home or self-care (01) | DRG 315 ==
LOC: ANHED 23:40 → ANHIMU 02-13 02:14
PROVIDERS: Internal Medicine; Internal Medicine Cardiovascular Disease; Admitting Provider Internal Medicine; Emergency Provider Emergency Medicine; PCP Family Medicine; Visit Provider Family Medicine
DX: I31.39 Other pericardial effusion (noninflammatory) (principal); Z68.41 Body mass index [BMI] 40.0-44.9, adult; R07.89 Other chest pain; Z20.822 Contact with and (suspected) exposure to COVID-19; I12.9 Hypertensive chronic kidney disease with stage 1 through stage 4 chronic kidney disease, or unspecified chronic kidney disease; N18.9 Chronic kidney disease, unspecified; E66.01 Morbid (severe) obesity due to excess calories; D64.9 Anemia, unspecified; E03.8 Other specified hypothyroidism; G47.33 Obstructive sleep apnea (adult) (pediatric); Z90.710 Acquired absence of both cervix and uterus
CPT/HCPCS: 36415; 71046; 71275; 76705; 80053; 83690; 83735; 84439; 84443; 84484; 85025; 85027; 85380; 85610; 85652; 85730; 86140; 87636; 93005; 93308; 96374; 96375; 96376; 99285; A9270; G0378; J1170; J2270; Q9967

== ENCOUNTER 2022-05-30 18:58 | Observation (INO) | payer MEDICARE, MEDICAID, SELFPAY ==
[2022-05-30] VITALS (24 sets, daily range): BP systolic 116–151; BP diastolic 81–107; PULSE 71–88; RESP 11–17; TEMP 36.4; O2SAT 1–100
--- NOTE | ~2022-05-30 | CT_ITS ---
Non-contrast Head CT History: Altered mental status COMPARISON: 05/25/2020 Technique: Axial non-contrast imaging of the brain was performed. Dose reduction technique was used on this scan by utilizing automated exposure control and iterative reconstruction technique. The dose -length product (DLP) was 605.33 mGy-cm. Findings: There is no evidence of intracranial hemorrhage, mass lesion, or acute infarct. Brain par enchyma appears normal. The ventricles and subarachnoid spaces are normal in size. The calvarium ap pears normal. The visualized paranasal sinuses and mastoid air cells are clear. Impression: No significant abnormality seen. Reviewed, dictated and finalized at location . Impression: No significant abnormality seen.
--- NOTE | 2022-05-30 19:13 | ECG_ITS ---
Measurements Intervals [place] Rate: 85 P: 24 NV: 138 QRS: 1 QRSD: 87 T: 70 QT: 376 QTc: 449 Interpretive Statements SINUS RHYTHM NONDIAGNOSTIC INFERIOR Q-WAVE LOW QRS VOLTAGE ABNORMAL ECG COMPARED TO ECG 02/12/2022 21:13:35 NO SIGNIFICANT CHANGES Electronically Signed On 05-31-2022 7:24:13 CDT by Kt Oliver M.D.
--- NOTE | 2022-05-30 19:25 | ED.AMS ---
HPI - Altered Mental Status General Chief Complaint: Altered Mental Status Stated Complaint: altered mental status, od Time Seen by Provider: 05/30/22 19:13 History of Present Illness HPI narrative: 47-year-old female presented the emergency department for evaluation of altered mental status. Family states that they spoke to the patient this morning and she was at her normal baseline. Patient states that her symptoms started approximately 5 PM. 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 Family states that the patient was seen at [facility] on Thursday for episode of blacking out. EMS was called today for patient being found unresponsive. They initially thought that the patient had an overdose of gabapentin. Patient's pill dispenser is disorganized, family states this is due to the patient having previous blackout and dropping her pillbox. Patient states that she has not taken any additional medications. Patient states he took all of her medications for the day but also thought that today was Thursday Related Data Home Medications Medication Instructions Recorded Confirmed alprazolam 1 mg tablet (Xanax) 1 mg PO TID PRN Anxiety 12/11/19 03/20/22 venlafaxine 150 mg 150 mg PO HS 12/11/19 03/20/22 capsule,extended release 24 hr quetiapine 400 mg tablet (Seroquel) 800 mg PO HS 08/22/20 03/20/22 gabapentin 300 mg capsule 300 mg PO BID 10/09/21 03/20/22 Allergies Allergy/AdvReac Type Severity Reaction Status Date / Time bee venom protein (honey bee) Allergy Severe Anaphylactic Verified 05/30/22 20:03 Shock lisinopril Allergy Intermediate Loss of Verified 05/30/22 20:03 Consciousness Review of Systems Review of Systems: All systems reviewed & are unremarkable except as noted in HPI and below PMFSH Past Medical History Medical History Abscess of buttock Acute pain of left knee Anemia Bacterial upper respiratory infection Benign hypertension BMI 40.0-44.9, adult BMI greater than 40 Body mass index [BMI] 38.0-38.9, adult (08/19/16) Body mass index [BMI] 40.0-44.9, adult (06/10/18) Cellulitis of left knee Confusion Costovertebral angle tenderness Dietary counseling and surveillance (05/02/15) Duodenal papillary stenosis Dysuria Edema, unspecified Epigastric abdominal pain Esophageal ulcer Generalized abdominal pain Headache Hypertension Injury of other nerves at ankle and foot level, left leg, subsequent encounter Iron deficiency anemia, unspecified Left hip pain Low kidney function Non-specific low back pain Obstructive sleep apnea Pelvic pressure in female Ulcer of esophagus without bleeding UTI symptoms Vitamin D deficiency Surgical History Surgical History H/O elbow surgery left, 2011 H/O: hysterectomy History of ankle surgery left, 12/23/2017 and 03/29/2017 Status post surgical manipulation of ankle joint Family History Family History Father Asbestosis Bladder cancer Hypertension Family history of chronic obstructive pulmonary disease COPD (chronic obstructive pulmonary disease) Mother Diabetes mellitus Fibromyalgia Syncopal episodes Hypertension Sibling Anxiety Depression Hypertension Other Family history of malignant neoplasm of breast Other Family history of thyroid disease Social History Social History Social History: The patient lives at home with her fiance. She has 2 children ages 21 and 18. Her 18-year-old daughter lives with her ex. She has a 3-year-old grandchild. Smoking status: Never smoker Second hand tobacco smoke exposure: No Alcohol intake: current Drinks per week: 1 Alcohol use details: occasional Substance use: never Subst
[2022-05-30] MEDS: SODIUM CHLORIDE 0.9% IV 1,000 ML 999 ML IV CONT ×2 (20:00→20:31)
[2022-05-30 20:07] LABS: Eosinophils Percent Auto 0.3 % (0-4.4); Hematocrit 38.5 % (37.0-47.0); Hemoglobin 12.5 g/dL (12.0-15.0); Immature Granulocyte Absolute 0.01 K/mm3 (0.00-0.031); Immature Granulocyte Percent A 0.3 % (0-0.5); Lymphocytes Percent Auto 35.4 % (18.3-44.2); Mean Corpuscular HGB Conc 32.5 g/dl (32-36); Mean Corpuscular Hemoglobin 28.7 pg (26-34); Mean Corpuscular Volume 88.5 fl (80-100); Mean Platelet Volume 10.6 fl (7.4-10.4); Monocytes Absolute Auto 0.3 K/mm3 (0.1-0.6); Monocytes Percent Auto 8.6 % (2.6-8.5); Neutrophils Absolute Auto 2.2 K/mm3 (1.3-6.7); Neutrophils Percent Auto 55.4 % (45.5-73.1); Platelet Count Result 242 k/mm3 (150-375); Red Blood Count 4.35 M/mm3 (4.2-5.4)
[2022-05-30 20:16] LABS: Lactic Acid Reflex 1.2 mmol/L (0.7-2.0)
[2022-05-30 20:18] LABS: Acetaminophen < 10 ug/mL (10-30); Alanine Aminotransferase 31 U/L (6-35); Albumin Level 4.2 g/dL (3.5-5.1); Alkaline Phosphatase 76 U/L (38-126); Anion Gap 6 mmol/L (8-16); Aspartate Amino Transferase 32 U/L (14-36); Bilirubin,Total 0.4 mg/dL (0.2-1.3); Blood Urea Nitrogen 9 mg/dL (7-17); Calcium 9.3 mg/dL (8.4-10.2); Carbon Dioxide 28 mmol/L (22-30); Chloride 105 mmol/L (98-107); Estimated CRCL calculation 76 ml/min; Estimated Glomerular Filt Rate > 60; Ethanol < 10 mg/dL (<10); Glucose 106 mg/dL (65-110); Potassium 3.7 mmol/L (3.4-5.0); Salicylate < 1.0 mg/dL (2-20); Sodium 139 mmol/L (137-145)
[2022-05-30 20:24] LABS: INR 1.1; Prothrombin Time 13.7 Seconds (11.1-14.7)
[2022-05-30 20:45] LABS: Barbiturate Screen Urine Negative (Negative)
[2022-05-30 20:47] LABS: Amphetamine Screen Urine Negative (Negative); Cannabinoid Screen Urine Positive (Negative); Cocaine Screen Urine Negative (Negative); Methadone Screen Urine Negative (Negative); Opiate Screen Urine Negative (Negative); Phencyclidine Screen Urine Negative (Negative)
[2022-05-30 21:14] LABS: Benzodiazepines Screen Urine Positive (Negative)
[2022-05-30 21:20] LABS: Appearance Urine Clear (Clear); Bacteria Urine None Seen /hpf; Bilirubin Urine Negative (Negative); Blood Urine Negative (Negative); Calcium Oxalate Crystals Urine Present /hpf; Color Urine Yellow (Yellow); Glucose Urine UA Negative (Negative); Hyaline Casts Urine Present /lpf; Ketones Urine Trace mg/dL (Negative); Leukocyte Esterase Ur Negative LEU/UL (Negative); Nitrate Urine Negative (Negative); Non Pathogenic Casts 0-2; Protein Urine 1+ mg/dL (Negative); RBC Urine 0-2 /hpf (0-2); Squamous Epithelial Cell Urine None seen /hpf (Few); Urobilinogen Urine 0.2 mg/dL (<2.0)
--- NOTE | 2022-05-30 21:22 | PC.NURSE ---
family at bedside states they are leaving and would like to be contacted with updates. Patient verbalizes acceptance of updates. [id number].
[2022-05-30 21:24] LABS: Add Urine Microscopic? YES
--- NOTE | 2022-05-30 22:57 | PM.IMHP ---
H&P: HPI History of Present Illness Date/Time: 05/30/22 22:57 Chief Complaint: Altered mental status Narrative: This is a 47-year-old female patient who is a very poor historian. The patient is awake and talking but her speech is slurred. The patient stated that she thought today was Thursday because her was home. She admits to taking Thursday and Saturdays pills from her pill bottle. She admits to taking today's and tomorrow's dosages of her medications. The patient states that she feels very sleepy but does not understand why I explained to her that she had taken too much of her medication. Family stated that the patient was in her normal frame on the mine this morning and then she started to have symptoms around 5:00 p.m.. The patient does have a history of transient global amnesia and the family felt like this was similar to that episode. The patient also has been seen at [facility] on Thursday for episodes of blacking out. EMS was activated today because the patient was found unresponsive. Initially was thought that the patient overdosed on gabapentin. Her pill to [facility] disorganized the family stated this is due to the patient having previous black out and dropping her pill box. Patient took off her medications for today and also tomorrow's. The patient unintentionally overdosed on her medication. Patient has no suicidal ideation. The patient was given 2 L of IV boluses in the emergency room. The patient is awake and talking although her speech is slurred as if she had been drinking alcohol. Her toxicology screen was positive for benzodiazepines and cannabis.The patient is being admitted to observation status on the date of service of 05/30/2022. Review of Systems Review of Systems: All systems reviewed & are unremarkable except as noted in HPI and below Constitutional: Constitutional: Reports as per HPI and Reports no additional constitutional complaints Eyes: Eyes: Reports as per HPI and Reports no additional eye complaints ENT: Reports system reviewed and no additional complaints, except as documented and Reports Normal hearing present Cardiovascular: Cardiovascular: Reports no additional cardiovascular complaints Respiratory: Respiratory: Reports no additional respiratory complaints and Reports no additional respiratory complaints Gastrointestinal: Gastrointestinal: Reports as per HPI and Reports no additional gastrointestinal complaints Musculoskeletal: Musculoskeletal: Reports no additional musculoskeletal complaints Integumentary/Breasts: Skin/Breast: Reports system reviewed and no additional complaints, except as docu and Reports as per HPI Neurologic: Reports system reviewed and no additional complaints, except as documented, Reports as per HPI and Reports Normal hearing present Psychiatric: Psychiatric: Reports no additional psychiatric complaints and Reports as per HPI Endocrine: Endocrine: Reports no additional endocrine complaints Hematologic/Lymphatic: Hematologic/Lymphatic: Reports no additional hematologic/lymphatic complaints Allergic/Immunologic: Allergic/Immunologic: Reports no additional allergic/immunologic complaints [facility] Past Medical History Medical History (Updated 05/31/22 @ 00:15 by Amrita West NP) Abscess of buttock Acute dyspnea Acute pain of left knee Anemia Bacterial upper respiratory infection Benign hypertension BMI 40.0-44.9, adult BMI greater than 40 Body aches Body mass index [BMI] 38.0-38.9, adult (08/19/16) Body mass index [BMI] 40.0-44.9, adult (06/10/18) Cellulitis of left knee Cerumen debris on tympanic membrane of both ears Chest pain Chest pain Confusion Costovertebral angle tenderness Dietary counseling and surveillance (05/02/15) Dizziness Duodenal papillary stenosis DVT prophylaxis Dysuria Edema, unspecified Elevated TSH Epigastric abdominal pain Esophageal ulcer Fall Generalized abdominal pain Headache Hypertension Injur
[2022-05-31] VITALS (11 sets, daily range): BP systolic 113–154; BP diastolic 67–112; PULSE 68–79; RESP 12–16; TEMP 36.4–36.6; O2SAT 99–100; BMI 43.0
[2022-05-31] MEDS: SODIUM CHLORIDE 0.9% IV 1,000 ML 100 ML IV CONT (00:12)
--- NOTE | 2022-05-31 01:22 | ADMGEN ---
This patient, Mariah Ling, was admitted to IMU Room 205-02. Patient/family oriented to hospital policies and general routines including ID bracelet, bed and alarms, visiting hours, pain management, procedures, bathroom and other care routines, personal items, smoking policy, room service/diet, and visiting hours. Information on how to activate the Rapid Response Team has been discussed. Patient/Family are encouraged to report perceived risks to care and to ask questions if they do not understand what they are told or what they should do.
--- NOTE | 2022-05-31 02:07 | ECG_ITS ---
Measurements Intervals [place] Rate: 68 P: 39 OR: 153 QRS: 19 QRSD: 92 T: 78 QT: 406 QTc: 435 Interpretive Statements SINUS RHYTHM NONSPECIFIC T-WAVE ABNORMALITY ABNORMAL ECG COMPARED TO ECG 05/30/2022 19:35:26 NO SIGNIFICANT CHANGE Electronically Signed On 05-31-2022 7:28:17 CDT by Kt Oliver M.D.
[2022-05-31] MEDS: ACETAMINOPHEN 325 MG TABLET 650 MG PO (02:58)
[2022-05-31] MEDS: hydrALAZINE HCL 20 MG/ML VIAL 10 MG IV PUSH (03:00)
[2022-05-31 03:08] LABS: Eosinophils Percent Auto 0.3 % (0-4.4); Hematocrit 38.3 % (37.0-47.0); Hemoglobin 12.2 g/dL (12.0-15.0); Immature Granulocyte Absolute 0.01 K/mm3 (0.00-0.031); Immature Granulocyte Percent A 0.3 % (0-0.5); Lymphocytes Absolute Auto 1.48 K/mm3 (0.9-3.2); Lymphocytes Percent Auto 41.5 % (18.3-44.2); Mean Corpuscular HGB Conc 31.9 g/dl (32-36); Mean Corpuscular Hemoglobin 28.5 pg (26-34); Mean Corpuscular Volume 89.5 fl (80-100); Mean Platelet Volume 10.4 fl (7.4-10.4); Monocytes Absolute Auto 0.3 K/mm3 (0.1-0.6); Monocytes Percent Auto 8.1 % (2.6-8.5); Neutrophils Absolute Auto 1.8 K/mm3 (1.3-6.7); Neutrophils Percent Auto 49.8 % (45.5-73.1); Platelet Count Result 226 k/mm3 (150-375); Red Blood Count 4.28 M/mm3 (4.2-5.4); Red Cell Distribution Width 13.1 % (11.5-14.5); White Blood Count 3.6 K/mm3 (4.5-10.0)
[2022-05-31 03:28] LABS: Alanine Aminotransferase 32 U/L (6-35); Alkaline Phosphatase 74 U/L (38-126); Anion Gap 4 mmol/L (8-16); Aspartate Amino Transferase 35 U/L (14-36); Bilirubin,Total 0.4 mg/dL (0.2-1.3); Blood Urea Nitrogen 8 mg/dL (7-17); Calcium 8.7 mg/dL (8.4-10.2); Carbon Dioxide 29 mmol/L (22-30); Chloride 108 mmol/L (98-107); Estimated CRCL calculation 71 ml/min; Estimated Glomerular Filt Rate 59; Glucose 93 mg/dL (65-110); Lipase 63 U/L (23-300); Magnesium 1.8 mg/dL (1.6-2.3); Potassium 3.8 mmol/L (3.4-5.0); Sodium 141 mmol/L (137-145)
[2022-05-31 03:35] LABS: Troponin I < 0.012 ng/mL (0.000-0.034)
[2022-05-31 06:34] LABS: Troponin I < 0.012 ng/mL (0.000-0.034)
[2022-05-31 09:57] LABS: Troponin I < 0.012 ng/mL (0.000-0.034)
--- NOTE | 2022-05-31 12:01 | PM.IMPN ---
Progress Note: A&P Assessment and Plan (1) AMS (altered mental status): Code(s): R41.82 - Altered mental status, unspecified Status: Acute Assessment and Plan: Head CT shows no significant abnormality. The patient has no focal weakness. Her speech is slurred. The patient stated she feels very tired. Her toxicology screen was positive for benzodiazepines and cannabis. ABGs are pending. She has a history of hypercarbia. Patient unintentionally took too many medications. She took Fridays and Saturdays dosages. Holding off her medication at this time. Continue with IV fluids. Supportive care. (2) Hypertension: Code(s): I10 - Essential (primary) hypertension Status: Acute Assessment and Plan: Hold patient's amlodipine as I am not sure how many she took today. P.r.n. hydralazine with parameters (3) Anxiety and depression: Onset Date: ~02/2020 Code(s): F41.9 - Anxiety disorder, unspecified; F32.9 - Major depressive disorder, single episode, unspecified Status: Acute Assessment and Plan: Patient was positive for benzodiazepine. Looks like patient has been on Xanax. However the patient took 2 days worth of medications according to family members. All of her medications are being held at this time. Continue with supportive care. Patient's Seroquel is on hold at this time. Her QT interval is normal at this time. Xanax is on hold, Seroquel as on hold, Effexor is on hold, trazodone is on hold. (4) Obstructive sleep apnea: Code(s): G47.33 - Obstructive sleep apnea (adult) (pediatric) Status: Acute Assessment and Plan: The patient stated something about her family bringing her a CPAP machine. However did place the order for a CPAP here to titrate to home settings Subjective Date/time seen: 05/31/22 12:01 Interval history: No overnight events. Patient presented with altered mental status. Normal baseline earlier yesterday morning. Symptoms started approximately 5:00 p.m. history of transient global amnesia. Patient was seen at [facility] on Thursday for a soda blacking out. Patient was found unresponsive. Medication overdose suspected. Patient takes Seroquel gabapentin Effexor and alprazolam at home UA mildly suspicious for UTI urine culture is pending Review of Systems Review of Systems: All systems reviewed & are unremarkable except as noted in HPI and below Objective Data Vital Signs Vital Signs: Vital Signs - 24 hr 05/30/22 19:11 05/30/22 19:40 05/30/22 20:01 Temperature 97.6 F Pulse Rate 86 86 88 Respiratory Rate 14 13 11 L Blood Pressure 116/86 Pulse Oximetry 99 100 Oxygen Delivery Room Air 05/30/22 20:15 05/30/22 20:30 05/30/22 20:56 Temperature Pulse Rate 75 73 72 Respiratory Rate 11 L 11 L 11 L Blood Pressure Pulse Oximetry 97 98 99 Oxygen Delivery 05/30/22 21:00 05/30/22 21:18 05/30/22 21:20 Temperature Pulse Rate 72 74 73 Respiratory Rate 11 L 12 12 Blood Pressure 136/88 Pulse Oximetry 98 99 96 Oxygen Delivery 05/30/22 21:30 05/30/22 21:31 05/30/22 21:45 Temperature Pulse Rate 72 72 71 Respiratory Rate 12 12 11 L Blood Pressure 122/86 Pulse Oximetry 1 L Oxygen Delivery 05/30/22 21:46 05/30/22 22:04 05/30/22 22:15 Temperature Pulse Rate 71 71 74 Respiratory Rate 12 11 L 17 Blood Pressure 134/85 Pulse Oximetry Oxygen Delivery 05/30/22 22:16 05/30/22 22:30 05/30/22 23:03 Temperature Pulse Rate 73 72 78 Respiratory Rate 16 12 14 Blood Pressure 151/103 H Pulse Oximetry Oxygen Delivery 05/30/22 23:15 05/30/22 23:16 05/30/22 23:30 Temperature Pulse Rate 76 76 74 Respiratory Rate 12 13 11 L Blood Pressure 134/107 H Pulse Oximetry Oxygen Delivery 05/30/22 23:31 05/30/22 23:45 05/30/22 23:46 Temperature Pulse Rate 75 80 78 Respiratory Rate 12 16 13 Blood Pressure 120/81 129/94 H Pulse Oximetry Oxy
[2022-05-31 12:08] LABS: Glucose Point of Care 74 mg/dl (65-105)
--- NOTE | 2022-05-31 12:48 | PM.DS ---
DS: Admitting Diagnosis Discharge Date 05/31/2022 Admitting Diagnosis Altered mental status DS: Summary Hospital Course Hospital Course: # aMS (altered mental status): [address] shows no significant abnormality.? The patient has no focal weakness.? Her speech was slurred on arrival.? The patient stated she feels very tired.? Her toxicology screen was positive for benzodiazepines and cannabis. ABGs are pending and could not be done however this improved her mental status.? She does have a history of hypercarbia. Possible unintentionally taking too many medication. Her regular medication were all held and monitored during the hospital stay. Her mental status improved back to baseline at the time of discharge was alert and oriented x3. She will continue to work with her psychiatrist in regards to her medication management # hypertension: On amlodipine at home which will be resumed # anxiety and depression to Patient was positive for benzodiazepine.? Looks like patient has been on Xanax.? However the patient took 2 days worth of medications according to family members.? All of her medications are being held at this time. Continue with supportive care. Patient's Seroquel is on hold at this time.? Her QT interval is normal at this time. Xanax is on hold, Seroquel as on hold, Effexor is on hold, trazodone is on hold. Medication safety discussed with the patient. Discussed management and working with a psychiatrist with regard to these medications which are high risk # obstructive sleep apnea: The patient stated something about her family bringing her a CPAP machine.? However did place the order for a CPAP here to titrate to? home settings Time Spent with Patient Time attestation: Total time spent providing and/or coordinating discharge services: 40 minutes Exam Narrative: APPEARANCE: Well appearing, alert and oriented x3 HEAD: normocephalic, atraumatic. EYES: PERRLA/EOMI, conjunctivae clear. NOSE: Normal no drainage NECK: Supple. No adenopathy, no masses. RESPIRATORY: Airway patent, respirations nonlabored. Clear to auscultation bilaterally, no rales, rhonchi, wheezing. CARDIOVASCULAR: Regular rate and rhythm without murmurs rubs or gallops. ABDOMINAL: Soft, nontender, nondistended, normal bowel sounds MUSCULOSKELETAL: Moves all extremities. Strength/ROM intact, No edema, No calf tenderness. NEURO: Alert. Cranial nerves II through XII intact.? Grossly intact SKIN: Warm, dry. Normal Color DS: Data Data Completed and Pending Labs on day of discharge: Labs from last 24 hours 05/31/22 05/31/22 05/31/22 11:48 09:30 06:07 WBC RBC Hgb Hct MCV MCH MCHC RDW Plt Count MPV Immature Gran % (Auto) Neut % (Auto) Lymph % (Auto) Schuyler % (Auto) Eos % (Auto) Baso % (Auto) Lymph # (Auto) Schuyler # (Auto) Eos # (Auto) Baso # (Auto) Abs Immat Gran (auto) Absolute Neuts (auto) Absolute Nucleated RBC Nucleated RBC % PT INR APTT Puncture Site ABG pH ABG pCO2 ABG pO2 ABG PO2/FiO2 Ratio ABG HCO3 ABG O2 Saturation ABG O2 Content ABG Base Excess A-a Gradient Oxyhemoglobin Total Hemoglobin O2 Delivery Device O2 Liters/Min Sodium Potassium Chloride Carbon Dioxide Anion Gap BUN Creatinine Estim Creat Clear Calc Estimated GFR Glucose POC Capillary Glucose 74 Lactic Acid Calcium Magnesium Total Bilirubin AST ALT Alkaline Phosphatase Troponin I < 0.012 < 0.012 Total Protein Albumin Lipase TSH TSH (Reflex) Urine Color Urine Appearance Urine pH Ur Specific Williamson Urine Protein Urine Glucose (UA) Urine Ketones Ur Blood (Man) Urine Nitrate Urine Bilirubin Urine Urobilinogen Leukocyte Esterase Rfl Urine RBC Urine WBC Ur Squamous Epith Cells Calcium Oxalate Crystal Urine Christian
== END 2022-05-31 12:45 | disposition home or self-care (01) ==
LOC: ANHED 22:45 → ANHIMU 05-31 01:17
PROVIDERS: Nurse Practitioner; Admitting Provider Internal Medicine; Emergency Provider Emergency Medicine; PCP Family Medicine; Visit Provider Internal Medicine
DX: R41.82 Altered mental status, unspecified (principal); I10 Essential (primary) hypertension; F41.9 Anxiety disorder, unspecified; F32.A Depression, unspecified; G47.33 Obstructive sleep apnea (adult) (pediatric); D64.9 Anemia, unspecified; D50.9 Iron deficiency anemia, unspecified; E55.9 Vitamin D deficiency, unspecified; R47.81 Slurred speech; R07.9 Chest pain, unspecified; R94.31 Abnormal electrocardiogram [ECG] [EKG]; F10.90 Alcohol use, unspecified, uncomplicated; Y90.0 Blood alcohol level of less than 20 mg/100 ml; Z79.899 Other long term (current) drug therapy; Z82.49 Family history of ischemic heart disease and other diseases of the circulatory system
CPT/HCPCS: 36415; 36600; 70450; 80053; 80307; 81001; 82805; 82948; 83605; 83690; 83735; 84443; 84484; 85025; 85610; 85730; 87086; 93005; 96361; 96374; 99285; A9270; G0378; J0360; J7030

== ENCOUNTER 2022-06-30 13:28 | Outpatient (CLI) | payer MEDICARE, MEDICAID, SELFPAY ==
--- NOTE | 2022-06-30 | ECHO_ITS ---
Patient Info Name: Mariah Ling Age: 47 years : 1975 Gender: Female Ht: 62 in Wt: 230 lbs BSA: 2.20 m2 HR: 86 bpm BP: 130 / 101 mmHg Heart Rhythm: Sinus Rhythm Technical Quality: Fair Exam Date: 06/30/2022 2:07 PM Exam Location: [facility] Pulmonary Patient Status: Outpatient Admit Date: 06/30/2022 Staff Ordering Physician: Edwin Granado MD Supervisor Quilting: Lauren Glover RDCS Attending Provider: Edwin Granado MD Referring Physician: Vannesa ESPINOZA; Exam Type: CA echo doppler color flow Study Info Indications I31.39 - PERICARDIAL EFFUSION Complete two-dimensional, color flow and Doppler transthoracic echocardiogram is performed. Summary 1. Complete two-dimensional, color flow and Doppler transthoracic echocardiogram is performed. 2. Left ventricular chamber dimension is normal. 3. Left ventricular systolic function is normal, estimated at 60-65%. 4. There is no increased left ventricular wall thickness. 5. The left ventricular diastolic function is normal. 6. Global longitudinal strain is mildly elevated at -16 %. 7. There is trace tricuspid valve regurgitation. 8. No pulmonary hypertension, estimated pulmonary arterial systolic pressure is 22 mmHg. 9. There is a small to moderate pericardial effusion with fibrinous material within the pericardial space. Increased intrapericardial pressures are evident with delayed relaxation of the right ventricular free wall. However, there is no evidence for tamponade physiology by mitral or tricuspid inflow velocity variation. Clinical correlation advised. 10. Normal inferior vena cava with >50% collapse upon inspiration consistent with normal right atrial pressure, 5 mmHg. Left Ventricle Left ventricular chamber dimension is normal. Left ventricular systolic function is normal, estimated at 60-65%. There is no increased left ventricular wall thickness. The left ventricular diastolic function is normal. Global longitudinal strain is mildly elevated at -16 %. Right Ventricle Right ventricular chamber dimension is normal. Right ventricular systolic function is normal. Left Atria Left atrial chamber dimension is normal. Right Atria Right atrial chamber dimension is normal. Aortic Valve The aortic valve is trileaflet. There is no aortic valve stenosis. There is no aortic valve regurgitation. Pulmonic Valve The pulmonic valve is not well visualized. Mitral Valve The mitral valve has normal leaflets. There is no mitral valve regurgitation. Tricuspid Valve The tricuspid valve leaflets are normal. There is trace tricuspid valve regurgitation. No pulmonary hypertension, estimated pulmonary arterial systolic pressure is 22 mmHg. Pericardium/Pleural The pericardium appears normal. There is a small to moderate pericardial effusion with fibrinous material within the pericardial space. Increased intrapericardial pressures are evident with delayed relaxation of the right ventricular free wall. However, there is no evidence for tamponade physiology by mitral or tricuspid inflow velocity variation. Clinical correlation advised. Inferior Vena Cava Normal inferior vena cava with >50% collapse upon inspiration consistent with normal right atrial pressure, 5 mmHg. Aorta The aortic root size at the sinus of Valsalva is normal. Left Ventricular Outflow Tract Name Value Normal LVOT 2D
== END 2022-06-30 13:29 | disposition home or self-care (01) ==
LOC: ANHCARD 13:30
PROVIDERS: PCP Family Medicine; Visit Provider Internal Medicine Cardiovascular Disease
DX: I31.39 Other pericardial effusion (noninflammatory) (principal)
CPT/HCPCS: 93306

== ENCOUNTER 2022-07-22 20:34 | Emergency (ER) | payer MEDICARE, MEDICAID, SELFPAY ==
[2022-07-22 20:14] VITALS: BP 156/94; PULSE 83; RESP 18; TEMP 36.3; O2SAT 100
[2022-07-22 20:55] LABS: Basophils Percent Auto 0.2 % (0.2-1.2); Hematocrit 42.4 % (37.0-47.0); Hemoglobin 14.1 g/dL (12.0-15.0); Immature Granulocyte Absolute 0.01 K/mm3 (0.00-0.031); Immature Granulocyte Percent A 0.2 % (0-0.5); Lymphocytes Absolute Auto 1.52 K/mm3 (0.9-3.2); Lymphocytes Percent Auto 32.8 % (18.3-44.2); Mean Corpuscular HGB Conc 33.3 g/dl (32-36); Mean Corpuscular Volume 84.1 fl (80-100); Mean Platelet Volume 10.5 fl (7.4-10.4); Monocytes Absolute Auto 0.3 K/mm3 (0.1-0.6); Monocytes Percent Auto 6.5 % (2.6-8.5); Neutrophils Absolute Auto 2.8 K/mm3 (1.3-6.7); Neutrophils Percent Auto 60.3 % (45.5-73.1); Platelet Count Result 278 k/mm3 (150-375); Red Blood Count 5.04 M/mm3 (4.2-5.4); White Blood Count 4.6 K/mm3 (4.5-10.0)
[2022-07-22 21:06] LABS: Acetaminophen < 10 ug/mL (10-30); Ethanol < 10 mg/dL (<10); Salicylate < 1.0 mg/dL (2-20)
[2022-07-22 21:07] LABS: Alanine Aminotransferase 22 U/L (6-35); Albumin Level 4.5 g/dL (3.5-5.1); Alkaline Phosphatase 73 U/L (38-126); Anion Gap 9 mmol/L (8-16); Aspartate Amino Transferase 24 U/L (14-36); Bilirubin,Total 0.5 mg/dL (0.2-1.3); Blood Urea Nitrogen 7 mg/dL (7-17); Calcium 9.3 mg/dL (8.4-10.2); Carbon Dioxide 28 mmol/L (22-30); Chloride 104 mmol/L (98-107); Estimated CRCL calculation 64 ml/min; Estimated Glomerular Filt Rate 53; Glucose 104 mg/dL (65-110); Potassium 3.5 mmol/L (3.4-5.0); Sodium 141 mmol/L (137-145)
[2022-07-22 21:11] LABS: Appearance Urine Clear (Clear); Bacteria Urine None Seen /hpf; Bilirubin Urine Negative (Negative); Blood Urine Negative (Negative); Color Urine Yellow (Yellow); Glucose Urine UA Negative (Negative); Ketones Urine Negative (Negative); Leukocyte Esterase Ur 2+ LEU/UL (Negative); Nitrate Urine Negative (Negative); Non Pathogenic Casts 0-2; Protein Urine Negative (Negative); RBC Urine 0-2 /hpf (0-2); Specific Grav Ur 1.017 (1.001-1.035); Squamous Epithelial Cell Urine Occasional /hpf (Few)
[2022-07-22 21:12] LABS: Add Urine Microscopic? YES; Pregnancy On Board Control Positive; Urine Pregnancy Test Negative
[2022-07-22 21:14] VITALS: BP 149/109; PULSE 82; RESP 18; TEMP 36.4; O2SAT 93
[2022-07-22 21:28] LABS: Beta HCG Quantitative 5.73 mIU/ML
[2022-07-22 21:31] LABS: Influenza A QL RT-PCR Negative (Negative); Influenza B QL RT-PCR Negative (Negative); SARS-CoV-2 RNA PCR Negative (Negative)
[2022-07-22 22:15] LABS: Amphetamine Screen Urine Negative (Negative); Barbiturate Screen Urine Negative (Negative); Benzodiazepines Screen Urine Positive (Negative); Cannabinoid Screen Urine Positive (Negative); Cocaine Screen Urine Negative (Negative); Methadone Screen Urine Negative (Negative); Opiate Screen Urine Negative (Negative); Phencyclidine Screen Urine Negative (Negative)
--- NOTE | 2022-07-22 22:35 | PC.NURSE ---
[facility]stnut called to evaluate patient. acetone recovery worker will respond within 2 hours
--- NOTE | 2022-07-22 23:08 | ED.GENADULT ---
HPI - General Adult General Chief complaint: Psychiatric Symptoms Stated complaint: SI History of Present Illness HPI narrative: Patient 47-year-old female who presents emergency department with chief complaint of depression. The patient reports that she has prior history of depression and has been undergoing a lot of stress lately patient reports that she broke up with her significant other and reports that she has been feeling somewhat down. Patient states that today she said some things that may have been interpreted as though she wanted to harm herself patient reports she has no plan and denies suicidal ideation at this time. Related Data Home Medications Medication Instructions Recorded Confirmed alprazolam 1 mg tablet (Xanax) 1 mg PO TID PRN Anxiety 12/11/19 05/31/22 venlafaxine 150 mg 300 mg PO HS 12/11/19 05/31/22 capsule,extended release 24 hr quetiapine 400 mg tablet (Seroquel) 800 mg PO HS 08/22/20 05/31/22 gabapentin 300 mg capsule 300 mg PO DAILY 10/09/21 05/31/22 ibuprofen 800 mg tablet 800 mg PO TID 05/31/22 05/31/22 quetiapine 100 mg tablet 100 mg PO DAILY PRN Anxiety 05/31/22 05/31/22 suvorexant 20 mg tablet (Belsomra) 20 mg PO HS 05/31/22 05/31/22 Allergies Allergy/AdvReac Type Severity Reaction Status Date / Time bee venom protein (honey bee) Allergy Severe Anaphylactic Verified 07/01/22 13:47 Shock lisinopril Allergy Intermediate Loss of Verified 07/01/22 13:47 Consciousness Review of Systems Review of Systems: A 10 system review of systems was completed on the patient and is negative except for what is stated in the HPI. Nursing and ancillary documentation was reviewed. [facility] Past Medical History Medical History Abscess of buttock Acute dyspnea Acute pain of left knee Anemia Bacterial upper respiratory infection Benign hypertension BMI 40.0-44.9, adult BMI greater than 40 Body aches Body mass index [BMI] 38.0-38.9, adult (08/19/16) Body mass index [BMI] 40.0-44.9, adult (06/10/18) Cellulitis of left knee Cerumen debris on tympanic membrane of both ears Chest pain Chest pain Confusion Costovertebral angle tenderness Dietary counseling and surveillance (05/02/15) Dizziness Duodenal papillary stenosis DVT prophylaxis Dysuria Edema, unspecified Elevated TSH Epigastric abdominal pain Esophageal ulcer Fall Generalized abdominal pain Headache Hypertension Injury of other nerves at ankle and foot level, left leg, subsequent encounter Iron deficiency anemia, unspecified Knee injury Left ankle sprain Left hip pain Low kidney function Migraine Myalgia Non-specific low back pain Obstructive sleep apnea Pelvic pressure in female Pericardial effusion Periodic limb movement Pseudotumor Behind eye Traumatic injury of rib Ulcer of esophagus without bleeding UTI symptoms Vitamin D deficiency Surgical History Surgical History H/O elbow surgery left, 2011 H/O inguinal hernia repair H/O lumpectomy Duct removed from 1 breast on the left side H/O nasal polypectomy H/O sinus surgery H/O: hysterectomy History of ankle surgery left, 12/23/2017 and 03/29/2017 Hx of cholecystectomy Status post surgical manipulation of ankle joint Family History Family History Father Asbestosis Bladder cancer Hypertension Family history of chronic obstructive pulmonary disease COPD (chronic obstructive pulmonary disease) Mother Diabetes mellitus Fibromyalgia Syncopal episodes Hypertension Sibling Anxiety Depression Hypertension Other Family history of malignant neoplasm of breast Other Family history of thyroid disease Social History Social History Social History: The patient lives at home with her fiance. She has
[2022-07-23 00:18] VITALS: BP 172/114; PULSE 70; RESP 14; TEMP 36.4; O2SAT 100
== END 2022-07-23 00:19 | disposition home or self-care (01) ==
PROVIDERS: Emergency Provider Emergency Medicine; PCP Family Medicine
DX: F32.A Depression, unspecified (principal); Z20.822 Contact with and (suspected) exposure to COVID-19; I10 Essential (primary) hypertension; D50.9 Iron deficiency anemia, unspecified; E55.9 Vitamin D deficiency, unspecified; G47.33 Obstructive sleep apnea (adult) (pediatric); Z90.710 Acquired absence of both cervix and uterus; Z90.49 Acquired absence of other specified parts of digestive tract; F17.290 Nicotine dependence, other tobacco product, uncomplicated; R82.998 Other abnormal findings in urine; Z79.899 Other long term (current) drug therapy
CPT/HCPCS: 36415; 80053; 80307; 81001; 81025; 84443; 84702; 85025; 87086; 87088; 87636; 99284

== ENCOUNTER 2022-11-01 15:29 | Emergency (ER) | payer MEDICARE, MEDICAID, SELFPAY ==
[2022-11-01] VITALS (40 sets, daily range): BP systolic 109–147; BP diastolic 62–107; PULSE 98–108; RESP 13–34; TEMP 37.5; O2SAT 82–100
--- NOTE | ~2022-11-01 | CT_ITS ---
EXAMINATION: CTA chest PE protocol DATE: 11/01/2022 16:26 INDICATION: chest pain, pe TECHNIQUE: Computed tomography angiography (CTA) of the chest was performed with 100 mL Omnipaque-350 intravenous contrast timed to evaluate the pulmonary arteries. Coronal maximum intensity projection 3D-reconstructions were created by the technologist. The dose-length product (DLP) was 773.64 mGy-cm. Automated exposure control and iterative reconstruction technique were employed. COMPARISON: 423. FINDINGS: Lung parenchyma and airways: No focal consolidation. Bilateral linear atelectasis/scar, greater in th e right lung. Minimal dependent atelectasis. Clear airways. Pleura: Small bilateral pleural fluid collections. Thoracic inlet, axillae and chest wall: Unremarkable. Thoracic aorta: Normal. Mediastinum: Normal. Heart and pericardium: Moderate pericardial fluid collection. Coronary artery calcifications: Absent. Upper abdomen: Slightly increased size of the right anterior epiphrenic fluid collection/fluid densit y mass. This may represent a developing/duplication cyst, necrotic lymph node, or other lesion. Bones: No acute osseous finding. Pulmonary arteries: Study quality: Adequate. No pulmonary emboli detected. IMPRESSION: No CT evidence of acute pulmonary embolus. Moderate pericardial effusion, slightly increased since the prior study. Slightly increased size of the right epiphrenic fluid density collection/mass. Small bilateral pleural effusions. Reviewed, dictated and finalized at location K.
--- NOTE | 2022-11-01 15:30 | ECG_ITS ---
Measurements Intervals [place] Rate: 109 P: 47 AR: 128 QRS: 16 QRSD: 83 T: 31 QT: 300 QTc: 405 Interpretive Statements SINUS TACHYCARDIA LOW QRS VOLTAGE IN PRECORDIAL LEADS CONSIDER INFERIOR INFARCT, AGE INDETERMINATE BORDERLINE ST-T WAVE ABNORMALITY- LAT/HIGH LAT LEADS BASELINE ARTIFACT- I, II, III, AVR, AVL, AVF, V4-V6 ABNORMAL ECG COMPARED TO ECG 05/31/2022 02:15:07 SINUS TACHYCARDIA NOW PRESENT Electronically Signed On 11-01-2022 18:07:18 CDT by Elian Monae D.O.
[2022-11-01 15:47] LABS: Basophils Percent Auto 0.2 % (0.2-1.2); Eosinophils Percent Auto 0.2 % (0-4.4); Hematocrit 41.4 % (37.0-47.0); Hemoglobin 13.3 g/dL (12.0-15.0); Immature Granulocyte Absolute 0.06 K/mm3 (0.00-0.031); Immature Granulocyte Percent A 0.5 % (0-0.5); Lymphocytes Percent Auto 12.7 % (18.3-44.2); Mean Corpuscular HGB Conc 32.1 g/dl (32-36); Mean Corpuscular Hemoglobin 27.9 pg (26-34); Mean Corpuscular Volume 86.8 fl (80-100); Mean Platelet Volume 10.8 fl (7.4-10.4); Monocytes Absolute Auto 1.1 K/mm3 (0.1-0.6); Monocytes Percent Auto 9.9 % (2.6-8.5); Neutrophils Absolute Auto 8.4 K/mm3 (1.3-6.7); Neutrophils Percent Auto 76.5 % (45.5-73.1); Platelet Count Result 293 k/mm3 (150-375); Red Blood Count 4.77 M/mm3 (4.2-5.4); Red Cell Distribution Width 12.6 % (11.5-14.5)
--- NOTE | 2022-11-01 15:55 | ED.CHESTPAIN ---
HPI - Chest Pain General Chief Complaint: Chest Pain Stated Complaint: Chest pain/SOB s/p Heart surgery Time Seen by Provider: 11/01/22 15:55 History of Present Illness HPI narrative: Patient is a 47-year-old female with history of pleural effusion here with chest pain. Patient notes that she had a pericardial window on 10/10 performed at [facility]. Patient states that yesterday she began having chest pain and shortness of breath. She notes that it feels as though she cannot catch her breath. She additionally noted a subjective fever that began last night. Temperature at home was 99? F. She denies any cough, congestion. Denies any urinary symptoms or GI symptoms. No history of ischemic cardiac disease. No sick contacts. Related Data Home Medications Medication Instructions Recorded Confirmed alprazolam 1 mg tablet (Xanax) 1 mg PO TID PRN Anxiety 12/11/19 05/31/22 venlafaxine 150 mg 300 mg PO HS 12/11/19 05/31/22 capsule,extended release 24 hr quetiapine 400 mg tablet (Seroquel) 800 mg PO HS 08/22/20 05/31/22 gabapentin 300 mg capsule 300 mg PO DAILY 10/09/21 05/31/22 ibuprofen 800 mg tablet 800 mg PO TID 05/31/22 05/31/22 quetiapine 100 mg tablet 100 mg PO DAILY PRN Anxiety 05/31/22 05/31/22 suvorexant 20 mg tablet (Belsomra) 20 mg PO HS 05/31/22 05/31/22 Allergies Allergy/AdvReac Type Severity Reaction Status Date / Time bee venom protein (honey bee) Allergy Severe Anaphylactic Verified 11/01/22 15:32 Shock lisinopril Allergy Intermediate Loss of Verified 11/01/22 15:32 Consciousness Review of Systems Review of Systems: CONSTITUTIONAL: fever, chills, No sweats. EYES: Denies visual changes, redness, or discharge. ENT: Denies rhinorrhea, congestion, sore throat, or otalgia. CARDIOVASCULAR: chest pain, no palpitations, or leg edema. RESPIRATORY: Shortness of breath, Denies cough GASTROINTESTINAL: Denies abdominal pain, nausea, vomiting, or diarrhea. GENITOURINARY: Denies dysuria or hematuria. SKIN: Surgical wounds on chest. Denies rash or itching. MUSCULOSKELETAL: Denies back pain, joint pain, or myalgia. NEUROLOGIC: Denies headache, numbness, or weakness. PSYCHIATRIC: Denies anxiety or depression. [facility] Past Medical History Medical History Abscess of buttock Acute dyspnea Acute pain of left knee Anemia Bacterial upper respiratory infection Benign hypertension BMI 40.0-44.9, adult BMI greater than 40 Body aches Body mass index [BMI] 38.0-38.9, adult (08/19/16) Body mass index [BMI] 40.0-44.9, adult (06/10/18) Cellulitis of left knee Cerumen debris on tympanic membrane of both ears Chest pain Chest pain Confusion Costovertebral angle tenderness Dietary counseling and surveillance (05/02/15) Dizziness Duodenal papillary stenosis DVT prophylaxis Dysuria Edema, unspecified Elevated TSH Epigastric abdominal pain Esophageal ulcer Fall Generalized abdominal pain Headache Hypertension Injury of other nerves at ankle and foot level, left leg, subsequent encounter Iron deficiency anemia, unspecified Knee injury Left ankle sprain Left hip pain Low kidney function Migraine Myalgia Non-specific low back pain Obstructive sleep apnea Pelvic pressure in female Pericardial effusion Periodic limb movement Pseudotumor Behind eye Traumatic injury of rib Ulcer of esophagus without bleeding UTI symptoms Vitamin D deficiency Surgical History Surgical History H/O elbow surgery left, 2011 H/O inguinal hernia repair H/O lumpectomy Duct removed from 1 breast on the left side H/O nasal polypectomy H/O sinus surgery H/O: hysterectomy History of ankle surgery left, 12/23/2017 and 03/29/2017 Hx of cholecystectomy Status post surgical manipulation of ankle joint Family History Family History Father As
[2022-11-01 15:59] LABS: Alanine Aminotransferase 111 U/L (6-35); Albumin Level 4.4 g/dL (3.5-5.1); Alkaline Phosphatase 238 U/L (38-126); Anion Gap 9 mmol/L (8-16); Aspartate Amino Transferase 119 U/L (14-36); Bilirubin,Total 1.4 mg/dL (0.2-1.3); Blood Urea Nitrogen 11 mg/dL (7-17); Calcium 9.4 mg/dL (8.4-10.2); Carbon Dioxide 30 mmol/L (22-30); Chloride 95 mmol/L (98-107); Estimated CRCL calculation 58 ml/min; Estimated Glomerular Filt Rate 48; Glucose 146 mg/dL (65-110); Lipase 46 U/L (23-300); Potassium 3.6 mmol/L (3.4-5.0); Sodium 134 mmol/L (137-145)
[2022-11-01 16:00] LABS: Prothrombin Time 13.5 Seconds (11.1-14.7)
[2022-11-01 16:01] LABS: Partial Thromboplastin Time 28.3 SECONDS (22.3-36.8)
[2022-11-01 16:10] LABS: Troponin I < 0.012 ng/mL (0.000-0.034)
[2022-11-01 16:59] LABS: Influenza A QL RT-PCR Negative (Negative); Influenza B QL RT-PCR Negative (Negative); RSV RNA, RT-PCR Negative (Negative); SARS-CoV-2 RNA PCR Negative (Negative)
[2022-11-01 17:41] LABS: Appearance Urine Clear (Clear); Bilirubin Urine Negative (Negative); Blood Urine Negative (Negative); Color Urine Yellow (Yellow); Glucose Urine UA Negative (Negative); Ketones Urine Negative (Negative); Leukocyte Esterase Ur Negative LEU/UL (Negative); Nitrate Urine Negative (Negative); Protein Urine 1+ mg/dL (Negative); pH Urine 5.5 (5.0-9.0)
[2022-11-01 17:42] LABS: Specific Grav Ur >= 1.099 (1.001-1.035)
[2022-11-01 17:48] LABS: Add Urine Microscopic? YES
[2022-11-01 17:50] LABS: Squamous Epithelial Cell Urine Moderate /hpf (Few); WBC Urine 0-5 /hpf (0-3)
[2022-11-01 17:51] LABS: Bacteria Urine Trace /hpf
[2022-11-01] MEDS: MORPHINE SULFATE (*CRX) 4 MG/ML INJ IV PUSH (19:24)
[2022-11-01] MEDS: ONDANSETRON INJ 4 MG/2 ML VIAL IV PUSH (19:24)
[2022-11-01 19:32] LABS: Troponin I < 0.012 ng/mL (0.000-0.034)
[2022-11-01] MEDS: HYDROmorphone HCL INJ (*CRX) 1 MG/ML SYR IV PUSH (21:06)
[2022-11-01] MEDS: CEFEPIME 1 GM/NS 50 ML 1 GM/50 ML BAG IVPB (21:06)
--- NOTE | 2022-11-01 22:47 | PC.NURSE ---
Kellie from [facility] called for a status update on pt @[phone]. [facility] states that the pt is pre-assigned to a room but no room assignment yet.
[2022-11-01 23:09] LABS: Troponin I < 0.012 ng/mL (0.000-0.034)
--- NOTE | 2022-11-01 23:20 | PC.NURSE ---
pt care and report given to WILMA Lemus. all questions answered.
[2022-11-02] VITALS (34 sets, daily range): BP systolic 115–127; BP diastolic 84–111; PULSE 84–102; RESP 8–17; O2SAT 91–100
[2022-11-02] MEDS: MORPHINE SULFATE (*CRX) 4 MG/ML INJ IV PUSH ×3 (00:32→06:26)
== END 2022-11-02 07:10 | disposition short-term general hospital (02) ==
PROVIDERS: Emergency Medicine; Emergency Provider Student in an Organized Health Care Education/Training Program; PCP Family Medicine
DX: I31.39 Other pericardial effusion (noninflammatory) (principal); R74.01 Elevation of levels of liver transaminase levels; Z20.822 Contact with and (suspected) exposure to COVID-19; I10 Essential (primary) hypertension; D50.9 Iron deficiency anemia, unspecified; G47.33 Obstructive sleep apnea (adult) (pediatric); E55.9 Vitamin D deficiency, unspecified; Z90.710 Acquired absence of both cervix and uterus; Z90.49 Acquired absence of other specified parts of digestive tract; R00.0 Tachycardia, unspecified; R94.31 Abnormal electrocardiogram [ECG] [EKG]
CPT/HCPCS: 36415; 71275; 80053; 81001; 83690; 84484; 85025; 85610; 85730; 86140; 87040; 87147; 87181; 87186; 87637; 93005; 96365; 96366; 96367; 96375; 96376; 99285; J0692; J1170; J2270; J2405; J3370; Q9967

== ENCOUNTER 2022-12-07 10:22 | Emergency (ER) | payer MEDICARE, MEDICAID, SELFPAY ==
[2022-12-07] VITALS (12 sets, daily range): BP systolic 99–147; BP diastolic 61–135; PULSE 68–107; RESP 13–25; TEMP 36.6; O2SAT 89–99
--- NOTE | ~2022-12-07 | CT_ITS ---
EXAMINATION: CTA chest PE protocol DATE: 12/07/2022 13:34 INDICATION: sycope, hx of pericardial effusion TECHNIQUE: Computed tomography angiography (CTA) of the chest was performed with 100 mL Omnipaque-350 intravenous contrast timed to evaluate the pulmonary arteries. Coronal maximum intensity projection 3D-reconstructions were created by the technologist. The dose-length product (DLP) was 1711.02 mGy-cm . Automated exposure control and iterative reconstruction technique were employed. COMPARISON: 11/01/2022. FINDINGS: Lung parenchyma and airways: Linear scar/atelectasis in the bilateral lower mid and lower lungs, othe rwise clear. Airways are clear. Pleura: Small bilateral pleural fluid collections. Thoracic inlet, axillae and chest wall: Unremarkable. Thoracic aorta: Normal. Mediastinum: Normal. Heart and pericardium: Mild cardiomegaly. Moderate pericardial effusion with pericardial enhancement and inflammatory change. Coronary artery calcifications: Absent. Upper abdomen: Cholecystectomy. Similar low-density epiphrenic fluid collection or mass, which may re present a developing/duplication cyst, necrotic lymph node, or other lesion. Bones: No acute osseous finding. Pulmonary arteries: Study quality: Adequate. No pulmonary emboli detected. IMPRESSION: No CT evidence of acute pulmonary embolus. Moderate pericardial effusion with evidence of pericarditis. Small bilateral pleural effusions. Stable right epiphrenic fluid density collection/mass. Reviewed, dictated and finalized at location [facility].
--- NOTE | ~2022-12-07 | CT_ITS ---
EXAMINATION: CT cervical spine wo con DATE: 12/07/2022 13:34 INDICATION: Fall. Head and neck injury. Syncope. TECHNIQUE: Computed tomography (CT) of the cervical spine was performed without intravenous contrast. Automated exposure control and iterative reconstruction technique were employed. Exam dose: 430.87 mGy-cm total exam DLP. COMPARISON: May 15, 2017 CT cervical spine FINDINGS: There is straightening of cervical spine which may be due to positioning and/or muscle spas m. C1 and C2 are normally aligned and the odontoid process is intact. There is slight anterolisthesis at C4-5. There is mild loss of interspace height at C4-5 and C5-6 int erspaces. No fracture or dislocation or locked facet or prevertebral soft tissue swelling is detected. IMPRESSION: Straightening of the cervical spine which may be due to muscle spasm Slight anterolisthesis at C4-5 Mild loss of interspace height at C4-5 and C5-6 Reviewed, dictated and finalized at [facility]. Reviewed, dictated and finalized at location A. IMPRESSION: Straightening of the cervical spine which may be due to muscle spa sm Slight anterolisthesis at C4-5 Mild loss of interspace height at C4-5 and C5-6
--- NOTE | ~2022-12-07 | CT_ITS ---
EXAMINATION: CT brain wo con DATE: 12/07/2022 13:34 INDICATION: Fall. Head injury. Syncope. TECHNIQUE: Computed tomography (CT) of the head was performed without intravenous contrast. The mA wa s adjusted according to patient size. Iterative reconstruction technique was employed. Exam dose: 60 5.33 mGy-cm total exam DLP. COMPARISON: May 30, 2022 CT brain FINDINGS: No intracranial mass lesion or hemorrhage or cerebrovascular accident, midline shift or mas s effect is detected. Normal ventricular size. No subdural or epidural hematoma is detected. No fracture or bone destruction of the cranial vault. The mastoid air cells and included paranasal sinuses are normally developed and aerated. IMPRESSION: No significant abnormality Reviewed, dictated and finalized at [facility]. Reviewed, dictated and finalized at location A. IMPRESSION: No significant abnormality
--- NOTE | ~2022-12-07 | XR_ITS ---
XR foot LT min 3V DATE: 12/07/2022 11:11 INDICATION: Multiple falls last night. Dorsal foot pain TECHNIQUE: 4 views COMPARISON: None FINDINGS: There is an anchor device at the lateral malleolus. Plantar calcaneal enthesopathy. No fracture, dislocation, periosteal reaction or bone destruction is detected. IMPRESSION: No fracture or dislocation Plantar calcaneal enthesopathy Reviewed, dictated and finalized at location A.
--- NOTE | ~2022-12-07 | XR_ITS ---
XR foot RT min 3V DATE: 12/07/2022 11:12 INDICATION: Multiple falls last night. Dorsal foot pain. TECHNIQUE: 4 views COMPARISON: None FINDINGS: There are transverse nondisplaced fractures near the junction of the bases and proximal sha fts of the second through fourth metatarsal bones. The second and third metatarsal fractures are virt ually nondisplaced. There is approximately one cortical width lateral displacement at the fourth meta tarsal fracture. No other fracture or dislocation is detected. No periosteal reaction or bone destruction. Prominent plantar calcaneal enthesopathy. There is mild calcification of the distal Achilles tendon. IMPRESSION: Second through fourth metatarsal fractures Reviewed, dictated and finalized at location A.
--- NOTE | 2022-12-07 10:24 | ECG_ITS ---
Measurements Intervals [place] Rate: 100 P: 19 NH: 130 QRS: 10 QRSD: 85 T: 81 QT: 349 QTc: 451 Interpretive Statements SINUS TACHYCARDIA BASELINE ARTIFACT NONSPECIFIC T-WAVE ABNORMALITY LOW-VOLTAGE QRS IN PRECORDIAL LEADS BORDERLINE ECG COMPARED TO ECG 11/01/2022 15:38:16 T-WAVE ABNORMALITY NOW PRESENT Electronically Signed On 12-07-2022 13:51:24 CDT by Manuel Chang M.D.
--- NOTE | 2022-12-07 12:07 | ED.LOWEXIN ---
HPI - Extremity Injury (Lower) General Chief Complaint: Extremity Injury, Lower <Virginia Taylor PA-C - Last Filed: 12/09/22 00:47> Stated Complaint: bilat foot pain, syncopal episodes last night <Virginia Taylor PA-C - Last Filed: 12/09/22 00:47> Time Seen by Provider: 12/07/22 11:34 <Virginia Taylor PA-C - Last Filed: 12/09/22 00:47> History of Present Illness HPI Narrative: 47-year-old female with a history of pericardial effusion, pleural effusions, s/p pericardial window on 10/10/2022 at [facility] reports for evaluation for bilateral foot and ankle pain after a syncopal episode that occurred last night. Patient presents with her fianc? and mother who assist with history. According to patient's fianc?, the patient got up to go to the bathroom around 1:30 AM, she stumbled around the room and went to the bathroom when he heard a loud crash. States he rushed into the bathroom and found her on the floor and assisted her up, however she was complaining of foot pain and was unable to hold herself up. Patient states she remembers the event and believes she lost consciousness. She is unsure if she hit her head. She is reporting with bilateral foot and ankle pain and inability to bear weight, right more so than left. She denies chest pain, dyspnea, headache, lightheadedness, vision changes, focal numbness or weakness, fever, cough or congestion, other injuries acquired. She states she feels fine right now other than her foot pain. Of note, she went to [facility] within the past few weeks for difficulty breathing. Reports she was hospitalized for 4 days and they decreased her Seroquel from 800 mg to 400 mg due to concern that this may be causing her pericarditis. She is on Seroquel for amnesia. Patient states since then, she has had more episodes of amnesia and fatigue which she is attributing to her episode of syncope yesterday. She was recently prescribed potassium daily 20 mEq but has not started this medication yet. She is currently on colchicine and ibuprofen for prior diagnosis of pericarditis. <Virginia Taylor PA-C - Last Filed: 12/09/22 00:47> Related Data Home Medications: Home Medications Medication Instructions Recorded Confirmed alprazolam 1 mg tablet (Xanax) 1 mg PO TID PRN Anxiety 12/11/19 05/31/22 venlafaxine 150 mg 300 mg PO HS 12/11/19 05/31/22 capsule,extended release 24 hr quetiapine 400 mg tablet (Seroquel) 800 mg PO HS 08/22/20 05/31/22 gabapentin 300 mg capsule 300 mg PO DAILY 10/09/21 05/31/22 ibuprofen 800 mg tablet 800 mg PO TID 05/31/22 05/31/22 quetiapine 100 mg tablet 100 mg PO DAILY PRN Anxiety 05/31/22 05/31/22 suvorexant 20 mg tablet (Belsomra) 20 mg PO HS 05/31/22 05/31/22 <Virginia Taylor PA-C - Last Filed: 12/09/22 00:47> Allergies/Adverse Reactions: Allergies Allergy/AdvReac Type Severity Reaction Status Date / Time bee venom protein (honey bee) Allergy Severe Anaphylactic Verified 11/01/22 15:32 Shock lisinopril Allergy Intermediate Loss of Verified 11/01/22 15:32 Consciousness <Virginia Taylor PA-C - Last Filed: 12/09/22 00:47> Review of Systems Review of Systems: CONSTITUTIONAL: Denies fever, chills EYES: Denies visual changes, redness, or discharge. ENT: Denies rhinorrhea, congestion, sore throat, or otalgia. CARDIOVASCULAR: Denies chest pain, palpitations, or edema. RESPIRATORY: Denies cough or dyspnea. GASTROINTESTINAL: Denies abdominal pain, nausea, vomiting, or diarrhea. GENITOURINARY: Denies dysuria or hematuria. SKIN: Denies rash or itching. MUSCULOSKELETAL: See HPI NEUROLOGIC: Denies headache, numbness, dizziness, or weakness. PSYCHIATRIC: Denies anxiety or depression. <Virginia Taylor PA-C - Last Filed: 12/09/22 00:47> PMFSH Past Medical History Medical History: Medical History Abscess of buttock Acute dyspnea Acute pain of left knee Anemia
[2022-12-07 12:31] LABS: Basophils Percent Auto 0.1 % (0.2-1.2); Hematocrit 35.7 % (37.0-47.0); Hemoglobin 11.4 g/dL (12.0-15.0); Immature Granulocyte Absolute 0.03 K/mm3 (0.00-0.031); Immature Granulocyte Percent A 0.4 % (0-0.5); Lymphocytes Absolute Auto 1.02 K/mm3 (0.9-3.2); Lymphocytes Percent Auto 14.2 % (18.3-44.2); Mean Corpuscular HGB Conc 31.9 g/dl (32-36); Mean Corpuscular Hemoglobin 27.5 pg (26-34); Mean Platelet Volume 11.1 fl (7.4-10.4); Monocytes Absolute Auto 0.6 K/mm3 (0.1-0.6); Monocytes Percent Auto 8.3 % (2.6-8.5); Neutrophils Absolute Auto 5.5 K/mm3 (1.3-6.7); Platelet Count Result 225 k/mm3 (150-375); Red Blood Count 4.15 M/mm3 (4.2-5.4); Red Cell Distribution Width 14.9 % (11.5-14.5); White Blood Count 7.2 K/mm3 (4.5-10.0)
[2022-12-07] MEDS: HYDROcodone/acetaminophen (*CRX) 5-325 MG TABLET 1 TAB PO (12:34)
[2022-12-07 12:42] LABS: INR 1.1; Prothrombin Time 14.6 Seconds (11.1-14.7)
[2022-12-07 12:43] LABS: Partial Thromboplastin Time 26.1 SECONDS (22.3-36.8)
[2022-12-07 12:46] LABS: Alanine Aminotransferase 33 U/L (6-35); Albumin Level 3.9 g/dL (3.5-5.1); Alkaline Phosphatase 100 U/L (38-126); Anion Gap 7 mmol/L (8-16); Aspartate Amino Transferase 31 U/L (14-36); Bilirubin,Total 1.2 mg/dL (0.2-1.3); Blood Urea Nitrogen 13 mg/dL (7-17); Calcium 8.5 mg/dL (8.4-10.2); Carbon Dioxide 39 mmol/L (22-30); Chloride 88 mmol/L (98-107); Estimated CRCL calculation 63 ml/min; Estimated Glomerular Filt Rate 53; Glucose 131 mg/dL (65-110); Lipase 27 U/L (23-300); Potassium 2.4 mmol/L (3.4-5.0); Sodium 134 mmol/L (137-145)
[2022-12-07 12:51] LABS: NT Pro B Type Natriuretic Pept 975 pg/mL (19.9-100)
[2022-12-07 12:54] LABS: Troponin I < 0.012 ng/mL (0.000-0.034)
[2022-12-07 12:57] LABS: Magnesium 1.7 mg/dL (1.6-2.3)
[2022-12-07 13:01] LABS: Erythrocyte Sedimentation Rate > 140 mm/hr (0-20)
[2022-12-07] MEDS: POTASSIUM CHLORIDE 20 MEQ PACKET (FOR LIQUID) 40 MEQ PO (13:01)
[2022-12-07] MEDS: SODIUM CHLORIDE 0.9% IV 1,000 ML 999 ML IV CONT ×2 (13:02→16:56)
[2022-12-07] MEDS: POTASSIUM CHLORIDE INJ 40 MEQ in SODIUM CHLORIDE 0.9% IV 500 ML 130 MEQ IVPB (13:02)
[2022-12-07 13:10] LABS: CRP 38.6 mg/dL (<1.0)
--- NOTE | 2022-12-07 13:17 | PC.NURSE ---
splint applied to RLE.
[2022-12-07 14:25] LABS: Appearance Urine Clear (Clear); Bacteria Urine 2+ /hpf; Bilirubin Urine Negative (Negative); Blood Urine Negative (Negative); Color Urine Dark Yellow (Yellow); Glucose Urine UA Negative (Negative); Ketones Urine Negative (Negative); Leukocyte Esterase Ur Negative LEU/UL (Negative); Need Manual Microscopic Reviewed; Nitrate Urine Negative (Negative); Non Pathogenic Casts 0-2; Protein Urine 1+ mg/dL (Negative); RBC Urine 0-2 /hpf (0-2); Squamous Epithelial Cell Urine Moderate /hpf (Few); WBC Urine 0-5 /hpf; pH Urine 6.5 (5.0-9.0)
[2022-12-07 14:26] LABS: Add Urine Microscopic? YES; Specific Grav Ur 1.083 (1.001-1.035)
[2022-12-07] MEDS: fentaNYL CITRATE INJ (*CRX) 100 MCG/2 ML VIAL 20 MCG IV PUSH ×2 (15:21→16:56)
--- NOTE | 2022-12-07 15:46 | PC.NURSE ---
[facility] is accepting pt. Will call with be number
--- NOTE | 2022-12-07 17:53 | PC.NURSE ---
1750 pt remains on waitlist for bed at [facility]
[2022-12-07] MEDS: fentaNYL CITRATE INJ (*CRX) 100 MCG/2 ML VIAL 50 MCG IV PUSH (18:37)
[2022-12-07 19:58] LABS: Anion Gap 2 mmol/L (8-16); Blood Urea Nitrogen 11 mg/dL (7-17); Calcium 7.6 mg/dL (8.4-10.2); Carbon Dioxide 37 mmol/L (22-30); Chloride 95 mmol/L (98-107); Estimated CRCL calculation 76 ml/min; Estimated Glomerular Filt Rate > 60; Glucose 115 mg/dL (65-110); Potassium 2.9 mmol/L (3.4-5.0); Sodium 134 mmol/L (137-145)
[2022-12-07] MEDS: fentaNYL CITRATE INJ (*CRX) 100 MCG/2 ML VIAL 25 MCG IV PUSH (21:29)
[2022-12-07] MEDS: FAMOTIDINE 20 MG TABLET PO (22:10)
[2022-12-07] MEDS: COLCHICINE 0.6 MG TABLET PO (22:10)
[2022-12-07] MEDS: QUEtiapine FUMARATE 100 MG TABLET 400 MG PO (22:11)
== END 2022-12-07 23:30 | disposition short-term general hospital (02) ==
PROVIDERS: Emergency Provider Physician Assistant
DX: E87.6 Hypokalemia (principal); R55 Syncope and collapse; S92.321A Displaced fracture of second metatarsal bone, right foot, initial encounter for closed fracture; S92.331A Displaced fracture of third metatarsal bone, right foot, initial encounter for closed fracture; S92.341A Displaced fracture of fourth metatarsal bone, right foot, initial encounter for closed fracture; I31.9 Disease of pericardium, unspecified; I31.39 Other pericardial effusion (noninflammatory); R00.0 Tachycardia, unspecified; R41.3 Other amnesia; R53.83 Other fatigue; I10 Essential (primary) hypertension; F17.290 Nicotine dependence, other tobacco product, uncomplicated; Z79.899 Other long term (current) drug therapy; W18.39XA Other fall on same level, initial encounter; Y92.002 Bathroom of unspecified non-institutional (private) residence as the place of occurrence of the external cause
CPT/HCPCS: 29515; 36415; 70450; 71275; 72125; 73630; 80048; 80053; 81001; 83690; 83735; 83880; 84484; 85025; 85610; 85652; 85730; 86140; 93005; 96365; 96366; 96375; 96376; 99285; A9270; J3010; J7030; J7040; Q9967

== ENCOUNTER 2023-05-28 17:07 | Emergency (ER) | payer MEDICARE, MEDICAID, SELFPAY ==
[2023-05-28 17:40] VITALS: BP 135/99; PULSE 94; RESP 16; TEMP 36.3; O2SAT 99
--- NOTE | 2023-05-28 17:44 | ED.WOUNDLAC ---
HPI - Wound/Laceration General Chief Complaint: Wound/Laceration <Edwin Weiss APRN - Last Filed: 06/17/23 08:51> Stated Complaint: wound to face <Edwin Weiss APRN - Last Filed: 06/17/23 08:51> Time Seen by Provider: 05/28/23 19:04 <dEwin Weiss APRN - Last Filed: 06/17/23 08:51> Focused HPI: GENERAL: Well-appearing, well-nourished, and in no acute distress. HEAD: Normocephalic, atraumatic. CHEST: Clear to auscultation. No respiratory distress. HEART: Regular rate and rhythm. NEURO: Alert and oriented x3. SKIN: Small erythematous area of the right chin with centralized puncture kindra draining clear fluid Patient screened in triage and initial orders placed. Additional care and disposition to be based upon diagnostic testing and treatment. 48-year-old female presents emergency room for evaluation of a possible skin infection to her face. Patient states 2 days ago she had a small pimple to the right side of her chest, she attempted to express a. The following day she developed swelling and redness around the area. States today the areas become larger. Denies any sore throat or fevers. <Edwin Weiss APRN - Last Filed: 06/17/23 08:51> Focused HPI: 48-year-old female presents emergency room for evaluation of a possible skin infection to her face. Patient states 2 days ago she had a small pimple to the right side of her chest, she attempted to express a. The following day she developed swelling and redness around the area. States today the areas become larger. Denies any sore throat or fevers. GENERAL: Well-appearing, well-nourished, and in no acute distress. HEAD: Normocephalic, atraumatic. CHEST: Clear to auscultation. No respiratory distress. HEART: Regular rate and rhythm. NEURO: Alert and oriented x3. SKIN: Small erythematous area of the right chin with centralized puncture kindra draining clear fluid Patient screened in triage and initial orders placed. Additional care and disposition to be based upon diagnostic testing and treatment. <Janak Garcia MD - Last Filed: 05/28/23 19:31> History of Present Illness HPI narrative: 48-year-old female with abscess right ochoa developing over 2 days. No drainage. Subjective fevers but nothing documented. <Janak Garcia MD - Last Filed: 05/28/23 19:31> Related Data Home Medications: Home Medications Medication Instructions Recorded Confirmed alprazolam 1 mg tablet (Xanax) 1 mg PO TID PRN Anxiety 12/11/19 05/31/22 venlafaxine 150 mg 300 mg PO HS 12/11/19 05/31/22 capsule,extended release 24 hr quetiapine 400 mg tablet (Seroquel) 800 mg PO HS 08/22/20 05/31/22 gabapentin 300 mg capsule 300 mg PO DAILY 10/09/21 05/31/22 ibuprofen 800 mg tablet 800 mg PO TID 05/31/22 05/31/22 quetiapine 100 mg tablet 100 mg PO DAILY PRN Anxiety 05/31/22 05/31/22 suvorexant 20 mg tablet (Belsomra) 20 mg PO HS 05/31/22 05/31/22 <Edwin Weiss, ROPE LAYING MACHINE OPERATOR - Last Filed: 06/17/23 08:51> Allergies/Adverse Reactions: Allergies Allergy/AdvReac Type Severity Reaction Status Date / Time bee venom protein (honey bee) Allergy Severe Anaphylactic Verified 05/28/23 18:39 Shock lisinopril Allergy Intermediate Loss of Verified 05/28/23 18:39 Consciousness <Edwin Weiss, ROPE LAYING MACHINE OPERATOR - Last Filed: 06/17/23 08:51> Review of Systems Constitutional: Constitutional: Reports no additional constitutional complaints and Reports fever(s) <Janak Garcia MD - Last Filed: 05/28/23 19:31> ENT: Reports system reviewed and no additional complaints, except as documented <Janak Garcia MD - Last Filed: 05/28/23 19:31> Cardiovascular: Cardiovascular: Reports no additional cardiovascular complaints <Janak Garcia MD - Last Filed: 05/28/23 19:31> Respiratory: Respiratory: Reports no additional respiratory complaints <Janak Garcia MD - Last Filed: 05/28/23 19:31> Integumentary/Breasts: Skin/Breast: Reports erythema <An
[2023-05-28] MEDS: HYDROcodone/acetaminophen (*CRX) 5-325 MG TABLET 1 TAB PO (19:32)
[2023-05-28 19:41] VITALS: BP 134/86; PULSE 71; RESP 15; TEMP 36.7; O2SAT 99
== END 2023-05-28 19:42 | disposition home or self-care (01) ==
PROVIDERS: Emergency Provider Emergency Medicine; PCP Family Medicine
DX: L02.01 Cutaneous abscess of face (principal); I10 Essential (primary) hypertension; D50.9 Iron deficiency anemia, unspecified; G47.33 Obstructive sleep apnea (adult) (pediatric); E55.9 Vitamin D deficiency, unspecified; F17.290 Nicotine dependence, other tobacco product, uncomplicated; Z90.49 Acquired absence of other specified parts of digestive tract; Z90.710 Acquired absence of both cervix and uterus
CPT/HCPCS: 10060; 99283; A9270

== ENCOUNTER 2023-08-26 21:27 | Emergency (ER) | payer MEDICARE, MEDICAID, SELFPAY ==
[2023-08-26 21:37] VITALS: BP 166/100; PULSE 90; RESP 16; TEMP 36.2; O2SAT 99
--- NOTE | 2023-08-27 00:16 | ED.SKABFB ---
HPI - Skin/Abscess/Foreign Bdy General Chief complaint: Skin/Abscess/Foreign Body Stated complaint: cyst to breast Time Seen by Provider: 08/26/23 23:18 History of Present Illness HPI narrative: 40-year-old female presents emergency department for an abscess to her left breast that she noticed today. She reports surrounding redness that is painful. Denies fever, nausea or vomiting. Denies drainage from the area. Related Data Home Medications Medication Instructions Recorded Confirmed alprazolam 1 mg tablet (Xanax) 1 mg PO TID PRN Anxiety 12/11/19 05/31/22 venlafaxine 150 mg 300 mg PO HS 12/11/19 05/31/22 capsule,extended release 24 hr quetiapine 400 mg tablet (Seroquel) 800 mg PO HS 08/22/20 05/31/22 gabapentin 300 mg capsule 300 mg PO DAILY 10/09/21 05/31/22 ibuprofen 800 mg tablet 800 mg PO TID 05/31/22 05/31/22 quetiapine 100 mg tablet 100 mg PO DAILY PRN Anxiety 05/31/22 05/31/22 suvorexant 20 mg tablet (Belsomra) 20 mg PO HS 05/31/22 05/31/22 Allergies Allergy/AdvReac Type Severity Reaction Status Date / Time bee venom protein (honey bee) Allergy Severe Anaphylactic Verified 05/28/23 18:39 Shock lisinopril Allergy Intermediate Loss of Verified 05/28/23 18:39 Consciousness Review of Systems Review of Systems: All systems reviewed & are unremarkable except as noted in HPI and below PMFSH Past Medical History Medical History Abscess of buttock Acute dyspnea Acute pain of left knee Anemia Bacterial upper respiratory infection Benign hypertension BMI 40.0-44.9, adult BMI greater than 40 Body aches Body mass index [BMI] 38.0-38.9, adult (08/19/16) Body mass index [BMI] 40.0-44.9, adult (06/10/18) Cellulitis of left knee Cerumen debris on tympanic membrane of both ears Chest pain Chest pain Confusion Costovertebral angle tenderness Dietary counseling and surveillance (05/02/15) Dizziness Duodenal papillary stenosis DVT prophylaxis Dysuria Edema, unspecified Elevated TSH Epigastric abdominal pain Esophageal ulcer Fall Generalized abdominal pain Headache Hypertension Injury of other nerves at ankle and foot level, left leg, subsequent encounter Iron deficiency anemia, unspecified Knee injury Left ankle sprain Left hip pain Low kidney function Migraine Myalgia Non-specific low back pain Obstructive sleep apnea Pelvic pressure in female Pericardial effusion Periodic limb movement Pseudotumor Behind eye Traumatic injury of rib Ulcer of esophagus without bleeding UTI symptoms Vitamin D deficiency Surgical History Surgical History H/O elbow surgery left, 2011 H/O inguinal hernia repair H/O lumpectomy Duct removed from 1 breast on the left side H/O nasal polypectomy H/O sinus surgery H/O: hysterectomy History of ankle surgery left, 12/23/2017 and 03/29/2017 Hx of cholecystectomy Status post surgical manipulation of ankle joint Family History Family History Father Asbestosis Bladder cancer Hypertension Family history of chronic obstructive pulmonary disease COPD (chronic obstructive pulmonary disease) Mother Diabetes mellitus Fibromyalgia Syncopal episodes Hypertension Sibling Anxiety Depression Hypertension Other Family history of malignant neoplasm of breast Other Family history of thyroid disease Social History Social History Social History: The patient lives at home with her fiance. She has 2 children ages 21 and 18. Her 18-year-old daughter lives with her ex. She has a 3-year-old grandchild. Benzodiazepine use and narcotic use. She tells me that she is not currently working. Code status full code Years smoked: 0.25 Smoking status: Current every day smoker Tobacco type: e-cigarettes/vaping Second hand t
[2023-08-27] MEDS: SULFAMETHOXAZOLE/TRIMETHOPRIM 800/160 MG DS TABLET 1 TAB PO (00:33)
[2023-08-27 00:36] VITALS: BP 162/90; PULSE 92; RESP 15; O2SAT 98
== END 2023-08-27 00:37 | disposition home or self-care (01) ==
PROVIDERS: Emergency Provider Physician Assistant; PCP Family Medicine
DX: N61.1 Abscess of the breast and nipple (principal); I10 Essential (primary) hypertension; E55.9 Vitamin D deficiency, unspecified; D50.9 Iron deficiency anemia, unspecified; G47.33 Obstructive sleep apnea (adult) (pediatric); Z90.710 Acquired absence of both cervix and uterus; Z90.49 Acquired absence of other specified parts of digestive tract; F17.290 Nicotine dependence, other tobacco product, uncomplicated
CPT/HCPCS: 10061; 99283; A9270

== ENCOUNTER 2023-08-30 14:52 | Inpatient (IN) | payer MEDICARE, MEDICAID, SELFPAY ==
--- NOTE | ~2023-08-30 | US_ITS ---
US breast LT limited 08/31/2023 09:14 Indication: Left breast wound. Procedure: High-resolution Limited ultrasound of the left breast Comparison: No prior studies for comparison. Findings: At 3:00, 10 cm from the nipple there is a heterogeneous hypoechoic area at the site of supe rficial wound with surrounding increased vascularity, consistent with infection. No discrete pain juliocesar inable fluid collection is identified. Impression: 1: Irregular shaped skin abnormality with associated hypoechoic vascular soft tissue, consistent with infection. No drainable fluid collection to suggest abscess. Reviewed, dictated and finalized at location B. Impression: 1: Irregular shaped skin abnormality with associated hypoechoic vascular soft t issue, consistent with infection. No drainable fluid collection to suggest absc ess.
[2023-08-30 14:54] VITALS: BP 152/107; PULSE 108; RESP 20; TEMP 36.3; O2SAT 100
--- NOTE | 2023-08-30 15:32 | ED.SKABFB ---
HPI - Skin/Abscess/Foreign Bdy General Chief complaint: Skin/Abscess/Foreign Body <Abbey Rico PA-C - Last Filed: 08/30/23 20:03> Stated complaint: abscess lanced on the and states it is worse <Abbey Rico PA-C - Last Filed: 08/30/23 20:03> Time Seen by Provider: 08/30/23 15:14 <Abbey Rico PA-C - Last Filed: 08/30/23 20:03> Source: patient <Abbey Rico PA-C - Last Filed: 08/30/23 20:03> Mode of arrival: ambulatory <Abbey Rico PA-C - Last Filed: 08/30/23 20:03> Limitations: no limitations <EWA Tang Last Filed: 08/30/23 20:03> History of Present Illness HPI narrative: This is a 48-year-old female that presents to the emergency department for an abscess to the left breast. This was drained 4 days ago. She has been taking oral Bactrim. Reports he has had worsening redness and swelling. Denies fevers. <Abbey Rico PA-C - Last Filed: 08/30/23 20:03> Related Data Home medications: Home Medications Medication Instructions Recorded Confirmed alprazolam 1 mg tablet (Xanax) 1 mg PO TID PRN Anxiety 12/11/19 08/30/23 venlafaxine 150 mg 300 mg PO HS 12/11/19 08/30/23 capsule,extended release 24 hr quetiapine 400 mg tablet (Seroquel) 800 mg PO HS 08/22/20 08/30/23 gabapentin 300 mg capsule 600 mg PO HS 10/09/21 08/30/23 ibuprofen 800 mg tablet 800 mg PO TID PRN Pain (Scale 05/31/22 08/30/23 Score 1-3) quetiapine 100 mg tablet 100 mg PO DAILY PRN Anxiety 05/31/22 08/30/23 famotidine 20 mg tablet 20 mg PO BID 08/30/23 08/30/23 furosemide 40 mg tablet 40 mg PO QAM 08/30/23 08/30/23 indomethacin 25 mg capsule 25 mg PO PRN PRN Pain (Scale Score 08/30/23 08/30/23 4-6) rilonacept 220 mg subcutaneous 220 mg subcut WEEKLY 08/30/23 08/30/23 solution (Arcalyst) <Abbey Rico PA-C - Last Filed: 08/30/23 20:03> Allergies/Adverse reactions: Allergies Allergy/AdvReac Type Severity Reaction Status Date / Time bee venom protein (honey bee) Allergy Severe Anaphylactic Verified 08/30/23 15:02 Shock lisinopril Allergy Intermediate Loss of Verified 08/30/23 15:02 Consciousness vancomycin Allergy Hives Verified 08/30/23 18:24 <Abbey Rico PA-C - Last Filed: 08/30/23 20:03> Review of Systems Review of Systems: CONSTITUTIONAL: Denies fever SKIN: Reports redness and swelling <Abbey Rico PA-C - Last Filed: 08/30/23 20:03> All systems reviewed & are unremarkable except as noted in HPI and below <Abbey Rico PA-C - Last Filed: 08/30/23 20:03> [facility] Past Medical History Medical History: Medical History Abscess of buttock Anemia Benign hypertension Cellulitis of left knee Dizziness Duodenal papillary stenosis Elevated TSH Esophageal ulcer Hypertension Iron deficiency anemia, unspecified Low kidney function Migraine Myalgia Obstructive sleep apnea Pericardial effusion Periodic limb movement Pseudotumor Behind eye Ulcer of esophagus without bleeding Vitamin D deficiency <Abbey Rico PA-C - Last Filed: 08/30/23 20:03> Surgical History Surgical History: Surgical History H/O elbow surgery left, 2011 H/O inguinal hernia repair H/O lumpectomy Duct removed from 1 breast on the left side H/O nasal polypectomy H/O sinus surgery H/O: hysterectomy History of ankle surgery left, 12/23/2017 and 03/29/2017 Hx of cholecystectomy Status post surgical manipulation of ankle joint <EWA Tang Last Filed: 08/30/23 20:03> Family History Family History: Family History Father Asbestosis Bladder cancer Hypertension Family history of chronic obstructive pulmonary disease COPD (chronic obstructive pulmonary disease) Mother Diabetes mellitus Fibromyalgia Syncopal episodes Hypertension Sibli
[2023-08-30 17:00] LABS: Basophils Percent Auto 0.2 % (0.2-1.2); Eosinophils Percent Auto 0.9 % (0-4.4); Hematocrit 40.6 % (37.0-47.0); Hemoglobin 13.7 g/dL (12.0-15.0); Immature Granulocyte Absolute 0.02 K/mm3 (0.00-0.031); Immature Granulocyte Percent A 0.4 % (0-0.5); Lymphocytes Absolute Auto 1.29 K/mm3 (0.9-3.2); Lymphocytes Percent Auto 28.7 % (18.3-44.2); Mean Corpuscular HGB Conc 33.7 g/dl (32-36); Mean Corpuscular Volume 91.9 fl (80-100); Mean Platelet Volume 10.8 fl (7.4-10.4); Monocytes Absolute Auto 0.3 K/mm3 (0.1-0.6); Monocytes Percent Auto 6.7 % (2.6-8.5); Neutrophils Absolute Auto 2.8 K/mm3 (1.3-6.7); Neutrophils Percent Auto 63.1 % (45.5-73.1); Platelet Count Result 232 k/mm3 (150-375); Red Blood Count 4.42 M/mm3 (4.2-5.4); White Blood Count 4.5 K/mm3 (4.5-10.0)
[2023-08-30 17:12] LABS: Lactic Acid Reflex 1.4 mmol/L (0.7-2.0)
[2023-08-30 17:15] LABS: Anion Gap 11 mmol/L (4-12); Blood Urea Nitrogen 9 mg/dL (7-17); Calcium 9.2 mg/dL (8.4-10.2); Carbon Dioxide 25 mmol/L (22-30); Chloride 101 mmol/L (98-107); Estimated CRCL calculation 69 ml/min; Estimated Glomerular Filt Rate 59; Glucose 104 mg/dL (65-110); Potassium 4.3 mmol/L (3.4-5.0); Sodium 137 mmol/L (137-145)
[2023-08-30 17:32] LABS: Erythrocyte Sedimentation Rate 43 mm/hr (0-20)
[2023-08-30] MEDS: VANCOMYCIN 1,500 MG/NS 500 ML 1,500 MG/500 ML BAG 250 MG IVPB (17:49)
[2023-08-30 17:53] VITALS: BP 120/97; PULSE 85; RESP 16; O2SAT 97
--- NOTE | 2023-08-30 18:11 | PC.NURSE ---
Patient called nursing staff into room and states she has hives all over her arms and is feeling itchy. Vancomycin stopped and IV flushed. Notified EDP ROSSANA Gatica
[2023-08-30] MEDS: diphenhydrAMINE HCl INJ 50 MG/ML VIAL 25 MG IV PUSH (18:15)
[2023-08-30 18:52] VITALS: BP 159/107; PULSE 92; RESP 16; O2SAT 98
--- NOTE | 2023-08-30 19:16 | ECG_ITS ---
Test Date: 2023-08-30 19:21:29 Measurements Intervals [place] Rate: 79 P: 20 VT: 137 QRS: 25 QRSD: 86 T: 107 QT: 375 QTc: 431 Interpretive Statements SINUS RHYTHM INFERIOR INFARCT, AGE INDETERMINATE BORDERLINE ST-T WAVE ABNORMALITY- ANTEROLAT/HIGH LAT LEADS ABNORMAL ECG No previous ECG available for comparison Electronically Signed On 08-30-2023 20:23:06 CDT by Elian oMnae D.O.
[2023-08-30 19:25] VITALS: BP 140/89; PULSE 78; RESP 16; O2SAT 98
[2023-08-30 19:46] LABS: Troponin I < 0.012 ng/mL (0.000-0.034)
--- NOTE | 2023-08-30 19:46 | PM.IMHP ---
H&P: HPI History of Present Illness Date/Time: 08/30/23 19:46 Chief Complaint: Breast Abscess Narrative: 48 y/o F presents here with breast abscess with PMH of anemia (HIRAM), HTN, VIVIEN, ulcer of esophagus without bleed, and migraine. The patient presents here with a left breast abscess. Initially noted around 08/21, started as small pimple with a white/yellow head, and did not have any surrounding erythema/swelling. Patient attempted to pop the area prior to seeking care in the ED. Patient was then seen at [place] ED on 08/26/23 due to the severity of the pain to her left breast. Abscess was I&D'd with 2 mL of serosanguineous and purulent material was expressed. Packing placed in wound, discharged with Bactrim, advised to remove packing in 2 days (08/27) and to follow-up with her PCP. Patient reports that the redness/swelling did not improve. Returning today due to worsening erythema, swelling, induration, and has continued to experience green purulent drainage from site. Denies associated fever, chills, body aches. Patient has prior hx of cellulitis, one episode in May of 2023. Patient has cellulitis to her chin which was successfully teated with Bactrim. 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 Patient has nipple piercing present, reports it was done years ago and has not caused issue. Initial VS at presentation: 97.4? F, HR 108, RR 20, 152/107, and 100% on RA. ED workup showed: no leukocytosis, no anemia, no significant electrolyte right derangements, creatinine 1.0 and GFR 59, CRP 8.0. Review of Systems Review of Systems: All systems reviewed & are unremarkable except as noted in HPI and below PMFSH Past Medical History Medical History (Updated 08/30/23 @ 21:41 by Samara Trejo, JHON) Abscess of buttock Anemia Benign hypertension Cellulitis of left knee Dizziness Duodenal papillary stenosis Elevated TSH Esophageal ulcer Hypertension Iron deficiency anemia, unspecified Low kidney function Migraine Myalgia Obstructive sleep apnea Pericardial effusion Periodic limb movement Pseudotumor Behind eye Ulcer of esophagus without bleeding Vitamin D deficiency Surgical History Surgical History H/O elbow surgery left, 2011 H/O inguinal hernia repair H/O lumpectomy Duct removed from 1 breast on the left side H/O nasal polypectomy H/O sinus surgery H/O: hysterectomy History of ankle surgery left, 12/23/2017 and 03/29/2017 Hx of cholecystectomy Status post surgical manipulation of ankle joint Family History Family History Father Asbestosis Bladder cancer Hypertension Family history of chronic obstructive pulmonary disease COPD (chronic obstructive pulmonary disease) Mother Diabetes mellitus Fibromyalgia Syncopal episodes Hypertension Sibling Anxiety Depression Hypertension Other Family history of malignant neoplasm of breast Other Family history of thyroid disease Social History Social History Social History: The patient lives at home with her fiance. She has 2 children ages 21 and 18. Her 18-year-old daughter lives with her ex. She has a 3-year-old grandchild. Benzodiazepine use and narcotic use. She tells me that she is not currently working. Code status full code Years smoked: 0.25 Smoking status: Current every day smoker Tobacco type: e-cigarettes/vaping Second hand tobacco smoke exposure: No Additional smoking assessment comments: 5mg non-nicotine vape (cartidge every 2-3 weeks) Alcohol intake: never Drinks per week: 1 Alcohol use details: occasional Substance use: never Substance use type: does not use Do You Feel Safe in your Home?: Yes Lack of Transportation: No Lack of Food: Sometimes True Current Housing: I Have Housing Concerned About Future Housing: YES Diff
--- NOTE | 2023-08-30 19:49 | ADMGEN ---
This patient, Mariah Manuel, was admitted to [facility] Surg Room 326-01 at 19:31. Patient/family oriented to hospital policies and general routines including ID bracelet, bed and alarms, visiting hours, pain management, procedures, bathroom and other care routines, personal items, smoking policy, room service/diet, and visiting hours. Information on how to activate the Rapid Response Team has been discussed. Patient/Family are encouraged to report perceived risks to care and to ask questions if they do not understand what they are told or what they should do.
[2023-08-30 20:00] VITALS: PULSE 80; RESP 16; O2SAT 98
[2023-08-30 21:19] VITALS: BP 121/74; PULSE 80; RESP 16; TEMP 36.8; O2SAT 98
[2023-08-30] MEDS: FAMOTIDINE 20 MG TABLET PO (21:59)
[2023-08-30] MEDS: VENLAFAXINE HCL XR 75 MG CAP.ER.24H 300 MG PO (21:59)
[2023-08-30] MEDS: QUEtiapine FUMARATE 100 MG TABLET 800 MG PO (21:59)
[2023-08-30] MEDS: HYDROcodone/acetaminophen (*CRX) 5-325 MG TABLET 1 TAB PO (22:00)
[2023-08-30] MEDS: GABAPENTIN 300 MG CAPSULE 600 MG PO (22:00)
--- NOTE | 2023-08-30 22:37 | PC.NURSE ---
patient and have described her history of transient global amnesia to this RN. patient enters days long periods of confusion and irritability, as though her body has an on/off switch , and is unable to recognize her or children during attacks. Patient states the first occurrence of this happened about 15 years ago, and the most recent episode was in May 2023. Patient reports being able to sense when an episode is coming and takes her additional 100mg Seroquel PO PRN
[2023-08-31] MEDS: DOXYCYCLINE 100 MG/NS 100 ML 100 MG/100 ML BAG IVPB ×3 (00:29→21:00)
[2023-08-31] MEDS: SODIUM CHLORIDE 0.9% IV 1,000 ML 100 ML IV CONT (01:29)
[2023-08-31] MEDS: HYDROcodone/acetaminophen (*CRX) 5-325 MG TABLET 1 TAB PO ×4 (03:23→21:32)
[2023-08-31 06:00] VITALS: BP 109/63; PULSE 71; RESP 18; TEMP 36.4; O2SAT 94
[2023-08-31 06:39] LABS: Basophils Percent Auto 0.6 % (0.2-1.2); Eosinophils Absolute Auto 0.1 K/mm3 (0-0.3); Eosinophils Percent Auto 1.8 % (0-4.4); Hematocrit 39.3 % (37.0-47.0); Hemoglobin 12.5 g/dL (12.0-15.0); Immature Granulocyte Absolute 0.03 K/mm3 (0.00-0.031); Immature Granulocyte Percent A 0.9 % (0-0.5); Lymphocytes Absolute Auto 1.52 K/mm3 (0.9-3.2); Lymphocytes Percent Auto 46.1 % (18.3-44.2); Mean Corpuscular HGB Conc 31.8 g/dl (32-36); Mean Corpuscular Hemoglobin 30.6 pg (26-34); Mean Corpuscular Volume 96.3 fl (80-100); Mean Platelet Volume 10.8 fl (7.4-10.4); Monocytes Absolute Auto 0.3 K/mm3 (0.1-0.6); Monocytes Percent Auto 8.2 % (2.6-8.5); Neutrophils Absolute Auto 1.4 K/mm3 (1.3-6.7); Neutrophils Percent Auto 42.4 % (45.5-73.1); Platelet Count Result 216 k/mm3 (150-375); Red Blood Count 4.08 M/mm3 (4.2-5.4); White Blood Count 3.3 K/mm3 (4.5-10.0)
[2023-08-31 07:12] LABS: Potassium 4.2 mmol/L (3.4-5.0)
[2023-08-31 07:16] LABS: Alanine Aminotransferase 24 U/L (6-35); Albumin Level 3.9 g/dL (3.5-5.1); Alkaline Phosphatase 64 U/L (38-126); Anion Gap 11 mmol/L (4-12); Aspartate Amino Transferase 39 U/L (14-36); Bilirubin,Total 0.5 mg/dL (0.2-1.3); Blood Urea Nitrogen 13 mg/dL (7-17); CRP 5.2 mg/dL (<1.0); Calcium 8.3 mg/dL (8.4-10.2); Carbon Dioxide 20 mmol/L (22-30); Chloride 106 mmol/L (98-107); Estimated CRCL calculation 69 ml/min; Estimated Glomerular Filt Rate 59; Glucose 95 mg/dL (65-110); Sodium 137 mmol/L (137-145)
[2023-08-31] MEDS: FAMOTIDINE 20 MG TABLET PO ×2 (08:07→21:00)
--- NOTE | 2023-08-31 08:58 | PC.NURSE ---
Patient off of unit to ultrasound
--- NOTE | 2023-08-31 09:24 | PC.NURSE ---
Patient returned to unit from ultrasound
--- NOTE | 2023-08-31 09:52 | PC.NURSE ---
RN spoke with Deangelo Amaro IV provider education specialist for new IV placement.
--- NOTE | 2023-08-31 12:58 | PM.IMPN ---
Progress Note: A&P Assessment and Plan (1) Periductal mastitis of right breast: Code(s): N60.41 - Mammary duct ectasia of right breast Status: Acute (2) Cellulitis: Qualifiers: Site of cellulitis: trunk Site of cellulitis of trunk: chest wall Qualified Code(s): L03.313 - Cellulitis of chest wall Code(s): L03.90 - Cellulitis, unspecified Status: Acute (3) History of gastroesophageal reflux (GERD): Code(s): Z87.19 - Personal history of other diseases of the digestive system Status: Acute (4) Obstructive sleep apnea: Code(s): G47.33 - Obstructive sleep apnea (adult) (pediatric) Status: Chronic Plan Periductal mastitis/cellulitis Ultrasound: Irregular shaped skin abnormality with associated hypoechoic vascular soft tissue, consistent with infection. No drainable fluid collection to suggest abscess. Failed p.o. Bactrim outpatient Surgery consulted I and D done 7 days ago with no improvement Of note patient does have a nipple ring and is an everyday smoker On IV doxycycline Wound culture pending Blood cultures NGTD Pain control ESR/CRP elevated Smoking ? smoking cessation education Obesity encourage increased on physical activity and lifestyle modifications encourage outpatient weight loss clinic BMI . Diet exercise counseling done. consult to dietitian HX GERD: Resume Pepcid HX Anxiety: resumed Xanax and serquel Code status: Full code per patient DVT prophylaxis: Lovenox Stress ulcer prophylaxis: Pepcid PT/OT notes: Ambulatory Disposition: Patient continues admission for right breast cellulitis/periductal mastitis surgery consulted to assess for any further surgical interventions continue with IV doxycycline. Patient is ambulatory and plan will be to discharge back home when medically stable. Time Spent With Patient Time with patient: 15 - 25 minutes Subjective Date/time seen: 08/31/23 12:58 Interval history: Admission: Narrative: 48 y/o F presents here with breast abscess with PMH of anemia (HIRAM), HTN, VIVIEN, ulcer of esophagus without bleed, and migraine. The patient presents here with a left breast abscess. Initially noted around 08/21, started as small pimple with a white/yellow head, and did not have any surrounding erythema/swelling. Patient attempted to pop the area prior to seeking care in the ED. Patient was then seen at [place] ED on 7/17/24 due to the severity of the pain to her left breast. Abscess was I&D'd with 2 mL of serosanguineous and purulent material was expressed. Packing placed in wound, discharged with Bactrim, advised to remove packing in 2 days (08/27) and to follow-up with her PCP. Patient reports that the redness/swelling did not improve. Returning today due to worsening erythema, swelling, induration, and has continued to experience green purulent drainage from site. Denies associated fever, chills, body aches. Patient has prior hx of cellulitis, one episode in May of 2023. Patient has cellulitis to her chin which was successfully teated with Bactrim. 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 Patient has nipple piercing present, reports it was done years ago and has not caused issue. Initial VS at presentation: 97.4? F, HR 108, RR 20, 152/107, and 100% on RA. ED workup showed: no leukocytosis, no anemia, no significant electrolyte right derangements, creatinine 1.0 and GFR 59, CRP 8.0. 08/31/2023: Assumed Care Patient continues to have erythema, swelling, and pain extended from her nipple to upper area of her RT breast. Patient does have a nipple ring present and is an everyday smoker this is likely periductal mastitis will consult surgery since no improvement from antibiootics. US Irregular shaped skin abnormality with associated hypoechoic vascular soft tissue, consistent with infection. No drainable fluid collection to suggest abscess. Review of Systems Review of [email or web address]
[2023-08-31 13:52] VITALS: BP 114/79; PULSE 78; RESP 14; TEMP 35.7; O2SAT 100
--- NOTE | 2023-08-31 14:59 | PM.CNGS ---
Assessment and Plan Assessment and plan (1) Left breast abscess: Code(s): N61.1 - Abscess of the breast and nipple Status: Acute Assessment and Plan: will set up for complex incision and drainage in the operating room tomorrow, continue antibiotics and local wound care for now History of Present Illness Consult details Consult date: 08/31/23 Reason for consult: wound care Requesting physician: Stephy Lynn APRN Narrative: The patient is female presenting to the hospital complaining of worsening left breast abscess. The patient reports she 1st noticed a pimple in her left lateral breast on 08/21 or so. The patient reports the area steadily worsened and she presented to the emergency room on 08/25. At that time, the patient had a I and D of the area and was sent home with p.o. antibiotics and instructions for local wound care. The patient reports that over the next few days the area continued to worsen. The patient reports increased swelling, redness, pain. Given these findings, the patient re-presented to the emergency room last night and was admitted for further care. Review of Systems Review of Systems: All systems reviewed & are unremarkable except as noted in HPI and below PMFSH Past Medical History Medical History Abscess of buttock Anemia Benign hypertension Cellulitis of left knee Dizziness Duodenal papillary stenosis Elevated TSH Esophageal ulcer Hypertension Iron deficiency anemia, unspecified Low kidney function Migraine Myalgia Obstructive sleep apnea Pericardial effusion Periodic limb movement Pseudotumor Behind eye Ulcer of esophagus without bleeding Vitamin D deficiency Surgical History Surgical History H/O elbow surgery left, 2011 H/O inguinal hernia repair H/O lumpectomy Duct removed from 1 breast on the left side H/O nasal polypectomy H/O sinus surgery H/O: hysterectomy History of ankle surgery left, 12/23/2017 and 03/29/2017 Hx of cholecystectomy Status post surgical manipulation of ankle joint Family History Family History Father Asbestosis Bladder cancer Hypertension Family history of chronic obstructive pulmonary disease COPD (chronic obstructive pulmonary disease) Mother Diabetes mellitus Fibromyalgia Syncopal episodes Hypertension Sibling Anxiety Depression Hypertension Other Family history of malignant neoplasm of breast Other Family history of thyroid disease Social History Social History Social History: The patient lives at home with her fiance. She has 2 children ages 21 and 18. Her 18-year-old daughter lives with her ex. She has a 3-year-old grandchild. Benzodiazepine use and narcotic use. She tells me that she is not currently working. Code status full code Years smoked: 0.25 Smoking status: Current every day smoker Tobacco type: e-cigarettes/vaping Second hand tobacco smoke exposure: No Additional smoking assessment comments: 5mg nicotine vape Alcohol intake: never Drinks per week: 1 Alcohol use details: occasional Substance use: never Substance use type: does not use Do You Feel Safe in your Home?: Yes Lack of Transportation: No Lack of Food: Sometimes True Current Housing: I Have Housing Concerned About Future Housing: YES Difficulty Paying Gas/Electric Bills: YES Difficulty Paying for Meds: YES Currently Unemployed: No Education: High School Diploma/GED Difficulty w/ Childcare or Family Care: No Living arrangements: with family Occupation/Education: occupation Additional occupation/education comments: disabled Gender identity (if verbalized by the patient): Female Spiritual care concerns: No Meds Home Medications and Allergies Home Medicatio
[2023-08-31] MEDS: AMOXICILLIN/CLAVULANATE K 875-125 MG TAB 1 TABLET PO ×2 (15:57→21:00)
[2023-08-31] MEDS: VENLAFAXINE HCL XR 75 MG CAP.ER.24H 300 MG PO (21:00)
[2023-08-31] MEDS: GABAPENTIN 300 MG CAPSULE 600 MG PO (21:00)
[2023-08-31] MEDS: QUEtiapine FUMARATE 100 MG TABLET 800 MG PO (21:31)
[2023-08-31 22:00] VITALS: BP 140/95; PULSE 82; RESP 18; TEMP 36.7; O2SAT 99
[2023-08-31 23:06] VITALS: TEMP 36.7
[2023-09-01] VITALS (14 sets, daily range): BP systolic 101–165; BP diastolic 58–103; PULSE 73–95; RESP 12–18; TEMP 36.1–37.1; O2SAT 94–100
--- NOTE | 2023-09-01 08:54 | PM.IMPN ---
Progress Note: A&P Assessment and Plan (1) Periductal mastitis of right breast: Code(s): N60.41 - Mammary duct ectasia of right breast Status: Acute (2) Cellulitis: Qualifiers: Site of cellulitis: trunk Site of cellulitis of trunk: chest wall Qualified Code(s): L03.313 - Cellulitis of chest wall Code(s): L03.90 - Cellulitis, unspecified Status: Acute (3) History of gastroesophageal reflux (GERD): Code(s): Z87.19 - Personal history of other diseases of the digestive system Status: Acute (4) Obstructive sleep apnea: Code(s): G47.33 - Obstructive sleep apnea (adult) (pediatric) Status: Chronic Plan Periductal mastitis/cellulitis/abscess Ultrasound: Irregular shaped skin abnormality with associated hypoechoic vascular soft tissue, consistent with infection. No drainable fluid collection to suggest abscess. Failed p.o. Bactrim outpatient Surgery consulted I and D done 7 days ago with no improvement Of note patient does have a nipple ring and is an everyday smoker On IV doxycycline Wound culture pending Blood cultures NGTD Pain control ESR/CRP elevated 09/01/2023 I&D scheduled for today continue ABX pending cultures Smoking ? smoking cessation education Obesity encourage increased on physical activity and lifestyle modifications encourage outpatient weight loss clinic BMI . Diet exercise counseling done. consult to dietitian HX GERD: Resume Pepcid HX Anxiety: resumed Xanax and serquel Code status: Full code per patient DVT prophylaxis: Lovenox Stress ulcer prophylaxis: Pepcid PT/OT notes: Ambulatory Disposition: Patient continues admission for right breast cellulitis/periductal mastitis surgery consulted I&D 09/01/2023.. Patient is ambulatory and plan will be to discharge back home when medically stable. Time Spent With Patient Time with patient: 15 - 25 minutes Subjective Date/time seen: 09/01/23 08:54 Interval history: Admission: Narrative: 48 y/o F presents here with breast abscess with PMH of anemia (HIRAM), HTN, VIVIEN, ulcer of esophagus without bleed, and migraine. The patient presents here with a left breast abscess. Initially noted around 08/21, started as small pimple with a white/yellow head, and did not have any surrounding erythema/swelling. Patient attempted to pop the area prior to seeking care in the ED. Patient was then seen at [place] ED on 08/26/23 due to the severity of the pain to her left breast. Abscess was I&D'd with 2 mL of serosanguineous and purulent material was expressed. Packing placed in wound, discharged with Bactrim, advised to remove packing in 2 days (08/27) and to follow-up with her PCP. Patient reports that the redness/swelling did not improve. Returning today due to worsening erythema, swelling, induration, and has continued to experience green purulent drainage from site. Denies associated fever, chills, body aches. Patient has prior hx of cellulitis, one episode in May of 2023. Patient has cellulitis to her chin which was successfully teated with Bactrim. 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 Patient has nipple piercing present, reports it was done years ago and has not caused issue. Initial VS at presentation: 97.4? F, HR 108, RR 20, 152/107, and 100% on RA. ED workup showed: no leukocytosis, no anemia, no significant electrolyte right derangements, creatinine 1.0 and GFR 59, CRP 8.0. 08/31/2023: Assumed Care Patient continues to have erythema, swelling, and pain extended from her nipple to upper area of her RT breast. Patient does have a nipple ring present and is an everyday smoker this is likely periductal mastitis will consult surgery since no improvement from antibiootics. US Irregular shaped skin abnormality with associated hypoechoic vascular soft tissue, consistent with infection. No drainable fluid collection to suggest abscess. 09/01/2023: Patient schedule
--- NOTE | 2023-09-01 09:00 | PC.NURSE ---
RN spoke with Niurka Higgins RN from surgery and [facility] to give all AM medications including PO and lovenox.
[2023-09-01 09:22] LABS: Hematocrit 38.7 % (37.0-47.0); Hemoglobin 12.6 g/dL (12.0-15.0); Mean Corpuscular HGB Conc 32.6 g/dl (32-36); Mean Corpuscular Hemoglobin 30.7 pg (26-34); Mean Corpuscular Volume 94.4 fl (80-100); Mean Platelet Volume 10.7 fl (7.4-10.4); Platelet Count Result 226 k/mm3 (150-375); Red Cell Distribution Width 13.2 % (11.5-14.5); White Blood Count 3.4 K/mm3 (4.5-10.0)
[2023-09-01] MEDS: DOXYCYCLINE 100 MG/NS 100 ML 100 MG/100 ML BAG IVPB (09:23)
[2023-09-01] MEDS: AMOXICILLIN/CLAVULANATE K 875-125 MG TAB 1 TABLET PO ×2 (09:23→21:07)
[2023-09-01] MEDS: FAMOTIDINE 20 MG TABLET PO ×2 (09:23→21:07)
[2023-09-01] MEDS: FUROSEMIDE 40 MG TABLET PO (09:23)
[2023-09-01] MEDS: ENOXAPARIN 40 MG/0.4 ML SYRINGE SUB-Q (09:29)
[2023-09-01 09:39] LABS: Alanine Aminotransferase 115 U/L (6-35); Albumin Level 3.7 g/dL (3.5-5.1); Alkaline Phosphatase 79 U/L (38-126); Anion Gap 8 mmol/L (4-12); Aspartate Amino Transferase 108 U/L (14-36); Bilirubin,Total 0.4 mg/dL (0.2-1.3); Blood Urea Nitrogen 11 mg/dL (7-17); Calcium 8.6 mg/dL (8.4-10.2); Carbon Dioxide 26 mmol/L (22-30); Chloride 105 mmol/L (98-107); Estimated CRCL calculation 69 ml/min; Estimated Glomerular Filt Rate 59; Glucose 84 mg/dL (65-110); Potassium 4.5 mmol/L (3.4-5.0); Sodium 139 mmol/L (137-145)
[2023-09-01] MEDS: ONDANSETRON INJ 4 MG/2 ML VIAL IV PUSH (11:04)
--- NOTE | 2023-09-01 11:23 | PC.NURSE ---
Patient off of unit to surgery
--- NOTE | 2023-09-01 11:31 | SUR.PREOP ---
0900:VERIFIED W/ DR. BARBER VIA OFFICE STAFF/MESSAGE SENT TO HIM THAT IT IS OK FOR FLOOR RN TO GIVE SUBQ ENOXAPARIN AND PO AM MEDS.
--- NOTE | 2023-09-01 12:18 | WPDANESEPPF ---
Anes - Initial Pre Proc Eval Procedure: Operation Date: 09/01/23 12:30 Proposed Procedures p Complex Incision and Drainage Left Breast Abscess - Daniela Rod MD Date/Time: 09/01/23 12:18 Surgeon: Stephy Lynn APRN Pre Op Diagnosis: Cellulits Patient Data Age: 48 Gender: F Height: 1.57 m Weight: 104.33 kg Last Vital Signs Temp 37.1 C 09/01/23 11:48 Pulse 85 09/01/23 11:48 Resp 16 09/01/23 11:48 BP 152/89 H 09/01/23 11:48 Pulse Ox 100 09/01/23 11:48 O2 Del Method Room Air 09/01/23 11:48 Allergies Allergy/AdvReac Type Severity Reaction Status Date / Time bee venom protein (honey bee) Allergy Severe Anaphylactic Verified 08/30/23 15:02 Shock lisinopril Allergy Intermediate Loss of Verified 08/30/23 15:02 Consciousness vancomycin Allergy Hives Verified 08/30/23 18:24 Home Medications Medication Instructions Recorded Confirmed Type alprazolam 1 mg tablet (Xanax) 1 mg PO TID PRN Anxiety 12/11/19 08/30/23 History venlafaxine 150 mg 300 mg PO HS 12/11/19 08/30/23 History capsule,extended release 24 hr quetiapine 400 mg tablet (Seroquel) 800 mg PO HS 08/22/20 08/30/23 History gabapentin 300 mg capsule 600 mg PO HS 10/09/21 08/30/23 History ibuprofen 800 mg tablet 800 mg PO TID PRN Pain (Scale 05/31/22 08/30/23 History Score 1-3) quetiapine 100 mg tablet 100 mg PO DAILY PRN Anxiety 05/31/22 08/30/23 History sulfamethoxazole 800 1 tablet PO Q12H #14 tabs 08/27/23 08/30/23 Rx mg-trimethoprim 160 mg tablet famotidine 20 mg tablet 20 mg PO BID 08/30/23 08/30/23 History furosemide 40 mg tablet 40 mg PO QAM 08/30/23 08/30/23 History indomethacin 25 mg capsule 25 mg PO PRN PRN Pain (Scale Score 08/30/23 08/30/23 History 4-6) rilonacept 220 mg subcutaneous 220 mg subcut WEEKLY 08/30/23 08/30/23 History solution (Arcalyst) Laboratory Tests 09/01/23 09:14 WBC 3.4 L K/mm3 (4.5-10.0) RBC 4.10 L M/mm3 (4.2-5.4) Hgb 12.6 g/dL (12.0-15.0) Hct 38.7 % (37.0-47.0) MCV 94.4 fl (80-100) MCH 30.7 pg (26-34) MCHC 32.6 g/dl (32-36) RDW 13.2 % (11.5-14.5) Plt Count 226 k/mm3 (150-375) MPV 10.7 H fl (7.4-10.4) Sodium 139 mmol/L (137-145) Potassium 4.5 mmol/L (3.4-5.0) Chloride 105 mmol/L (98-107) Carbon Dioxide 26 mmol/L (22-30) Anion Gap 8 mmol/L (4-12) BUN 11 mg/dL (7-17) Creatinine 1.00 mg/dL (0.7-1.0) Estim Creat Clear Calc 69 ml/min Estimated GFR 59 (59 - ) Glucose 84 mg/dL (65-110) Calcium 8.6 mg/dL (8.4-10.2) Total Bilirubin 0.4 mg/dL (0.2-1.3) AST 108 H U/L (14-36) ALT 115 H U/L (6-35) Alkaline Phosphatase 79 U/L (38-126) Total Protein 7.0 g/dL (6.3-8.2) Albumin 3.7 g/dL (3.5-5.1) Patient hx anesthesia problems: none Family hx anesthesia problems: none Results Review: All pre-operative results and documents have been reviewed as part of the pre-operative evaluation. [facility] Past Medical History Medical History Abscess of buttock Anemia Benign hypertension Cellulitis of left knee Dizziness Duodenal papillary stenosis Elevated TSH Esophageal ulcer Hypertension Iron deficiency anemia, unspecified Low kidney function Migraine Myalgia Obstructive sleep apnea Pericardial effusion Periodic limb movement Pseudotumor Behind eye Ulcer of esophagus without bleeding Vitamin D deficiency Surgical History Surgical History H/O elbow surgery left, 2011 H/O inguinal hernia repair H/O lumpectomy Duct removed from 1 breast on the left side H/O nasal polypectomy H/O sinus surgery H/O: hysterectomy History of ankle surgery left, 12/23/2017 and 03/29/2017 Hx of cholecystectomy Status post surgical manipulation of ankle joint Family History Family History (Reviewed 09/01/23
--- NOTE | 2023-09-01 12:35 | WPDHPUPDATE1 ---
History and Physical Update Update Date/Time: 09/01/23 12:35 History and Physical has been reviewed, including an updated exam of the patient. There are NO changes in the patient's condition. Risks, benefits, and alternatives have been discussed and questions answered. Patient agrees to proceed with procedure.
[2023-09-01] MEDS: LACTATED RINGERS 1,000 ML 30 ML IV CONT (12:40)
[2023-09-01] MEDS: BUPIVACAINE/EPINEPHRINE 0.5% 10 ML VIAL INFILTRATE (13:02)
--- NOTE | 2023-09-01 13:30 | W.PM.PROC2 ---
Procedure Note - Detailed Date of Procedure 09/01/23 Pre-op Diagnosis Left breast abscess Post-op Diagnosis Same Procedure Performed complex incision and drainage left breast abscess measuring 6 x 4 x 6 cm Surgeon Daniela Rod MD Anesthesia General and Local Indications 48-year-old female presenting with a large left breast abscess Findings large left breast abscess with undrained deep cavity measuring 6 x 4 x 4 cm Description of Procedure The patient was taken to the operating room and placed in the supine position. After adequate induction of general anesthesia, the patient was prepped and draped in the normal sterile fashion. A time-out was then done to verify the patient's identity, as well as the procedure being performed. Began by localizing in and around this large abscess cavity in the left breast. Once anesthetized, I enlarged the previously made incision in the central portion of the abscess using a 15 blade scalpel. Once into the subcutaneous tissue, there was a undrained fluid collection deeper in cavity. Using a hemostat I was able to break up this loculation and drain further purulent fluid. I then used the hemostat to bluntly dissect around this cavity which measured 6 x 4 x 6 cm. There was noted to be liquified necrosis of the underlying subcutaneous fat. Once the entire cavity was opened and explored, I copiously irrigated the cavity. I then packed the cavity with half-inch iodoform, approximately 2 and half yd, to keep the area open and draining. Sterile dressing was then placed. The patient tolerated the procedure well and was extubated postoperatively. She will be transferred to the recovery room in stable condition. Estimated Blood Loss 5 Packing Yes Pathology None sent Complications No immediate complications Condition Stable Disposition PACU [facility] Billing Surgery - Charge Forward: Surgery Billing
[2023-09-01] MEDS: fentaNYL CITRATE INJ (*CRX) 100 MCG/2 ML VIAL 25 MCG IV PUSH ×8 (13:39→15:17)
[2023-09-01] MEDS: LABETALOL HCL INJ 100 MG/20 ML VIAL 10 MG IV PUSH (14:24)
[2023-09-01] MEDS: HYDROcodone/acetaminophen (*CRX) 5-325 MG TABLET 1 TAB PO (17:04)
[2023-09-01] MEDS: GABAPENTIN 300 MG CAPSULE 600 MG PO (21:06)
[2023-09-01] MEDS: QUEtiapine FUMARATE 100 MG TABLET 800 MG PO (21:06)
[2023-09-01] MEDS: VENLAFAXINE HCL XR 75 MG CAP.ER.24H 300 MG PO (21:07)
[2023-09-01] MEDS: IBUPROFEN 400 MG TABLET 800 MG PO (21:21)
[2023-09-01] MEDS: DOXYCYCLINE 100 MG/NS 100 ML 100 MG/100 ML BAG 50 MG IVPB (21:34)
[2023-09-01] MEDS: SODIUM CHLORIDE 0.9% IV 500 ML 50 ML (23:26)
[2023-09-02] MEDS: HYDROcodone/acetaminophen (*CRX) 5-325 MG TABLET 1 TAB PO (00:22)
[2023-09-02] MEDS: ONDANSETRON INJ 4 MG/2 ML VIAL IV PUSH (04:15)
[2023-09-02] MEDS: ACETAMINOPHEN 325 MG TABLET 650 MG PO (04:17)
[2023-09-02] MEDS: ALPRAZolam (*CRX) 0.5 MG TABLET 1 MG PO (04:17)
[2023-09-02 05:55] VITALS: BP 146/92; PULSE 88; RESP 16; TEMP 36.3; O2SAT 99
[2023-09-02 06:48] LABS: Hematocrit 37.7 % (37.0-47.0); Hemoglobin 12.3 g/dL (12.0-15.0); Mean Corpuscular HGB Conc 32.6 g/dl (32-36); Mean Corpuscular Hemoglobin 31.2 pg (26-34); Mean Corpuscular Volume 95.7 fl (80-100); Mean Platelet Volume 10.8 fl (7.4-10.4); Platelet Count Result 217 k/mm3 (150-375); Red Blood Count 3.94 M/mm3 (4.2-5.4); White Blood Count 4.6 K/mm3 (4.5-10.0)
[2023-09-02 07:25] LABS: Alanine Aminotransferase 176 U/L (6-35); Albumin Level 3.9 g/dL (3.5-5.1); Alkaline Phosphatase 93 U/L (38-126); Anion Gap 9 mmol/L (4-12); Aspartate Amino Transferase 133 U/L (14-36); Bilirubin,Total 0.4 mg/dL (0.2-1.3); Blood Urea Nitrogen 12 mg/dL (7-17); Calcium 8.9 mg/dL (8.4-10.2); Carbon Dioxide 28 mmol/L (22-30); Chloride 99 mmol/L (98-107); Estimated CRCL calculation 69 ml/min; Estimated Glomerular Filt Rate 59; Glucose 120 mg/dL (65-110); Potassium 3.8 mmol/L (3.4-5.0); Sodium 136 mmol/L (137-145)
[2023-09-02 08:00] VITALS: O2SAT 99
[2023-09-02] MEDS: DOXYCYCLINE 100 MG/NS 100 ML 100 MG/100 ML BAG 50 MG IVPB (09:49)
[2023-09-02] MEDS: FUROSEMIDE 40 MG TABLET PO (10:35)
[2023-09-02] MEDS: FAMOTIDINE 20 MG TABLET PO (10:35)
[2023-09-02] MEDS: AMOXICILLIN/CLAVULANATE K 875-125 MG TAB 1 TABLET PO (10:35)
--- NOTE | 2023-09-02 10:48 | PM.DS ---
DS: Admitting Diagnosis Discharge Date 09/02/2023 1049 Admitting Diagnosis Breast Abscess DS: Discharge Diagnosis Discharge Diagnosis (1) Periductal mastitis of right breast: Code(s): N60.41 - Mammary duct ectasia of right breast Status: Acute (2) Cellulitis: Qualifiers: Site of cellulitis: trunk Site of cellulitis of trunk: chest wall Qualified Code(s): L03.313 - Cellulitis of chest wall Code(s): L03.90 - Cellulitis, unspecified Status: Acute (3) History of gastroesophageal reflux (GERD): Code(s): Z87.19 - Personal history of other diseases of the digestive system Status: Acute (4) Obstructive sleep apnea: Code(s): G47.33 - Obstructive sleep apnea (adult) (pediatric) Status: Chronic Plan Periductal mastitis/cellulitis/abscess Ultrasound: Irregular shaped skin abnormality with associated hypoechoic vascular soft tissue, consistent with infection. No drainable fluid collection to suggest abscess. Failed p.o. Bactrim outpatient Surgery consulted I and D done 7 days ago with no improvement Of note patient does have a nipple ring and is an everyday smoker On IV doxycycline Wound culture pending Blood cultures NGTD Pain control ESR/CRP elevated 09/01/2023 I&D scheduled for today continue ABX pending cultures Smoking ? smoking cessation education Obesity encourage increased on physical activity and lifestyle modifications encourage outpatient weight loss clinic BMI . Diet exercise counseling done. consult to dietitian HX GERD: Resume Pepcid HX Anxiety: resumed Xanax and serquel Code status: Full code per patient DVT prophylaxis: Lovenox Stress ulcer prophylaxis: Pepcid PT/OT notes: Ambulatory Disposition: Patient continues admission for right breast cellulitis/periductal mastitis surgery consulted I&D 09/01/2023.. Patient is ambulatory and plan will be to discharge back home when medically stable. DS: Summary Hospital Course Hospital Course: 48-year-old female presents with breast abscess with past medical history of anemia, hypertension, VIVIEN, ulcer the esophagus and migraine. General surgery is consulted and patient went to the OR. Patient did have an I and D done to the breast. Pain has been controlled with [place]. Patient will need follow-up with her PCP. Currently patient is doing well and denies any current chest pain, shortness a breath, nausea, vomiting, diarrhea constipation. Patient's partner was in the room as well. Currently patient is doing well. Labs and vital signs are stable. Patient is stable for discharge and will follow-up with General surgery and roughly 2 weeks. Status at Discharge Functional status at discharge: independent ambulation Overall status at discharge: patient is progressing back to baseline Time Spent with Patient Time attestation: Total time spent providing and/or coordinating discharge services: 48 minutes Time spent: Greater than 30 minutes Specific discharge activities: Diagnostic testing, chart review, developing a treatment plan, education, care coordination documentation, physical exam, result review Exam Narrative: Physical Exam: GENERAL: Alert and oriented x 3. No acute distress. EYES: EOMI. No scleral icterus. PERRLA. HEENT: Moist mucous membranes. LUNGS: Clear to auscultation bilaterally. No accessory muscle use. CARDIOVASCULAR: Regular rate and rhythm. No murmur. No JVD. S1-S2 ABDOMEN: Soft, non tenderness and non-distended. No palpable masses. EXTREMITIES: No edema. Non-tender SKIN: Erythema, swelling and open would to RT breast, erythema extending from th nipple to the upper area of the breast. small incision with scant drainage. NEUROLOGIC: No focal neurological deficits. CN II-XII grossly intact PSYCHIATRIC: Appropriate mood and affect. Good judgement and insight. No visual or auditory hallucinations. No suicidal or homicidal ideation.
--- NOTE | 2023-09-02 11:31 | PM.PNGS ---
Progress Note: A&P Assessment and Plan (1) Left breast abscess: Code(s): N61.1 - Abscess of the breast and nipple Status: Acute Assessment and Plan: unpacked, cont local wound care, ok to dc c po abx and analgesia Subjective Subjective Date/Time Seen: 09/02/23 11:31 Interval history: feels much better, decreased pain/pressure in L breast Review of Systems Review of Systems: All systems reviewed & are unremarkable except as noted in HPI and below Exam Const: General: cooperative, comfortable and no acute distress Chest: Other: L breast - wound unpacked, good drainage, decreased induration and cellulitis Objective Data Vital Signs Vital Signs: Vital Signs - 24 hr 09/01/23 11:48 09/01/23 13:15 09/01/23 13:25 Temperature 37.1 C 36.9 C Pulse Rate 85 91 92 Respiratory Rate 16 12 18 Blood Pressure 152/89 H 125/84 135/91 H Pulse Oximetry 100 100 100 Oxygen Delivery Room Air Simple Face Mask Simple Face Mask Oxygen Flow Rate 8 8 09/01/23 13:40 09/01/23 13:55 09/01/23 14:24 Temperature Pulse Rate 90 92 94 Respiratory Rate 18 12 Blood Pressure 144/99 H 164/102 H Pulse Oximetry 100 99 Oxygen Delivery Simple Face Mask Simple Face Mask Oxygen Flow Rate 8 8 09/01/23 14:10 09/01/23 14:25 09/01/23 14:40 Temperature Pulse Rate 92 94 73 Respiratory Rate 15 12 16 Blood Pressure 155/100 H 165/103 H 151/94 H Pulse Oximetry 100 94 99 Oxygen Delivery Room Air Room Air Nasal Cannula Oxygen Flow Rate 4 09/01/23 14:55 09/01/23 15:10 09/01/23 14:00 Temperature 36.1 C L Pulse Rate 75 77 77 Respiratory Rate 12 16 17 Blood Pressure 160/82 H 148/91 H 140/82 Pulse Oximetry 98 99 98 Oxygen Delivery Nasal Cannula Nasal Cannula Oxygen Flow Rate 2 2 09/01/23 21:24 09/01/23 20:00 09/02/23 05:55 Temperature 37.1 C 36.3 C L Pulse Rate 95 88 Respiratory Rate 16 16 Blood Pressure 135/77 146/92 H Pulse Oximetry 96 99 Oxygen Delivery Room Air Oxygen Flow Rate 09/02/23 08:00 Temperature Pulse Rate Respiratory Rate Blood Pressure Pulse Oximetry 99 Oxygen Delivery Room Air Oxygen Flow Rate Intake/Output Intake/Output: Intake & Output 08/30/23 08/31/23 09/01/23 09/02/23 23:59 23:59 23:59 23:59 Intake Total 620 0 780 815 Balance 620 2120 780 815 Meds/Results Medications: Active Medications Generic Name Dose Route Start Last Admin Trade Name Freq PRN Reason Stop Dose Admin Acetaminophen 650 mg 08/31/23 13:26 09/02/23 04:17 Acetaminophen 325 Mg Tablet PO 650 mg Q4H PRN Administration Mild Pain (1-3) or Fever Hydrocodone Bitart/Acetaminophen 1 tab 08/30/23 20:38 09/02/23 00:22 Hydrocodone/Acetaminophen (*Crx) 5-325 Mg Tablet PO 1 tab Q6H PRN Administration Pain Rated 6 or Greater Alprazolam 1 mg 08/30/23 20:36 09/02/23 04:17 Alprazolam (*Crx) 0.5 Mg Tablet PO 1 mg TID PRN Administration Anxiety Amoxicillin/Clavulanate Potassium 1 tablet 08/31/23 14:00 09/02/23 10:35 Amoxicillin/Clavulanate K 875-125 Mg Tab PO 1 tablet Q12HR POONAM Administration Enoxaparin Sodium 40 mg 09/01/23 09:00 09/01/23 09:29 Enoxaparin 40 Mg/0.4 Ml Syringe SUB-Q 40 mg DAILY POONAM Administration Famotidine 20 mg 08/30/23 21:00 09/02/23 10:35 Famotidine 20 Mg Tablet PO 20 mg Q12HR POONAM Administration Furosemide 40 mg 09/01/23 09:00 09/02/23 10:35 Furosemide 40 Mg Tablet PO 40 mg QAM POONAM Administration Gabapentin 600 mg 08/30/23 21:00 09/01/23 21:06 Gabapentin 300 Mg Capsule PO 600 mg HS POONAM Administration Doxycycline Hyclate 100 mg in 100 mls @ 100 mls/hr 08/30/23 20:15 09/02/23 09:49 Vibramycin 100 Mg/Ns 100 Ml IVPB 50 mls/hr Q12HR POONAM Administration Ibuprofen 800 mg 08/30/23 20:38 09/01/23 21:21 Ibuprofen 400 Mg Tablet PO 800 mg TID PRN Administration Pain Rated 4-6 Ondansetron HCl 4 mg 08/31/23 13:26 09/02/23 04:15
== END 2023-09-02 12:02 | disposition home or self-care (01) | DRG 584 ==
LOC: ANHED 15:32 → ANH3MEDSUR 08-31 03:29
PROVIDERS: Nurse Practitioner Family; Student in an Organized Health Care Education/Training Program; Surgery; Admitting Provider General Practice; Emergency Provider Physician Assistant; PCP Family Medicine; Visit Provider Nurse Practitioner
PROC: 0H9U0ZZ Drainage of Left Breast, Open Approach (ICD-10-PCS; principal; 2023-09-01 12:30)
DX: N61.1 Abscess of the breast and nipple (principal); L03.313 Cellulitis of chest wall; Z68.41 Body mass index [BMI] 40.0-44.9, adult; N60.41 Mammary duct ectasia of right breast; G47.33 Obstructive sleep apnea (adult) (pediatric); D50.9 Iron deficiency anemia, unspecified; E66.01 Morbid (severe) obesity due to excess calories; I12.9 Hypertensive chronic kidney disease with stage 1 through stage 4 chronic kidney disease, or unspecified chronic kidney disease; N18.9 Chronic kidney disease, unspecified; F17.290 Nicotine dependence, other tobacco product, uncomplicated; Z90.49 Acquired absence of other specified parts of digestive tract; Z90.710 Acquired absence of both cervix and uterus
CPT/HCPCS: 36415; 76642; 80048; 80053; 83605; 84484; 85025; 85027; 85652; 86140; 87040; 87070; 87077; 87081; 87181; 87205; 93005; 96365; 96375; 99285; A9270; G0378; J1100; J1200; J1650; J2250; J2405; J2704; J3010; J3370; J7030; J7040; J7120

== ENCOUNTER 2023-10-15 19:08 | Inpatient (IN) | payer MEDICARE, MEDICAID, SELFPAY ==
--- NOTE | ~2023-10-15 | MR_ITS ---
EXAMINATION: MR MRCP wo/w con/w 3D wo ind DATE: 10/16/2023 10:38 INDICATION: Common bile duct dilation. Left-sided abdominal pain. TECHNIQUE: Magnetic resonance imaging (MRI) of the abdomen was performed without and with 19 mL Multi jayce intravenous contrast. Sequences included coronal T2-weighted SS-FSE, coronal T2-weighted FS SS- FSE, coronal T2-weighted FS FIESTA, axial T2-weighted FS FIESTA, axial T2-weighted FIESTA, sagittal T 2-weighted SS-FSE, axial T1-weighted dual-echo FSPGR, axial T2-weighted SS-FSE, axial T1-weighted LAV A, axial T2-weighted STIR FSE. Thick-slab T2-weighted FRFSE-XL images were obtained for magnetic reso nance cholangiopancreatography (MRCP). Rotating maximum intensity projection 3-D reconstructions of t he volumetric data were created by the technologist. Postcontrast sequences included a time course of axial T1-weighted LAVA. COMPARISON: CT dated 10/15/2023 FINDINGS: ABDOMEN MRI: Heart size is normal. No pericardial or pleural effusion. 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 Small sliding-type hiatal hernia. Again seen is a 6 mm nonenhancing T1 hyperi ntense and fat saturating macroscopic fat containing likely lipoma in segment 6 of the liver. There i s mild central intrahepatic ductal or ductal dilation. Gallbladder is surgically absent. Spleen, panc reas, bilateral adrenal glands and kidneys are normal. Visualized portions of bowels are unremarkable . No pathologically enlarged abdominal or upper pelvic lymphadenopathy. A couple T1 hyperintense and fat saturating hemangiomas at T9 and L2. Marrow signal is otherwise unremarkable. ABDOMEN MRCP: Common bile duct is dilated to 13 mm and tapers distally at the ampulla with no evident choledocholit hiasis. The main pancreatic duct is also mildly dilated measuring up to 4 mm at the head of the pancr eas tapering throughout the more distal duct, also without evident obstructing stone. IMPRESSION: 1. Mild intra and extra hepatic biliary ductal dilation without evident choledocholithiasis likely re lated to prior cholecystectomy. 2. Mild dilation of the main pancreatic duct at the head of the pancreas without evident obstructing lesion but which could be sequela of chronic pancreatitis. Pancreas is otherwise unremarkable. 3. Small sliding-type hiatal hernia. Reviewed, dictated and finalized at location A. IMPRESSION: 1. Mild intra and extra hepatic biliary ductal dilation without evident choledo cholithiasis likely related to prior cholecystectomy. 2. Mild dilation of the main pancreatic duct at the head of the pancreas withou t evident obstructing lesion but which could be sequela of chronic pancreatitis . Pancreas is otherwise unremarkable. 3. Small sliding-type hiatal hernia.
--- NOTE | ~2023-10-15 | XR_ITS ---
EXAMINATION: XR chest 2V DATE: 10/15/2023 19:57 INDICATION: Chest pain. TECHNIQUE: Frontal and lateral views of the chest were obtained. COMPARISON: None. FINDINGS: The lung volumes are small. There is no pneumonia, pleural effusion, or pneumothorax. The h eart size is normal. Calcified mediastinal lymph nodes are consistent with old granulomatous disease. There are surgical clips in the abdomen. IMPRESSION: 1. No acute cardiopulmonary disease. Reviewed, dictated and finalized at location A.
--- NOTE | ~2023-10-15 | CT_ITS ---
EXAMINATION: CT abdomen pelvis w con DATE: 10/15/2023 23:20 INDICATION: Pancreatitis. Chest pain. TECHNIQUE: Computed tomography (CT) of the abdomen and pelvis was performed with 100 mL Omnipaque 350 intravenous contrast. Automated exposure control and iterative reconstruction technique were employe d. The dose-length product was 1305.15 mGy-cm. COMPARISON: None. FINDINGS: The visualized portions of the lung bases demonstrate mild atelectasis. No pleural effusion . The heart size is normal. No pericardial effusion. There is a small sliding hiatal hernia. There is a 2.8 cm pericardial cyst on the right. There is a 6 mm mass of fat in the liver, likely benign. The re are changes of cholecystectomy. The common duct measures 14 mm in diameter. The pancreas, spleen, adrenal glands, and kidneys are normal. There are no dilated loops of bowel. The appendix is normal. There are no dilated loops of bowel. There are no pathologically enlarged lymph nodes. There is no fr ee intraperitoneal fluid. There is mild thoracic and lumbar spondylosis. IMPRESSION: 1. Dilated common duct status post cholecystectomy. 2. Normal pancreas. 3. Small sliding hiatal hernia. Reviewed, dictated and finalized at location A.
--- NOTE | 2023-10-15 19:10 | ECG_ITS ---
Test Date: 2023-10-15 19:13:05 Measurements Intervals [place] Rate: 86 P: 41 UT: 134 QRS: 14 QRSD: 79 T: 128 QT: 334 QTc: 400 Interpretive Statements SINUS RHYTHM LEFT VENTRICULAR HYPERTROPHY WITH ST-T CHANGE CONSIDER INFERIOR INFARCT, AGE INDETERMINATE BORDERLINE ST-T WAVE ABNORMALITY- ANTEROLATERAL LEADS BASELINE ARTIFACT- I, III, AVR, AVL ABNORMAL ECG Compared to ECG 08/30/2023 19:21:29 NO SIGNIFICANT CHANGE Electronically Signed On 10-16-2023 06:46:31 CDT by Elian Monae D.O.
[2023-10-15 19:11] VITALS: BP 166/103; PULSE 88; RESP 15; TEMP 36.7; O2SAT 100
--- NOTE | 2023-10-15 19:25 | PC.NURSE ---
4 baby aspirin administered to pt during triage.
[2023-10-15 19:33] LABS: Basophils Percent Auto 0.4 % (0.2-1.2); Eosinophils Absolute Auto 0.1 K/mm3 (0-0.3); Eosinophils Percent Auto 0.5 % (0-4.4); Hematocrit 45.4 % (37.0-47.0); Hemoglobin 15.6 g/dL (12.0-15.0); Immature Granulocyte Absolute 0.04 K/mm3 (0.00-0.031); Immature Granulocyte Percent A 0.4 % (0-0.5); Lymphocytes Absolute Auto 2.31 K/mm3 (0.9-3.2); Lymphocytes Percent Auto 24.8 % (18.3-44.2); Mean Corpuscular HGB Conc 34.4 g/dl (32-36); Mean Corpuscular Hemoglobin 31.2 pg (26-34); Mean Corpuscular Volume 90.8 fl (80-100); Mean Platelet Volume 10.6 fl (7.4-10.4); Monocytes Absolute Auto 0.8 K/mm3 (0.1-0.6); Monocytes Percent Auto 8.4 % (2.6-8.5); Neutrophils Absolute Auto 6.1 K/mm3 (1.3-6.7); Neutrophils Percent Auto 65.5 % (45.5-73.1); Platelet Count Result 317 k/mm3 (150-375); Red Cell Distribution Width 12.9 % (11.5-14.5); White Blood Count 9.3 K/mm3 (4.5-10.0)
[2023-10-15 19:43] LABS: Alanine Aminotransferase 158 U/L (6-35); Albumin Level 4.9 g/dL (3.5-5.1); Alkaline Phosphatase 86 U/L (38-126); Anion Gap 11 mmol/L (4-12); Aspartate Amino Transferase 220 U/L (14-36); Bilirubin,Total 1.7 mg/dL (0.2-1.3); Blood Urea Nitrogen 12 mg/dL (7-17); Calcium 9.7 mg/dL (8.4-10.2); Carbon Dioxide 28 mmol/L (22-30); Chloride 98 mmol/L (98-107); Estimated CRCL calculation 58 ml/min; Estimated Glomerular Filt Rate 48; Glucose 116 mg/dL (65-110); Lipase 1050 U/L (23-300); Potassium 3.6 mmol/L (3.4-5.0); Sodium 137 mmol/L (137-145)
[2023-10-15 19:48] LABS: Prothrombin Time 13.2 Seconds (11.1-14.7)
[2023-10-15 19:49] LABS: Partial Thromboplastin Time 22.1 Seconds (22.3-36.8)
[2023-10-15 19:54] LABS: Troponin I < 0.012 ng/mL (0.000-0.034)
[2023-10-15 22:21] VITALS: O2SAT 100
--- NOTE | 2023-10-15 22:22 | ECG_ITS ---
Test Date: 2023-10-15 22:33:30 Measurements Intervals [place] Rate: 67 P: 45 NC: 141 QRS: 22 QRSD: 88 T: 126 QT: 405 QTc: 429 Interpretive Statements SINUS RHYTHM LEFT VENTRICULAR HYPERTROPHY NONSPECIFIC ST-T WAVE ABNORMALITY- ANTERIOR LEADS BASELINE ARTIFACT- I, II, III, AVR, AVL, AVF, V1, V3 BORDERLINE ECG Compared to ECG 10/15/2023 19:13:05 NO SIGNIFICANT CHANGE Electronically Signed On 10-16-2023 06:50:31 CDT by Elian Monae D.O.
--- NOTE | 2023-10-15 22:29 | ED.CHESTPAIN ---
HPI - Chest Pain General Chief Complaint: Chest Pain Stated Complaint: CHEST PAIN Time Seen by Provider: 10/15/23 22:13 History of Present Illness HPI narrative: 48-year-old female presenting to the emergency department for evaluation for left-sided abdomen and chest pain. Patient states that the symptoms started a few days ago. Patient does have history of [place] and pericardial effusion and she felt this felt similar to it patient denies any prior history pancreatitis but does have a family history of pancreatitis. Patient does have a prior history of cholecystectomy. Patient denies daily alcohol consumption. Patient does have diarrhea and associated nausea and vomiting with this. Related Data Home Medications Medication Instructions Recorded Confirmed alprazolam 1 mg tablet (Xanax) 1 mg PO TID PRN Anxiety 12/11/19 10/16/23 quetiapine 400 mg tablet (Seroquel) 800 mg PO HS 08/22/20 10/16/23 gabapentin 300 mg capsule 600 mg PO HS 10/09/21 10/16/23 ibuprofen 800 mg tablet 800 mg PO TID PRN Pain (Scale 05/31/22 10/16/23 Score 1-3) quetiapine 100 mg tablet 100 mg PO DAILY PRN Anxiety 05/31/22 10/16/23 famotidine 20 mg tablet 20 mg PO BID PRN Heartburn 08/30/23 10/16/23 rilonacept 220 mg subcutaneous 220 mg subcut WEEKLY 08/30/23 10/16/23 solution (Arcalyst) suvorexant 20 mg tablet (Belsomra) 20 mg PO HS 10/16/23 10/16/23 Allergies Allergy/AdvReac Type Severity Reaction Status Date / Time bee venom protein (honey bee) Allergy Severe Anaphylactic Verified 10/15/23 19:11 Shock lisinopril Allergy Intermediate Loss of Verified 10/15/23 19:11 Consciousness Iodinated Contrast Media Allergy Mild Rash Verified 10/16/23 02:09 vancomycin Allergy Hives Verified 10/15/23 19:11 Review of Systems Review of Systems: All systems reviewed & are unremarkable except as noted in HPI and below PMFSH Past Medical History Medical History Abscess of buttock Anemia Benign hypertension Cellulitis of left knee Dizziness Duodenal papillary stenosis Elevated TSH Esophageal ulcer Hypertension Iron deficiency anemia, unspecified Low kidney function Migraine Myalgia Obstructive sleep apnea Pericardial effusion Periodic limb movement Pseudotumor Behind eye Ulcer of esophagus without bleeding Vitamin D deficiency Surgical History Surgical History H/O elbow surgery left, 2011 H/O inguinal hernia repair H/O lumpectomy Duct removed from 1 breast on the left side H/O nasal polypectomy H/O sinus surgery H/O: hysterectomy History of ankle surgery left, 12/23/2017 and 03/29/2017 Hx of cholecystectomy Status post surgical manipulation of ankle joint Family History Family History Father Asbestosis Bladder cancer Hypertension Family history of chronic obstructive pulmonary disease COPD (chronic obstructive pulmonary disease) Mother Diabetes mellitus Fibromyalgia Syncopal episodes Hypertension Sibling Anxiety Depression Hypertension Other Family history of malignant neoplasm of breast Other Family history of thyroid disease Social History Social History Social History: The patient lives at home with her fiance. She has 2 children ages 21 and 18. Her 18-year-old daughter lives with her ex. She has a 3-year-old grandchild. Benzodiazepine use and narcotic use. She tells me that she is not currently working. Code status full code Years smoked: 0.25 Smoking status: Current every day smoker Additional smoking assessment comments: 5mg nicotine vape Alcohol intake: never Drinks per week: 1 Alcohol use details: occasional Substance use: never Substance use type: does not use Do You Feel Safe in your Home?: Yes Lack of Transportation: No Lack of Food: Sometimes True Joseluis
--- NOTE | 2023-10-15 22:48 | PC.NURSE ---
Multiple attempts made to obtain iv access, patient states that she usually requires ultrasound placement. Second RN called to bedside to attempt iv access.
[2023-10-15] MEDS: ONDANSETRON INJ 4 MG/2 ML VIAL IV PUSH (23:04)
[2023-10-15] MEDS: HYDROmorphone HCL INJ (*CRX) 1 MG/ML SYR 0.5 MG IV PUSH (23:04)
[2023-10-15] MEDS: SODIUM CHLORIDE 0.9% IV 1,000 ML 999 ML IV CONT ×2 (23:05)
[2023-10-15 23:14] LABS: Troponin I < 0.012 ng/mL (0.000-0.034)
[2023-10-15] MEDS: diphenhydrAMINE HCl INJ 50 MG/ML VIAL IV PUSH (23:29)
[2023-10-15 23:33] VITALS: BP 160/92; PULSE 77; RESP 12; O2SAT 100
[2023-10-16] VITALS (9 sets, daily range): BP systolic 101–137; BP diastolic 62–85; PULSE 63–82; RESP 12–20; TEMP 35.7–36.2; O2SAT 91–100; BMI 42.5
[2023-10-16] MEDS: HYDROmorphone HCL INJ (*CRX) 1 MG/ML SYR IV PUSH ×3 (00:01→20:10)
[2023-10-16 00:22] LABS: Add Urine Microscopic? YES; Appearance Urine Cloudy (Clear); Bacteria Urine 1+ /hpf; Bilirubin Urine 2+ (Negative); Blood Urine Negative (Negative); Budding Yeast Urine Present /hpf; Calcium Oxalate Crystals Urine Present /hpf; Color Urine Dark Yellow (Yellow); Glucose Urine UA Negative (Negative); Hyaline Casts Urine Present /lpf; Ketones Urine Trace mg/dL (Negative); Leukocyte Esterase Ur Trace LEU/UL (Negative); Need Manual Microscopic Reviewed; Nitrate Urine Negative (Negative); Protein Urine 1+ mg/dL (Negative); Specific Grav Ur 1.037 (1.001-1.035); Squamous Epithelial Cell Urine Few /hpf (Few); WBC Urine 0-5 /hpf (0-3); pH Urine 5.5 (5.0-9.0)
--- NOTE | 2023-10-16 01:31 | ADMGEN ---
This patient, Mariah Manuel, was admitted to [facility] Surg Room 307-02 at 0130. Patient/family oriented to hospital policies and general routines including ID bracelet, bed and alarms, visiting hours, pain management, procedures, bathroom and other care routines, personal items, smoking policy, room service/diet, and visiting hours. Information on how to activate the Rapid Response Team has been discussed. Patient/Family are encouraged to report perceived risks to care and to ask questions if they do not understand what they are told or what they should do.
[2023-10-16] MEDS: SODIUM CHLORIDE 0.9% IV 1,000 ML 150 ML IV CONT ×3 (01:40→17:05)
[2023-10-16 03:13] LABS: Troponin I < 0.012 ng/mL (0.000-0.034)
[2023-10-16] MEDS: HYDROmorphone HCL INJ (*CRX) 1 MG/ML SYR 0.5 MG IV PUSH ×4 (03:15→13:47)
[2023-10-16] MEDS: ONDANSETRON INJ 4 MG/2 ML VIAL IV PUSH ×3 (03:15→20:11)
--- NOTE | 2023-10-16 07:24 | PM.IMHP ---
H&P: HPI History of Present Illness Date/Time: 10/16/23 07:24 Chief Complaint: abdominal pain Narrative: 48 year old female with past medical history of migraines and history of [place] with pericardial effusion (follows Dr. Granado) presents to the hospital for abdominal pain. Patient states that approximately 5 days ago she developed perfuse diarrhea and was unable to keep down any oral intake. At that time she thought she had a stomach bug and proceeded throughout the week as normal with increasingly poor apatite. Yesterday, patient reports that she started having sharp, stabbing pain under her left breast with radiation to her back. The symptoms worried her as she states this felt similar to her prior pericardial effusion, prompting her to come to the hospital. She states that she has no history of pancreatitis and had a cholecystectomy several years ago. She denies excessive alcohol use. She notes increased nausea but no vomiting. Patient CT in the ED concerning for dilated common bile duct and she has transaminitis on labs. MRCP showing mild intra and extra hepatic biliary ductal dilation without evident choledocholithiasis likely related to prior cholecystectomy, mild dilation of the main pancreatic duct at the head of the pancreas without evident obstructing lesion but which could be sequela of chronic pancreatitis. Pancreas is otherwise unremarkable, and small sliding-type hiatal hernia. GI consulted and recommendations pending. ED workup: CBC without leukocytosis and mildly elevated hemoglobin of 15.6. PT/INR 13.2/1.0 with PTT 22.1. Chemistry with Na 137, K 3.6. Slight BENNETT with BUN/Cr 12/1.2. Lipase 1050. Tot bili 1.7, AST 220, ALT 158, Alk phos 86. Abdomen/pelvis CT: Dilated common duct status post cholecystectomy, Normal pancreas, Small sliding hiatal hernia. Chest XR:No acute cardiopulmonary disease. EKG in sinus rhythm without signs of ischemic infarct. Troponins WNL. Review of Systems Review of Systems: All systems reviewed & are unremarkable except as noted in HPI and below [facility] Past Medical History Medical History (Updated 10/16/23 @ 14:34 by Pia Darden PA-C) Abscess of buttock Anemia Benign hypertension Cellulitis of left knee Dizziness Duodenal papillary stenosis Elevated TSH Esophageal ulcer History of [place] (myocardial infarction) Hypertension Iron deficiency anemia, unspecified Low kidney function Migraine Myalgia Obstructive sleep apnea Pericardial effusion Periodic limb movement Pseudotumor Behind eye Ulcer of esophagus without bleeding Vitamin D deficiency Surgical History Surgical History H/O elbow surgery left, 2011 H/O inguinal hernia repair H/O lumpectomy Duct removed from 1 breast on the left side H/O nasal polypectomy H/O sinus surgery H/O: hysterectomy History of ankle surgery left, 12/23/2017 and 03/29/2017 Hx of cholecystectomy Status post surgical manipulation of ankle joint Family History Family History Father Asbestosis Bladder cancer Hypertension Family history of chronic obstructive pulmonary disease COPD (chronic obstructive pulmonary disease) Mother Diabetes mellitus Fibromyalgia Syncopal episodes Hypertension Sibling Anxiety Depression Hypertension Other Family history of malignant neoplasm of breast Other Family history of thyroid disease Social History Social History (Updated 10/16/23 @ 14:35 by Pia Darden PA-C) Social History: The patient lives at home with her fiance. She has 2 children ages 21 and 18. Her 18-year-old daughter lives with her ex. She has a 3-year-old grandchild. Benzodiazepine use and narcotic use. She tells me that she is not currently working. Code status full code Years smoked: 0.25 Smoking status: Current every day smoker Tobacco type: e-cigarettes/vaping Additional smoking as
[2023-10-16 07:57] LABS: Basophils Percent Auto 0.6 % (0.2-1.2); Eosinophils Percent Auto 0.8 % (0-4.4); Hematocrit 42.2 % (37.0-47.0); Hemoglobin 13.8 g/dL (12.0-15.0); Immature Granulocyte Absolute 0.01 K/mm3 (0.00-0.031); Immature Granulocyte Percent A 0.2 % (0-0.5); Lymphocytes Absolute Auto 1.72 K/mm3 (0.9-3.2); Lymphocytes Percent Auto 35.8 % (18.3-44.2); Mean Corpuscular HGB Conc 32.7 g/dl (32-36); Mean Corpuscular Hemoglobin 31.3 pg (26-34); Mean Corpuscular Volume 95.7 fl (80-100); Mean Platelet Volume 11.7 fl (7.4-10.4); Monocytes Absolute Auto 0.5 K/mm3 (0.1-0.6); Monocytes Percent Auto 10.4 % (2.6-8.5); Neutrophils Absolute Auto 2.5 K/mm3 (1.3-6.7); Neutrophils Percent Auto 52.2 % (45.5-73.1); Platelet Count Result 242 k/mm3 (150-375); Red Blood Count 4.41 M/mm3 (4.2-5.4); Red Cell Distribution Width 12.9 % (11.5-14.5); White Blood Count 4.8 K/mm3 (4.5-10.0)
[2023-10-16 08:05] LABS: Alanine Aminotransferase 282 U/L (6-35); Albumin Level 4.1 g/dL (3.5-5.1); Alkaline Phosphatase 79 U/L (38-126); Anion Gap 12 mmol/L (4-12); Aspartate Amino Transferase 396 U/L (14-36); Bilirubin,Total 2.3 mg/dL (0.2-1.3); Blood Urea Nitrogen 11 mg/dL (7-17); Calcium 8.2 mg/dL (8.4-10.2); Carbon Dioxide 22 mmol/L (22-30); Chloride 103 mmol/L (98-107); Estimated CRCL calculation 69 ml/min; Estimated Glomerular Filt Rate 59; Glucose 104 mg/dL (65-110); Lipase 1849 U/L (23-300); Potassium 3.9 mmol/L (3.4-5.0); Sodium 137 mmol/L (137-145)
[2023-10-16] MEDS: predniSONE 40 MG, predniSONE 10 MG 50 MG PO ×3 (08:12→20:05)
[2023-10-16] MEDS: ENOXAPARIN 40 MG/0.4 ML SYRINGE SUB-Q (08:32)
--- NOTE | 2023-10-16 08:49 | P.CONGI_ITS ---
I, Rohan Urias MD, have provided a substantive portion of the care of this patient and discussed the patient with my Nurse Practitioner. I have reviewed any new relevant radiographic and laboratory results including medications. I agree with her documentation as noted below.?I personally performed the medical decision making and much of the history and exam for this encounter. briefly, she had cholecystectomy about 15 years ago for sludge, here with new onset of diarrhea but also upper abdominal discomfort with radiation to chest, blood work had elevated liver enzymes and lipase, CT scan dilated bile duct then MRCP did not reveal bile duct stones or filling defects, probably changes of chronic pancreatitis. She denies previous episodes, no alcohol intake. Plan is medical support for pancreatitis, advance diet as tolerated. Elevated liver enzymes could be from pancreatitis, monitor. Consider EUS pancreas as outpatient. Assessment and Plan Assessment and plan (1) Abnormal findings on imaging of biliary tract: Code(s): R93.2 - Abnormal findings on diagnostic imaging of liver and biliary tract Status: Acute (2) Common bile duct dilation: Code(s): K83.8 - Other specified diseases of biliary tract Status: Acute (3) Elevated LFTs: Code(s): R79.89 - Other specified abnormal findings of blood chemistry Status: Acute (4) Elevated lipase: Code(s): R74.8 - Abnormal levels of other serum enzymes Status: Acute (5) Pancreatitis: Qualifiers: Chronicity: acute Pancreatitis type: unspecified pancreatitis type Acute pancreatitis complication: no infection or necrosis Qualified Code(s): K85.90 - Acute pancreatitis without necrosis or infection, unspecified Code(s): K85.90 - Acute pancreatitis without necrosis or infection, unspecified Status: Acute (6) Nausea: Code(s): R11.0 - Nausea Status: Acute (7) Early satiety: Code(s): R68.81 - Early satiety Status: Acute (8) Dysphagia: Qualifiers: Dysphagia type: other dysphagia Qualified Code(s): R13.19 - Other dysphagia Code(s): R13.10 - Dysphagia, unspecified Status: Acute (9) LUQ pain: Code(s): R10.12 - Left upper quadrant pain Status: Acute (10) Diarrhea: Qualifiers: Diarrhea type: unspecified type Qualified Code(s): R19.7 - Diarrhea, unspecified Code(s): R19.7 - Diarrhea, unspecified Status: Acute Plan 1. Abnormal imaging biliary-CBD dilation/elevated LFT's/elevated lipase/pancreatitis/LUQ pain: S/P Cholecystectomy. No prior history of pancreatitis. Past history of duodenal papillary stenosis and esophageal ulcer. Patient with acute onset of severe left upper quadrant / chest pain yesterday around 2-3 p.m. She states that this pain was sharp in nature and radiated through to her mid back. CT on admission showed normal-appearing pancreas, small sliding hiatal hernia, and common bile duct measuring 14 mm. LFTs and lipase have increased since admission; total bilirubin 1.7-->2.3, AST 22-->396, ALT 158-->282, alkaline phosphatase 79, and Lipase 1050-->1849. Hepatitis panel pending. No known precipitating factors prior to onset of pain other than patient was having diarrhea for 5 days. Denies any new medication other than Arcalyst. patient did have surgery for a breast abscess 09/01/2023 at which time she was given Augmentin and doxycycline. Patient given prednisone this admission for CT contrast allergy. * MRCP pending, if abnormal will plan for ERCP * Continue to trend labs * Continue suppo
--- NOTE | 2023-10-16 08:49 | WPDGICN ---
Assessment and Plan Assessment and plan (1) Abnormal findings on imaging of biliary tract: Code(s): R93.2 - Abnormal findings on diagnostic imaging of liver and biliary tract Status: Acute (2) Common bile duct dilation: Code(s): K83.8 - Other specified diseases of biliary tract Status: Acute (3) Elevated LFTs: Code(s): R79.89 - Other specified abnormal findings of blood chemistry Status: Acute (4) Elevated lipase: Code(s): R74.8 - Abnormal levels of other serum enzymes Status: Acute (5) Pancreatitis: Qualifiers: Chronicity: acute Pancreatitis type: unspecified pancreatitis type Acute pancreatitis complication: no infection or necrosis Qualified Code(s): K85.90 - Acute pancreatitis without necrosis or infection, unspecified Code(s): K85.90 - Acute pancreatitis without necrosis or infection, unspecified Status: Acute (6) Nausea: Code(s): R11.0 - Nausea Status: Acute (7) Early satiety: Code(s): R68.81 - Early satiety Status: Acute (8) Dysphagia: Qualifiers: Dysphagia type: other dysphagia Qualified Code(s): R13.19 - Other dysphagia Code(s): R13.10 - Dysphagia, unspecified Status: Acute (9) LUQ pain: Code(s): R10.12 - Left upper quadrant pain Status: Acute (10) Diarrhea: Qualifiers: Diarrhea type: unspecified type Qualified Code(s): R19.7 - Diarrhea, unspecified Code(s): R19.7 - Diarrhea, unspecified Status: Acute Plan 1. Abnormal imaging biliary-CBD dilation/elevated LFT's/elevated lipase/pancreatitis/LUQ pain: S/P Cholecystectomy. No prior history of pancreatitis. Past history of duodenal papillary stenosis and esophageal ulcer. Patient with acute onset of severe left upper quadrant / chest pain yesterday around 2-3 p.m. She states that this pain was sharp in nature and radiated through to her mid back. CT on admission showed normal-appearing pancreas, small sliding hiatal hernia, and common bile duct measuring 14 mm. LFTs and lipase have increased since admission; total bilirubin 1.7-->2.3, AST 22-->396, ALT 158-->282, alkaline phosphatase 79, and Lipase 1050-->1849. Hepatitis panel pending. No known precipitating factors prior to onset of pain other than patient was having diarrhea for 5 days. Denies any new medication other than Arcalyst. patient did have surgery for a breast abscess 09/01/2023 at which time she was given Augmentin and doxycycline. Patient given prednisone this admission for CT contrast allergy. MRCP pending, if abnormal will plan for ERCP Continue to trend labs Continue supportive care with pain management NPO Further recs to follow MRCP 2. Appetite loss/nausea/early satiety/dysphagia: Last EGD with dilation 01/24/2021. Biopsies that time were negative for esophagitis or EOE. Patient s/p Rick fundoplication. Patient admits to decreased appetite for the past 3-4 days. Longstanding history of early satiety. she is having nausea without vomiting that improves with antiemetics. She is on no reflux medication and denies any reflux symptoms. She was previously on famotidine which was recently discontinued. She has recently been having more frequent episodes of dysphagia to solid foods but denies any difficulty swallowing liquids or pills. Dysphagia previously improved with dilation. Unclear if symptoms may be secondary to presumed gastroparesis as retained food was noted in her stomach during her last EGD in 2020, patient has never been on Reglan. Patient will need a repeat EGD with dilation but timing (Inpatient versus outpatient) of this will be determined by pending workup. continue supportive care with antiemetics Protonix 40 mg daily 3. Diarrhea: Sudden onset diarrhea for 5 days, frequent, both with and without meals, with urgency. Patient denies any sick contacts, recent travel, or recent medication changes. She
[2023-10-16 09:29] LABS: Hepatitis B Surface Antigen Negative (Negative)
[2023-10-16 10:16] LABS: HAV RESULT Negative (Negative); Hepatitis B Core IgM Result Negative (Negative)
[2023-10-16 10:27] LABS: Hepatitis C Virus Antibody Negative (Negative)
[2023-10-16] MEDS: PANTOPRAZOLE SODIUM IV 40 MG VIAL IV PUSH (13:46)
[2023-10-16] MEDS: GABAPENTIN 300 MG CAPSULE 600 MG PO (20:05)
[2023-10-16] MEDS: diphenhydrAMINE HCl INJ 50 MG/ML VIAL IV PUSH (21:54)
[2023-10-16] MEDS: QUEtiapine FUMARATE 100 MG TABLET 800 MG PO (21:55)
[2023-10-16] MEDS: IBUPROFEN 400 MG TABLET 800 MG PO (21:56)
[2023-10-17] MEDS: HYDROmorphone HCL INJ (*CRX) 1 MG/ML SYR IV PUSH ×5 (00:10→20:02)
[2023-10-17] MEDS: ONDANSETRON INJ 4 MG/2 ML VIAL IV PUSH ×2 (00:11→04:48)
[2023-10-17] MEDS: ACETAMINOPHEN 325 MG TABLET 650 MG PO ×3 (03:11→22:09)
[2023-10-17] MEDS: SODIUM CHLORIDE 0.9% IV 1,000 ML 150 ML IV CONT ×3 (03:12→14:08)
[2023-10-17 05:38] LABS: Hematocrit 40.4 % (37.0-47.0); Hemoglobin 13.3 g/dL (12.0-15.0); Immature Granulocyte Absolute 0.01 K/mm3 (0.00-0.031); Immature Granulocyte Percent A 0.3 % (0-0.5); Lymphocytes Absolute Auto 0.48 K/mm3 (0.9-3.2); Lymphocytes Percent Auto 15.8 % (18.3-44.2); Mean Corpuscular HGB Conc 32.9 g/dl (32-36); Mean Corpuscular Hemoglobin 30.9 pg (26-34); Mean Corpuscular Volume 93.7 fl (80-100); Mean Platelet Volume 10.8 fl (7.4-10.4); Monocytes Absolute Auto 0.1 K/mm3 (0.1-0.6); Monocytes Percent Auto 2.6 % (2.6-8.5); Neutrophils Absolute Auto 2.5 K/mm3 (1.3-6.7); Neutrophils Percent Auto 81.3 % (45.5-73.1); Platelet Count Result 213 k/mm3 (150-375); Red Blood Count 4.31 M/mm3 (4.2-5.4); Red Cell Distribution Width 12.4 % (11.5-14.5)
[2023-10-17 05:44] VITALS: BP 126/78; PULSE 79; RESP 20; TEMP 36.4; O2SAT 96
[2023-10-17 06:02] LABS: Alanine Aminotransferase 391 U/L (6-35); Albumin Level 3.8 g/dL (3.5-5.1); Alkaline Phosphatase 92 U/L (38-126); Anion Gap 7 mmol/L (4-12); Aspartate Amino Transferase 227 U/L (14-36); Blood Urea Nitrogen 5 mg/dL (7-17); Calcium 8.6 mg/dL (8.4-10.2); Carbon Dioxide 25 mmol/L (22-30); Chloride 106 mmol/L (98-107); Estimated CRCL calculation 85 ml/min; Estimated Glomerular Filt Rate > 60; Glucose 137 mg/dL (65-110); Lipase 96 U/L (23-300); Potassium 4.2 mmol/L (3.4-5.0); Sodium 138 mmol/L (137-145)
--- NOTE | 2023-10-17 07:45 | PM.IMPN ---
Progress Note: A&P Assessment and Plan (1) Common bile duct dilation: Code(s): K83.8 - Other specified diseases of biliary tract Status: Acute Assessment and Plan: Patient presents with left sided abdominal and chest pain. ACS ruled out. Patient denies daily alcohol consumption. S/p cholecystectomy several years ago. - Lipase 1050 on admission -->>> 1849, now 96 on am labs - Tot bili 1.7, AST 220, ALT 158, alk phos 86 on admission -->>> tot bili 2.3, ast 396, alt 282, alk phos 79, now tot bili 1.0, AST 227, ALT 391, alk phos 92 - Abdomen/pelvis CT: 1. Dilated common duct status post cholecystectomy. 2. Normal pancreas. 3. Small sliding hiatal hernia. - MRCP: Patient has allergy to contrast, will premedicate with prednisone and Benadryl per protocol. 1. Mild intra and extra hepatic biliary ductal dilation without evident choledocholithiasis likely related to prior cholecystectomy. 2. Mild dilation of the main pancreatic duct at the head of the pancreas without evident obstructing lesion but which could be sequela of chronic pancreatitis. Pancreas is otherwise unremarkable. 3. Small sliding-type hiatal hernia. - Hepatitis panel negative - Diet: clear liquids, advance as tolerated to low fat diet - Analgesics: Tylenol PRN, Dilaudid 1.0 mg IV q4H - IV NS 150 ml/hr - GI consulted Plan is medical support for pancreatitis, advance diet as tolerated. Elevated liver enzymes could be from pancreatitis, monitor. Consider EUS pancreas as outpatient. (2) Transaminitis: Code(s): R74.01 - Elevation of levels of liver transaminase levels Status: Acute Assessment and Plan: Tot bili 1.7, AST 220, ALT 158, alk phos 86 on admission. Elevation secondary to common bile duct dilation. - tot bili 1.0, AST 227, ALT 391, alk phos 92 on am labs - Hepatitis panel negative - See plan for common bile duct dilation #1 above (3) Acute kidney injury: Code(s): N17.9 - Acute kidney failure, unspecified Status: Acute Assessment and Plan: BUN/Cr 12/1.2 on admission. Likely related to patients decrease oral intake. - Baseline WNL. - BUN/Cr 11/1.0 on am labs - Continue IV fluids - Monitor I/O - Avoid nephrotoxic medications 10/17/23: Resolved. BUN/Cr 5/0.8. (4) Anxiety and depression: Onset Date: ~02/2020 Code(s): F41.9 - Anxiety disorder, unspecified; F32.9 - Major depressive disorder, single episode, unspecified Status: Acute Assessment and Plan: Patient states well controlled on home medication. - Seroquel 800 mg HS and 100 mg PRN - Xanax 1 mg PRN - Monitor (5) Early satiety: Code(s): R68.81 - Early satiety Status: Acute Assessment and Plan: Patient has history of early satiety with associated nausea. She was previously on famotidine which was recently discontinued. She has recently been having more frequent episodes of dysphagia to solid foods but denies any difficulty swallowing liquids or pills per chart review. Dysphagia previously improved with dilation. Last EGD with dilation 01/24/2021. - GI consulted Unclear if symptoms may be secondary to presumed gastroparesis as retained food was noted in her stomach during her last EGD in 2020, patient has never been on Reglan. Patient will need a repeat EGD with dilation but timing (Inpatient versus outpatient) of this will be determined by pending workup. continue supportive care with antiemetics Protonix 40 mg daily Time Spent With Patient Time with patient: 25 - 35 minutes Subjective Date/time seen: 10/17/23 07:45 Interval history: 48 year old female with past medical history of migraines and history of LA with pericardial effusion (follows Dr. Granado) presents to the hospital for abdominal pain. Patient is pleasant lying comfortably in bed. She states that her pain is improving and has been well managed on the current dose of Dilaudid. her labs continue to improve and per GI recommendations
[2023-10-17] MEDS: PANTOPRAZOLE SODIUM IV 40 MG VIAL IV PUSH (10:48)
[2023-10-17] MEDS: ENOXAPARIN 40 MG/0.4 ML SYRINGE SUB-Q (10:48)
[2023-10-17] MEDS: IBUPROFEN 400 MG TABLET 800 MG PO (11:46)
--- NOTE | 2023-10-17 13:38 | WPDGIPROGNO ---
Progress Note: A&P Assessment and Plan (1) Pancreatitis: Qualifiers: Chronicity: acute Pancreatitis type: unspecified pancreatitis type Acute pancreatitis complication: no infection or necrosis Qualified Code(s): K85.90 - Acute pancreatitis without necrosis or infection, unspecified Code(s): K85.90 - Acute pancreatitis without necrosis or infection, unspecified Status: Acute Assessment and Plan: clinically better start liquid diet and advance as tolerated (2) Elevated LFTs: Code(s): R79.89 - Other specified abnormal findings of blood chemistry Status: Acute Assessment and Plan: normalization of bili mrcp reviewed, mild dilate PD but no strictures or lesions, no bile duct stone denies alcohol use (3) Nausea: Code(s): R11.0 - Nausea Status: Acute Assessment and Plan: better (4) Common bile duct dilation: Code(s): K83.8 - Other specified diseases of biliary tract Status: Acute Assessment and Plan: post cholecystectomy (5) Hx of cholecystectomy: Code(s): Z90.49 - Acquired absence of other specified parts of digestive tract Status: Acute Subjective Date/time seen: 10/17/23 13:38 Interval history: better and more comfortable Review of Systems Review of Systems: All systems reviewed & are unremarkable except as noted in HPI and below Exam Const: General: comfortable and no acute distress HENMT: Face/Nose/Sinus: Normal nares present Eyes: General: appearance normal, both eyes and all related structures Neck: Neck: supple Resp: Auscultation: clear to auscultation bilaterally Cardio: Rate: regular rate Rhythm: regular rhythm GI: Inspection: non-distended GI Palp: Yes Soft to palpation and No Tenderness to palpation present (GI) Auscultation: normal bowel sounds Skin: General skin exam: normal color Neuro: Speech: normal speech Motor exam (neuro): 5/5 motor strength present throughout Extrem: General: normal to inspection Psych: Mental Status: mental status grossly normal Objective Data Vital Signs Vital Signs: Vital Signs - 24 hr 10/16/23 16:00 10/16/23 20:15 10/17/23 05:44 Temperature 97.1 F L 97.1 F L 97.5 F L Pulse Rate 79 68 79 Respiratory Rate 18 20 20 Blood Pressure 132/82 137/85 126/78 Pulse Oximetry 98 97 96 Intake/Output Intake/Output: Intake & Output 10/14/23 10/15/23 10/16/23 10/17/23 23:59 23:59 23:59 23:59 Intake Total 5105 565 Balance 5105 565 Meds/Results Medications: Active Medications Generic Name Dose Route Start Last Admin Trade Name Freq PRN Reason Stop Dose Admin Acetaminophen 650 mg 10/16/23 07:43 10/17/23 03:11 Acetaminophen 325 Mg Tablet PO 650 mg Q4H PRN Administration Mild Pain (1-3) or Fever Alprazolam 1 mg 10/16/23 13:51 Alprazolam (*Crx) 0.5 Mg Tablet PO TID PRN Anxiety Enoxaparin Sodium 40 mg 10/16/23 09:00 10/17/23 10:48 Enoxaparin 40 Mg/0.4 Ml Syringe SUB-Q 40 mg DAILY POONAM Administration Famotidine 20 mg 10/16/23 13:51 Famotidine 20 Mg Tablet PO BID PRN Heartburn Gabapentin 600 mg 10/16/23 21:00 10/16/23 20:05 Gabapentin 300 Mg Capsule PO 600 mg HS POONAM Administration Hydromorphone HCl 1 mg 10/16/23 13:51 10/17/23 10:47 Hydromorphone Hcl Inj (*Crx) 1 Mg/Ml Syr IV PUSH 1 mg Q4H PRN Administration Pain Rated 7-10 Sodium Chloride 1,000 mls @ 150 mls/hr 10/16/23 00:45 10/17/23 06:58 Normal Saline Iv IV CONT 150 mls/hr .Q6H40M POONAM Administration Ibuprofen 800 mg 10/16/23 14:05 10/17/23 11:46 Ibuprofen 400 Mg Tablet PO 800 mg TID PRN Administration Pain (Scale Score 1-3) Naloxone HCl 0.1 mg 10/16/23 11:00 Naloxone Hcl 0.4 Mg/Ml Vial IV PUSH Q5MIN PRN Opioid Reversal Ondansetron HCl 4 mg 10/16/23 00:44 10/17/23 04:48 Ondansetron Inj 4 Mg/2 Ml Vial IV PUSH 4 mg Q4H PRN Administration
[2023-10-17 14:01] VITALS: BP 143/96; PULSE 69; RESP 16; TEMP 35.9; O2SAT 100
[2023-10-17] MEDS: ALPRAZolam (*CRX) 0.5 MG TABLET 1 MG PO (19:57)
[2023-10-17] MEDS: GABAPENTIN 300 MG CAPSULE 600 MG PO (20:57)
[2023-10-17] MEDS: QUEtiapine FUMARATE 100 MG TABLET 800 MG PO (20:58)
[2023-10-17] MEDS: SODIUM CHLORIDE 0.9% IV 1,000 ML 100 ML IV CONT (23:52)
[2023-10-18] VITALS: BP 132/73; PULSE 71; RESP 14; TEMP 36.1; O2SAT 100
[2023-10-18] MEDS: HYDROmorphone HCL INJ (*CRX) 1 MG/ML SYR IV PUSH ×2 (00:12→04:49)
[2023-10-18 06:00] VITALS: BP 134/65; PULSE 69; RESP 16; TEMP 36.6; O2SAT 100
[2023-10-18 06:09] LABS: Basophils Percent Auto 0.2 % (0.2-1.2); Hematocrit 33.4 % (37.0-47.0); Hemoglobin 11.1 g/dL (12.0-15.0); Immature Granulocyte Absolute 0.01 K/mm3 (0.00-0.031); Immature Granulocyte Percent A 0.2 % (0-0.5); Lymphocytes Absolute Auto 1.17 K/mm3 (0.9-3.2); Mean Corpuscular HGB Conc 33.2 g/dl (32-36); Mean Corpuscular Hemoglobin 30.8 pg (26-34); Mean Corpuscular Volume 92.8 fl (80-100); Mean Platelet Volume 11.4 fl (7.4-10.4); Monocytes Absolute Auto 0.2 K/mm3 (0.1-0.6); Neutrophils Absolute Auto 2.6 K/mm3 (1.3-6.7); Neutrophils Percent Auto 64.6 % (45.5-73.1); Platelet Count Result 191 k/mm3 (150-375); Red Cell Distribution Width 12.7 % (11.5-14.5)
[2023-10-18 06:18] LABS: Alanine Aminotransferase 237 U/L (6-35); Alkaline Phosphatase 66 U/L (38-126); Anion Gap 6 mmol/L (4-12); Aspartate Amino Transferase 71 U/L (14-36); Bilirubin,Total 0.4 mg/dL (0.2-1.3); Blood Urea Nitrogen 5 mg/dL (7-17); Calcium 8.2 mg/dL (8.4-10.2); Carbon Dioxide 24 mmol/L (22-30); Chloride 110 mmol/L (98-107); Estimated CRCL calculation 97 ml/min; Estimated Glomerular Filt Rate > 60; Glucose 96 mg/dL (65-110); Lipase 118 U/L (23-300); Potassium 3.4 mmol/L (3.4-5.0); Sodium 140 mmol/L (137-145)
--- NOTE | 2023-10-18 12:50 | WPDGIPROGNO ---
Progress Note: A&P Assessment and Plan (1) Pancreatitis: Qualifiers: Chronicity: acute Pancreatitis type: unspecified pancreatitis type Acute pancreatitis complication: no infection or necrosis Qualified Code(s): K85.90 - Acute pancreatitis without necrosis or infection, unspecified Code(s): K85.90 - Acute pancreatitis without necrosis or infection, unspecified Status: Acute Assessment and Plan: tolerating liquid diet, ok to advance more comfortable hopefully home soon (2) Elevated LFTs: Code(s): R79.89 - Other specified abnormal findings of blood chemistry Status: Acute Assessment and Plan: normalization of bili mrcp reviewed, mild dilate PD but no strictures or lesions, no bile duct stone denies alcohol use (3) Nausea: Code(s): R11.0 - Nausea Status: Acute Assessment and Plan: tolerating diet (4) Common bile duct dilation: Code(s): K83.8 - Other specified diseases of biliary tract Status: Acute Assessment and Plan: post cholecystectomy Subjective Date/time seen: 10/18/23 12:50 Interval history: less tender, tolerating liquid diet Review of Systems Review of Systems: All systems reviewed & are unremarkable except as noted in HPI and below Exam Const: General: comfortable and no acute distress HENMT: Face/Nose/Sinus: Normal nares present Eyes: General: appearance normal, both eyes and all related structures Neck: Neck: supple Resp: Auscultation: clear to auscultation bilaterally Cardio: Rate: regular rate Rhythm: regular rhythm GI: Inspection: non-distended GI Palp: Yes Soft to palpation and No Tenderness to palpation present (GI) Auscultation: normal bowel sounds Skin: General skin exam: normal color Neuro: Speech: normal speech Motor exam (neuro): 5/5 motor strength present throughout Extrem: General: normal to inspection Psych: Mental Status: mental status grossly normal Objective Data Vital Signs Vital Signs: Vital Signs - 24 hr 10/17/23 14:01 10/18/23 00:00 10/18/23 06:00 Temperature 96.6 F L 96.9 F L 97.9 F Pulse Rate 69 71 69 Respiratory Rate 16 14 16 Blood Pressure 143/96 H 132/73 134/65 Pulse Oximetry 100 100 100 Intake/Output Intake/Output: Intake & Output 10/15/23 10/16/23 10/17/23 10/18/23 23:59 23:59 23:59 23:59 Intake Total 5105 3955 400 Balance 5105 3955 400 Meds/Results Medications: Active Medications Generic Name Dose Route Start Last Admin Trade Name Nichole PRN Reason Stop Dose Admin Acetaminophen 650 mg 10/16/23 07:43 10/17/23 22:09 Acetaminophen 325 Mg Tablet PO 650 mg Q4H PRN Administration Mild Pain (1-3) or Fever Alprazolam 1 mg 10/16/23 13:51 10/17/23 19:57 Alprazolam (*Crx) 0.5 Mg Tablet PO 1 mg TID PRN Administration Anxiety Enoxaparin Sodium 40 mg 10/16/23 09:00 10/17/23 10:48 Enoxaparin 40 Mg/0.4 Ml Syringe SUB-Q 40 mg DAILY POONAM Administration Famotidine 20 mg 10/16/23 13:51 Famotidine 20 Mg Tablet PO BID PRN Heartburn Gabapentin 600 mg 10/16/23 21:00 10/17/23 20:57 Gabapentin 300 Mg Capsule PO 600 mg HS POONAM Administration Hydromorphone HCl 0.5 mg 10/18/23 08:05 Hydromorphone Hcl Inj (*Crx) 1 Mg/Ml Syr IV PUSH Q4H PRN Pain Rated 7-10 Ibuprofen 800 mg 10/16/23 14:05 10/17/23 11:46 Ibuprofen 400 Mg Tablet PO 800 mg TID PRN Administration Pain (Scale Score 1-3) Naloxone HCl 0.1 mg 10/16/23 11:00 Naloxone Hcl 0.4 Mg/Ml Vial IV PUSH Q5MIN PRN Opioid Reversal Ondansetron HCl 4 mg 10/16/23 00:44 10/17/23 04:48 Ondansetron Inj 4 Mg/2 Ml Vial IV PUSH 4 mg Q4H PRN Administration Nausea Ondansetron HCl 4 mg 10/16/23 13:51 Ondansetron Hcl Odt 4 Mg Tablet PO Q6H PRN nausea and vomiting Pantoprazole Sodium 40 mg 10/16/23 10:00 10/17/23 10:48 Pantoprazole Sodium Iv 40 Mg Vial IV PUSH 4
[2023-10-18] MEDS: ENOXAPARIN 40 MG/0.4 ML SYRINGE SUB-Q (12:55)
[2023-10-18] MEDS: IBUPROFEN 400 MG TABLET 800 MG PO (12:55)
[2023-10-18] MEDS: PANTOPRAZOLE 40 MG TABLET PO (14:00)
[2023-10-18 15:10] VITALS: BP 136/88
[2023-10-18 15:13] VITALS: PULSE 72; RESP 16; TEMP 36; O2SAT 100
--- NOTE | 2023-10-18 15:33 | PM.DS ---
DS: Admitting Diagnosis Discharge Date 10/18/2023 Admitting Diagnosis common bile duct dilation transaminitis acute kidney injury anxiety and depression early satiety DS: Discharge Diagnosis Discharge Diagnosis (1) Common bile duct dilation: Code(s): K83.8 - Other specified diseases of biliary tract Status: Acute (2) Transaminitis: Code(s): R74.01 - Elevation of levels of liver transaminase levels Status: Acute (3) Acute kidney injury: Code(s): N17.9 - Acute kidney failure, unspecified Status: Acute (4) Anxiety and depression: Onset Date: ~02/2020 Code(s): F41.9 - Anxiety disorder, unspecified; F32.9 - Major depressive disorder, single episode, unspecified Status: Acute (5) Early satiety: Code(s): R68.81 - Early satiety Status: Acute DS: Summary Hospital Course Reason for hospitalization: common bile duct dilation transaminitis acute kidney injury anxiety and depression early satiety Hospital Course: 48 year old female with past medical history of migraines and history of MS with pericardial effusion (follows Dr. Granado) presents to the hospital for epigastric pain and diarrhea. The symptoms worried her as she states this felt similar to her prior pericardial effusion, prompting her to come to the hospital. Lipase 1050, Tot bili 1.7, AST 220, ALT 158, Alk phos 86 on admission. Abdomen/pelvis CT showed dilated common duct status post cholecystectomy, Normal pancreas, Small sliding hiatal hernia. Patient made NPO, IV fluids and analgesics started and GI consulted at that time. MRCP ordered. Patient has allergy to contrast, will premedicate with prednisone and Benadryl per protocol. MRCP obtained and showed mild intra and extra hepatic biliary ductal dilation without evident choledocholithiasis likely related to prior cholecystectomy,mild dilation of the main pancreatic duct at the head of the pancreas without evident obstructing lesion but which could be sequela of chronic pancreatitis, pancreas is otherwise unremarkable, and small sliding-type hiatal hernia. GI recommends medical support for pancreatitis, advance diet as tolerated. Patient started on clears and advanced to low fat diet prior to discharge. She denied nausea/vomiting, abdominal pain and diarrhea. Patients lipase returned to normal levels and her LFTs continue to downtrend. Patient continues to endorse early satiety. GI plans for outpatient EGD with dilation. Patient to follow up with GI and continue protonix. Prior to discharge patient denies chest pain, shortness of breath, nausea/vomiting and abdominal pain. Patient discharged home in stable condition. She is to follow up with her PCP in 1 week and call for appointment with GI. Status at Discharge Functional status at discharge: independent ambulation Time Spent with Patient Time attestation: Total time spent providing and/or coordinating discharge services: Time spent: Greater than 30 minutes Exam Narrative: AF HR 69 RR 16 SpO2 100 BP 134/65 General: female in no acute respiratory distress who is nontoxic appearing, lying semi recumbent in bed. HEENT: Normocephalic. Atraumatic. Extraocular movement intact. Sclera clear and anicteric. No facial asymmetry. Neck: Neck was supple. No dominant adenopathy, thyromegaly or masses. Chest: Lungs are clear to auscultation bilaterally. No wheezes or crackles. CV: Heart was regular rate and rhythm. S1-S2. No murmurs, gallops, or rubs. Abd: Abdomen was soft. Nontender. Nondistended. Positive bowel sounds. No organomegaly or masses. DS: Data Data Completed and Pending Completed studies during hospitalization: MRCP Abdomen/pelvis CT Chest XR Labs on day of discharge: Labs from last 24 hours 10/18/23 05:21 WBC 4.0 L RBC 3.60 L Hgb 11.1 L Hct 33.4 L MCV 92.8 MCH 30.8 MCHC 33.2 RDW 12.7 Plt Count 191 MPV 11.4 H Immature Gran % (Auto) 0.2 Neut % (Auto) 64.6 Lymph % (A
== END 2023-10-18 16:18 | disposition home or self-care (01) | DRG 444 ==
LOC: ANHED 22:33 → ANH3MEDSUR 10-16 01:03
PROVIDERS: Admitting Provider Internal Medicine; Emergency Provider Emergency Medicine; PCP Family Medicine; Visit Provider Student in an Organized Health Care Education/Training Program
DX: K91.5 Postcholecystectomy syndrome (principal); K85.90 Acute pancreatitis without necrosis or infection, unspecified; I31.39 Other pericardial effusion (noninflammatory); N17.9 Acute kidney failure, unspecified; K86.89 Other specified diseases of pancreas; R74.01 Elevation of levels of liver transaminase levels; R13.10 Dysphagia, unspecified; K44.9 Diaphragmatic hernia without obstruction or gangrene; R19.7 Diarrhea, unspecified; F41.8 Other specified anxiety disorders; R68.81 Early satiety; D64.9 Anemia, unspecified; G47.33 Obstructive sleep apnea (adult) (pediatric); I10 Essential (primary) hypertension; F17.290 Nicotine dependence, other tobacco product, uncomplicated; I25.2 Old myocardial infarction; Z90.49 Acquired absence of other specified parts of digestive tract; Z90.710 Acquired absence of both cervix and uterus
CPT/HCPCS: 36415; 71046; 74177; 74183; 76376; 80053; 80074; 81001; 83690; 84484; 85025; 85610; 85730; 93005; 96361; 96374; 96375; 99285; A9270; A9577; G0378; J1170; J1200; J1650; J2405; J2470; J7030; J7512; Q9967

== ENCOUNTER 2023-10-20 06:41 | Emergency (ER) | payer MEDICARE, MEDICAID, SELFPAY ==
[2023-10-20] VITALS (9 sets, daily range): BP systolic 130–192; BP diastolic 81–116; PULSE 64–92; RESP 14–25; TEMP 36.2–36.4; O2SAT 96–100
--- NOTE | ~2023-10-20 | XR_ITS ---
EXAMINATION: XR chest 2V DATE: 10/20/2023 10:42 INDICATION: Chest pain. Recent pancreatitis. TECHNIQUE: Frontal and lateral views of the chest were obtained. COMPARISON: Chest 2 views 10/15/2023 FINDINGS: A calcified right lung nodule and calcified mediastinal lymph nodes are consistent with old granulomatous disease. There is no pneumonia, pleural effusion, or pneumothorax. The heart size is n ormal. Surgical clips in the right upper quadrant are likely from cholecystectomy. IMPRESSION: 1. No acute cardiopulmonary disease. Reviewed, dictated and finalized at location A.
--- NOTE | 2023-10-20 09:48 | ED.GENADULT ---
HPI - General Adult General Chief complaint: Unspecified Stated complaint: swelling of hands, legs, feet and face. Time Seen by Provider: 10/20/23 09:04 History of Present Illness HPI narrative: 48-year-old female with history of hypertension, GERD, pericardial effusion, CKD, transaminitis, recent discharge from our hospital on 10/18/2023 for pancreatitis presents to the emergency department for swelling to her face and extremities that she noticed this morning as well as left-sided chest pain. She states her chest pain feels like it did when she had a pericardial effusion which prompted her to come to the ED. Patient states her she received 15 L of IV fluids while she was admitted for 3 days and is concerned this is causing her swelling. She is also reporting pain to the left side of her chest that started this morning. She describes this pain as a pressure. She denies aggravating or alleviating factors including aggravation with exertion, pleuritic pain, positional pain. She denies radiating symptoms, shortness of breath, fever, cough or congestion. She endorses history pericardial effusion is concerned that her fusion has worsened. ip litigation associate is Dr. Granado. states she uses of vape but does not smoke tobacco. states her mother has a history of cardiac disease. Related Data Home Medications Medication Instructions Recorded Confirmed alprazolam 1 mg tablet (Xanax) 1 mg PO TID PRN Anxiety 12/11/19 10/16/23 quetiapine 400 mg tablet (Seroquel) 800 mg PO HS 08/22/20 10/16/23 gabapentin 300 mg capsule 600 mg PO HS 10/09/21 10/16/23 ibuprofen 800 mg tablet 800 mg PO TID PRN Pain (Scale 05/31/22 10/16/23 Score 1-3) quetiapine 100 mg tablet 100 mg PO DAILY PRN Anxiety 05/31/22 10/16/23 famotidine 20 mg tablet 20 mg PO BID PRN Heartburn 08/30/23 10/16/23 rilonacept 220 mg subcutaneous 220 mg subcut WEEKLY 08/30/23 10/16/23 solution (Arcalyst) suvorexant 20 mg tablet (Belsomra) 20 mg PO HS 10/16/23 10/16/23 Allergies Allergy/AdvReac Type Severity Reaction Status Date / Time bee venom protein (honey bee) Allergy Severe Anaphylactic Verified 10/20/23 07:37 Shock lisinopril Allergy Intermediate Loss of Verified 10/20/23 07:37 Consciousness Iodinated Contrast Media Allergy Mild Rash Verified 10/20/23 07:37 vancomycin Allergy Hives Verified 10/20/23 07:37 Review of Systems Review of Systems: All systems reviewed & are unremarkable except as noted in HPI and below PMFSH Past Medical History Medical History Abscess of buttock Anemia Benign hypertension Cellulitis of left knee Dizziness Duodenal papillary stenosis Elevated TSH Esophageal ulcer History of [place] (myocardial infarction) Hypertension Iron deficiency anemia, unspecified Low kidney function Migraine Myalgia Obstructive sleep apnea Pericardial effusion Periodic limb movement Pseudotumor Behind eye Ulcer of esophagus without bleeding Vitamin D deficiency Surgical History Surgical History H/O elbow surgery left, 2011 H/O inguinal hernia repair H/O lumpectomy Duct removed from 1 breast on the left side H/O nasal polypectomy H/O sinus surgery H/O: hysterectomy History of ankle surgery left, 12/23/2017 and 03/29/2017 Hx of cholecystectomy Status post surgical manipulation of ankle joint Family History Family History Father Asbestosis Bladder cancer Hypertension Family history of chronic obstructive pulmonary disease COPD (chronic obstructive pulmonary disease) Mother Diabetes mellitus Fibromyalgia Syncopal episodes Hypertension Sibling Anxiety Depression Hypertension Other Family history of malignant neoplasm of breast Other Family history of thyroid disease Social History Social History
--- NOTE | 2023-10-20 09:54 | ECG_ITS ---
Test Date: 2023-10-20 10:05:23 Measurements Intervals [place] Rate: 65 P: 26 DE: 145 QRS: 7 QRSD: 93 T: 70 QT: 420 QTc: 439 Interpretive Statements SINUS RHYTHM LEFT VENTRICULAR HYPERTROPHY WITH ST-T CHANGE BORDERLINE ECG Compared to ECG 10/15/2023 22:33:30 NO SIGNIFICANT CHANGE Electronically Signed On 10-20-2023 10:13:32 CDT by Elian Monae D.O.
[2023-10-20] MEDS: ACETAMINOPHEN 500 MG TABLET 1000 MG PO (10:22)
[2023-10-20 10:39] LABS: Add Urine Microscopic? NO; Appearance Urine Clear (Clear); Bilirubin Urine Negative (Negative); Blood Urine Negative (Negative); Color Urine Yellow (Yellow); Glucose Urine UA Negative (Negative); Ketones Urine Negative (Negative); Leukocyte Esterase Ur Negative LEU/UL (Negative); Nitrate Urine Negative (Negative); Protein Urine Negative (Negative); Specific Grav Ur 1.015 (1.001-1.035)
--- NOTE | 2023-10-20 11:28 | PC.NURSE ---
RN unable to obtain IV access, vascular access has been called and stated they will be down
[2023-10-20 11:58] LABS: Basophils Percent Auto 0.3 % (0.2-1.2); Eosinophils Absolute Auto 0.1 K/mm3 (0-0.3); Eosinophils Percent Auto 1.6 % (0-4.4); Hemoglobin 12.2 g/dL (12.0-15.0); Immature Granulocyte Absolute 0.01 K/mm3 (0.00-0.031); Immature Granulocyte Percent A 0.3 % (0-0.5); Lymphocytes Absolute Auto 1.58 K/mm3 (0.9-3.2); Lymphocytes Percent Auto 42.1 % (18.3-44.2); Mean Corpuscular Hemoglobin 30.7 pg (26-34); Mean Corpuscular Volume 93.2 fl (80-100); Mean Platelet Volume 11.2 fl (7.4-10.4); Monocytes Absolute Auto 0.3 K/mm3 (0.1-0.6); Monocytes Percent Auto 7.5 % (2.6-8.5); Neutrophils Absolute Auto 1.8 K/mm3 (1.3-6.7); Neutrophils Percent Auto 48.2 % (45.5-73.1); Platelet Count Result 212 k/mm3 (150-375); Red Blood Count 3.97 M/mm3 (4.2-5.4); Red Cell Distribution Width 12.9 % (11.5-14.5); White Blood Count 3.8 K/mm3 (4.5-10.0)
[2023-10-20 12:10] LABS: INR 0.9; Prothrombin Time 12.8 Seconds (11.1-14.7)
[2023-10-20 12:11] LABS: Partial Thromboplastin Time 24.4 Seconds (22.3-36.8)
[2023-10-20 12:17] LABS: Alanine Aminotransferase 121 U/L (6-35); Albumin Level 3.5 g/dL (3.5-5.1); Alkaline Phosphatase 65 U/L (38-126); Anion Gap 8 mmol/L (4-12); Aspartate Amino Transferase 27 U/L (14-36); Bilirubin,Total 0.4 mg/dL (0.2-1.3); Blood Urea Nitrogen 8 mg/dL (7-17); Calcium 8.9 mg/dL (8.4-10.2); Carbon Dioxide 31 mmol/L (22-30); Chloride 100 mmol/L (98-107); D Dimer 0.51 ug/mL (<0.48); Estimated CRCL calculation 76 ml/min; Estimated Glomerular Filt Rate > 60; Glucose 83 mg/dL (65-110); Lipase 107 U/L (23-300); Potassium 3.1 mmol/L (3.4-5.0); Sodium 139 mmol/L (137-145)
[2023-10-20 12:27] LABS: NT Pro B Type Natriuretic Pept 553 pg/mL (19.9-100); Troponin I < 0.012 ng/mL (0.000-0.034)
[2023-10-20] MEDS: KETOROLAC 15 MG/ML VIAL (*BKC) IV PUSH (13:01)
[2023-10-20] MEDS: FUROSEMIDE INJ 40 MG/4 ML VIAL 20 MG IV PUSH (13:08)
[2023-10-20] MEDS: POTASSIUM CHLORIDE 20 MEQ PACKET (FOR LIQUID) 40 MEQ PO (13:09)
[2023-10-20 13:25] LABS: Magnesium 1.7 mg/dL (1.6-2.3)
--- NOTE | 2023-10-20 14:42 | ECG_ITS ---
Test Date: 2023-10-20 14:54:09 Measurements Intervals [place] Rate: 64 P: 27 [place]: 137 QRS: 4 QRSD: 85 T: 63 QT: 418 QTc: 434 Interpretive Statements SINUS RHYTHM LEFT VENTRICULAR HYPERTROPHY WITH ST-T CHANGE CONSIDER INFERIOR INFARCT, AGE INDETERMINATE ABNORMAL ECG Compared to ECG 10/20/2023 10:05:23 NO SIGNIFICANT CHANGE Electronically Signed On 10-20-2023 14:56:00 CDT by Elian Monae D.O.
[2023-10-20 15:21] LABS: Troponin I < 0.012 ng/mL (0.000-0.034)
== END 2023-10-20 16:20 | disposition home or self-care (01) ==
PROVIDERS: Emergency Provider Physician Assistant; PCP Family Medicine
DX: R07.89 Other chest pain (principal); R60.9 Edema, unspecified; E87.6 Hypokalemia; I12.9 Hypertensive chronic kidney disease with stage 1 through stage 4 chronic kidney disease, or unspecified chronic kidney disease; N18.9 Chronic kidney disease, unspecified; I25.2 Old myocardial infarction; E55.9 Vitamin D deficiency, unspecified; D50.9 Iron deficiency anemia, unspecified; G47.33 Obstructive sleep apnea (adult) (pediatric); K21.9 Gastro-esophageal reflux disease without esophagitis; Z90.710 Acquired absence of both cervix and uterus; Z90.49 Acquired absence of other specified parts of digestive tract; F17.290 Nicotine dependence, other tobacco product, uncomplicated; Z79.899 Other long term (current) drug therapy; I51.7 Cardiomegaly; R94.31 Abnormal electrocardiogram [ECG] [EKG]
CPT/HCPCS: 36415; 71046; 80053; 81003; 83690; 83735; 83880; 84484; 85025; 85380; 85610; 85730; 93005; 96374; 96375; 99284; A9270; J1885; J1940

== ENCOUNTER 2023-11-23 01:28 | Day surgery (SDC) | payer MEDICARE, MEDICAID, SELFPAY ==
[2023-11-20 13:43] VITALS: BMI 42.7
[2023-11-23] VITALS (22 sets, daily range): BP systolic 122–170; BP diastolic 78–122; PULSE 67–81; RESP 11–20; TEMP 36.9; O2SAT 95–100; BMI 43.9
[2023-11-23 07:58] LABS: Basophils Percent Auto 0.7 % (0.2-1.2); Eosinophils Absolute Auto 0.1 K/mm3 (0-0.3); Eosinophils Percent Auto 2.2 % (0-4.4); Hematocrit 38.9 % (37.0-47.0); Hemoglobin 12.8 g/dL (12.0-15.0); Immature Granulocyte Absolute 0.02 K/mm3 (0.00-0.031); Immature Granulocyte Percent A 0.5 % (0-0.5); Lymphocytes Absolute Auto 1.17 K/mm3 (0.9-3.2); Lymphocytes Percent Auto 28.3 % (18.3-44.2); Mean Corpuscular HGB Conc 32.9 g/dl (32-36); Mean Corpuscular Hemoglobin 30.6 pg (26-34); Mean Corpuscular Volume 93.1 fl (80-100); Mean Platelet Volume 11.1 fl (7.4-10.4); Monocytes Absolute Auto 0.3 K/mm3 (0.1-0.6); Monocytes Percent Auto 7.3 % (2.6-8.5); Neutrophils Absolute Auto 2.5 K/mm3 (1.3-6.7); Platelet Count Result 189 k/mm3 (150-375); Red Blood Count 4.18 M/mm3 (4.2-5.4); Red Cell Distribution Width 12.8 % (11.5-14.5); White Blood Count 4.1 K/mm3 (4.5-10.0)
[2023-11-23 08:12] LABS: Anion Gap 6 mmol/L (4-12); Blood Urea Nitrogen 10 mg/dL (7-17); Calcium 8.8 mg/dL (8.4-10.2); Carbon Dioxide 30 mmol/L (22-30); Chloride 104 mmol/L (98-107); Estimated CRCL calculation 59 ml/min; Estimated Glomerular Filt Rate 48; Glucose 99 mg/dL (65-110); Potassium 3.9 mmol/L (3.4-5.0); Sodium 140 mmol/L (137-145)
[2023-11-23 10:10] LABS: Activated Clotting Time 232 SEC (74-137)
[2023-11-23 10:10] LABS: Activated Clotting Time 207 SEC (74-137)
--- NOTE | 2023-11-23 10:14 | P.SEDATION_ITS ---
Moderate Sedation Note-Pt Data Patient Data Allergies Allergy/AdvReac Type Severity Reaction Status Date / Time bee venom protein (honey bee) Allergy Severe Anaphylactic Verified 11/23/23 07:27 Shock lisinopril Allergy Intermediate Loss of Verified 11/23/23 07:27 Consciousness vancomycin Allergy Hives Verified 11/23/23 07:27 Home Medications Medication Instructions Recorded Confirmed Type alprazolam 1 mg tablet (Xanax) 1 mg PO TID PRN Anxiety 12/11/19 11/20/23 History quetiapine 400 mg tablet (Seroquel) 800 mg PO HS 08/22/20 11/20/23 History gabapentin 300 mg capsule 600 mg PO HS 10/09/21 11/20/23 History quetiapine 100 mg tablet 100 mg PO DAILY PRN Anxiety 05/31/22 11/20/23 History rilonacept 220 mg subcutaneous 220 mg subcut WEEKLY 08/30/23 11/20/23 History solution (Arcalyst) ondansetron 4 mg disintegrating 4 mg PO Q6H PRN nausea and 09/02/23 11/20/23 Rx tablet vomiting #30 tabs suvorexant 20 mg tablet (Belsomra) 20 mg PO HS 10/16/23 11/20/23 History aspirin 81 mg tablet,delayed 81 mg PO DAILY 11/17/23 11/20/23 History release dicyclomine 10 mg capsule 10 mg PO QID #120 caps 11/17/23 11/20/23 Rx atorvastatin 20 mg tablet 20 mg PO DAILY 11/20/23 11/20/23 History nitroglycerin 0.4 mg sublingual 0.4 mg sublingual Q5M PRN Chest 11/20/23 11/20/23 History tablet Pain venlafaxine 150 mg 300 mg PO QHS 11/20/23 11/20/23 History capsule,extended release 24 hr Current Medications: Active Medications Sodium Chloride (Normal Saline Iv) 500 mls @ 100 mls/hr IV CONT .Q5H POONAM Sedation/Anesthesia: No previous sedation/anesthesia problems (including family history). [facility] Past Medical History Medical History Abscess of buttock Anemia Benign hypertension Cellulitis of left knee Dizziness Duodenal papillary stenosis Elevated TSH Esophageal ulcer History of [place] (myocardial infarction) Hypertension Iron deficiency anemia, unspecified Low kidney function Migraine Myalgia Obstructive sleep apnea Pericardial effusion Periodic limb movement Pseudotumor Behind eye Ulcer of esophagus without bleeding Vitamin D deficiency Surgical History Surgical History H/O elbow surgery left, 2011 H/O inguinal hernia repair H/O lumpectomy Duct removed from 1 breast on the left side H/O nasal polypectomy H/O sinus surgery H/O: hysterectomy History of ankle surgery left, 12/23/2017 and 03/29/2017 Hx of cholecystectomy Status post surgical manipulation of ankle joint Family History Family History Father Asbestosis Bladder cancer Hypertension Family history of chronic obstructive pulmonary disease COPD (chronic obstructive pulmonary disease) Mother Diabetes mellitus Fibromyalgia Syncopal episodes Hypertension Sibling Anxiety Depression Hypertension Other Family history of malignant neoplasm of breast Other Family history of thyroid disease Social History Social History Social History: The patient lives at home with her fiance. She has 2 children ages 21 and 18. Her 18-year-old daughter lives with her ex. She has a 3-year-old grandchild. Benzodiazepine use and narcotic use. She tells me that she is not currently working. Code status full code Years smoked: 0.25 Smoking status: Current every day smoker Tobacco type: e-cigarettes/vaping Second hand tobacco smoke exposure: No Additional smoking assessment comments: 5mg nicotine vape Alcohol intake: never Drinks per week: 1 Alcohol use details: occasional Substance use: never Substance use type: does not use Other substance usage details: occasional Do You Feel Safe in your Home?: Yes Lack of Transportation: No Lack of Food: Sometimes True Current Housing: I Have Housing Concerned About Future Housing: YES Difficulty Paying Gas/Electric Bills: YES Difficulty Paying for Meds: YES Currently Unemployed: No Education: High School Diploma/GED Difficulty w/ Childcare or Family Care: No Living arrangements: with family Occupation/Education: occupation Additional occupation/education comments: disabled Gender identity (if verbalized by the patient): Female Spiritual care concerns: No Mod Sed Physical Exam Physical Exam Pre Procedural Exam: Normal: Airway, Lungs and Abdomen Hours since solid foods: 12 Hours since liquid intake: 8 Mallampati Classification: class III Internal Medicine - PN: Obj Da Vital Signs Vital Signs: Vital Signs - 24 hr 11/23/23 07:00 Temperature 36.9 C Pulse Rate 79 Respiratory Rate 12 Blood Pressure 151/96 H Pulse Oximetry 97 Oxygen Delivery Room Air Meds/Results Medications: Active Medications Generic Name Dose Route Start Last Admin Trade Name Frankieq PRN Reason Stop Dose Admin Sodium Chloride 500 mls @ 100 mls/hr 11/23/23 07:00 Normal Saline Iv IV CONT .Q5H POONAM Labs 11/23/23 07:53 11/23/23 07:53 Labs: Laboratory Results - last 24 hr 11/23/23 11/23/23 11/23/23 07:53 09:48 10:06 WBC 4.1 L RBC 4.18 L Hgb 12.8 Hct 38.9 MCV 93.1 MCH 30.6 MCHC 32.9 RDW 12.8 Plt Count 189 MPV 11.1 H Immature Gran % (Auto) 0.5 Neut % (Auto) 61.0 Lymph % (Auto) 28.3 [place] % (Auto) 7.3 Eos % (Auto) 2.2 Baso % (Auto) 0.7 Lymph # (Auto) 1.17 [place] # (Auto) 0.3 Eos # (Auto) 0.1 Baso # (Auto) 0.0 Abs Immat Gran (auto) 0.02 Absolute Neuts (auto) 2.5 Absolute Nucleated RBC 0.000 Nucleated RBC % 0.0 Activ Coag Time Kaolin 207 H 232 H Sodium 140 Potassium 3.9 Chloride 104 Carbon Dioxide 30 Anion Gap 6 BUN 10 Creatinine 1.20 H Estim Creat Clear Calc 59 Estimated GFR 48 L Glucose 99 Calcium 8.8 ASA Classification/Sedation ASA Classification/Sedation ASA Class: III Emergent: No Risks: Risks, benefits and alternatives explained and patient/family accepted plan for sedation. Patient re-evaluated immediately prior to sedation.
--- NOTE | 2023-11-23 10:15 | WPDHPUPDATE1 ---
History and Physical Update Update Date/Time: 11/23/23 08:15 History and Physical has been reviewed, including an updated exam of the patient. There are NO changes in the patient's condition. Risks, benefits, and alternatives have been discussed and questions answered. Patient agrees to proceed with procedure.
--- NOTE | 2023-11-23 10:15 | WPDCARDPROC ---
Cardiac Cath Procedure Note Date of procedure:: 11/23/23 Performing physician:: CATHETERIZATION LABORATORY REPORT Procedure Date: 11/23/2023 Referring Physician: Dr. Granado Anesthesia: Versed and Fentanyl were ordered and given in my presence at 0908, procedure ended at 1011. Supervision of nurse monitored moderate sedation with 2mg Versed and 150mcg Fentanyl was provided for 63 minutes. Pre-op Diagnosis: Abnormal CCTA Post-op Diagnosis: Abnormal CCTA Procedure(s): Left heart catheterization with coronary angiography iFR Percutaneous Coronary Intervention Access Site: Right radial artery with TR band for hemostasis Right CHANGE CONTROL SPECIALIST with Angioseal for hemostasis Brief History and Clinical Indications: 48 yo woman with recurrent pericardial effusions sp window here with angina to under [facility] with possible PCI All risks, benefits and alternatives to left heart catheterization with or without percutaneous coronary intervention was discussed at length with the patient. Risk of complications including but not limited to bleeding, infection, arrhythmia, stroke, worsening kidney function, blood loss, groin hematoma, limb loss, emergency coronary artery bypass grafting, and even were discussed with the patient and all questions were answered. The patient understood and wished to proceed. Time out called, patient name, date of , medical record number, allergies, procedure performed, identify Associate Professor Of Biostatistics, patient and staff member concurred with accurate data, procedure carried on. Findings: LEFT HEART CATHETERIZATION FINDINGS: 1. Left main: The left main coronary artery is widely patent without any significant obstructive disease. 2. Left anterior descending: The LAD gives off 1 large diagonal branch that branches off into 2 diagonals. The diagonals have luminal irregularities. The mid LAD has a severe napkin ring like lesion with 70-80% stenosis 3. Left circumflex: The left circumflex artery has an aberrant course coming off the right coronary artery. There is no significant obstructive disease. 4. Right coronary artery: The RCA has mild luminal irregularities without any significant obstructive angiographic disease. The RCA is the dominant vessel. 5. Left ventricle: A. End-diastolic pressure 21 mmHg. B. LV gram deferred. C. No significant gradient across aortic valve on catheter pullback. 6. Opening AO pressure 139/113 and closing AO pressure 189/116 7. No significant obstructive disease in the right iliofemoral artery Description of Procedure: Informed consent signed and placed in the chart. Patient transferred to oil field laborer room. Prepped and draped in usual sterile fashion. 2% lidocaine injected subcutaneously in right wrist area. 22-gauge venipuncture catheter used to access the right radial artery with the Seldinger technique. 6-FR slender sheath placed in right radial artery. Nitroglycerin 200mcg, Verapamil 2.5mg, and Heparin 5000U was given intraarterial through the sheath. J wire advanced under fluoroscopy. Given her short aortic root and sharp angulated aortic arch, a Versacore wire was used to access the aortic root. 5Fr TIG diagnostic catheter was used to engage the right coronary artery. Given her anatomy, LMCA could not be engaged from the radial approach. Right CHANGE CONTROL SPECIALIST access was obtained with a 6Fr micropuncture sheath. 5Fr FL3.5 was used to engage the LMCA. Multiple orthogonal angiogram obtained and reviewed CLS 3.0 guide catheter dropped into the left ventricle and an LVEDP was obtained. Hemostasis of the right radial artery was achieved by application of TR band. Angioseal seal was used for the right CHANGE CONTROL SPECIALIST Procedure Description for PCI: Heparin was used for anticoagulation (ACT maintained above 250) Patient loaded with heparin at 70 units/kg. 6F CLS 3.0 guide catheter was used to intubate the LMCA 0.014 OmniWire was passed into the left main coronary artery where the pressure was normalized and then it was passed across the lesion. Subsequent iFR was 0.83 and decision was made to stent the lesion given its high risk features and hemodynamic significance. A 3.0 mm x 18 mm [place] SHEFALI was successfully deployed into mid LAD The stent was post-dilated with a 3.25 mm x 12 mm NC balloon inflated to high PETR Intracoronary NTG was administered Follow-up angiograms showed an excellent result Coronary wire and guide-catheter were removed Pre-procedure - LAURENT 3 flow Post-procedure - LAURENT 3 flow No angiographic complications identified. Right iliofemoral angiogram was performed Assessment: Obstructive CAD Post Operative Condition: Stable No significant blood loss Disposition: Home after recovery Plan: The patient will be monitored in the recovery area. DAPT for 1 year followed by ASA indefinitely. Roel Diehl Interventional Cardiology
[2023-11-23] MEDS: ONDANSETRON INJ 4 MG/2 ML VIAL (10:41)
[2023-11-23] MEDS: ONDANSETRON INJ 4 MG/2 ML VIAL IV PUSH (10:44)
[2023-11-23] MEDS: FAMOTIDINE 20 MG/2 ML VIAL 10 MG IV PUSH (10:55)
[2023-11-23] MEDS: SODIUM CHLORIDE 0.9% IV 1,000 ML 125 ML IV CONT (11:02)
[2023-11-23] MEDS: ACETAMINOPHEN 325 MG TABLET 650 MG PO (14:15)
[2023-11-23] MEDS: NIFEdipine 10 MG CAPSULE PO (14:29)
--- NOTE | 2023-11-23 16:00 | PC.NURSE ---
oozing noted to right wrist dressing. bleeding on dressing marked appeared to be done bleeding. dr keen called orders received to replace tr band for 30 min with 5ml of air and then remove and ok to d/c if pt stable. band replaced and pt will be monitored. pt educated repeatedly regarding restrictions of both right arm and right leg. pt remains forgetful about restrictions and continues to use arm and leg against despite restrictions. pt educated on risks of bleeding in regards to continued use against restrictions. pt and v/u.
== END 2023-11-23 16:40 | disposition home or self-care (01) ==
PROVIDERS: PCP Family Medicine; Visit Provider Internal Medicine
PROC: 4A023N7 Measurement of Cardiac Sampling and Pressure, Left Heart, Percutaneous Approach (ICD-10-PCS; CPT 93452; principal; 2023-11-23 08:30)
PROC: 4A033BC Measurement of Arterial Pressure, Coronary, Percutaneous Approach (ICD-10-PCS; CPT 93571; 2023-11-23 08:30)
PROC: (CPT 36140; 2023-11-23 08:30)
DX: I25.10 Atherosclerotic heart disease of native coronary artery without angina pectoris (principal); I10 Essential (primary) hypertension; I25.2 Old myocardial infarction; G47.33 Obstructive sleep apnea (adult) (pediatric); Z79.82 Long term (current) use of aspirin; F17.290 Nicotine dependence, other tobacco product, uncomplicated
CPT/HCPCS: 36140; 36415; 80048; 85025; 93458; 93571; A9270; C1725; C1760; C1769; C1874; C1887; C1894; C9600; G0269; J1644; J2003; J2250; J2305; J2405; J3010; J7030; J7040

== ENCOUNTER 2023-11-27 16:00 | Emergency (ER) | payer MEDICARE, MEDICAID, SELFPAY ==
[2023-11-27 16:21] VITALS: PULSE 99; RESP 16; TEMP 36.3; O2SAT 99
--- NOTE | 2023-11-27 16:25 | ECG_ITS ---
Test Date: 2023-11-27 16:29:24 Measurements Intervals [place] Rate: 90 P: 16 [place]: 134 QRS: -3 QRSD: 81 T: 119 QT: 344 QTc: 422 Interpretive Statements SINUS RHYTHM LEFT VENTRICULAR HYPERTROPHY AND ST-T CHANGE [VOLTAGE CRITERIA PLUS ST/T ABNORMALITY] SUSPECT PREVIOUSINFERIOR MYOCARDIAL INFARCTION ABNORMAL ECG Compared to ECG 10/20/2023 14:54:09 No significant changes Electronically Signed On 11-28-2023 09:42:19 CDT by Kt Oliver M.D.
[2023-11-27 17:03] VITALS: BP 146/85; PULSE 87; RESP 14; O2SAT 99
--- NOTE | 2023-11-27 17:26 | ED.SKABFB ---
HPI - Skin/Abscess/Foreign Bdy General Chief complaint: Skin/Abscess/Foreign Body Stated complaint: I have a knot on the back of my thigh Time Seen by Provider: 11/27/23 16:59 History of Present Illness HPI narrative: Pt is a 48-year-old female who presents to the ER with complaints of a left upper thigh posterior wound that she 1st noticed a couple days ago. She reports she had cardiac surgery and had a stent placed on November 22. Patient reports she has mild chest pain at this time. She reports she has a history of abscesses and cellulitis. Patient reports the pain is manageable but tender. She denies any current shortness of breath, fevers, weakness/tingling/numbness. Related Data Home Medications Medication Instructions Recorded Confirmed alprazolam 1 mg tablet (Xanax) 1 mg PO TID PRN Anxiety 12/11/19 11/20/23 quetiapine 400 mg tablet (Seroquel) 800 mg PO HS 08/22/20 11/20/23 gabapentin 300 mg capsule 600 mg PO HS 10/09/21 11/20/23 quetiapine 100 mg tablet 100 mg PO DAILY PRN Anxiety 05/31/22 11/20/23 rilonacept 220 mg subcutaneous 220 mg subcut WEEKLY 08/30/23 11/20/23 solution (Arcalyst) suvorexant 20 mg tablet (Belsomra) 20 mg PO HS 10/16/23 11/20/23 aspirin 81 mg tablet,delayed 81 mg PO DAILY 11/17/23 11/20/23 release atorvastatin 20 mg tablet 20 mg PO DAILY 11/20/23 11/20/23 nitroglycerin 0.4 mg sublingual 0.4 mg sublingual Q5M PRN Chest 11/20/23 11/20/23 tablet Pain venlafaxine 150 mg 300 mg PO QHS 11/20/23 11/20/23 capsule,extended release 24 hr Allergies Allergy/AdvReac Type Severity Reaction Status Date / Time bee venom protein (honey bee) Allergy Severe Anaphylactic Verified 11/23/23 07:27 Shock lisinopril Allergy Intermediate Loss of Verified 11/23/23 07:27 Consciousness vancomycin Allergy Hives Verified 11/23/23 07:27 Review of Systems Review of Systems: All systems reviewed & are unremarkable except as noted in HPI and below PMFSH Past Medical History Medical History Abscess of buttock Anemia Benign hypertension Cellulitis of left knee Dizziness Duodenal papillary stenosis Elevated TSH Esophageal ulcer History of [place] (myocardial infarction) Hypertension Iron deficiency anemia, unspecified Low kidney function Migraine Myalgia Obstructive sleep apnea Pericardial effusion Periodic limb movement Pseudotumor Behind eye Ulcer of esophagus without bleeding Vitamin D deficiency Surgical History Surgical History H/O elbow surgery left, 2011 H/O inguinal hernia repair H/O lumpectomy Duct removed from 1 breast on the left side H/O nasal polypectomy H/O sinus surgery H/O: hysterectomy History of ankle surgery left, 12/23/2017 and 03/29/2017 Hx of cholecystectomy Status post surgical manipulation of ankle joint Family History Family History Father Asbestosis Bladder cancer Hypertension Family history of chronic obstructive pulmonary disease COPD (chronic obstructive pulmonary disease) Mother Diabetes mellitus Fibromyalgia Syncopal episodes Hypertension Sibling Anxiety Depression Hypertension Other Family history of malignant neoplasm of breast Other Family history of thyroid disease Social History Social History Social History: The patient lives at home with her fiance. She has 2 children ages 21 and 18. Her 18-year-old daughter lives with her ex. She has a 3-year-old grandchild. Benzodiazepine use and narcotic use. She tells me that she is not currently working. Code status full code Years smoked: 0.25 Smoking status: Current every day smoker Tobacco type: e-cigarettes/vaping Second hand tobacco smoke exposure: No Additional smoking assessment comments: 5mg nicotine vape Alcohol int
[2023-11-27 17:58] LABS: Basophils Percent Auto 0.3 % (0.2-1.2); Eosinophils Absolute Auto 0.1 K/mm3 (0-0.3); Eosinophils Percent Auto 1.7 % (0-4.4); Hematocrit 36.7 % (37.0-47.0); Hemoglobin 11.8 g/dL (12.0-15.0); Immature Granulocyte Absolute 0.02 K/mm3 (0.00-0.031); Immature Granulocyte Percent A 0.3 % (0-0.5); Lymphocytes Absolute Auto 1.23 K/mm3 (0.9-3.2); Lymphocytes Percent Auto 18.7 % (18.3-44.2); Mean Corpuscular HGB Conc 32.2 g/dl (32-36); Mean Corpuscular Volume 93.4 fl (80-100); Mean Platelet Volume 11.6 fl (7.4-10.4); Monocytes Absolute Auto 0.4 K/mm3 (0.1-0.6); Monocytes Percent Auto 6.5 % (2.6-8.5); Neutrophils Absolute Auto 4.8 K/mm3 (1.3-6.7); Neutrophils Percent Auto 72.5 % (45.5-73.1); Platelet Count Result 195 k/mm3 (150-375); Red Blood Count 3.93 M/mm3 (4.2-5.4); Red Cell Distribution Width 12.5 % (11.5-14.5); White Blood Count 6.6 K/mm3 (4.5-10.0)
[2023-11-27 18:06] LABS: INR 0.9; Prothrombin Time 12.8 Seconds (11.1-14.7)
[2023-11-27 18:07] LABS: Partial Thromboplastin Time 24.9 Seconds (22.3-36.8)
[2023-11-27 18:15] LABS: Lactic Acid Reflex 1.5 mmol/L (0.7-2.0)
[2023-11-27 18:20] LABS: Alanine Aminotransferase 29 U/L (6-35); Albumin Level 4.3 g/dL (3.5-5.1); Alkaline Phosphatase 66 U/L (38-126); Anion Gap 9 mmol/L (4-12); Aspartate Amino Transferase 37 U/L (14-36); Bilirubin,Total 0.5 mg/dL (0.2-1.3); Blood Urea Nitrogen 9 mg/dL (7-17); CRP 1.8 mg/dL (<1.0); Calcium 9.3 mg/dL (8.4-10.2); Carbon Dioxide 26 mmol/L (22-30); Chloride 104 mmol/L (98-107); Estimated CRCL calculation 55 ml/min; Estimated Glomerular Filt Rate 44; Glucose 64 mg/dL (65-110); Potassium 3.5 mmol/L (3.4-5.0); Sodium 139 mmol/L (137-145)
--- NOTE | 2023-11-27 18:22 | PC.NURSE ---
Unable to obtain 2nd set of blood cx. Provider verbally notified.
[2023-11-27] MEDS: ceFAZolin 1 GM/NS 50 ML 1 GM/50 ML BAG IVPB (18:42)
[2023-11-27] MEDS: SODIUM CHLORIDE 0.9% IV 3,300 ML/1,000 ML BAG 999 ML IV CONT (18:43)
[2023-11-27] MEDS: KETOROLAC 15 MG/ML VIAL (*BKC) IV PUSH (18:43)
[2023-11-27 18:47] VITALS: BP 137/98; PULSE 76; RESP 18; TEMP 36.8; O2SAT 100
[2023-11-27] MEDS: HYDROcodone/acetaminophen (*CRX) 5-325 MG TABLET 1 TAB PO (19:46)
[2023-11-27 19:51] VITALS: BP 114/86; PULSE 86; RESP 14; TEMP 36.7; O2SAT 99
== END 2023-11-27 19:54 | disposition home or self-care (01) ==
PROVIDERS: Emergency Provider Registered Nurse; PCP Family Medicine
DX: L03.116 Cellulitis of left lower limb (principal); I10 Essential (primary) hypertension; I25.2 Old myocardial infarction; E55.9 Vitamin D deficiency, unspecified; D50.9 Iron deficiency anemia, unspecified; G47.33 Obstructive sleep apnea (adult) (pediatric); F17.290 Nicotine dependence, other tobacco product, uncomplicated; Z90.710 Acquired absence of both cervix and uterus; Z90.49 Acquired absence of other specified parts of digestive tract; Z79.899 Other long term (current) drug therapy; Z79.82 Long term (current) use of aspirin
CPT/HCPCS: 36415; 80053; 83605; 85025; 85610; 85730; 86140; 87040; 93005; 96365; 96375; 99284; A9270; J0690; J1885; J7030